=== PATIENT | male | born 1955 | race Caucasian/White ===

== ENCOUNTER 2016-03-26 08:22 | Emergency (ER) | payer BC ==
[~2016-03-26 08:22] MED LIST: AMIO20TA PO; ASPI81TA85 PO; COZA50TA PO; DIGO0.12 PO; ELIQ5TAB PO; FURO40TA2 PO; JANU100T PO; LEVO75TA4 PO; METF1000 PO; OMEG100011 PO; PRAD150C PO; RANI1TAB6 PO; SIMV10TA2 PO; SPIR25TA2 PO; VITA-112 PO
[2016-03-26 09:42] LABS: BASO % 0.4 % (0.0-1.0); EOS # 0.3 K/mm3 (0.0-0.50); EOS % 2.5 % (0.0-3.0); LARGE UNSTAINED CELL # 0.2 K/mm3 (0.0-0.4); LARGE UNSTAINED CELL % 1.4 % (0.0-4.0); LYMPH # 1.4 K/mm3 (1.5-4.5); LYMPH % 12.5 % (24.0-44.0); MEAN CORPUSCULAR HEMOGLOBIN 31.1 pg (27.0-33.0); MEAN CORPUSCULAR HGB CONC 34.1 g/dl (32.0-36.5); MEAN CORPUSCULAR VOLUME 91.1 fl (80.0-96.0); MONO # 0.5 K/mm3 (0.0-0.8); MONO % 4.7 % (0.0-5.0); NEUTROPHILS # 8.6 K/mm3 (1.8-7.7); NEUTROPHILS % 78.4 % (36.0-66.0); PLATELET COUNT, AUTOMATED 228 k/mm3 (150-450); RED CELL DISTRIBUTION WIDTH 12.2 % (11.5-14.5); WHITE BLOOD COUNT 10.9 K/mm3 (4.0-10.0)
[2016-03-26 09:46] LABS: INR 1.11
--- NOTE | 2016-03-26 10:03 | REP ---
ACUTE ABDOMINAL SERIES: 03/26/2016. Comparison: Chest x-ray 12/10/2015, acute abdominal series 04/22/2014. Clinical history: Trauma. PA chest: The lung tomlin are adequately inflated. There is no effusion, infiltrate, atelectasis or mass. Heart, mediastinal, hilar contours were normal and unchanged. No widened mediastinum. The aorta is smoothly margined without aneurysm. Airway intact. There is no vascular redistribution or edema. Visualized bones including clavicles, ribs, scapula and that portion of spine included were grossly unremarkable. No free air under the diaphragm. Flat upright abdomen: The gas pattern is nonspecific with scattered stool and gas throughout the colon without dilatation. There are anastomotic suture lines in the left upper quadrant above the iliac crest from prior small bowel surgery, these are unchanged compared to 04/22/2014. There are pelvic phleboliths evident but no mass, abnormal calcifications over the renal fossae, air fluid levels or free air. There are degenerative changes in the spine and hips although mild. Impression: 1. Nonspecific gas pattern without obstruction, mass or free air. 2. Anastomotic suture lines left upper quadrant from prior small bowel anastomosis, appearance unchanged from 2015 exam. 3. No acute bony finding. 4. PA chest without acute abnormality. Signed by Abdullahi Alvarado MD 03/26/2016 12:00 P
[2016-03-26 10:13] LABS: ANION GAP 8 MEQ/L (8-16); BLOOD UREA NITROGEN 21 MG/DL (7-18); CALCIUM LEVEL 8.9 MG/DL (8.5-10.1); CARBON DIOXIDE LEVEL 30 MEQ/L (21-32); CHLORIDE LEVEL 105 MEQ/L (98-107); GLOMERULAR FILTRATION RATE > 60.0 (>56); GLUCOSE, FASTING 172 MG/DL (70-105); POTASSIUM SERUM 4.7 MEQ/L (3.5-5.1); SODIUM LEVEL 143 MEQ/L (136-145)
--- NOTE | 2016-03-26 10:46 | EDDOCDS ---
Nurse's Notes [facility] Name: Edwin Strickland Age: 60 yrs Sex: Male : 1955 Arrival Date: 03/26/2016 Time: 08:22 Bed I4 / M4 Private MD: Papa Palacio Diagnosis: Contusion of lower back and pelvis;Contusion of right back wall of thorax Presentation: 03/26 08:28 Presenting complaint: Patient states: Right low pain from fall on icy steps this am, mlb1 denies hitting head denies LOC. Acute neurological deficits are not present. Mechanism of Injury: Fall from standing position. Adult Sepsis Screening: The patient does not have new or worsening altered mentation. Patient's respiratory rate is less than 22. Systolic blood pressure is greater than 100. Patient has a qSOFA score of 0- Negative Sepsis Screen. Suicide/Homicide risk assessment- the patient denies having any suicidal and/or homicidal ideations and does not present with any other emotional, behavioral or mental health complaints. 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 Transition of care: patient was not received from another setting of care. 08:28 Acuity: LUCIANO Level 4 mlb1 08:28 Method Of Arrival: Walkin/Carried/Asstd mlb1 Triage Assessment: 08:33 General: Appears in no apparent distress, Behavior is cooperative. Pain: Location: mlb1 right low back Pain currently is 10 out of 10 on a pain scale. Pt Declines HIV testing. Neurological: No deficits noted. Historical: - Allergies: no known allergies; - Home Meds: 1. simvastatin 10 mg Oral tab 1 tab once daily 2. amiodarone 200 mg Oral tab 1 tab once daily 3. digoxin 125 mcg Oral tab 1 tab once daily 4. spironolactone 25 mg Oral tab 0.5 tab once daily 5. metformin 1,000 mg Oral tab 1 tab 2 times per day 6. furosemide 40 mg Oral tab 1 tab once daily 7. Cozaar 50 mg Oral tab 1 tab once daily 8. Januvia 100 mg oral tab 1 tab once daily 9. levothyroxine 75 mcg Oral tab 1 tab once daily 10. Eliquis 5 mg oral tab 1 tab 2 times per day 11. Vitamin D Oral 1,000 unit daily 12. aspirin 81 mg Oral tab 1 tab once daily 13. ranitidine HCl 150 mg Oral cap 1 cap once daily - PMHx: Diabetes - NIDDM: controlled; CHF; Hypothyroidism; Hypertension; Atrial Fib; - PSHx: Hernia repair; wrist surgery; benign fatty tumor removal; septoplasty; - Social history: Smoking status: Patient states was never smoker of tobacco. No barriers to communication noted, The patient speaks fluent Icelandic, Speaks appropriately for age. - : The pt / caregiver states he / she is on anticoagulants: Eliquis Home medication list is obtained from the patient. - Exposure Risk Screening:: None identified. Screenin:19 Screening information is obtained from the patient. Fall risk: No risks identified. jjr Assistance ADL's: requires no assistance with activities of daily living. Abuse/DV Screen: The patient / caregiver reports he/she is: not in a situation that causes fear, pain or injury. Nutritional screening: No deficits noted. Advance Directives: There is no active DNR order. home support is adequate. Assessment: 09:19 General: Appears uncomfortable, well nourished, well groomed, Behavior is appropriate jjr for age. Respiratory: No deficits noted. Derm: Skin is pink, warm & dry. Musculoskeletal: Swelling absent Reports pain in right low back. 10:17 General: Appears in no apparent distress, continues to sit in chair in room, at jjr bedside, denies needs at this time, continues to report right low back pain. Vital Signs: 08:33 BP 172 / 85; Pulse 70; Resp 16; Temp 98.3(TE); Pulse Ox 97% on R/A; Weight 111.13 kg mlb1 (R); Height 5 ft. 8 in. (172.72 cm) (R); Pain 10/10; 10:44 BP 145 / 79; Pulse 58; Resp 18; Temp 97.3(O); Pulse Ox 95% on R/A; Pain 10/10; jjr 08:33 Body Mass Index 37.25 (111.13 kg, 172.72 cm) [facility] Vitals: 08:33 Log In Time: March 26, 2016 at 08:22. [facility] ED Course: 08:24 Patient visited by Nancy Cevallos Reg. lg 08:24 Papa Palacio is Private Physician. lg 08:24 Patient moved to Waiting lg 08:27 Patient visited by Radames Hughes RN. mlb1 08:28 Triage Initiated mlb1 08:34 Patient visited by Radames Hughes RN. mlb1 08:34 Patient moved to I4 / M4 mlb1 08:35 James Constantino PA is PHCP. btw 08:35 Judi Salinas MD is Attending Physician. btw 08:55 Patient visited by James Constantino PA. btw 09:19 Patient visited by Hanna Stinson RN. jjr 09:19 The patient / caregiver is instructed regarding the plan of care and ED course. jjr 09:26 Patient visited by Musa Gannon PCA. jlf 09:26 CBC with Diff Sent. jlf 09:26 Pt & Aptt Sent. jlf 09:26 BMP Sent. jlf 09:32 Patient name changed from Edwin\S\Cong\S\Raso\S\ to Edwin\S\ \S\Raso. EDMS 09:51 Patient visited by Musa Gannon PCA. jlf 10:17 Patient visited by Hanna Stinson RN. jjr 10:29 Papa Palacio is Referral Physician. btw 10:33 Abdomen, Flat\E\Upright,PA Chest Returned. EDMS 10:44 No IV's were initiated during this patient's visit. No procedures done that require jjr assistance. Point of Care Testing: Urine Dip: 09:51 pH: 5; ; Specific [place]: 1.015; Ketones: Negative; Glucose: Negative; Protein: jjr Negative; Leukocytes: Negative; Nitrite: Negative ; Blood: Negative; Bilirubin: Negative ; Urobilinogen: Normal Ranges: Order Results: Lab Order: BMP; SPEC'M 03/26/16 09:24 Test: GLUCOSE, FASTING; Value: 172; Range: 70-105; Abnormal: Above high normal; Units: MG/DL; Status: F Test: BLOOD UREA NITROGEN; Value: 21; Range: 7-18; Abnormal: Above high normal; Units: MG/DL; Status: F Test: CREATININE FOR GFR; Value: 1.30; Range: 0.70-1.30; Units: MG/DL; Status: F Test: GLOMERULAR FILTRATION RATE; Value: > 60.0; Range: >56; Status: F Test: SODIUM LEVEL; Value: 143; Range: 136-145; Units: MEQ/L; Status: F Test: POTASSIUM SERUM; Value: 4.7; Range: 3.5-5.1; Units: MEQ/L; Status: F Test: CHLORIDE LEVEL; Value: 105; Range: 98-107; Units: MEQ/L; Status: F Test: CARBON DIOXIDE LEVEL; Value: 30; Range: 21-32; Units: MEQ/L; Status: F Test: ANION GAP; Value: 8; Range: 8-16; Units: MEQ/L; Status: F Test: CALCIUM LEVEL; Value: 8.9; Range: 8.5-10.1; Units: MG/DL; Status: F Test Note: ; Units are mL/min/1.73 m2 Chronic Kidney Disease Staging per NKF: Stage I & II GFR >=60 Normal to Mildly Decreased Stage III GFR 30-59 Moderately Decreased Stage IV GFR 15-29 Severely Decreased Stage V GFR <15 Very Little GFR Left ESRD GFR <15 on SPLIT LEATHER MOSSER Lab Order: Pt & Aptt; SPEC'M 03/26/16 09:24 Test: PROTHROMBIN TIME; Value: 14.4; Range: 12.3-14.5; Units: SECONDS; Status: F Test: INR; Value: 1.11; Status: F Test: PARTIAL THROMBOPLASTIN TIME; Value: 31.2; Range: 26.6-37.1; Units: SECONDS; Status: F Test Note: ; THERAPUTIC HUMAN INR VALUES INDICATIONS NORMAL RANGES PROPHYLAXIS/TREATMENT OF: VENOUS THROMBOSIS 2.0-3.0 PULMONARY EMBOLISM 2.0-3.0 PREVENTION OF SYSTEMIC EMBOLISM FROM: TISSUE HEART VALVES 2.0-3.0 ACUTE MYOCARDIAL INFARCTION 2.0-3.0 VALVULAR HEART DISEASE 2.0-3.0 ATRIAL FIBRILLATION 2.0-3.0 MECHANICAL VALVES(HIGH RISK) 2.5-3.5 RECURRENT MYOCARDIAL INFARCTION 2.5-3.5 Lab Order: CBC with Diff; SPEC'03/26/16 09:24 Test: WHITE BLOOD COUNT; Value: 10.9; Range: 4.0-10.0; Abnormal: Above high normal; Units: K/mm3; Status: F Test: RED BLOOD COUNT; Value: 5.09; Range: 4.30-6.10; Units: M/mm3; Status: F Test: HEMOGLOBIN; Value: 15.8; Range: 14.0-18.0; Units: g/dl; Status: F Test: HEMATOCRIT; Value: 46.4; Range: 42.0-52.0; Units: %; Status: F Test: MEAN CORPUSCULAR VOLUME; Value: 91.1; Range: 80.0-96.0; Units: fl; Status: F Test: MEAN CORPUSCULAR HEMOGLOBIN; Value: 31.1; Range: 27.0-33.0; Units: pg; Status: F Test: MEAN CORPUSCULAR HGB CONC; Value: 34.1; Range: 32.0-36.5; Units: g/dl; Status: F Test: RED CELL DISTRIBUTION WIDTH; Value: 12.2; Range: 11.5-14.5; Units: %; Status: F Test: PLATELET COUNT, AUTOMATED; Value: 228; Range: 150-450; Units: k/mm3; Status: F Test: NEUTROPHILS %; Value: 78.4; Range: 36.0-66.0; Abnormal: Above high normal; Units: %; Status: F Test: LYMPH %; Value: 12.5; Range: 24.0-44.0; Abnormal: Below low normal; Units: %; Status: F Test: MONO %; Value: 4.7; Range: 0.0-5.0; Units: %; Status: F Test: EOS %; Value: 2.5; Range: 0.0-3.0; Units: %; Status: F Test: BASO %; Value: 0.4; Range: 0.0-1.0; Units: %; Status: F Test: LARGE UNSTAINED CELL %; Value: 1.4; Range: 0.0-4.0; Units: %; Status: F Test: NEUTROPHILS #; Value: 8.6; Range: 1.8-7.7; Abnormal: Above high normal; Units: K/mm3; Status: F Test: LYMPH #; Value: 1.4; Range: 1.5-4.5; Abnormal: Below low normal; Units: K/mm3; Status: F Test: MONO #; Value: 0.5; Range: 0.0-0.8; Units: K/mm3; Status: F Test: EOS #; Value: 0.3; Range: 0.0-0.50; Units: K/mm3; Status: F Test: BASO #; Value: 0.0; Range: 0.0-0.2; Units: K/mm3; Status: F Test: LARGE UNSTAINED CELL #; Value: 0.2; Range: 0.0-0.4; Units: K/mm3; Status: F Radiology Order: Abdomen, Flat\E\Upright,PA Chest Test: Abdomen, Flat\E\Upright,PA Chest REASON FOR EXAMINATION: Trauma; ACUTE ABDOMINAL SERIES: 03/26/2016.; ; Comparison: Chest x-ray 12/10/2015, acute abdominal series 04/22/2014.; ; Clinical history: Trauma.; ; PA chest:; The lung tomlin are adequately inflated. There is no effusion, infiltrate,; atelectasis or mass. Heart, mediastinal, hilar contours were normal and; unchanged. No widened mediastinum. The aorta is smoothly margined without; aneurysm. Airway intact. There is no vascular redistribution or edema.; Visualized bones including clavicles, ribs, scapula and that portion of spine; included were grossly unremarkable. No free air under the diaphragm.; ; Flat upright abdomen:; The gas pattern is nonspecific with scattered stool and gas throughout the colon; without dilatation. There are anastomotic suture lines in the left upper; quadrant above the iliac crest from prior small bowel surgery, these are; unchanged compared to 04/22/2014. There are pelvic phleboliths evident but no; mass, abnormal calcifications over the renal fossae, air fluid levels or free; air. There are degenerative changes in the spine and hips although mild.; ; Impression:; 1. Nonspecific gas pattern without obstruction, mass or free air.; 2. Anastomotic suture lines left upper quadrant from prior small bowel; anastomosis, appearance unchanged from 2015 exam.; 3. No acute bony finding.; 4. PA chest without acute abnormality.; ; Unreviewed; Outcome: 10:30 Discharge ordered by Provider. btw 10:44 Discharge Assessment: patient administered narcotics - no. The following High Risk jjr Discharge criteria are identified: None. Discharged to home ambulatory, with significant other. Condition: stable. Discharge instructions given to patient, Instructed on discharge instructions, follow up and referral plans. medication usage, Demonstrated understanding of instructions, medications, Prescriptions given X 2. No special radiology studies were completed. Property sent home with patient. 10:45 Patient left the ED. jjr Signatures: Dispatcher [employer] EDNancy Garner, Akash Reg Radames Marte RN RN mlb1 Hanna Stinson RN RN jjr James Constantino PA PA btw [place], Jordain, PCA PCA jlrodri Corrections: (The following items were deleted from the chart) 08:34 08:28 Presenting complaint: Patient states: Right low pain from fall on icy steps this mlb1 am mlb1 MTDD
--- NOTE | 2016-03-26 10:46 | EDDOCDS ---
Physician Documentation [facility] Name: Edwin Strickland Age: 60 yrs Sex: Male : 1955 Arrival Date: 03/26/2016 Time: 08:22 Bed I4 / M4 Private MD: Papa Palacio Disposition: 03/26/16 10:30 Discharged to Home/Self Care. Impression: Contusion of lower back and pelvis, Contusion of right back wall of thorax. - Condition is Stable. - Discharge Instructions: Back Pain, Adult, Contusion. - Prescriptions for Tramadol 50 mg Oral Tablet - take 1 tablet by ORAL route 4 times per day As needed MDD: 4 tabs; 20 tablet. Robaxin- 750 750 mg Oral Tablet - take 1 tablet by ORAL route every 6 hours As needed; 40 tablet. - Medication Reconciliation, Local Pharmacy Hours form. - Follow up: Papa Palacio; When: 1 - 2 days; Reason: Further diagnostic work-up, Recheck today's complaints, Continuance of care. - Problem is new. - Symptoms are unchanged. Historical: - Allergies: no known allergies; - Home Meds: 1. simvastatin 10 mg Oral tab 1 tab once daily 2. amiodarone 200 mg Oral tab 1 tab once daily 3. digoxin 125 mcg Oral tab 1 tab once daily 4. spironolactone 25 mg Oral tab 0.5 tab once daily 5. metformin 1,000 mg Oral tab 1 tab 2 times per day 6. furosemide 40 mg Oral tab 1 tab once daily 7. Cozaar 50 mg Oral tab 1 tab once daily 8. Januvia 100 mg oral tab 1 tab once daily 9. levothyroxine 75 mcg Oral tab 1 tab once daily 10. Eliquis 5 mg oral tab 1 tab 2 times per day 11. Vitamin D Oral 1,000 unit daily 12. aspirin 81 mg Oral tab 1 tab once daily 13. ranitidine HCl 150 mg Oral cap 1 cap once daily - PMHx: Diabetes - NIDDM: controlled; CHF; Hypothyroidism; Hypertension; Atrial Fib; - PSHx: Hernia repair; wrist surgery; benign fatty tumor removal; septoplasty; - Social history: Smoking status: Patient states was never smoker of tobacco. No barriers to communication noted, The patient speaks fluent Palauan, Speaks appropriately for age. - : The pt / caregiver states he / she is on anticoagulants: Eliquis Home medication list is obtained from the patient. - Exposure Risk Screening:: None identified. Vital Signs: 03/26 08:33 BP 172 / 85; Pulse 70; Resp 16; Temp 98.3(TE); Pulse Ox 97% on R/A; Weight 111.13 kg / mlb1 245 lbs (R); Height 5 ft. 8 in. (172.72 cm) (R); Pain 10/10; 10:44 BP 145 / 79; Pulse 58; Resp 18; Temp 97.3(O); Pulse Ox 95% on R/A; Pain 10/10; jjr 08:33 Body Mass Index 37.25 (111.13 kg, 172.72 cm) mlb1 MDM: 09:01 Urine Dip ordered. btw 09:02 BMP Ordered. EDMS 09:02 Pt & Aptt Ordered. EDMS 09:02 CBC with Diff Ordered. EDMS 09:03 Abdomen, Flat\E\Upright,PA Chest Ordered. EDMS 09:18 Financial registration complete. lg 10:25 BMP Reviewed. btw 10:25 CBC with Diff Reviewed. btw 10:25 Pt & Aptt Reviewed. btw Point of Care Testing: Urine Dip: 09:51 pH: 5; ; Specific [place]: 1.015; Ketones: Negative; Glucose: Negative; Protein: jjr Negative; Leukocytes: Negative; Nitrite: Negative ; Blood: Negative; Bilirubin: Negative ; Urobilinogen: Normal Ranges: Signatures: Dispatcher [employer] EDNancy Garner, Radames Mayer lg, RN RN mlb1 Hanna Stinson RN RN James Bell, CHARISSE PA btw MTDD
--- NOTE | 2016-03-28 11:46 | EDDOCDS ---
Physician Documentation [facility] Name: Edwin Strickland Age: 60 yrs Sex: Male : 1955 Arrival Date: 03/26/2016 Time: 08:22 Bed I4 / M4 Private MD: Papa Palacio Disposition: 03/26/16 10:30 Discharged to Home/Self Care. Impression: Contusion of lower back and pelvis, Contusion of right back wall of thorax. - Condition is Stable. - Discharge Instructions: Back Pain, Adult, Contusion. - Prescriptions for Tramadol 50 mg Oral Tablet - take 1 tablet by ORAL route 4 times per day As needed MDD: 4 tabs; 20 tablet. Robaxin- 750 750 mg Oral Tablet - take 1 tablet by ORAL route every 6 hours As needed; 40 tablet. - Medication Reconciliation, Local Pharmacy Hours form. - Follow up: Papa Palacio; When: 1 - 2 days; Reason: Further diagnostic work-up, Recheck today's complaints, Continuance of care. - Problem is new. - Symptoms are unchanged. Historical: - Allergies: no known allergies; - Home Meds: 1. simvastatin 10 mg Oral tab 1 tab once daily 2. amiodarone 200 mg Oral tab 1 tab once daily 3. digoxin 125 mcg Oral tab 1 tab once daily 4. spironolactone 25 mg Oral tab 0.5 tab once daily 5. metformin 1,000 mg Oral tab 1 tab 2 times per day 6. furosemide 40 mg Oral tab 1 tab once daily 7. Cozaar 50 mg Oral tab 1 tab once daily 8. Januvia 100 mg oral tab 1 tab once daily 9. levothyroxine 75 mcg Oral tab 1 tab once daily 10. Eliquis 5 mg oral tab 1 tab 2 times per day 11. Vitamin D Oral 1,000 unit daily 12. aspirin 81 mg Oral tab 1 tab once daily 13. ranitidine HCl 150 mg Oral cap 1 cap once daily - PMHx: Diabetes - NIDDM: controlled; CHF; Hypothyroidism; Hypertension; Atrial Fib; - PSHx: Hernia repair; wrist surgery; benign fatty tumor removal; septoplasty; - Social history: Smoking status: Patient states was never smoker of tobacco. No barriers to communication noted, The patient speaks fluent Pakistani, Speaks appropriately for age. - : The pt / caregiver states he / she is on anticoagulants: Eliquis Home medication list is obtained from the patient. - Exposure Risk Screening:: None identified. Vital Signs: 03/26 08:33 BP 172 / 85; Pulse 70; Resp 16; Temp 98.3(TE); Pulse Ox 97% on R/A; Weight 111.13 kg / mlb1 245 lbs (R); Height 5 ft. 8 in. (172.72 cm) (R); Pain 10/10; 10:44 BP 145 / 79; Pulse 58; Resp 18; Temp 97.3(O); Pulse Ox 95% on R/A; Pain 10/10; jjr 08:33 Body Mass Index 37.25 (111.13 kg, 172.72 cm) mlb1 MDM: 09:01 Urine Dip ordered. btw 09:02 BMP Ordered. EDMS 09:02 Pt & Aptt Ordered. EDMS 09:02 CBC with Diff Ordered. EDMS 09:03 Abdomen, Flat\E\Upright,PA Chest Ordered. EDMS 09:18 Financial registration complete. lg 10:25 BMP Reviewed. btw 10:25 CBC with Diff Reviewed. btw 10:25 Pt & Aptt Reviewed. btw 13:22 [facility] Payment Agreement was scanned into [employer] and attached to record. lg 13:30 T-Sheet-- Draft Copy was scanned into [employer] and attached to record. gb Point of Care Testing: Urine Dip: 09:51 pH: 5; ; Specific [place]: 1.015; Ketones: Negative; Glucose: Negative; Protein: jjr Negative; Leukocytes: Negative; Nitrite: Negative ; Blood: Negative; Bilirubin: Negative ; Urobilinogen: Normal Ranges: Signatures: Dispatcher [employer] EDMS Suri Doyle, Reg Reg gb Nancy Cevallos, Reg Reg lg Radames Hughes RN RN mlb1 Hanna Stinson RN RN jjr James Constantino PA PA btw The chart was reviewed and I authenticate all verbal orders and agree with the evaluation and treatment provided.Attachments: 13:22 [facility] Payment Agreement lg 13:30 T-Sheet-- Draft Copy gb Chart Complete MTDD
--- NOTE | 2016-03-28 11:46 | EDDOCDS ---
Nurse's Notes [facility] Name: Edwin Strickland Age: 60 yrs Sex: Male : 1955 Arrival Date: 03/26/2016 Time: 08:22 Bed I4 / M4 Private MD: Papa Palacio Diagnosis: Contusion of lower back and pelvis;Contusion of right back wall of thorax Presentation: 03/26 08:28 Presenting complaint: Patient states: Right low pain from fall on icy steps this am, mlb1 denies hitting head denies LOC. Acute neurological deficits are not present. Mechanism of Injury: Fall from standing position. Adult Sepsis Screening: The patient does not have new or worsening altered mentation. Patient's respiratory rate is less than 22. Systolic blood pressure is greater than 100. Patient has a qSOFA score of 0- Negative Sepsis Screen. Suicide/Homicide risk assessment- the patient denies having any suicidal and/or homicidal ideations and does not present with any other emotional, behavioral or mental health complaints. 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 Transition of care: patient was not received from another setting of care. 08:28 Acuity: LUCIANO Level 4 mlb1 08:28 Method Of Arrival: Walkin/Carried/Asstd mlb1 Triage Assessment: 08:33 General: Appears in no apparent distress, Behavior is cooperative. Pain: Location: mlb1 right low back Pain currently is 10 out of 10 on a pain scale. Pt Declines HIV testing. Neurological: No deficits noted. Historical: - Allergies: no known allergies; - Home Meds: 1. simvastatin 10 mg Oral tab 1 tab once daily 2. amiodarone 200 mg Oral tab 1 tab once daily 3. digoxin 125 mcg Oral tab 1 tab once daily 4. spironolactone 25 mg Oral tab 0.5 tab once daily 5. metformin 1,000 mg Oral tab 1 tab 2 times per day 6. furosemide 40 mg Oral tab 1 tab once daily 7. Cozaar 50 mg Oral tab 1 tab once daily 8. Januvia 100 mg oral tab 1 tab once daily 9. levothyroxine 75 mcg Oral tab 1 tab once daily 10. Eliquis 5 mg oral tab 1 tab 2 times per day 11. Vitamin D Oral 1,000 unit daily 12. aspirin 81 mg Oral tab 1 tab once daily 13. ranitidine HCl 150 mg Oral cap 1 cap once daily - PMHx: Diabetes - NIDDM: controlled; CHF; Hypothyroidism; Hypertension; Atrial Fib; - PSHx: Hernia repair; wrist surgery; benign fatty tumor removal; septoplasty; - Social history: Smoking status: Patient states was never smoker of tobacco. No barriers to communication noted, The patient speaks fluent Indonesian, Speaks appropriately for age. - : The pt / caregiver states he / she is on anticoagulants: Eliquis Home medication list is obtained from the patient. - Exposure Risk Screening:: None identified. Screenin:19 Screening information is obtained from the patient. Fall risk: No risks identified. jjr Assistance ADL's: requires no assistance with activities of daily living. Abuse/DV Screen: The patient / caregiver reports he/she is: not in a situation that causes fear, pain or injury. Nutritional screening: No deficits noted. Advance Directives: There is no active DNR order. home support is adequate. Assessment: 09:19 General: Appears uncomfortable, well nourished, well groomed, Behavior is appropriate jjr for age. Respiratory: No deficits noted. Derm: Skin is pink, warm & dry. Musculoskeletal: Swelling absent Reports pain in right low back. 10:17 General: Appears in no apparent distress, continues to sit in chair in room, at jjr bedside, denies needs at this time, continues to report right low back pain. Vital Signs: 08:33 BP 172 / 85; Pulse 70; Resp 16; Temp 98.3(TE); Pulse Ox 97% on R/A; Weight 111.13 kg mlb1 (R); Height 5 ft. 8 in. (172.72 cm) (R); Pain 10/10; 10:44 BP 145 / 79; Pulse 58; Resp 18; Temp 97.3(O); Pulse Ox 95% on R/A; Pain 10/10; jjr 08:33 Body Mass Index 37.25 (111.13 kg, 172.72 cm) [facility] Vitals: 08:33 Log In Time: March 26, 2016 at 08:22. [facility] ED Course: 08:24 Patient visited by Nancy Cevallos Reg. lg 08:24 Papa Palacio is Private Physician. lg 08:24 Patient moved to Waiting lg 08:27 Patient visited by Radames Hughes RN. mlb1 08:28 Triage Initiated mlb1 08:34 Patient visited by Radames Hughes RN. mlb1 08:34 Patient moved to I4 / M4 mlb1 08:35 James Constantino PA is PHCP. btw 08:35 Judi Salinas MD is Attending Physician. btw 08:55 Patient visited by James Constantino PA. btw 09:19 Patient visited by Hanna Stinson, RENU. jjr 09:19 The patient / caregiver is instructed regarding the plan of care and ED course. jjr 09:26 Patient visited by Musa Gannon PCA. jlf 09:26 CBC with Diff Sent. jlf 09:26 Pt & Aptt Sent. jlf 09:26 BMP Sent. jlf 09:32 Patient name changed from Edwin\S\Cong\S\Raso\S\ to Edwin\S\ \S\Raso. EDMS 09:51 Patient visited by Musa Gannon PCA. jlf 10:17 Patient visited by Hanna Stinson, RENU. jjr 10:29 Papa Palacio is Referral Physician. btw 10:33 Abdomen, Flat\E\Upright,PA Chest Returned. EDMS 10:44 No IV's were initiated during this patient's visit. No procedures done that require jjr assistance. 13:22 [facility] [place] was scanned into [employer] and attached to record. lg 13:30 T-Sheet-- Draft Copy was scanned into [employer] and attached to record. Point of Care Testing: Urine Dip: 09:51 pH: 5; ; Specific [place]: 1.015; Ketones: Negative; Glucose: Negative; Protein: jjr Negative; Leukocytes: Negative; Nitrite: Negative ; Blood: Negative; Bilirubin: Negative ; Urobilinogen: Normal Ranges: Order Results: Lab Order: BMP; SPEC'M 03/26/16 09:24 Test: GLUCOSE, FASTING; Value: 172; Range: 70-105; Abnormal: Above high normal; Units: MG/DL; Status: F Test: BLOOD UREA NITROGEN; Value: 21; Range: 7-18; Abnormal: Above high normal; Units: MG/DL; Status: F Test: CREATININE FOR GFR; Value: 1.30; Range: 0.70-1.30; Units: MG/DL; Status: F Test: GLOMERULAR FILTRATION RATE; Value: > 60.0; Range: >56; Status: F Test: SODIUM LEVEL; Value: 143; Range: 136-145; Units: MEQ/L; Status: F Test: POTASSIUM SERUM; Value: 4.7; Range: 3.5-5.1; Units: MEQ/L; Status: F Test: CHLORIDE LEVEL; Value: 105; Range: 98-107; Units: MEQ/L; Status: F Test: CARBON DIOXIDE LEVEL; Value: 30; Range: 21-32; Units: MEQ/L; Status: F Test: ANION GAP; Value: 8; Range: 8-16; Units: MEQ/L; Status: F Test: CALCIUM LEVEL; Value: 8.9; Range: 8.5-10.1; Units: MG/DL; Status: F Test Note: ; Units are mL/min/1.73 m2 Chronic Kidney Disease Staging per NKF: Stage I & II GFR >=60 Normal to Mildly Decreased Stage III GFR 30-59 Moderately Decreased Stage IV GFR 15-29 Severely Decreased Stage V GFR <15 Very Little GFR Left ESRD GFR <15 on LUMBER STRAIGHTENER Lab Order: Pt & Aptt; SPEC'03/26/16 09:24 Test: PROTHROMBIN TIME; Value: 14.4; Range: 12.3-14.5; Units: SECONDS; Status: F Test: INR; Value: 1.11; Status: F Test: PARTIAL THROMBOPLASTIN TIME; Value: 31.2; Range: 26.6-37.1; Units: SECONDS; Status: F Test Note: ; THERAPUTIC HUMAN INR VALUES INDICATIONS NORMAL RANGES PROPHYLAXIS/TREATMENT OF: VENOUS THROMBOSIS 2.0-3.0 PULMONARY EMBOLISM 2.0-3.0 PREVENTION OF SYSTEMIC EMBOLISM FROM: TISSUE HEART VALVES 2.0-3.0 ACUTE MYOCARDIAL INFARCTION 2.0-3.0 VALVULAR HEART DISEASE 2.0-3.0 ATRIAL FIBRILLATION 2.0-3.0 MECHANICAL VALVES(HIGH RISK) 2.5-3.5 RECURRENT MYOCARDIAL INFARCTION 2.5-3.5 Lab Order: CBC with Diff; SPEC'M 03/26/16 09:24 Test: WHITE BLOOD COUNT; Value: 10.9; Range: 4.0-10.0; Abnormal: Above high normal; Units: K/mm3; Status: F Test: RED BLOOD COUNT; Value: 5.09; Range: 4.30-6.10; Units: M/mm3; Status: F Test: HEMOGLOBIN; Value: 15.8; Range: 14.0-18.0; Units: g/dl; Status: F Test: HEMATOCRIT; Value: 46.4; Range: 42.0-52.0; Units: %; Status: F Test: MEAN CORPUSCULAR VOLUME; Value: 91.1; Range: 80.0-96.0; Units: fl; Status: F Test: MEAN CORPUSCULAR HEMOGLOBIN; Value: 31.1; Range: 27.0-33.0; Units: pg; Status: F Test: MEAN CORPUSCULAR HGB CONC; Value: 34.1; Range: 32.0-36.5; Units: g/dl; Status: F Test: RED CELL DISTRIBUTION WIDTH; Value: 12.2; Range: 11.5-14.5; Units: %; Status: F Test: PLATELET COUNT, AUTOMATED; Value: 228; Range: 150-450; Units: k/mm3; Status: F Test: NEUTROPHILS %; Value: 78.4; Range: 36.0-66.0; Abnormal: Above high normal; Units: %; Status: F Test: LYMPH %; Value: 12.5; Range: 24.0-44.0; Abnormal: Below low normal; Units: %; Status: F Test: MONO %; Value: 4.7; Range: 0.0-5.0; Units: %; Status: F Test: EOS %; Value: 2.5; Range: 0.0-3.0; Units: %; Status: F Test: BASO %; Value: 0.4; Range: 0.0-1.0; Units: %; Status: F Test: LARGE UNSTAINED CELL %; Value: 1.4; Range: 0.0-4.0; Units: %; Status: F Test: NEUTROPHILS #; Value: 8.6; Range: 1.8-7.7; Abnormal: Above high normal; Units: K/mm3; Status: F Test: LYMPH #; Value: 1.4; Range: 1.5-4.5; Abnormal: Below low normal; Units: K/mm3; Status: F Test: MONO #; Value: 0.5; Range: 0.0-0.8; Units: K/mm3; Status: F Test: EOS #; Value: 0.3; Range: 0.0-0.50; Units: K/mm3; Status: F Test: BASO #; Value: 0.0; Range: 0.0-0.2; Units: K/mm3; Status: F Test: LARGE UNSTAINED CELL #; Value: 0.2; Range: 0.0-0.4; Units: K/mm3; Status: F Radiology Order: Abdomen, Flat\E\Upright,PA Chest Test: Abdomen, Flat\E\Upright,PA Chest REASON FOR EXAMINATION: Trauma; ACUTE ABDOMINAL SERIES: 03/26/2016.; ; Comparison: Chest x-ray 12/10/2015, acute abdominal series 04/22/2014.; ; Clinical history: Trauma.; ; PA chest:; ; The lung tomlin are adequately inflated. There is no effusion, infiltrate,; atelectasis or mass. Heart, mediastinal, hilar contours were normal and; unchanged. No widened mediastinum. The aorta is smoothly margined without; aneurysm. Airway intact. There is no vascular redistribution or edema.; Visualized bones including clavicles, ribs, scapula and that portion of spine; included were grossly unremarkable. No free air under the diaphragm.; ; Flat upright abdomen:; ; The gas pattern is nonspecific with scattered stool and gas throughout the colon; without dilatation. There are anastomotic suture lines in the left upper; quadrant above the iliac crest from prior small bowel surgery, these are; unchanged compared to 04/22/2014. There are pelvic phleboliths evident but no; mass, abnormal calcifications over the renal fossae, air fluid levels or free; air. There are degenerative changes in the spine and hips although mild.; ; Impression:; ; 1. Nonspecific gas pattern without obstruction, mass or free air.; ; 2. Anastomotic suture lines left upper quadrant from prior small bowel; anastomosis, appearance unchanged from 2015 exam.; ; 3. No acute bony finding.; ; 4. PA chest without acute abnormality.; ; ; Signed by; Abdullahi Alvarado MD 03/26/2016 12:00 P; Outcome: 10:30 Discharge ordered by Provider. bt 10:44 Discharge Assessment: patient administered narcotics - no. The following High Risk jjr Discharge criteria are identified: None. Discharged to home ambulatory, with significant other. Condition: stable. Discharge instructions given to patient, Instructed on discharge instructions, follow up and referral plans. medication usage, Demonstrated understanding of instructions, medications, Prescriptions given X 2. No special radiology studies were completed. Property sent home with patient. 10:45 Patient left the ED. jjr Signatures: Dispatcher [employer] EDMS Suri Doyle, Reg Reg gb Nancy Cevallos, Reg Reg lg Radames Hughes RN RN mlb1 Hanna Stinson RN RN jjr James Constantino PA PA Musa Ybarra, AMADOU PROGRAM EVALUATION CONSULTANT jlf Corrections: (The following items were deleted from the chart) 08:34 08:28 Presenting complaint: Patient states: Right low pain from fall on icy steps this mlb1 am mlb1 Chart Complete MTDD
--- NOTE | 2016-03-28 11:46 | EDDOCDS ---
Physician Documentation [facility] Name: Edwin Strickland Age: 60 yrs Sex: Male : 1955 Arrival Date: 03/26/2016 Time: 08:22 Bed I4 / M4 Private MD: Papa Palacio Disposition: 03/26/16 10:30 Discharged to Home/Self Care. Impression: Contusion of lower back and pelvis, Contusion of right back wall of thorax. - Condition is Stable. - Discharge Instructions: Back Pain, Adult, Contusion. - Prescriptions for Tramadol 50 mg Oral Tablet - take 1 tablet by ORAL route 4 times per day As needed MDD: 4 tabs; 20 tablet. Robaxin- 750 750 mg Oral Tablet - take 1 tablet by ORAL route every 6 hours As needed; 40 tablet. - Medication Reconciliation, Local Pharmacy Hours form. - Follow up: Papa Palacio; When: 1 - 2 days; Reason: Further diagnostic work-up, Recheck today's complaints, Continuance of care. - Problem is new. - Symptoms are unchanged. Historical: - Allergies: no known allergies; - Home Meds: 1. simvastatin 10 mg Oral tab 1 tab once daily 2. amiodarone 200 mg Oral tab 1 tab once daily 3. digoxin 125 mcg Oral tab 1 tab once daily 4. spironolactone 25 mg Oral tab 0.5 tab once daily 5. metformin 1,000 mg Oral tab 1 tab 2 times per day 6. furosemide 40 mg Oral tab 1 tab once daily 7. Cozaar 50 mg Oral tab 1 tab once daily 8. Januvia 100 mg oral tab 1 tab once daily 9. levothyroxine 75 mcg Oral tab 1 tab once daily 10. Eliquis 5 mg oral tab 1 tab 2 times per day 11. Vitamin D Oral 1,000 unit daily 12. aspirin 81 mg Oral tab 1 tab once daily 13. ranitidine HCl 150 mg Oral cap 1 cap once daily - PMHx: Diabetes - NIDDM: controlled; CHF; Hypothyroidism; Hypertension; Atrial Fib; - PSHx: Hernia repair; wrist surgery; benign fatty tumor removal; septoplasty; - Social history: Smoking status: Patient states was never smoker of tobacco. No barriers to communication noted, The patient speaks fluent Cape Verdean, Speaks appropriately for age. - : The pt / caregiver states he / she is on anticoagulants: Eliquis Home medication list is obtained from the patient. - Exposure Risk Screening:: None identified. Vital Signs: 03/26 08:33 BP 172 / 85; Pulse 70; Resp 16; Temp 98.3(TE); Pulse Ox 97% on R/A; Weight 111.13 kg / mlb1 245 lbs (R); Height 5 ft. 8 in. (172.72 cm) (R); Pain 10/10; 10:44 BP 145 / 79; Pulse 58; Resp 18; Temp 97.3(O); Pulse Ox 95% on R/A; Pain 10/10; jjr 08:33 Body Mass Index 37.25 (111.13 kg, 172.72 cm) mlb1 MDM: 09:01 Urine Dip ordered. btw 09:02 BMP Ordered. EDMS 09:02 Pt & Aptt Ordered. EDMS 09:02 CBC with Diff Ordered. EDMS 09:03 Abdomen, Flat\E\Upright,PA Chest Ordered. EDMS 09:18 Financial registration complete. lg 10:25 BMP Reviewed. btw 10:25 CBC with Diff Reviewed. btw 10:25 Pt & Aptt Reviewed. btw 13:22 [facility] Payment Agreement was scanned into mobileo and attached to record. lg 13:30 T-Sheet-- Draft Copy was scanned into mobileo and attached to record. gb Point of Care Testing: Urine Dip: 09:51 pH: 5; ; Specific [place]: 1.015; Ketones: Negative; Glucose: Negative; Protein: jjr Negative; Leukocytes: Negative; Nitrite: Negative ; Blood: Negative; Bilirubin: Negative ; Urobilinogen: Normal Ranges: Signatures: Dispatcher [employer] EDMS Suri Doyle, Reg Reg gb Nancy Cevallos, Reg Reg lg Radames Hughes RN RN mlb1 Hanna Stinson RN RN jjr James Constantino PA PA btw The chart was reviewed and I authenticate all verbal orders and agree with the evaluation and treatment provided.Attachments: 13:22 [facility] Payment Agreement lg 13:30 T-Sheet-- Draft Copy gb Chart Complete MTDD
== END 2016-03-26 10:45 | disposition home or self-care (01) ==
LOC: M ED 08:22
DX: S20.229A Contusion of unspecified back wall of thorax, initial encounter (principal); W10.9XXA Fall (on) (from) unspecified stairs and steps, initial encounter; Y92.89 Other specified places as the place of occurrence of the external cause; Y93.01 Activity, walking, marching and hiking; Y99.8 Other external cause status; E11.9 Type 2 diabetes mellitus without complications; I50.20 Unspecified systolic (congestive) heart failure; E03.9 Hypothyroidism, unspecified; I10 Essential (primary) hypertension; I48.91 Unspecified atrial fibrillation; Z79.84 Long term (current) use of oral hypoglycemic drugs; Z79.899 Other long term (current) drug therapy; Z79.01 Long term (current) use of anticoagulants; Z79.82 Long term (current) use of aspirin

== ENCOUNTER → 2016-12-03 | Outpatient (CLI) | payer BC ==
[~2016-12-03] MED LIST changes: -METF1000 PO; +METF10004 PO
--- NOTE | 2016-12-03 08:08 | REP ---
Clinical: Hypercholesterolemia . Comparison: 12/10/2015 . Technique: PA and lateral. Findings: The mediastinum and cardiac silhouette are normal. The lung tomlin are clear and without acute consolidation, effusion, or pneumothorax. The skeletal structures are intact and normal. Impression: 1. No acute cardiopulmonary process. Signed by Rg Weiss MD 12/03/2016 07:59 A
[2016-12-03 09:10] LABS: ALBUMIN 3.6 GM/DL (3.2-5.2); ALBUMIN/GLOBULIN RATIO 1.16 (1.00-1.93); ALKALINE PHOSPHATASE 78 U/L (45-117); ALT/SGPT 30 U/L (12-78); ANION GAP 7 MEQ/L (8-16); AST/SGOT 15 U/L (15-37); BILIRUBIN,TOTAL 0.4 MG/DL (0.2-1.0); BLOOD UREA NITROGEN 19 MG/DL (7-18); CALCIUM LEVEL 9.1 MG/DL (8.8-10.2); CARBON DIOXIDE LEVEL 31 MEQ/L (21-32); CHLORIDE LEVEL 104 MEQ/L (98-107); CHOLESTEROL LEVEL 155 MG/DL (<200); CREATININE FOR GFR 1.28 MG/DL (0.70-1.30); GLOMERULAR FILTRATION RATE > 60.0 (>49); GLUCOSE, FASTING 148 MG/DL (80-110); MAGNESIUM LEVEL 2.2 MG/DL (1.8-2.4); POTASSIUM SERUM 4.2 MEQ/L (3.5-5.1); SODIUM LEVEL 142 MEQ/L (136-145); TOTAL PROTEIN 6.7 GM/DL (6.4-8.2); TRIGLYCERIDES LEVEL 181 MG/DL (<150)
== END ==
LOC: M LAB 07:22
PROVIDERS: ATTEND Physician Assistant
DX: E78.00 Pure hypercholesterolemia, unspecified (principal)

== ENCOUNTER → 2016-12-23 | Outpatient (CLI) | payer BC ==
[2016-12-23 08:20] LABS: MEAN CORPUSCULAR HEMOGLOBIN 30.7 pg (27.0-33.0); MEAN CORPUSCULAR HGB CONC 33.3 g/dl (32.0-36.5); MEAN CORPUSCULAR VOLUME 92.1 fl (80.0-96.0); RED CELL DISTRIBUTION WIDTH 13.1 % (11.5-14.5); WHITE BLOOD COUNT 9.7 10^3/uL (4.0-10.0)
== END ==
LOC: M LAB 07:39
PROVIDERS: ATTEND Physician Assistant
DX: I48.0 Paroxysmal atrial fibrillation (principal)

== ENCOUNTER → 2017-06-07 | Outpatient (CLI) | payer OTHER ==
[2017-06-07 08:05] LABS: HEMATOCRIT 47.1 % (42.0-52.0); HEMOGLOBIN 15.5 g/dl (13.5-17.5); MEAN CORPUSCULAR HEMOGLOBIN 30.2 pg (27.0-33.0); MEAN CORPUSCULAR HGB CONC 32.9 g/dl (32.0-36.5); MEAN CORPUSCULAR VOLUME 91.8 fl (80.0-96.0); PLATELET COUNT, AUTOMATED 264 10^3/uL (150-450); RED BLOOD COUNT 5.13 10^6/uL (4.30-6.10); RED CELL DISTRIBUTION WIDTH 12.5 % (11.5-14.5); WHITE BLOOD COUNT 9.8 10^3/uL (4.0-10.0)
[2017-06-07 08:29] LABS: ALBUMIN 3.6 GM/DL (3.2-5.2); ALBUMIN/GLOBULIN RATIO 1.09 (1.00-1.93); ALKALINE PHOSPHATASE 92 U/L (45-117); ALT/SGPT 26 U/L (12-78); ANION GAP 4 MEQ/L (8-16); AST/SGOT 12 U/L (7-37); BILIRUBIN,TOTAL 0.5 MG/DL (0.2-1.0); BLOOD UREA NITROGEN 23 MG/DL (7-18); CALCIUM LEVEL 9.2 MG/DL (8.8-10.2); CARBON DIOXIDE LEVEL 31 MEQ/L (21-32); CHLORIDE LEVEL 106 MEQ/L (98-107); CREATININE FOR GFR 1.25 MG/DL (0.70-1.30); GLOMERULAR FILTRATION RATE > 60.0 (>49); GLUCOSE, FASTING 186 MG/DL (70-100); POTASSIUM SERUM 4.6 MEQ/L (3.5-5.1); SODIUM LEVEL 141 MEQ/L (136-145); TOTAL PROTEIN 6.9 GM/DL (6.4-8.2)
== END ==
LOC: M LAB 07:27
DX: I48.0 Paroxysmal atrial fibrillation (principal); I50.42 Chronic combined systolic (congestive) and diastolic (congestive) heart failure
CPT/HCPCS: 71046

== ENCOUNTER → 2017-12-13 | Outpatient (CLI) | payer OTHER ==
[2017-12-13 08:24] LABS: HEMATOCRIT 46.1 % (42.0-52.0); HEMOGLOBIN 15.1 g/dl (13.5-17.5); MEAN CORPUSCULAR HEMOGLOBIN 30.2 pg (27.0-33.0); MEAN CORPUSCULAR HGB CONC 32.8 g/dl (32.0-36.5); MEAN CORPUSCULAR VOLUME 92.2 fl (80.0-96.0); PLATELET COUNT, AUTOMATED 260 10^3/uL (150-450); WHITE BLOOD COUNT 11.4 10^3/uL (4.0-10.0)
[2017-12-13 08:51] LABS: ALBUMIN 3.7 GM/DL (3.2-5.2); ALBUMIN/GLOBULIN RATIO 1.28 (1.00-1.93); ALKALINE PHOSPHATASE 82 U/L (45-117); ALT/SGPT 28 U/L (12-78); ANION GAP 6 MEQ/L (8-16); AST/SGOT 14 U/L (7-37); BILIRUBIN,TOTAL 0.5 MG/DL (0.2-1.0); BLOOD UREA NITROGEN 21 MG/DL (7-18); CARBON DIOXIDE LEVEL 31 MEQ/L (21-32); CHLORIDE LEVEL 106 MEQ/L (98-107); CREATININE FOR GFR 1.17 MG/DL (0.70-1.30); GLOMERULAR FILTRATION RATE > 60.0 (>49); GLUCOSE, FASTING 170 MG/DL (70-100); MAGNESIUM LEVEL 1.9 MG/DL (1.8-2.4); POTASSIUM SERUM 4.3 MEQ/L (3.5-5.1); SODIUM LEVEL 143 MEQ/L (136-145); TOTAL PROTEIN 6.6 GM/DL (6.4-8.2)
== END ==
LOC: M LAB 07:26
DX: I48.0 Paroxysmal atrial fibrillation (principal); I50.42 Chronic combined systolic (congestive) and diastolic (congestive) heart failure
CPT/HCPCS: 71046

== ENCOUNTER → 2018-04-21 | Outpatient (CLI) | payer BC ==
[~2018-04-21] MED LIST changes: +SPIR-10 PO; -SPIR25TA2 PO
--- NOTE | 2018-04-21 14:59 | REP ---
SCROTAL ULTRASOUND: Real-time sonographic evaluation of the scrotum and contents are performed. Right testicle measures 4.1 x 1.8 x 2.4 cm and left testicle 4.0 x 1.9 x 2.5 cm. Testicles demonstrates no mass or torsion. Resistive index right testicle 0.69 and left testicle 0.65 with duplex Doppler evaluation. Right epididymis demonstrates a 6 mm cyst in the head of the epididymis. Septated cystic area seen in the inferior right inguinal canal measuring 3.0 x 1.3 x 3.3 cm, lateral to the spermatic cord. There is a moderate right varicocele. IMPRESSION: No testicular mass or torsion. 6 mm cyst in the head of the right epididymis. There is a septated cyst in the right inguinal canal above the epididymis and lateral to the spermatic cord, in the inferior aspect of the inguinal canal. This measures 3.0 x 1.3 x 3.3 cm. Electronically Signed by Vincent Ramirez MD 04/22/2018 03:50 P
== END ==
LOC: M RAD 12:10
PROVIDERS: ATTEND Nurse Practitioner Women's Health
DX: N50.3 Cyst of epididymis (principal); I86.1 Scrotal varices

== ENCOUNTER → 2018-06-13 | Outpatient (CLI) | payer BC ==
[~2018-06-13] MED LIST changes: +AMIO200T10 PO; -AMIO20TA PO; -PRAD150C PO; +PRAD150C6 PO
[2018-06-13 07:49] LABS: HEMATOCRIT 45.7 % (42.0-52.0); HEMOGLOBIN 15.1 g/dl (13.5-17.5); MEAN CORPUSCULAR HEMOGLOBIN 30.5 pg (27.0-33.0); MEAN CORPUSCULAR VOLUME 92.3 fl (80.0-96.0); PLATELET COUNT, AUTOMATED 212 10^3/uL (150-450); RED BLOOD COUNT 4.95 10^6/uL (4.30-6.10); WHITE BLOOD COUNT 8.8 10^3/uL (4.0-10.0)
[2018-06-13 08:16] LABS: ALBUMIN 3.6 GM/DL (3.2-5.2); BILIRUBIN,TOTAL 0.4 MG/DL (0.2-1.0); CALCIUM LEVEL 8.8 MG/DL (8.8-10.2); CHOLESTEROL RISK RATIO 3.936 (<5); CREATININE FOR GFR 1.37 MG/DL (0.70-1.30); GLOMERULAR FILTRATION RATE 56.1 (>49); POTASSIUM SERUM 4.6 MEQ/L (3.5-5.1); TOTAL PROTEIN 6.5 GM/DL (6.4-8.2)
== END ==
LOC: M LAB 07:23
PROVIDERS: ATTEND Physician Assistant
DX: I48.0 Paroxysmal atrial fibrillation (principal); I50.42 Chronic combined systolic (congestive) and diastolic (congestive) heart failure; E78.00 Pure hypercholesterolemia, unspecified

== ENCOUNTER → 2018-07-14 | Outpatient (CLI) | payer BC ==
--- NOTE | 2018-07-15 06:36 | REP ---
Clinical: Follow-up complex right scrotal lesion. Comparison: 04/21/2018 Technique: Ramirez scale and color Doppler evaluation using linear and curved array transducer with color Doppler evaluation. Findings: The testicles and epididymi are relatively normal in contour, size, echogenicity, vascularity and overall appearance. There is no evidence for intratesticular mass lesion, infectious/inflammatory process, or torsion. No obvious hydroceles or significant varicoceles are identified. Complex cystic structure extending from the lower right inguinal canal into the upper right supa scrotum is again identified and currently measures 4.8 x 1.6 x 3.3 cm without significant change from prior examination. Right testicle measures 3.4 x 1.7 x 2.6 cm cm. Left testicle measures 3.8 x 1.8 x 2.7 cm cm. Impression: 1. Normal appearance the bilateral testicles. 2. No significant change from prior examination with complex cystic area involving the right supa scrotum/lower inguinal canal. Differential diagnosis includes but is not limited to complex inguinal hernia and complex focus of spermatoceles. Electronically Signed by Rg Weiss MD 07/15/2018 06:27 A
== END ==
LOC: M RAD 06:32
PROVIDERS: ATTEND Nurse Practitioner Women's Health
DX: N50.89 Other specified disorders of the male genital organs (principal)

== ENCOUNTER → 2018-12-15 | Outpatient (CLI) | payer BC ==
[~2018-12-15] MED LIST changes: +RANI-356 PO; -RANI1TAB6 PO
--- NOTE | 2018-12-15 11:07 | REP ---
Chest x-ray: Two views. History: Paroxysmal atrial fibrillation. Comparison study: December 13, 2017. Findings: The lungs are symmetrically aerated and clear. The pleural angles are sharp. Heart size is normal. Pulmonary vasculature is not increased. No significant bony abnormality is seen. Impression: No active disease. Electronically Signed by Kyle Duff MD 12/15/2018 10:59 A
[2018-12-15 11:29] LABS: HEMATOCRIT 47.9 % (42.0-52.0); HEMOGLOBIN 15.8 g/dl (13.5-17.5); MEAN CORPUSCULAR HEMOGLOBIN 30.7 pg (27.0-33.0); MEAN CORPUSCULAR VOLUME 93.2 fl (80.0-96.0); PLATELET COUNT, AUTOMATED 201 10^3/uL (150-450); RED BLOOD COUNT 5.14 10^6/uL (4.30-6.10); WHITE BLOOD COUNT 9.4 10^3/uL (4.0-10.0)
[2018-12-15 12:09] LABS: ALBUMIN 3.8 GM/DL (3.2-5.2); ALT/SGPT 34 U/L (12-78); BILIRUBIN,TOTAL 0.8 MG/DL (0.2-1.0); BLOOD UREA NITROGEN 23 MG/DL (7-18); CALCIUM LEVEL 9.1 MG/DL (8.8-10.2); CARBON DIOXIDE LEVEL 32 MEQ/L (21-32); CHLORIDE LEVEL 105 MEQ/L (98-107); CREATININE FOR GFR 1.23 MG/DL (0.70-1.30); GLOMERULAR FILTRATION RATE > 60.0 (>49); GLUCOSE, FASTING 162 MG/DL (70-100); MAGNESIUM LEVEL 2.2 MG/DL (1.8-2.4); POTASSIUM SERUM 4.7 MEQ/L (3.5-5.1); SODIUM LEVEL 141 MEQ/L (136-145); TOTAL PROTEIN 6.9 GM/DL (6.4-8.2)
== END ==
LOC: M LAB 10:19
PROVIDERS: ATTEND Physician Assistant
DX: I48.0 Paroxysmal atrial fibrillation (principal); I50.42 Chronic combined systolic (congestive) and diastolic (congestive) heart failure; E78.00 Pure hypercholesterolemia, unspecified

== ENCOUNTER → 2019-06-05 | Outpatient (CLI) | payer OTHER ==
[~2019-06-05] MED LIST changes: -RANI-356 PO; +RANI-397 PO; -SIMV10TA2 PO; +SIMV10TA21 PO
--- NOTE | 2019-06-05 10:44 | REP ---
REASON: History of atrial fibrillation. COMPARISON: Multiples. FINDINGS: The superior mediastinal structures are midline. The cardiac silhouette is unremarkable in size, shape, and position. The diaphragmatic surfaces of the lungs are regular, and the costophrenic angles are clear. The pulmonary tomlin are clear. The imaged osseous structures are intact. IMPRESSION: There is no acute cardiopulmonary disease. No significant change from the prior exam. Electronically Signed by Jon Lorenzo DO 06/05/2019 12:56 P
[2019-06-05 13:33] LABS: HEMATOCRIT 53.4 % (42.0-52.0); HEMOGLOBIN 17.1 g/dl (13.5-17.5); MEAN CORPUSCULAR VOLUME 93.7 fl (80.0-96.0); PLATELET COUNT, AUTOMATED 254 10^3/uL (150-450); WHITE BLOOD COUNT 10.7 10^3/uL (4.0-10.0)
[2019-06-05 13:59] LABS: CALCIUM LEVEL 9.8 MG/DL (8.8-10.2); CREATININE FOR GFR 1.42 MG/DL (0.70-1.30); GLOMERULAR FILTRATION RATE 53.6 (>49); POTASSIUM SERUM 4.6 MEQ/L (3.5-5.1)
[2019-06-05 14:00] LABS: BILIRUBIN,TOTAL 0.8 MG/DL (0.2-1.0); MAGNESIUM LEVEL 2.2 MG/DL (1.8-2.4); TOTAL PROTEIN 7.1 GM/DL (6.4-8.2)
== END ==
LOC: M WUC 08:43
PROVIDERS: ATTEND Physician Assistant
DX: I48.0 Paroxysmal atrial fibrillation (principal); I50.42 Chronic combined systolic (congestive) and diastolic (congestive) heart failure

== ENCOUNTER → 2019-12-06 | Outpatient (CLI) | payer OTHER ==
[~2019-12-06] MED LIST changes: -ASPI81TA85 PO; +ASPI81TA86 PO
[2019-12-06 11:07] LABS: HEMATOCRIT 50.6 % (42.0-52.0); HEMOGLOBIN 16.1 g/dl (13.5-17.5); MEAN CORPUSCULAR HEMOGLOBIN 30.1 pg (27.0-33.0); MEAN CORPUSCULAR HGB CONC 31.8 g/dl (32.0-36.5); MEAN CORPUSCULAR VOLUME 94.6 fl (80.0-96.0); PLATELET COUNT, AUTOMATED 250 10^3/uL (150-450); RED BLOOD COUNT 5.35 10^6/uL (4.30-6.10); WHITE BLOOD COUNT 10.6 10^3/uL (4.0-10.0)
[2019-12-06 11:51] LABS: ALBUMIN 3.8 GM/DL (3.2-5.2); BILIRUBIN,TOTAL 0.6 MG/DL (0.2-1.0); CALCIUM LEVEL 9.9 MG/DL (8.8-10.2); CHOLESTEROL RISK RATIO 2.934 (<5); CREATININE FOR GFR 1.29 MG/DL (0.70-1.30); GLOMERULAR FILTRATION RATE 59.9 (>49); POTASSIUM SERUM 4.7 MEQ/L (3.5-5.1); TOTAL PROTEIN 6.8 GM/DL (6.4-8.2)
== END ==
LOC: M WUC 08:06
PROVIDERS: ATTEND Physician Assistant
DX: I50.42 Chronic combined systolic (congestive) and diastolic (congestive) heart failure (principal); I48.0 Paroxysmal atrial fibrillation; E78.00 Pure hypercholesterolemia, unspecified

== ENCOUNTER → 2020-04-30 | Outpatient (CLI) | payer OTHER ==
[2020-04-30 11:47] LABS: HEMOGLOBIN A1c 7.5 %
[2020-04-30 12:27] LABS: ALBUMIN 3.8 GM/DL (3.2-5.2); ALT/SGPT 21 U/L (12-78); BILIRUBIN,TOTAL 0.7 MG/DL (0.2-1.0); BLOOD UREA NITROGEN 25 MG/DL (7-18); CALCIUM LEVEL 9.5 MG/DL (8.8-10.2); CARBON DIOXIDE LEVEL 29 MEQ/L (21-32); CHLORIDE LEVEL 106 MEQ/L (98-107); CHOLESTEROL LEVEL 155 MG/DL (<200); CHOLESTEROL RISK RATIO 3.444 (<5); CREATININE FOR GFR 1.23 MG/DL (0.70-1.30); GLOMERULAR FILTRATION RATE > 60.0 (>49); GLUCOSE, FASTING 155 MG/DL (70-100); HDL CHOLESTEROL 45 MG/DL (>40); LDL CHOLESTEROL 91 MG/DL (<100); NON-HDL-C 110 MG/DL; POTASSIUM SERUM 4.4 MEQ/L (3.5-5.1); SODIUM LEVEL 142 MEQ/L (136-145); TOTAL PROTEIN 6.5 GM/DL (6.4-8.2); TRIGLYCERIDES LEVEL 93 MG/DL (<150)
== END ==
LOC: M WUC 08:54
PROVIDERS: ATTEND Internal Medicine
DX: E78.5 Hyperlipidemia, unspecified (principal); I48.91 Unspecified atrial fibrillation; E03.9 Hypothyroidism, unspecified; E11.9 Type 2 diabetes mellitus without complications

== ENCOUNTER 2020-06-17 08:31 | Emergency (ER) | payer OTHER ==
[~2020-06-17] VITALS: Ht 172.7 cm; Wt 103.1 kg
[2020-06-17] MEDS ORDERED: STEG15TA (08:44)
[2020-06-17] MEDS ORDERED: BISO5TAB14 (08:44)
[2020-06-17] MEDS ORDERED: TRUL0.5I (08:44)
--- NOTE | 2020-06-17 09:06 | REP ---
INDICATION: CHEST PAIN. COMPARISON: 06/05/2019. TECHNIQUE: SINGLE PORTABLE AP VIEW OF THE CHEST WAS PERFORMED. FINDINGS: No infiltrate is seen in either lung. There is mild pulmonary venous hypertension. There appears to be mild cardiomegaly. Mediastinal silhouette is unremarkable. IMPRESSION: Mild cardiomegaly and pulmonary venous hypertension. No infiltrate seen. <Electronically signed by Vincent Ramirez > 06/17/20 0903
[2020-06-17 09:45] LABS: BASO % 0.3 % (0.0-1.0); EOS # 0.1 10^3/uL (0.0-0.5); EOS % 1.4 % (0.0-3.0); HEMATOCRIT 49.5 % (42.0-52.0); HEMOGLOBIN 16.1 g/dl (13.5-17.5); LYMPH # 1.2 10^3/uL (1.5-5.0); MEAN CORPUSCULAR HEMOGLOBIN 30.7 pg (27.0-33.0); MEAN CORPUSCULAR HGB CONC 32.5 g/dl (32.0-36.5); MEAN CORPUSCULAR VOLUME 94.5 fl (80.0-96.0); MONO # 0.7 10^3/uL (0.0-0.8); MONO % 6.4 % (2.0-8.0); NEUTROPHILS % 79.4 % (36.0-66.0); PLATELET COUNT, AUTOMATED 251 10^3/uL (150-450); RED BLOOD COUNT 5.24 10^6/uL (4.30-6.10); WHITE BLOOD COUNT 10.1 10^3/uL (4.0-10.0)
[2020-06-17 09:53] LABS: INR 1.14; PROTHROMBIN TIME 14.8 SECONDS (12.5-14.3)
[2020-06-17 09:54] LABS: PARTIAL THROMBOPLASTIN TIME 31.2 SECONDS (24.2-38.5)
[2020-06-17 10:41] LABS: ALBUMIN 3.7 GM/DL (3.2-5.2); ALT/SGPT 23 U/L (12-78); BILIRUBIN,DIRECT 0.2 MG/DL (0.0-0.2); BILIRUBIN,TOTAL 0.8 MG/DL (0.2-1.0); BLOOD UREA NITROGEN 25 MG/DL (7-18); CALCIUM LEVEL 10.2 MG/DL (8.8-10.2); CARBON DIOXIDE LEVEL 26 MEQ/L (21-32); CHLORIDE LEVEL 109 MEQ/L (98-107); CK-MB VALUE MASS 1.7 NG/ML (<3.6); CPK CREATINE PHOSPHOKINASE 63 U/L (39-308); CREATININE FOR GFR 1.12 MG/DL (0.70-1.30); FREE T4 0.97 NG/DL (0.76-1.46); GLOMERULAR FILTRATION RATE > 60.0 (>49); GLUCOSE, FASTING 161 MG/DL (70-100); LIPASE 174 U/L (73-393); POTASSIUM SERUM 4.8 MEQ/L (3.5-5.1); SODIUM LEVEL 142 MEQ/L (136-145); TOTAL PROTEIN 6.7 GM/DL (6.4-8.2); TROPONIN I 0.02 NG/ML (< 0.10)
[2020-06-17] MEDS ORDERED: FUROSEMIDE 40MG/4ML VIAL (J1940) IV ONE (10:55)
[2020-06-17 11:18] LABS: NT-PRO BNP 3269 PG/ML (<125)
[2020-06-17 14:12] LABS: MB/CK RELATIVE INDEX 3.7 (< OR =4); TROPONIN I 0.02 NG/ML (< 0.10)
[2020-06-17] MEDS ORDERED: TORS20TA2 PO (14:29)
[2020-06-17 14:30] VITALS: BP 150/97
--- NOTE | 2020-06-18 02:43 | ECGEPIP ---
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
== END 2020-06-17 14:52 | disposition home or self-care (01) ==
LOC: M ED 08:31
DX: I11.0 Hypertensive heart disease with heart failure (principal); I27.20 Pulmonary hypertension, unspecified; R06.02 Shortness of breath; R07.9 Chest pain, unspecified; I48.91 Unspecified atrial fibrillation; I45.10 Unspecified right bundle-branch block; Z79.01 Long term (current) use of anticoagulants; Z79.82 Long term (current) use of aspirin; Z79.899 Other long term (current) drug therapy
CPT/HCPCS: 71045; 80048; 80076; 82550; 82553; 83690; 83880; 84439; 84443; 85025; 85610; 85730; 87798; 93005; 93041; 94760; 96374; 99285; J1940

== ENCOUNTER → 2020-07-09 | Outpatient (CLI) | payer OTHER ==
[~2020-07-09] MED LIST changes: +BISO5TAB14; +STEG15TA; +TORS20TA2 PO; +TRUL0.5I
[2020-07-09 10:24] LABS: CALCIUM LEVEL 9.8 MG/DL (8.8-10.2); CREATININE FOR GFR 1.47 MG/DL (0.70-1.30); GLOMERULAR FILTRATION RATE 51.3 (>49); MAGNESIUM LEVEL 2.3 MG/DL (1.8-2.4); POTASSIUM SERUM 4.5 MEQ/L (3.5-5.1)
== END ==
LOC: M WUC 08:39
PROVIDERS: ATTEND Physician Assistant
DX: I48.21 Permanent atrial fibrillation (principal); I50.42 Chronic combined systolic (congestive) and diastolic (congestive) heart failure

== ENCOUNTER → 2020-08-16 | Outpatient (CLI) | payer OTHER ==
[2020-08-16 16:20] LABS: ALBUMIN 3.8 GM/DL (3.2-5.2); ALT/SGPT 17 U/L (12-78); BILIRUBIN,TOTAL 1.1 MG/DL (0.2-1.0); BLOOD UREA NITROGEN 28 MG/DL (7-18); CALCIUM LEVEL 10.1 MG/DL (8.8-10.2); CARBON DIOXIDE LEVEL 28 MEQ/L (21-32); CHLORIDE LEVEL 106 MEQ/L (98-107); CHOLESTEROL LEVEL 128 MG/DL (<200); CHOLESTEROL RISK RATIO 2.844 (<5); CREATININE FOR GFR 1.17 MG/DL (0.70-1.30); GLOMERULAR FILTRATION RATE > 60.0 (>49); GLUCOSE, FASTING 125 MG/DL (70-100); HDL CHOLESTEROL 45 MG/DL (>40); LDL CHOLESTEROL 64 MG/DL (<100); NON-HDL-C 83 MG/DL; POTASSIUM SERUM 4.5 MEQ/L (3.5-5.1); SODIUM LEVEL 140 MEQ/L (136-145); THYROID STIMULATING HORMONE 0.283 uIU/ML (0.358-3.740); TOTAL PROTEIN 6.9 GM/DL (6.4-8.2); TRIGLYCERIDES LEVEL 93 MG/DL (<150)
[2020-08-16 17:37] LABS: HEMOGLOBIN A1c 7.3 %
== END ==
LOC: M WUC 10:53
PROVIDERS: ATTEND Internal Medicine
DX: I10 Essential (primary) hypertension (principal); E78.5 Hyperlipidemia, unspecified; E03.9 Hypothyroidism, unspecified; E11.9 Type 2 diabetes mellitus without complications

== ENCOUNTER 2020-11-01 11:16 | Emergency (ER) | payer OTHER ==
[~2020-11-01] VITALS: Ht 170.2 cm; Wt 97.2 kg
[2020-11-01 14:27] LABS: BASO % 0.3 % (0.0-1.0); EOS # 0.3 10^3/uL (0.0-0.5); EOS % 2.7 % (0.0-3.0); HEMATOCRIT 46.9 % (42.0-52.0); HEMOGLOBIN 15.4 g/dl (13.5-17.5); LYMPH # 1.7 10^3/uL (1.5-5.0); LYMPH % 18.3 % (24.0-44.0); MEAN CORPUSCULAR HEMOGLOBIN 30.4 pg (27.0-33.0); MEAN CORPUSCULAR HGB CONC 32.8 g/dl (32.0-36.5); MEAN CORPUSCULAR VOLUME 92.5 fl (80.0-96.0); MONO # 0.7 10^3/uL (0.0-0.8); MONO % 7.4 % (2.0-8.0); NEUTROPHILS # 6.7 10^3/uL (1.5-8.5); NEUTROPHILS % 70.9 % (36.0-66.0); PLATELET COUNT, AUTOMATED 210 10^3/uL (150-450); RED BLOOD COUNT 5.07 10^6/uL (4.30-6.10); WHITE BLOOD COUNT 9.5 10^3/uL (4.0-10.0)
[2020-11-01 14:47] LABS: ALBUMIN 3.9 GM/DL (3.2-5.2); ALT/SGPT 22 U/L (12-78); BILIRUBIN,DIRECT 0.3 MG/DL (0.0-0.2); BILIRUBIN,TOTAL 1.7 MG/DL (0.2-1.0); BLOOD UREA NITROGEN 21 MG/DL (7-18); CALCIUM LEVEL 10.1 MG/DL (8.8-10.2); CARBON DIOXIDE LEVEL 30 MEQ/L (21-32); CHLORIDE LEVEL 108 MEQ/L (98-107); CREATININE FOR GFR 1.03 MG/DL (0.70-1.30); GLOMERULAR FILTRATION RATE > 60.0 (>49); GLUCOSE, FASTING 128 MG/DL (70-100); LIPASE 118 U/L (73-393); POTASSIUM SERUM 4.7 MEQ/L (3.5-5.1); SODIUM LEVEL 141 MEQ/L (136-145); TOTAL PROTEIN 6.8 GM/DL (6.4-8.2)
[2020-11-01] MEDS ORDERED: STEG15TA PO (15:04)
[2020-11-01] MEDS ORDERED: ISOVUE-370 76% 100ML VIAL As Ordered ONE (16:00)
--- NOTE | 2020-11-01 16:43 | REP ---
INDICATION: rlq pain. COMPARISON: 04/20/2014 TECHNIQUE: Standard helical technique after the intravenous administration of 100 cc Isovue 370. No oral bowel preparatory contrast was administered prior to the exam. FINDINGS: The lung bases are clear and unchanged. There is complete uniform enhancement of the hepatic veins and right ventricle with near complete opacification of the inferior vena cava just distal to the left renal vein. The density of the hepatic venous contrast is greater than that of the aorta. There is cholelithiasis. The spleen, pancreas, adrenal glands, and kidneys are within normal limits. The abdominal aorta and para aortic regions are within normal limits. The bowel loops are within normal limits. There is a large adipose containing right inguinal hernia and the adipose within this hernial sac is slightly fatty infiltrated. The appendix may be trapped within this hernial sac. There is no evidence of free fluid or free air. The osseous structures stable and intact. IMPRESSION: 1. Extensive hepatic vein enhancement concerning for cor pulmonale. This finding was discussed with Dr. Judi Marie at the time of this dictation. 2. Right inguinal hernia as described above with a possible trapped appendix with adipose incarceration. 3. Other findings as described above. <Electronically signed by Jon Lorenzo > 11/01/20 0846
[2020-11-01 17:12] LABS: CK-MB VALUE MASS 3.1 NG/ML (<3.6); CPK CREATINE PHOSPHOKINASE 119 U/L (39-308); MB/CK RELATIVE INDEX 2.61 (< OR =4); NT-PRO BNP 2083 PG/ML (<125); TROPONIN I < 0.02 NG/ML (< 0.10)
--- NOTE | 2020-11-01 21:24 | ECGEPIP ---
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
[2020-11-01 22:10] VITALS: BP 139/94
--- NOTE | 2020-11-02 12:00 | ECHO ---
ECHOCARDIOGRAM DATE OF PROCEDURE: 11/01/2020 Age: 65 Gender: Male Height: 67 inches Weight: 214 pounds REFERRING PHYSICIAN: Emergency room provider. REASON FOR THE TESTING: Cardiomegaly, pericardial effusion. MEASUREMENTS: 2D Measurements: IVS 1.1 cm LVPW 1.2 cm LV 5.9 cm Aortic root 3.6 cm LA 5.4 cm IVC 2.2 cm Doppler Measurements: Peak velocity across the aortic valve 0.92 m/sec Peak velocity across the LVOT 0.8 m/sec Mitral E 0.94 Maximum tricuspid valve velocity 3.4 m/sec 2D COMMENTS: 1. Mildly enlarged left ventricle with normal left ventricular wall thickness and a markedly depressed global left ventricular systolic function. The estimated left ventricular ejection fraction is 30%. 2. Moderately enlarged left atrium. Normal right atrium and right ventricle. 3. The atrial septum appeared to be normal without evidence of defect or shunt. 4. Normal aortic root. 5. Small to moderate pericardial effusion noted around the heart. No evidence of cardiac tamponade. Small pericardial effusion was noted inferiorly. 6. Mildly calcified aortic valve with normal leaflet excursion. Mildly calcified mitral annulus with normal anterior mitral valve leaflet motion. Normal tricuspid valve and pulmonic valve. The proximal pulmonary artery branches also appeared to be normal. 7. The inferior vena cava is mildly enlarged. Central venous pressure is probably elevated. DOPPLER: It detects mild aortic regurgitation, moderate to severe mitral regurgitation, moderate tricuspid regurgitation and trace pulmonic regurgitation. The calculated pulmonary artery systolic pressure varies between 40-50 mmHg. Assessment of the left ventricular diastolic function was limited. Patient was in atrial fibrillation during the test. IMPRESSION: 1. Moderately severe global left ventricular systolic dysfunction with mildly enlarged left ventricle and global hypokinesis. Assessment of the left ventricular diastolic function was limited in view of the underlying atrial fibrillation. 2. Aortic valve sclerosis with mild aortic regurgitation, but no aortic stenosis. 3. Mitral annulus calcification with a moderately enlarged left atrium and moderately severe mitral regurgitation. 4. Moderate tricuspid regurgitation with moderate pulmonary hypertension. 5. Small to moderate pericardial effusion. No evidence of cardiac tamponade.
== END 2020-11-01 22:40 | disposition home or self-care (01) ==
LOC: M ED 11:16
DX: K40.90 Unilateral inguinal hernia, without obstruction or gangrene, not specified as recurrent (principal); R79.89 Other specified abnormal findings of blood chemistry; I48.91 Unspecified atrial fibrillation; I11.0 Hypertensive heart disease with heart failure; I50.20 Unspecified systolic (congestive) heart failure; I45.10 Unspecified right bundle-branch block; R51.9 Headache, unspecified; E11.9 Type 2 diabetes mellitus without complications; E78.5 Hyperlipidemia, unspecified; E03.9 Hypothyroidism, unspecified; K21.9 Gastro-esophageal reflux disease without esophagitis; Z79.01 Long term (current) use of anticoagulants; Z79.899 Other long term (current) drug therapy
CPT/HCPCS: 36415; 74177; 80048; 80076; 81001; 82550; 82553; 83690; 83880; 85025; 93005; 93306; 99284; Q9967

== ENCOUNTER → 2020-11-27 | Outpatient (CLI) | payer OTHER ==
[~2020-11-27] MED LIST changes: +STEG15TA PO
[2020-11-27 09:52] LABS: HEMOGLOBIN A1c 7.2 %
[2020-11-27 10:07] LABS: CREATININE, URINE 80.6 MG/DL; MALB URINE SIEMENS 9.8 MG/L; MAU/CREAT RATIO 12.1 MCG/MG (0.0-30.0)
[2020-11-27 10:15] LABS: ALBUMIN 3.9 GM/DL (3.2-5.2); ALT/SGPT 18 U/L (12-78); BILIRUBIN,TOTAL 0.9 MG/DL (0.2-1.0); BLOOD UREA NITROGEN 23 MG/DL (7-18); CALCIUM LEVEL 10.3 MG/DL (8.8-10.2); CARBON DIOXIDE LEVEL 30 MEQ/L (21-32); CHLORIDE LEVEL 101 MEQ/L (98-107); CHOLESTEROL LEVEL 155 MG/DL (<200); CREATININE FOR GFR 1.27 MG/DL (0.70-1.30); GLOMERULAR FILTRATION RATE > 60.0 (>49); GLUCOSE, FASTING 161 MG/DL (70-100); HDL CHOLESTEROL 42 MG/DL (>40); LDL CHOLESTEROL 78 MG/DL (<100); NON-HDL-C 113 MG/DL; POTASSIUM SERUM 4.3 MEQ/L (3.5-5.1); SODIUM LEVEL 140 MEQ/L (136-145); TRIGLYCERIDES LEVEL 176 MG/DL (<150)
== END ==
LOC: M WUC 08:22
PROVIDERS: ATTEND Internal Medicine
DX: E78.5 Hyperlipidemia, unspecified (principal); I10 Essential (primary) hypertension; E11.9 Type 2 diabetes mellitus without complications; E03.9 Hypothyroidism, unspecified

== ENCOUNTER → 2020-11-29 | Outpatient (CLI) | payer OTHER ==
--- NOTE | 2020-12-02 16:31 | SLEEPHOME ---
DATE: 11/29/2020 ORDERED BY: CHARISSE STARKEY Diagnostic home sleep testing was performed due to concern for the obstructive sleep apnea syndrome in this patient with a history of pulmonary hypertension. For testing, a nocturnal T3 respiratory monitoring device was used. Continuous record was made of pulse, oxygen saturation, air flow, chest and abdominal strain, and body position. Nine hours and 59 minutes of data were reviewed. There were 7 hours and 3 minutes marked as time in bed. During the interval marked time in bed, there were 55 respiratory events identified of 10 seconds in duration or greater for a respiratory event index of 7.8. The events were primarily obstructive, not exclusive to sleep position. Baseline pulse rate was 70. Pulse rate ranged 47 to 95. Baseline saturation was 94%. Saturations fell to 87%. Testing was performed in both the supine and nonsupine positions. IMPRESSION: Abnormal home sleep testing with repetitive respiratory events and oxygen desaturations to 87% with a respiratory event index of 7.8 is consistent with the obstructive sleep apnea syndrome. RECOMMENDATION: The patient should be encouraged to undergo a formal sleep evaluation.
== END ==
LOC: M SLEEP HO 10:28
PROVIDERS: ATTEND Physician Assistant
DX: I27.29 Other secondary pulmonary hypertension (principal)

== ENCOUNTER → 2020-12-30 | Outpatient (CLI) | payer OTHER ==
[~2020-12-30] MED LIST changes: -BISO5TAB14; +BISO5TAB14 PO; +D31000TA2 PO; +DIGO0.123 PO; +ECOT81TA5 PO; +LEVO88TA3; -TRUL0.5I; +TRUL0.5I SQ
== END ==
LOC: M LABSMTC 09:23
PROVIDERS: ATTEND Anesthesiology
DX: Z01.812 Encounter for preprocedural laboratory examination (principal); Z20.822 Contact with and (suspected) exposure to COVID-19

== ENCOUNTER 2021-01-09 01:20 | Emergency (ER) | payer OTHER ==
[~2021-01-09] VITALS: Ht 172.7 cm; Wt 95.0 kg
--- OUTSIDE RECORDS SUMMARY | 2021-01-09 01:33 | CCD | Continuity of Care Document ---
Author Author Edwin HEALY M.D. Organization Unknown Address [address] [address] Phone [phone] Problems Active Problems Provider Date Obesity Charly Luciano M.D. Onset: 05/31/2002 Type 2 diabetes mellitus Papa Palacio D.O., FAAFP Onset: 09/10/2008 Hyperlipidemia Halima Cedillo RPA-C Onset: 2012 Atrial fibrillation Halima Cedillo RPA-C Onset: 2012 Vitamin D deficiency Ruthie Horton D., COMMISSION AUDITOR-C Onset: 02/05 Hypothyroidism Ruthie Horton D., COMMISSION AUDITOR-C Onset: 02/21 Impotence Ruthie Horton D., FRANCHESKA-Mel Onset: 06/20 Essential hypertension Ruthie Horton D., FRANCHESKA-C Onset: Social History Type Date Description Comments Sex Unknown Tobacco Use Start: Unknown Patient has never smoked Allergies, Adverse Reactions, Alerts Description No Known Drug Allergies Medications Active Medications SIG Qnty Indications Ordering Provide r Date Trulicity 3mg/0.5ML Solution Pen-I nject Inject One Pen (0.5 ML) Under The Skin Once Weekly 6ml Aurelio Healy M.D. 11/29/2020 Levothyroxine Sodium 88mcg Tablets Take One Tablet By Mouth Every Day 30tabs Aurelio Healy M.D. 08/23/2020 Metformin HCL 850mg Tablets take one tablet by mouth three times a day 270tabs Angel Healy M.D. 02/02/2020 Losartan Potassium 50mg Tablets Take One Tablet By Mouth Every Day 90tabs Aurelio Healy M.D . 10/25/2018 Steglatro 15mg Tablets Take One Tablet By Mouth Every Day 90tabs E11.9 Aurelio Healy M.D. 08/17/19 19 Januvia 100mg Tablets Take One Tablet By Mouth Every Day 90tabs Aurelio Healy M.D. 03/20/19 12 Simvastatin 10mg Tablets Take One Tablet By Mouth Every Day 90tabs Aurelio Healy M.D. 03/04 Freestyle Test Strips use to test blood glucose bid 100units Juliana Haney [facility]- 07/10/19 10 Vitamin D 1000Unit Capsules 1 po qd OTC Juan De [facility] 02/01/2009 Multi-Vitamin Tablets 1 PO q d Unknown [place]-3 Capsules 1 PO qd Unknown Spironolactone 25mg Tablets take 1/2 tablet a day Unknown Digoxin 0.125mg Tablets 1/2 p o qd Unknown Lasix 40mg Tablets 1 po qd Unknown Aspir-[address] 1 po qd otc Unknown Amiodarone HCL 200mg Tablets 1 by mouth every day 90tabs Aurelio Healy M.D. 00 Eliquis 5mg Tablets 1 by mouth twice a day Unknown Medications Administered in Office Medication SIG Qnty Indications Ordering Provider Date Injection (SC)/(Im) Injection Ruthie Horton D. COMMISSION AUDITOR-C 11/20/2013 Injection (SC)/(Im) Injection Halima Cedillo [facility] 12/15/2011 Injection (SC)/(Im) Injection Juliana Haney [facility]- 12/12/2010 Injection (SC)/(Im) Injection Charly Luciano M.D. 12/29/2001 Immunizations CPT Code Status Date Vaccine Lot # [id number] Given 12/27/2014 Influenza Virus Vac. Split Virus Individuals 3 Years And Above [id number] Given 11/20/2013 Influenza Virus Vac. Split Virus Individuals 3 Years And Above [id number] Given 12/15/2011 Influenza Virus Vac. Split Virus Individuals 3 Years And Above [id number] Given 12/12/2010 Influenza Virus Vac. Split Virus Individuals 3 Years And Above [id number] Given 12/29/2001 Influenza Virus Vac. Split Virus Individuals 3 Years And Above [id number] Refused 12/02/2018 Influenza Virus Vaccine, Quadrivalent, Slit Virus, Im Use 3Y & Up [id number] Refused 01/12/2017 Influenza Virus Vaccine, Quadrivalent, Slit Virus, Im Use 3Y & Up Vital Signs Date Vital Result Comment 11/29/2020 8:55am BP Systolic 110 mmHg BP Diastolic 70 mmHg Body Temperature 98.2 F Heart Rate 78 /min Respiratory Rate 14 /min Height 68 inches 5'8" Weight 211.00 lb [place] Body Weight 154 lb BMI (Body Mass Index) 32.1 kg/m2 O2 % BldC Oximetry 96 % 08/23/2020 11:35am BP Systolic 112 mmHg BP Diastolic 74 mmHg Body Temperature 98.6 F Heart Rate 70 /min Respiratory Rate 16 /min Height 68 inches 5'8" Weight 216.00 lb [place] Body Weight 154 lb BMI (Body Mass Index) 32.8 kg/m2 O2 % BldC Oximetry 93 % Results Test Acquired Date Facility Test Result H/L Range Note Hemoglobin A1c 11/27/2020 [facility]) [phone] Hemoglobin A1c 7.2 % Normal 1 Estimated Average Glucose 160 mg/dL High 60-110 Microalbumin Random 11/27/2020 [facility]) [phone] Creatinine, Urine 80.6 mg/dL Normal Malb Urine Siemens 9.8 mg/L Normal Von/Creat Ratio 12.1 MCG/MG Normal 0.0-30.0 2 Comprehensive Metabolic Profil 11/27/2020 [facility] ([facility]) [phone] Glucose, Fasting 161 mg/dL High 70-100 Blood Urea Nitrogen 23 mg/dL High 7-18 Creatinine For GFR 1.27 mg/dL Normal 0.70-1.30 Glomerular Filtration Rate > 60.0 Normal >49 3 Sodium Level 140 mEq/L Normal 136-145 Potassium Serum 4.3 mEq/L Normal 3.5-5.1 Chloride Level 101 mEq/L Normal 98-107 Carbon Dioxide Level 30 mEq/L Normal 21-32 Anion Gap 9 mEq/L Normal 8-16 Calcium Level 10.3 mg/dL High 8.8-10.2 Ast/Sgot 12 U/L Normal 7-37 Alt/SGPT 18 U/L Normal 12-78 Alkaline Phosphatase 76 U/L Normal 45-117 Bilirubin,Total 0.9 mg/dL Normal 0.2-1.0 Total Protein 7.0 GM/DL Normal 6.4-8.2 Albumin 3.9 GM/DL Normal 3.2-5.2 Albumin/Globulin Ratio 1.3 Normal Lipid Panel 11/27/2020 [facility] ([facility]) [phone] Triglycerides Level 176 mg/dL High <150 Cholesterol Level 155 mg/dL Normal <200 HDL Cholesterol 42 mg/dL Normal >40 LDL Cholesterol 78 mg/dL Normal <100 Non-HDL-C 113 mg/dL Normal Cholesterol Risk Ratio 3.690 Normal <5 Laboratory test finding 11/27/2020 [facility] ([facility]) [phone] Thyroid Stimulating Hormone 2.650 uIU/ML Normal 0. 358-3.740 4 Ua W/ Reflex To Culture 11/01/2020 [facility] ([facility]) [phone] Appearance, Urine RFX CLEAR Normal Clear Color, Urine RFX YELLOW Normal Yellow PH,Urine RFX 6.0 units Normal 5.0-9.0 Specific [place] Ur Auto RFX 1.028 Normal 1.002-1.035 Protein, Urine Auto RFX 2+ mg/dL High Negative Glucose, Urine (Ua) Auto RFX 1+ mg/dL High Negative Ketone, Urine Auto RFX TRACE mg/dL High Negative Urobilinogen, Urine Auto RFX 2.0 mg/dL High 0.0-2.0 Bilirubin, Urine Auto RFX NEGATIVE Normal Negative Nitrite, Urine Auto RFX NEGATIVE Normal Negative Leukocyte Esterase Ur Auto RFX NEGATIVE Normal Negative Blood, Urine Blood RFX NEGATIVE Normal Negative WBC, Urine Auto RFX 1 /HPF Normal 0-3 RBC, Urine Auto RFX 1 /HPF Normal 0-3 Bacteria, Urine Auto RFX NEGATIVE Normal Negative Squam Epithelial Cell Ur Aurfx 0 /HPF Normal 0-6 Mucus, Urine RFX SMALL Normal Negative Hyaline Cast, Urine Auto RFX 1 /LPF Normal 0-1 Laboratory test finding 10/04/[address] [phone] Magnesium 1.8 mg/dL 1.8-2.4 Basic Metabolic Profile 10/04/[address] [address] [phone] Glu 213 mg/dL High 74-106 BUN 26 mg/dL High 7-18 Cre 1.32 mg/dL High 0.7-1.3 Na 140 mmol/L 136-145 K 4.7 mmol/L 3.5-5.1 CL 102 mmol/L 98-107 Co2 31 mmol/L 21-32 CA 9.4 mg/dL 8.5-10.1 Gap 7.0 mmol/L 5-12 GFR 55 mL/min 5 Laboratory test finding 08/16/2020 [facility] ([facility]) [phone] Thyroid Stimulating Hormone 0.283 uIU/ML Low 0. 358-3.740 6 Hemoglobin A1c 08/16/2020 [facility] ([facility]) [phone] Hemoglobin A1c 7.3 % Normal 7 Estimated Average Glucose 163 mg/dL High 60-110 Comprehensive Metabolic Profil 08/16/2020 [facility] ([facility]) [phone] Glucose, Fasting 125 mg/dL High 70-100 Blood Urea Nitrogen 28 mg/dL High 7-18 Creatinine For GFR 1.17 mg/dL Normal 0.70-1.30 Glomerular Filtration Rate > 60.0 Normal >49 8 Sodium Level 140 mEq/L Normal 136-145 Potassium Serum 4.5 mEq/L Normal 3.5-5.1 Chloride Level 106 mEq/L Normal 98-107 Carbon Dioxide Level 28 mEq/L Normal 21-32 Anion Gap 6 mEq/L Low 8-16 Calcium Level 10.1 mg/dL Normal 8.8-10.2 Ast/Sgot 9 U/L Normal 7-37 Alt/SGPT 17 U/L Normal 12-78 Alkaline Phosphatase 65 U/L Normal 45-117 Bilirubin,Total 1.1 mg/dL High 0.2-1.0 Total Protein 6.9 GM/DL Normal 6.4-8.2 Albumin 3.8 GM/DL Normal 3.2-5.2 Albumin/Globulin Ratio 1.2 Normal Lipid Panel 08/16/2020 [facility] [phone] Triglycerides Level 93 mg/dL Normal <150 Cholesterol Level 128 mg/dL Normal <200 HDL Cholesterol 45 mg/dL Normal >40 LDL Cholesterol 64 mg/dL Normal <100 Non-HDL-C 83 mg/dL Normal Cholesterol Risk Ratio 2.844 Normal <5 Basic Metabolic Profile 07/09/2020 [facility] ([facility]) [phone] Glucose, Fasting 151 mg/dL High 70-100 Blood Urea Nitrogen 28 mg/dL High 7-18 Creatinine For GFR 1.47 mg/dL High 0.70-1.30 Glomerular Filtration Rate 51.3 Normal >49 9 Sodium Level 141 mEq/L Normal 136-145 Potassium Serum 4.5 mEq/L Normal 3.5-5.1 Chloride Level 107 mEq/L Normal 98-107 Carbon Dioxide Level 29 mEq/L Normal 21-32 Anion Gap 5 mEq/L Low 8-16 Calcium Level 9.8 mg/dL Normal 8.8-10.2 Laboratory test finding 07/09/2020 [facility] ([facility]) [phone] Magnesium Level 2.3 mg/dL Normal 1.8-2.4 10 Cardiac Marker Panel 06/17/2020 [facility] ( [facility]) [phone] CPK Creatine Phosphokinase 54 U/L Normal 39-30 8 CK-MB Value Mass 2.0 NG/ML Normal <3.6 MB/CK Relative Index 3.70 Normal < Or =4 11 Troponin I 0.02 NG/ML Normal < 0.10 12 Laboratory test finding 06/17/2020 [facility] ([facility]) [phone] Troponin I <pending> iSTAT Troponin 0.01 NG/ML Normal 0.00-0.08 Respiratory Panel 06/17/2020 [facility] [phone] Respiratory Panel This respiratory <SEE NOTE> 13 Cardiac Marker Panel 06/17/2020 [facility] ( [facility]) [phone] CPK Creatine Phosphokinase 63 U/L Normal 39-30 8 CK-MB Value Mass 1.7 NG/ML Normal <3.6 MB/CK Relative Index 2.70 Normal < Or =4 14 Troponin I 0.02 NG/ML Normal < 0.10 15 Liver Profile 06/17/2020 [facility] [phone] Ast/Sgot 12 U/L Normal 7-37 Alt/SGPT 23 U/L Normal 12-78 Alkaline Phosphatase 68 U/L Normal 45-117 Bilirubin,Total 0.8 mg/dL Normal 0.2-1.0 Bilirubin,Direct 0.2 mg/dL Normal 0.0-0.2 Total Protein 6.7 GM/DL Normal 6.4-8.2 Albumin 3.7 GM/DL Normal 3.2-5.2 Albumin/Globulin Ratio 1.2 Normal Basic Metabolic Profile 06/17/2020 [facility] ([facility]) [phone] Glucose, Fasting 161 mg/dL High 70-100 Blood Urea Nitrogen 25 mg/dL High 7-18 Creatinine For GFR 1.12 mg/dL Normal 0.70-1.30 Glomerular Filtration Rate > 60.0 Normal >49 1 6 Sodium Level 142 mEq/L Normal 136-145 Potassium Serum 4.8 mEq/L Normal 3.5-5.1 Chloride Level 109 mEq/L High 98-107 Carbon Dioxide Level 26 mEq/L Normal 21-32 Anion Gap 7 mEq/L Low 8-16 Calcium Level 10.2 mg/dL Normal 8.8-10.2 Laboratory test finding 06/17/2020 [facility] ([facility]) [phone] NT-Pro BNP 3269 pg/mL High <125 17 Lipase 174 U/L Normal 73-393 18 Thyroid Stimulating Hormone 1.040 uIU/ML Normal 0.358-3.740 19 Free T4 0.97 ng/dL Normal 0.76-1.46 20 CBC With Differential 06/17/2020 [facility] ([facility]) [phone] White Blood Count 10.1 10 High 4.0-10.0 Red Blood Count 5.24 10 Normal 4.30-6.10 Hemoglobin 16.1 g/dL Normal 13.5-17.5 Hematocrit 49.5 % Normal 42.0-52.0 Mean Corpuscular Volume 94.5 fl Normal 80.0-96.0 Mean Corpuscular Hemoglobin 30.7 pg Normal 27.0-33.0 Mean Corpuscular HGB Conc 32.5 g/dL Normal 32.0-36.5 Red Cell Distribution Width 13.2 % Normal 11.5-14.5 Platelet Count, Automated 251 10 Normal 150-450 Neutrophils % 79.4 % High 36.0-66.0 Lymph % 12.0 % Low 24.0-44.0 [place] % 6.4 % Normal 2.0-8.0 Eos % 1.4 % Normal 0.0-3.0 Baso % 0.3 % Normal 0.0-1.0 Immature Granulocyte % 0.5 % Normal 0-3.0 Nucleated Red Blood Cell % 0.0 % Normal 0-0 Neutrophils # 8.0 10 Normal 1.5-8.5 Lymph # 1.2 10 Low 1.5-5.0 [place] # 0.7 10 Normal 0.0-0.8 Eos # 0.1 10 Normal 0.0-0.5 Baso # 0.0 10 Normal 0.0-0.2 Prothrombin Time/Inr 06/17/2020 [facility] ( [facility]) [phone] Prothrombin Time 14.8 seconds High 12.5-14.3 Inr 1.14 Normal 21 Laboratory test finding 06/17/2020 [facility] ([facility]) [phone] Partial Thromboplastin Time 31.2 seconds Normal 24 .2-38.5 1 REFERENCE RANGES: <=5.6% NORMAL 5.7-6.4% SUGGESTS IMPAIRED GLUCOSE META BOLISM/PREDIABETIC >= 6.5% ABNORMAL 2 THE [place] [employer] ATION STATES THAT MICROALBUMINURIA IS PRESENT IF THE MICROALBUMIN/CREATININE RATIO EXCEEDS 30 MCG/MG. THE THRESHOLD FOR CLINICAL ALBUMINURIA IS REACHED AT 300 MCG/MG. THE CLASSIFICATION OF A PATIENT SHOULD BE BASED UPON AT LEAST 2 OF 3 ABNORMAL RESULTS ON SPECIMENS COLLECTED WITHIN A 3 TO 6 MONTH TIME FRAME. 3 Units are mL/min/1.73 m2 Chronic Kidney Disease Staging per NKF: Stage I & II GFR >=60 Normal to Mildly Decreased Stage III GFR 30-59 Moderately Decreased Stage IV GFR 15-29 Severely Decreased Stage V GFR <15 Very Little GFR Left ESRD GFR <15 on CERAMIC ARTIST 4 note:<nlbl:demographic_chang ed> 5 GFR IS CALCULATED IN mL/min/ 1.73m2 NORMAL FUNCTION: >90 MILDLY DECREASED: 60-89 MILDY TO MODERATELY DECREASED: 45-59 MODERATELY TO SEVERELY DECREASED: 30-44 SEVERELY DECREASED: 15-29 RENAL FAILURE: <15 6 note:<nlbl:[facility] ed> 7 REFERENCE RANGES: <=5.6% NORMAL 5.7-6.4% SUGGESTS IMPAIRED GLUCOSE META BOLISM/PREDIABETIC >= 6.5% ABNORMAL 8 Units are mL/min/1.73 m2 Chronic Kidney Disease Staging per NKF: Stage I & II GFR >=60 Normal to Mildly Decreased Stage III GFR 30-59 Moderately Decreased Stage IV GFR 15-29 Severely Decreased Stage V GFR <15 Very Little GFR Left ESRD GFR <15 on CERAMIC ARTIST 9 Units are mL/min/1.73 m2 Chronic Kidney Disease Staging per NKF: Stage I & II GFR >=60 Normal to Mildly Decreased Stage III GFR 30-59 Moderately Decreased Stage IV GFR 15-29 Severely Decreased Stage V GFR <15 Very Little GFR Left ESRD GFR <15 on CERAMIC ARTIST 10 note:<nlbl:[facility] ed> 11 DIAGNOSIS CRITERIA MMB ng/ml Relative Index (RI) NON-AMI < or = 5 N/A GARCIA ZONE > 5 < or = 4 AMI > 5 > 4 12 Troponin I Reference Interva l for Siemens [place] LOCI: 99th Percentile= 0.00-0.045 ng/ml Risk Stratification: <= 0.10 ng/ml Decreased Risk for Adverse Clinical Events. 0.10-1.50 ng/ml Increased Risk for Adv erse Clinical Events. Evaluation of additional criterion and/or repeat testing in 2-6 hours is suggested to rule out myocardial damage. >= 1.50 ng/ml Indicative of Myocardial Injury. 13 This respiratory PCR panel d etects Influenza A H1, H3 and 2009 H1 viruses, Influenza B virus, Resp iratory Syncytial Virus, Human metapneumovirus, Parainfluenza virus 1, 2, 3 and 4, Adenovirus, Rhinovirus/Enterovirus, Coronavirus HKU1, NL63, OC43, 229E and SARS-CoV-2 (COVID 19), Bordetella pertussis, Bordetella parapertussis, Mycoplasma pneumoniae and Chlamydia pneumoniae. NEGATIVE by MULTIPLEXED NUCLEIC ACID PCR SARS-CoV-2 (COVID 19) NEGATIVE - SARS-CoV-2 (COVID19) 14 DIAGNOSIS CRITERIA MMB ng/ml Relative Index (RI) NON-AMI < or = 5 N/A GARCIA ZONE > 5 < or = 4 AMI > 5 > 4 15 Troponin I Reference Interva l for Siemens [place] LOCI: 99th Percentile= 0.00-0.045 ng/ml Risk Stratification: <= 0.10 ng/ml Decreased Risk for Adverse Clinical Events. 0.10-1.50 ng/ml Increased Risk for Adv erse Clinical Events. Evaluation of additional criterion and/or repeat testing in 2-6 hours is suggested to rule out myocardial damage. >= 1.50 ng/ml Indicative of Myocardial Injury. 16 Units are mL/min/1.73 m2 Chronic Kidney Disease Staging per NKF: Stage I & II GFR >=60 Normal to Mildly Decreased Stage III GFR 30-59 Moderately Decreased Stage IV GFR 15-29 Severely Decreased Stage V GFR <15 Very Little GFR Left ESRD GFR <15 on CERAMIC ARTIST 17 note:<nlbl:demographic_chang ed> note:<nlbl:demographic_changed> 18 note:<nlbl:demographic_chang ed> note:<nlbl:demographic_changed> 19 note:<nlbl:demographic_chang ed> note:<nlbl:demographic_changed> 20 note:<nlbl:demographic_chang ed> note:<nlbl:demographic_changed> 21 THERAPUTIC HUMAN INR VALUES INDICATIONS NORMAL RANGES PROPHYLAXIS/TREATMENT OF: VENOUS THROMBOSIS 2.0-3.0 PULMONARY EMBOLISM 2.0-3.0 PREVENTION OF SYSTEMIC EMBOLISM FROM: TISSUE HEART VALVES 2.0-3.0 ACUTE MYOCARDIAL INFARCTION 2.0-3.0 VALVULAR HEART DISEASE 2.0-3.0 ATRIAL FIBRILLATION 2.0-3.0 MECHANICAL VALVES(HIGH RISK) 2.5-3.5 RECURRENT MYOCARDIAL INFARCTION 2.5-3.5 Procedures Date Code Description Status 11/29/2020 06542 Office/Outpatient Established Mo d MDM 30-39 Min Completed 08/23/2020 69900 Office/Outpatient Established Mo d MDM 30-39 Min Completed Medical Devices Description No Information Available Encounters Type Date Location Provider Dx Diagnosis Office Visit 11/29/2020 9:00a [facility] Aurelio Healy M. D. E78.5 Hyperlipidemia, unspecified E11.9 Type 2 diabetes mellitus wit hout complications E03.9 Hypothyroidism, unspecified I10 Essential (primary) hyperten natasha I48.91 Unspecified atrial fibrillat ion Office Visit 08/23/2020 11:30a [facility] Aurelio Healy M. D. E78.5 Hyperlipidemia, unspecified E11.9 Type 2 diabetes mellitus wit hout complications E03.9 Hypothyroidism, unspecified I10 Essential (primary) hyperten natasha I48.91 Unspecified atrial fibrillat ion Assessments Date Code Description Provider 11/29/2020 E78.5 Hyperlipidemia, unspecified [facility] [place] M.D. 11/29/2020 E11.9 Type 2 diabetes mellitus without complications Aurelio Healy M.D. 11/29/2020 E03.9 Hypothyroidism, unspecified [facility] [place] M.D. 11/29/2020 I10 Essential (primary) hypertension Aurelio Healy M.D. 11/29/2020 I48.91 Unspecified atrial fibrillation Aurelio Healy M.D. 08/23/2020 E78.5 Hyperlipidemia, unspecified [facility] [place] M.D. 08/23/2020 E11.9 Type 2 diabetes mellitus without complications Aurelio Healy M.D. 08/23/2020 E03.9 Hypothyroidism, unspecified [facility] [place] M.D. 08/23/2020 I10 Essential (primary) hypertension Aurelio Healy M.D. 08/23/2020 I48.91 Unspecified atrial fibrillation Aurelio Healy M.D. Plan of Treatment Future Appointment(s):* 03/05/2021 11:00 am - Aurelio Healy M.D. at [facility] * 12/17/2020 2:00 pm - Aurelio Healy M.D. at [facility] Functional Status Description No Information Available Mental Status Description No Information Available Referrals Description No Information Available
--- OUTSIDE RECORDS SUMMARY | 2021-01-09 01:33 | CCD | Continuity of Care Document ---
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 Name Role Phone Papa Palacio DO AUTM [phone] Problems Active Problems Provider Date Essential hypertension Gualberto Palacio MD Onset: 01/19/2020 Social History Type Date Description Comments Sex Unknown ETOH Use Rarely consumes alcohol Tobacco Use Start: Unknown Denies Smoking Allergies, Adverse Reactions, Alerts Description No Known Drug Allergies Medications Active Medications SIG Qnty Indications Ordering Provide r Date Acetaminophen-Codeine #3 300-30mg Tablets 1-2 tabs by mouth q 4-6 hours prn 30tabs Gualberto Palacio MD 01/22/2020 Simvastatin 10mg Tablets Unknown Digox 125mcg Tablets 1 by mouth every day Unknown Spironolactone 25mg Tablets Unknown Metformin HCL 1000mg Tablets Unknown Furosemide 40mg Tablets Unknown Cozaar 50mg Tablets 1 by mouth every day Unknown Januvia 100mg Tablets 1 by mouth every day Unknown Levothyroxine Sodium 75mcg Tablets 1 by mouth every day Unknown Eliquis 5mg Tablets Unknown Vitamin D 1000Unit Tablets 1 by mouth every day Unknown Aspirin [address] 1 by mouth every day Unknown Trulicity 0.75mg/0.5 ML Solution Pen-Inject use once weekly Unknown Steglatro 15mg Tablets 1 by mouth every day Unknown Bisoprolol Fumarate 5mg Tablets Unknown Torsemide 20mg Tablets Unknown Immunizations Description No Information Available Vital Signs Date Vital Result Comment 04/04/2020 8:51am Body Temperature 96.6 F 01/19/2020 11:16am Body Temperature 97.3 F Height 68 inches 5'8" Weight 279.00 lb BMI (Body Mass Index) 42.4 kg/m2 Results Description No Information Available Procedures Date Code Description Status 10/10/2020 91694 Office/Outpatient Established Mo d MDM 30-39 Min Completed 10/10/2020 23713 X-Ray Elbow Ap & Lateral 2 Views Completed 10/10/2020 21100 X-Ray Shoulder Complete Complete d 10/10/2020 97262 Inject/Drain Joint/Bursa Major C ompleted 05/02/2020 45127 Office/Outpatient Established Mo d MDM 30-39 Min Completed 05/02/2020 37587 Therapeutic Procedure, Each 15 M inutes Completed Medical Devices Description No Information Available Encounters Type Date Location Provider Dx Diagnosis Office Visit 10/10/2020 8[facility]a [facility] M75.42 Impingement syndrome of left shoulder M19.012 Primary osteoarthritis, left shoulder M25.622 Stiffness of left elbow, not elsewhere classified S52.125S Nondisplaced fracture of hea d of left radius, sequela Office Visit 05/02/2020 8:45a [facility] Sebastian PA-C S5 2.125D Nondisp fx of head of l rad, subs for clos fx w routn heal M18.12 Unil primary osteoarth of fi rst carpometacarp joint, l hand Assessments Date Code Description Provider 10/10/2020 M75.42 Impingement syndrome of left vernon ulder CHARISSE Collins 10/10/2020 M19.012 Primary osteoarthritis, left vernon ulder CHARISSE Collins 10/10/2020 M25.622 Stiffness of left elbow, not els ewhere classified CHARISSE Collins 10/10/2020 S52.125S Nondisplaced fracture of head of left radius, sequela CHARISSE Collins 05/02/2020 S52.125D Nondisplaced fractur e of head of left radius, subsequent encounter for closed fracture with routine healing Tamica Ramírez P.T.A. 05/02/2020 S52.125D Nondisplaced fractur e of head of left radius, subsequent encounter for closed fracture with routine healing Felipa Sebastian PA-C 05/02/2020 M18.12 Unilateral primary o steoarthritis of first carpometacarpal joint, left hand Tamica Ramírez P.T.A. 05/02/2020 M18.12 Unilateral primary o steoarthritis of first carpometacarpal joint, left hand Felipa Sebastian PA-C Plan of Treatment Future Appointment(s):* 11/12/2020 8:45 am - CHARISSE [facility] at [facility] 10/10/2020 - CHARISSE Collins* M75.42 Impingement syndrome of left shoulder* Follow up:* 4 weeks for lt shoulder/lt elbow recheck with IID * M19.012 Primary osteoarthritis, left shoulder * M25.622 Stiffness of left elbow, not elsewhere classified * S52.125S Nondisplaced fracture of head of left radius, sequela Functional Status Description No Information Available Mental Status Description No Information Available Referrals Refer to Dr Reason for Referral Status Appt Date Jose Elias Velasquez [facility] Left Should er,Elbow, patient allowed eval then needs auth to PT dept, [place] [facility] . Created [address] [place] [address] [address] [place] [address] [phone]
--- OUTSIDE RECORDS SUMMARY | 2021-01-09 01:33 | CCD | Continuity of Care Document ---
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 failure José Wharton MD Onset: 09/06/2012 Atrial fibrillation José Wharton MD Onset: 06/16/2011 Electrocardiogram abnormal José Wharton MD Onset: 2011 Right bundle branch block AND left anterior fascicular block José Wharton MD Onset: 02/09/2012 Acute pericarditis Iris Gallagher PA-C Onset: 12/14/2013 Mitral valve disorder CHARISSE Schwartz-C Onset: 12/14/2013 Pure hypercholesterolemia José Wharton MD Onset: 012 Obesity José Wharton MD Onset: 06/16/2011 Disturbance in sleep behavior CHARISSE Schwartz-C Onset: Chronic combined systolic and diastolic heart failure Iris Gallagher PA-C Onset: 12/14/2014 Aortic valve disorder Iris Gallagher PA-C Onset: 06/18/2015 Paroxysmal atrial fibrillation CHARISSE Schwartz-C Onset: 1 Dietary management surveillance CHARISSE Schwartz-C Onset: 12/11/2016 Coxsackie pericarditis Iris Gallagher PA-C Onset: 8 Permanent atrial fibrillation CHARISSE Schwartz-C Onset: Social History Type Date Description Comments Sex Unknown ETOH Use Consumes Liquor 2 drinks annuall y Tobacco Use Start: Unknown Patient has never smoked Smoking Status Reviewed: 11/14/20 Patient has never smoked Exercise Type/Frequency Walks daily 1 mile a day Exercise Type/Frequency Does yardwork three time s a week Exercise Limitations Shortness Of Breath Allergies, Adverse Reactions, Alerts Description No Known Drug Allergies Medications Active Medications SIG Qnty Indications Ordering Provide r Date Metformin HCL 1000mg Tablets 1 by mouth three times a day Unknown 11/13/2020 Levothyroxine Sodium 75mcg Capsule s 1 by mouth every day Unknown 10/09/2020 Torsemide 20mg Tablets 2 by mouth daily 180tabs I50.42 José Wharton MD 07/08/2020 Bisoprolol Fumarate 5mg Tablets 1 by mouth every day 90tabs I48.21 José Wharton MD 06/11/2020 Steglatro 15mg Tablets 1 by mouth once a day Aurelio Healy MD 06/10/2020 Trulicity 1.5mg/0.5ML Solution Pen -Inject inject once weekly as directed Papa Palacio DO 12/07/2019 Pepcid 40mg Tablets 1 by mouth every day 90tabs R07.2 José Wharton MD 06/07/2019 Cozaar 50mg Tablets 1 by mouth every day Unknown 12/02/2015 Eliquis 5mg Tablets Take One Tablet By Mouth Twice A Day 180tabs I48.0 José Wharton MD 05/30/2014 Digoxin 125mcg Tablets Take One Tablet By Mouth Every Day 90tabs José Wharton MD 2014 Januvia 100mg Tablets 1 po Juliana Abreu, MS. [facility] 06/16/2011 Simvastatin 10mg Tablets 1 po qd 90tabs José Wharton MD 06/30/2010 Spironolactone 25mg Tablets Take One-Half Tablet By Mouth Every Day 15tabs I50.42 José Wharton MD 11/2008 Vitamin D 1000Unit Tablets 1 po qd Juan Monk FNP 02/07/2009 Multi Vitamin Tablets Juan Monk FNP 02/07/2009 Mitchell-3 1000mg Capsules 1 po qd Juan Flanagan FNP 02/07/2009 Aspirin 81mg Chewtabs 1 po qd José Wharton MD 02/07/2009 History Medications Metformin HCL 1000mg Tablets 1 po bid Aurelio Healy MD 07/08/2020 - 11/14/2020 Metformin HCL 850mg Tablets 1 by mouth three times a day Aurelio Healy MD 06/11/19 - 07/08/2020 Levothyroxine Sodium 100mcg Tablet s 1 by mouth every day Aurelio Healy MD 06/10/2020 - 10/10/2020 Immunizations Description No Information Available Vital Signs Date Vital Result Comment 11/14/2020 11:12am Weight 209.00 lb Home Weight 208lb Height 68 inches 5'8" BMI (Body Mass Index) 31.8 kg/m2 Heart Rate 80 /min Irregular Respiratory Rate 16 /min BP Systolic Right Arm 110 mmHg sitting, large cuf f BP Diastolic Right Arm 70 mmHg sitting, large cu ff 10/10/2020 7:42am Weight 216.00 lb Home Weight 213lb Height 68 inches 5'8" BMI (Body Mass Index) 32.8 kg/m2 Heart Rate 76 /min Irregular Respiratory Rate 16 /min BP Systolic Right Arm 114 mmHg sitting, large cuf f BP Diastolic Right Arm 68 mmHg sitting, large cu ff Results Test Acquired Date Facility Test Result H/L Range Note CBC without Differential 11/01/2020 [facility] ([facility])- - White Blood Count 9.5 4.3-10.9 Red Blood Count 5.07 4.70-6.20 Platelets 210 130-400 Hemoglobin 15.4 13.0-17.0 Hematocrit 46.9 39.0-50.0 CMP 11/01/2020 [facility] ([facility])- - Albumin Serum/Plasma 3.9 Alt - SGPT 22 Calcium Ser/Plasma Mass/Vol 10.1 Carbon Dioxide Ser/Plasm 30 Chloride Serum/Plasma 108 Alkaline Phosphatase 66 Potassium 4.7 Protein Total 6.8 Sodium 141 Ast - Sgot 12 BUN - Urea Nitrogen 21 Glucose 128 High 70-100 Creatinine For GFR 1.03 Cardiac Injury Profile 11/01/2020 [facility] ([facility])- - CPK 119 41-270 CPK-MB 3.1 MB/CK Relative 2.61 Laboratory test finding 11/01/2020 [facility] ([facility])- - Troponin <0.2 NT Probnp QN Ser/Plas 2083 Lipase 118 Laboratory test finding 10/04/2020 [place] [address] [phone] Magnesium 1.8 mg/dL 1.8-2.4 Basic Metabolic Profile 10/04/2020 [place] [address] [phone] Glu 213 mg/dL High 74-106 BUN 26 mg/dL High 7-18 Cre 1.32 mg/dL High 0.7-1.3 Na 140 mmol/L 136-145 K 4.7 mmol/L 3.5-5.1 CL 102 mmol/L 98-107 Co2 31 mmol/L 21-32 CA 9.4 mg/dL 8.5-10.1 Gap 7.0 mmol/L 5-12 GFR 55 mL/min 1 Basic Metabolic Profile 07/09/2020 [facility] [phone] Glucose, Fasting 151 mg/dL High 70-100 Blood Urea Nitrogen 28 mg/dL High 7-18 Creatinine For GFR 1.47 mg/dL High 0.70-1.30 Glomerular Filtration Rate 51.3 Normal >49 2 Sodium Level 141 mEq/L Normal 136-145 Potassium Serum 4.5 mEq/L Normal 3.5-5.1 Chloride Level 107 mEq/L Normal 98-107 Carbon Dioxide Level 29 mEq/L Normal 21-32 Anion Gap 5 mEq/L Low 8-16 Calcium Level 9.8 mg/dL Normal 8.8-10.2 Laboratory test finding 07/09/2020 [facility] [phone] Magnesium Level 2.3 mg/dL Normal 1.8-2.4 3 1 GFR IS CALCULATED IN mL/min/ 1.73m2 NORMAL FUNCTION: >90 MILDLY DECREASED: 60-89 MILDY TO MODERATELY DECREASED: 45-59 MODERATELY TO SEVERELY DECREASED: 30-44 SEVERELY DECREASED: 15-29 RENAL FAILURE: <15 2 Units are mL/min/1.73 m2 Chronic Kidney Disease Staging per NKF: Stage I & II GFR >=60 Normal to Mildly Decreased Stage III GFR 30-59 Moderately Decreased Stage IV GFR 15-29 Severely Decreased Stage V GFR <15 Very Little GFR Left ESRD GFR <15 on PRODUCT SUPPORT CONSULTANT 3 note:<nlbl:demographic_chang ed> Procedures Date Code Description Status 10/10/2020 70299 Office/Outpatient Established Lo w MDM 20-29 Min Completed 07/09/2020 96857 Office/Outpatient Established SF MDM 10-19 Min Completed 07/09/2020 37890 ECG 12-Lead Completed 06/11/2020 89157 Office/Outpatient Established Mo d MDM 30-39 Min Completed 06/11/2020 25699 ECG 12-Lead Completed Medical Devices Description No Information Available Encounters Type Date Location Provider Dx Diagnosis Office Visit 10/10/2020 7:45a Main Office Iris Gallagher PA-C I50.4 2 Chronic combined systolic and diastolic hrt fail Office Visit 07/09/2020 7:45a Main Office Iris Gallagher PA-C I48.2 1 Permanent atrial fibrillation I50.42 Chronic combined systolic an d diastolic hrt fail Office Visit 06/11/2020 9:45a Main Office Iris Gallagher PA-C I50.4 2 Chronic combined systolic and diastolic hrt fail I11.0 Hypertensive heart disease w ith heart failure I48.21 Permanent atrial fibrillatio n R94.31 Abnormal electrocardiogram [ ECG] [EKG] I45.2 Bifascicular block I34.0 Nonrheumatic mitral (valve) insufficiency I35.1 Nonrheumatic aortic (valve) insufficiency B33.23 Viral pericarditis E78.00 Pure hypercholesterolemia, u nspecified Z71.3 Dietary counseling and surve illance Assessments Date Code Description Provider 10/10/2020 I50.42 Chronic combined sys tolic (congestive) and diastolic (congestive) heart failure Iris Gallagher PA-C 07/09/2020 I48.21 Permanent atrial fibrillation Hector Long PA-C 07/09/2020 I50.42 Chronic combined sys tolic (congestive) and diastolic (congestive) heart failure Iris Gallagher PA-C 06/11/2020 I50.42 Chronic combined sys tolic (congestive) and diastolic (congestive) heart failure Iris Gallagher PA-C 06/11/2020 I11.0 Hypertensive heart disease with heart failure Iris Gallagher PA-C 06/11/2020 I48.21 Permanent atrial fibrillation Hector Long PA-C 06/11/2020 R94.31 Abnormal electrocardiogram [ECG] [EKG] Iris Gallagher PA-C 06/11/2020 I45.2 Bifascicular block SAL QuezadaC 06/11/2020 I34.0 Nonrheumatic mitral (valve) insu fficiency SAL SchwartzC 06/11/2020 I35.1 Nonrheumatic aortic (valve) insu fficiency SAL SchwartzC 06/11/2020 B33.23 Viral pericarditis SLA QuezadaC 06/11/2020 E78.00 Pure hypercholesterolemia, unspe cified Iris Gallagher PA-C 06/11/2020 Z71.3 Dietary counseling and surveilla nce Iris Gallagher PA-C Plan of Treatment Future Appointment(s):* 01/20/2021 8:45 am - Iris Gallagher PA-C at Main Office Functional Status Functional Condition Comment Date Status Independent with all ADL's Activ e Mental Status Description No Information Available Referrals Description No Information Available
--- OUTSIDE RECORDS SUMMARY | 2021-01-09 01:33 | CCD | Continuity of Care Document ---
Author Author Edwin BAINS DO Organization Unknown Address [address] [facility] [address] [facility], [address] [place] [address] Phone [phone] Care Team Providers Care Ios Programmer Name Role Phone Ruthie Horton AUTM Papa Palacio D.O. AUTM [phone] Problems Description No Active Problems Social History Type Date Description Comments Sex Unknown ETOH Use Denies alcohol use Tobacco Use Start: Unknown Non Smoker Recreational Drug Use Denies Drug Use Allergies, Adverse Reactions, Alerts Description No Known Drug Allergies Medications Active Medications SIG Qnty Indications Ordering Provide r Date Simvastatin 10mg Tablets 1 by mouth every day Unknown Digox 125mcg Tablets every da y Unknown Spironolactone 25mg Tablets 1 by mouth every day 90{tabs Unknown Metformin HCL 1000mg Tablets 1 tab by mouth three times a day 60tabs Unknown 00 Cozaar 50mg Tablets 1 by mouth every day Unknown Januvia 100mg Tablets 1 by mouth every day Unknown Levothyroxine Sodium 75mcg Tablets 1 by mouth every day 30tabs Unknown Vitamin D 1000Unit Capsules e very day Unknown Aspirin 81mg Tablets 1 by mouth every day Unknown Eliquis 5mg Tablets 1 tab by mouth twice a day Unknown Trulicity 0.75mg/0.5 ML Solution Pen-Inject 1 injection weekly Unknown 0 Steglatro 15mg Tablets 1 by mouth every day Unknown Bisoprolol Fumarate 5mg Tablets 1 by mouth Unknown Torsemide 20mg Tablets twice a day Unknown Immunizations Description No Information Available Vital Signs Date Vital Result Comment 11/07/2020 2:50pm BP Systolic 130 mmHg BP Diastolic 80 mmHg Body Temperature 98.6 F Height 68 inches 5'8" Weight 211.00 lb BMI (Body Mass Index) 32.1 kg/m2 Polo Body Weight 154 lb Weight 95.710 kg BSA (Body Surface Area) 2.09 m2 01/24/2014 2:57pm BP Systolic 157 mmHg BP Diastolic 88 mmHg Height 68 inches 5'8" Weight 257.00 lb BMI (Body Mass Index) 39.1 kg/m2 Polo Body Weight 154 lb Weight 116.575 kg BSA (Body Surface Area) 2.27 m2 Results Description No Information Available Procedures Description No Information Available Medical Devices Description No Information Available Encounters Description No Information Available Assessments Description No Information Available Plan of Treatment 01/24/2014 - Kumar Michele MD* V76.51 Special Screening For Malignant Neoplasms Colon * V72.83 Examination Preoperative Other Spec* New Medication:* Suprep Bowel Prep * New Orders:* Colonoscopy, Ordered: 01/24/14 Functional Status Description No Information Available Mental Status Description No Information Available Referrals Description No Information Available
--- OUTSIDE RECORDS SUMMARY | 2021-01-09 01:33 | CCD | Continuity of Care Document ---
Author Organization Unknown Address Unknown Phone Unavailable Care Team Providers Care Bracer Name Role Phone Papa Palacio AUTM [phone] Jacob Sawyer MD AUTM [phone] Aurelio Healy MD AUTM [phone] Problems Active Problems Provider Date Combined systolic [...] Patient has never smoked Smoking Status Reviewed: 10/10/20 Patient has never smoked Exercise Type/Frequency Walks daily 1 mile a day Exercise Type/Frequency Does yardwork three time s a week Exercise Limitations Shortness Of Breath Allergies, Adverse Reactions, Alerts Description No Known Drug Allergies Medications Active Medications SIG Qnty Indications Ordering Provide r Date Levothyroxine Sodium 75mcg Capsule s 1 by mouth every day Unknown 10/09/2020 Torsemide 20mg Tablets 2 by mouth daily 180tabs I50.42 José Wharton MD 07/08/2020 Metformin HCL 1000mg Tablets 1 po bid Aurelio Healy MD 07/08/2020 Bisoprolol Fumarate 5mg Tablets 1 [...] 1 po Juliana Abreu, MS. [facility] 06/16/2011 Simvastatin 10mg Tablets 1 po qd 90tabs José Wharton MD 06/30/2010 Spironolactone 25mg Tablets Take One-Half Tablet By Mouth Every Day 15tabs I50.42 José Wharton MD 11/2008 Vitamin D 1000Unit Tablets 1 po qd Juan Monk, [place] 02/07/2009 Multi Vitamin Tablets Juan Monk, [employer] 02/07/2009 [place]-3 1000mg Capsules 1 po qd Juan Flanagan [place] 02/07/2009 Aspirin 81mg Chewtabs 1 po qd José Wharton MD 02/07/2009 History Medications Metformin HCL 850mg Tablets 1 by mouth three times a day Aurelio Healy MD 06/11/19 - 07/08/2020 Levothyroxine Sodium 100mcg Tablet s 1 by mouth every day Aurelio Healy MD 06/10/2020 - 10/10/2020 Immunizations Description No Information Available Vital Signs Date Vital Result Comment 10/10/2020 7:42am Weight 216.00 lb Home Weight 213lb Height 68 inches 5'8" BMI (Body Mass Index) 32.8 kg/m2 Heart Rate 76 /min Irregular Respiratory Rate 16 /min BP Systolic Right Arm 114 mmHg sitting, large cuf f BP Diastolic Right Arm 68 mmHg sitting, large cu ff 07/09/2020 7:48am Weight 218.00 lb Home Weight 214lb Height 68 inches 5'8" BMI (Body Mass Index) 33.1 kg/m2 Heart Rate 74 /min Respiratory Rate 16 /min BP Systolic Right Arm 116 mmHg sitting, regular c uff BP Diastolic Right Arm 66 mmHg sitting, regular cuff Results Test Acquired Date Facility Test Result [...] 2083 Lipase 118 Laboratory test finding 10/04/2020 [place] [address] [phone] Magnesium 1.8 mg/dL 1.8-2.4 Basic Metabolic Profile 10/04/2020 [place] [address] [phone] Glu 213 mg/dL High 74-106 BUN 26 mg/dL High 7-18 Cre 1.32 mg/dL High 0.7-1.3 Na 140 mmol/L 136-145 K 4.7 mmol/L 3.5-5.1 CL 102 mmol/L 98-107 Co2 31 mmol/L 21-32 CA 9.4 mg/dL 8.5-10.1 Gap 7.0 mmol/L 5-12 GFR 55 mL/min 1 Basic Metabolic Profile 07/09/2020 [facility] [phone] Glucose, Fasting 151 mg/dL High 70-100 Blood [...] mg/dL Normal 8.8-10.2 Laboratory test finding 07/09/2020 [facility] [phone] Magnesium Level 2.3 mg/dL Normal 1.8-2.4 3 [...] Little GFR Left ESRD GFR <15 on PULLMAN CON[employer] 3 note:<nlbl:demographic_chang ed> Procedures Date Code Description Status 10/10/2020 20165 Office/Outpatient Established Lo w MDM 20-29 Min Completed 07/09/2020 17845 Office/Outpatient Established SF MDM 10-19 Min Completed 07/09/2020 83714 ECG 12-Lead Completed 06/11/2020 01375 Office/Outpatient Established Mo d MDM 30-39 Min Completed 06/11/2020 79865 ECG 12-Lead Completed Medical Devices Description No Information Available Encounters Type Date Location Provider Dx Diagnosis Office Visit 10/10/2020 7:45a Main Office Iris Gallagher PA-C I50.4 2 Chronic combined systolic and diastolic hrt fail Office Visit 07/09/2020 7:45a Main Office SAL SchwartzC I48.2 1 Permanent atrial fibrillation I50.42 Chronic combined systolic an d diastolic hrt fail Office Visit 06/11/2020 9:45a Main Office SAL SchwartzC I50.4 2 Chronic combined systolic and diastolic [...] Gallagher PA-C 07/09/2020 I48.21 Permanent atrial fibrillation SAL CarrascoC 07/09/2020 I50.42 Chronic combined sys tolic (congestive) and diastolic (congestive) heart failure SAL SchwartzC 06/11/2020 I50.42 Chronic combined sys tolic (congestive) and diastolic (congestive) heart failure SAL SchwartzC 06/11/2020 I11.0 Hypertensive heart disease with heart failure SAL SchwartzC 06/11/2020 I48.21 Permanent atrial fibrillation SAL CarrascoC 06/11/2020 R94.31 Abnormal electrocardiogram [ECG] [EKG] Iris Gallagher PA-C 06/11/2020 I45.2 Bifascicular block Iris ugarte PA-C 06/11/2020 I34.0 Nonrheumatic mitral (valve) insu fficiency SAL SchwartzC 06/11/2020 I35.1 Nonrheumatic aortic (valve) insu fficiency Iris Gallagher PA-C 06/11/2020 B33.23 Viral pericarditis Iris ugarte PA-C 06/11/2020 E78.00 Pure hypercholesterolemia, unspe cified Iris Gallagher PA-C 06/11/2020 Z71.3 Dietary counseling and surveilla nce Iris Gallagher PA-C Plan of Treatment Future Appointment(s):* 01/20/2021 8:45 am - Iris Gallagher PA-C at Main Office 10/10/2020 - Iris Gallagher PA-C* I50.42 Chronic combined systolic (congestive) and diastolic (congestive) heart failure* New Labs:* Basic Metabolic Profile, Scheduled: 01/07/21 * Magnesium, Scheduled: 01/07/21 * Recommendations:* 1. Follow a low sodium diet and 1500cc/24 hour fluid restriction and do daily weights. Call the office with weight gain of 3 lbs or more. 2. Discuss addition of Farxiga with Dr. Healy at your next appointment, as it has been shown to reduce heart failure hospitalizations and CV in patients with diabetes and heart failure with reduced ejection fraction. * All * Follow up:* 3 month follow up. Functional Status Functional Condition Comment Date Status Independent with all ADL's Activ e Mental Status Description No Information Available Referrals Description No Information Available
--- OUTSIDE RECORDS SUMMARY | 2021-01-09 01:33 | CCD | Continuity of Care Document ---
Author Author Edwin HEALY M.D. Organization Unknown Address [address] [address] Phone [phone] Problems Active Problems Provider Date Obesity Charly Luciano M.D. Onset: 05/31/2002 Type 2 diabetes mellitus Papa Palacio D.O., FAAFP Onset: 09/10/2008 Hyperlipidemia Halima Cedillo RPA-C Onset: 2012 Atrial fibrillation Halima Cedillo RPA-C Onset: 2012 Vitamin D deficiency Ruthie Horton D., AGRI BUSINESS AGENT-C Onset: 02/05 Hypothyroidism Ruthie Horton D., AGRI BUSINESS AGENT-C Onset: 02/21 Impotence Ruthie Horton D., FRANCHESKA-Mel [...] test blood glucose bid 100units Juliana Haney [facility]- 07/10/19 10 Vitamin D 1000Unit Capsules 1 po qd OTC Juan De [facility] 02/01/2009 Multi-Vitamin Tablets 1 PO q d Unknown [place]-3 Capsules 1 PO qd Unknown Spironolactone 25mg [...] Date Injection (SC)/(Im) Injection Ruthie Horton D. AGRI BUSINESS AGENT-C 11/20/2013 Injection (SC)/(Im) Injection Halima Cedillo [facility] 12/15/2011 Injection (SC)/(Im) Injection Juliana Haney [facility]- 12/12/2010 Injection (SC)/(Im) Injection Charly Luciano M.D. 12/29/2001 Immunizations CPT Code Status Date Vaccine Lot # [id number] Given 12/27/2014 Influenza Virus Vac. Split Virus Individuals 3 Years And Above [id number] Given 11/20/2013 Influenza Virus Vac. Split Virus Individuals 3 Years And Above [id number] Given 12/15/2011 Influenza Virus Vac. Split Virus Individuals 3 Years And Above [id number] Given 12/12/2010 Influenza Virus Vac. Split Virus Individuals 3 Years And Above [id number] Given 12/29/2001 Influenza Virus Vac. Split Virus Individuals 3 Years And Above [id number] Refused 12/02/2018 Influenza Virus Vaccine, Quadrivalent, Slit Virus, Im Use 3Y & Up [id number] Refused 01/12/2017 Influenza Virus Vaccine, Quadrivalent, Slit Virus, Im Use 3Y & Up Vital Signs Date Vital Result Comment 11/29/2020 8:55am BP Systolic 110 mmHg BP Diastolic 70 mmHg Body Temperature 98.2 F Heart Rate 78 /min Respiratory Rate 14 /min Height 68 inches 5'8" Weight 211.00 lb [place] Body Weight 154 lb BMI (Body Mass Index) 32.1 kg/m2 O2 % BldC Oximetry 96 % 08/23/2020 11:35am BP Systolic 112 mmHg BP Diastolic 74 mmHg Body Temperature 98.6 F Heart Rate 70 /min Respiratory Rate 16 /min Height 68 inches 5'8" Weight 216.00 lb [place] Body Weight 154 lb BMI (Body Mass Index) 32.8 kg/m2 O2 % BldC Oximetry 93 % Results Test Acquired Date Facility Test Result H/L Range Note Hemoglobin A1c 11/27/2020 [facility]) [phone] Hemoglobin A1c 7.2 % Normal 1 Estimated Average Glucose 160 mg/dL High 60-110 Microalbumin Random 11/27/2020 [facility]) [phone] Creatinine, Urine 80.6 mg/dL Normal Malb Urine Siemens 9.8 mg/L Normal Von/Creat Ratio 12.1 MCG/MG Normal 0.0-30.0 2 Comprehensive Metabolic Profil 11/27/2020 [facility] ([facility]) [phone] Glucose, Fasting 161 mg/dL High 70-100 Blood [...] Albumin/Globulin Ratio 1.3 Normal Lipid Panel 11/27/2020 [facility] (I nterface) [phone] Triglycerides Level 176 mg/dL High <150 Cholesterol Level 155 mg/dL Normal <200 HDL Cholesterol 42 mg/dL Normal >40 LDL Cholesterol 78 mg/dL Normal <100 Non-HDL-C 113 mg/dL Normal Cholesterol Risk Ratio 3.690 Normal <5 Laboratory test finding 11/27/2020 [facility] (Interface) [phone] Thyroid Stimulating Hormone 2.650 uIU/ML Normal 0. 358-3.740 4 Ua W/ Reflex To Culture 11/01/2020 [facility] (Interface) [phone] Appearance, Urine RFX CLEAR Normal Clear Color, Urine RFX YELLOW Normal Yellow PH,Urine RFX 6.0 units Normal 5.0-9.0 Specific [place] Ur Auto RFX 1.028 Normal 1.002-1.035 Protein, [...] /LPF Normal 0-1 Laboratory test finding 10/04/[address] [address] (315)- - Magnesium 1.8 mg/dL 1.8-2.4 Basic Metabolic Profile 10/04/[address] [address] (315)- - Glu 213 mg/dL High 74-106 BUN 26 mg/dL High 7-18 Cre 1.32 mg/dL High 0.7-1.3 Na 140 mmol/L 136-145 K 4.7 mmol/L 3.5-5.1 CL 102 mmol/L 98-107 Co2 31 mmol/L 21-32 CA 9.4 mg/dL 8.5-10.1 Gap 7.0 mmol/L 5-12 GFR 55 mL/min 5 Laboratory test finding 08/16/2020 [facility] (Interface) [phone] Thyroid Stimulating Hormone 0.283 uIU/ML Low 0. 358-3.740 6 Hemoglobin A1c 08/16/2020 [facility] (I nterce) [phone] Hemoglobin A1c 7.3 % Normal 7 Estimated Average Glucose 163 mg/dL High 60-110 Comprehensive Metabolic Profil 08/16/2020 [facility] (Interface) [phone] Glucose, Fasting 125 mg/dL High 70-100 Blood [...] Albumin/Globulin Ratio 1.2 Normal Lipid Panel 08/16/2020 [facility] [phone] Triglycerides Level 93 mg/dL Normal <150 Cholesterol Level 128 mg/dL Normal <200 HDL Cholesterol 45 mg/dL Normal >40 LDL Cholesterol 64 mg/dL Normal <100 Non-HDL-C 83 mg/dL Normal Cholesterol Risk Ratio 2.844 Normal <5 Basic Metabolic Profile 07/09/2020 [facility] (Interface) [phone] Glucose, Fasting 151 mg/dL High 70-100 Blood [...] mg/dL Normal 8.8-10.2 Laboratory test finding 07/09/2020 [facility] (Interface) [phone] Magnesium Level 2.3 mg/dL Normal 1.8-2.4 10 Cardiac Marker Panel 06/17/2020 [facility] ( Interface) [phone] CPK Creatine Phosphokinase 54 U/L Normal 39-30 8 CK-MB Value Mass 2.0 NG/ML Normal <3.6 MB/CK Relative Index 3.70 Normal < Or =4 11 Troponin I 0.02 NG/ML Normal < 0.10 12 Laboratory test finding 06/17/2020 [facility] (Interface) [phone] Troponin I <pending> iSTAT Troponin 0.01 NG/ML Normal 0.00-0.08 Respiratory Panel 06/17/2020 [facility] [phone] Respiratory Panel This respiratory <SEE NOTE> 13 Cardiac Marker Panel 06/17/2020 [facility] ( [facility]) [phone] CPK Creatine Phosphokinase 63 U/L Normal 39-30 8 CK-MB Value Mass 1.7 NG/ML Normal <3.6 MB/CK Relative Index 2.70 Normal < Or =4 14 Troponin I 0.02 NG/ML Normal < 0.10 15 Liver Profile 06/17/2020 [facility] [phone] Ast/Sgot 12 U/L Normal 7-37 Alt/SGPT 23 U/L Normal 12-78 Alkaline Phosphatase 68 U/L Normal 45-117 Bilirubin,Total 0.8 mg/dL Normal 0.2-1.0 Bilirubin,Direct 0.2 mg/dL Normal 0.0-0.2 Total Protein 6.7 GM/DL Normal 6.4-8.2 Albumin 3.7 GM/DL Normal 3.2-5.2 Albumin/Globulin Ratio 1.2 Normal Basic Metabolic Profile 06/17/2020 [facility] (Interface) [phone] Glucose, Fasting 161 mg/dL High 70-100 Blood [...] mg/dL Normal 8.8-10.2 Laboratory test finding 06/17/2020 [facility] (Interface) [phone] NT-Pro BNP 3269 pg/mL High <125 17 Lipase 174 U/L Normal 73-393 18 Thyroid Stimulating Hormone 1.040 uIU/ML Normal 0.358-3.740 19 Free T4 0.97 ng/dL Normal 0.76-1.46 20 CBC With Differential 06/17/2020 [facility] (Interface) [phone] White Blood Count 10.1 10 High 4.0-10.0 [...] 36.0-66.0 Lymph % 12.0 % Low 24.0-44.0 [place] % 6.4 % Normal 2.0-8.0 Eos % 1.4 % Normal 0.0-3.0 Baso % 0.3 % Normal 0.0-1.0 Immature Granulocyte % 0.5 % Normal 0-3.0 Nucleated Red Blood Cell % 0.0 % Normal 0-0 Neutrophils # 8.0 10 Normal 1.5-8.5 Lymph # 1.2 10 Low 1.5-5.0 [place] # 0.7 10 Normal 0.0-0.8 Eos # 0.1 10 Normal 0.0-0.5 Baso # 0.0 10 Normal 0.0-0.2 Prothrombin Time/Inr 06/17/2020 [facility] ( Interface) [phone] Prothrombin Time 14.8 seconds High 12.5-14.3 Inr 1.14 Normal 21 Laboratory test finding 06/17/2020 [facility] (Interface) [phone] Partial Thromboplastin Time 31.2 seconds Normal 24 .2-38.5 1 REFERENCE RANGES: <=5.6% NORMAL 5.7-6.4% SUGGESTS IMPAIRED GLUCOSE META BOLISM/PREDIABETIC >= 6.5% ABNORMAL 2 THE [place] DI[employer]ES [employer]OC[employer] ATION STATES THAT MICROALBUMINURIA IS [...] Little GFR Left ESRD GFR <15 on VENEER SPLICER 4 note:<nlbl:demographic_chang ed> 5 GFR IS CALCULATED IN mL/min/ 1.73m2 NORMAL FUNCTION: >90 MILDLY DECREASED: 60-89 MILDY TO MODERATELY DECREASED: 45-59 MODERATELY TO SEVERELY DECREASED: 30-44 SEVERELY DECREASED: 15-29 RENAL FAILURE: <15 6 note:<nlbl:[facility] ed> 7 REFERENCE RANGES: <=5.6% NORMAL 5.7-6.4% SUGGESTS IMPAIRED GLUCOSE META BOLISM/PREDIABETIC >= 6.5% ABNORMAL 8 Units are mL/min/1.73 m2 Chronic Kidney Disease Staging per NKF: Stage I & II GFR >=60 Normal to Mildly Decreased Stage III GFR 30-59 Moderately Decreased Stage IV GFR 15-29 Severely Decreased Stage V GFR <15 Very Little GFR Left ESRD GFR <15 on VENEER SPLICER 9 Units are mL/min/1.73 m2 Chronic Kidney Disease Staging per NKF: Stage I & II GFR >=60 Normal to Mildly Decreased Stage III GFR 30-59 Moderately Decreased Stage IV GFR 15-29 Severely Decreased Stage V GFR <15 Very Little GFR Left ESRD GFR <15 on VENEER SPLICER 10 note:<nlbl:[facility] ed> 11 DIAGNOSIS CRITERIA MMB ng/ml Relative Index (RI) NON-AMI < or = 5 N/A GARCIA ZONE > 5 < or = 4 AMI > 5 > 4 12 Troponin I Reference Interva l for Siemens [place] LOCI: 99th Percentile= 0.00-0.045 ng/ml Risk Stratification: [...] Troponin I Reference Interva l for Siemens [place] LOCI: 99th Percentile= 0.00-0.045 ng/ml Risk Stratification: [...] Little GFR Left ESRD GFR <15 on VENEER SPLICER 17 note:<nlbl:demographic_chang ed> note:<nlbl:demographic_changed> 18 note:<nlbl:demographic_chang ed> [...] 2.5-3.5 Procedures Date Code Description Status 11/29/2020 62549 Office/Outpatient Established Mo d MDM 30-39 Min Completed 08/23/2020 78678 Office/Outpatient Established Mo d MDM 30-39 Min Completed Medical Devices Description No Information Available Encounters Type Date Location Provider Dx Diagnosis Office Visit 11/29/2020 9:00a [place] [facility] Aurelio Healy M. D. E78.5 Hyperlipidemia, unspecified E11.9 Type 2 diabetes mellitus wit hout complications E03.9 Hypothyroidism, unspecified I10 Essential (primary) hyperten natasha I48.91 Unspecified atrial fibrillat ion Office Visit 08/23/2020 11:30a [place] [facility] Aurelio Healy M. D. E78.5 Hyperlipidemia, unspecified E11.9 Type 2 diabetes mellitus wit hout complications E03.9 Hypothyroidism, unspecified I10 Essential (primary) hyperten natasha I48.91 Unspecified atrial fibrillat ion Assessments Date Code Description Provider 11/29/2020 E78.5 Hyperlipidemia, unspecified [facility] Aurelio khan M.D. 11/29/2020 E11.9 Type 2 diabetes mellitus without complications Aurelio Healy M.D. 11/29/2020 E03.9 Hypothyroidism, unspecified [facility] Aurelio khan M.D. 11/29/2020 I10 Essential (primary) hypertension Aurelio Healy M.D. 11/29/2020 I48.91 Unspecified atrial fibrillation Aurelio Healy M.D. 08/23/2020 E78.5 Hyperlipidemia, unspecified [facility] Aurelio khan M.D. 08/23/2020 E11.9 Type 2 diabetes mellitus without complications Aurelio Healy M.D. 08/23/2020 E03.9 Hypothyroidism, unspecified [facility] Aurelio khan M.D. 08/23/2020 I10 Essential (primary) hypertension Aurelio Healy M.D. 08/23/2020 I48.91 Unspecified atrial fibrillation Aurelio Healy M.D. Plan of Treatment Future Appointment(s):* 12/17/2020 2:00 pm - Aurelio Healy M.D. at [facility] Functional Status Description No Information Available Mental Status Description No Information Available Referrals Description No Information Available
--- OUTSIDE RECORDS SUMMARY | 2021-01-09 01:33 | CCD | Continuity of Care Document ---
Author Author Edwin HEALY M.D. Organization Unknown Address [address] [address] Phone [phone] Problems Active Problems Provider Date Obesity Charly Luciano M.D. Onset: 05/31/2002 Type 2 diabetes mellitus Papa Palacio D.O., FAAFP Onset: 09/10/2008 Hyperlipidemia Halima Cedillo RPA-Mel Onset: 2012 Atrial fibrillation Halima Cedillo RPA-C Onset: 2012 Vitamin D deficiency Ruthie Horton D., BACK SHOE OPERATOR-C Onset: 02/05 Hypothyroidism Ruthie Horton D., BACK SHOE OPERATOR-C Onset: 02/21 Impotence Ruthie Horton D., FRANCHESKA-Mel Onset: 06/20 Essential hypertension Ruthie Horton D., FRANCHESKA-C Onset: Social History Type Date Description Comments Sex Unknown Tobacco Use Start: Unknown Patient has never smoked Allergies and adverse reactions Description No Known Drug Allergies Medications Active [...] test blood glucose bid 100units Juliana Haney [facility]- 07/10/19 10 Vitamin D 1000Unit Capsules 1 po qd OTC Javan Matt Juan Jordan [facility] 02/01/2009 Multi-Vitamin Tablets 1 PO q d Unknown [place]-3 Capsules 1 PO qd Unknown Spironolactone 25mg [...] Provider Date Injection (SC)/(Im) Injection Ruthie Horton D., FNP-C 11/20/2013 Injection (SC)/(Im) Injection Halima Cedillo [facility] 12/15/2011 Injection (SC)/(Im) Injection Juliana Haney [facility]- 12/12/2010 Injection (SC)/(Im) Injection Charly Luciano M.D. 12/29/2001 Immunizations CPT Code Status Date Vaccine Lot # [id number] Given 12/27/2014 Influenza Virus Vac. Split Virus Individuals 3 Years And Above [id number] Given 11/20/2013 Influenza Virus Vac. Split Virus Individuals 3 Years And Above [id number] 87779 Given 12/15/2011 Influenza Virus Vac. Split Virus Individuals 3 Years And Above [id number] 80555 Given 12/12/2010 Influenza Virus Vac. Split Virus Individuals 3 Years And Above [id number] Given 12/29/2001 Influenza Virus Vac. Split Virus Individuals 3 Years And Above [id number] Refused 12/02/2018 Influenza Virus Vaccine, Quadrivalent, Slit Virus, Im Use 3Y & Up [id number] Refused 01/12/2017 Influenza Virus Vaccine, Quadrivalent, Slit Virus, Im Use 3Y & Up Vital Signs Date Vital Result Comment 12/17/2020 2:08pm BP Systolic 114 mmHg BP Diastolic 74 mmHg Body Temperature 98.3 F Heart Rate 96 /min Respiratory Rate 14 /min Height 68 inches 5'8" Weight 213.00 lb [place] Body Weight 154 lb BMI (Body Mass Index) 32.4 kg/m2 O2 % BldC Oximetry 96 % 11/29/2020 8:55am BP Systolic 110 mmHg BP Diastolic 70 mmHg Body Temperature 98.2 F Heart Rate 78 /min Respiratory Rate 14 /min Height 68 inches 5'8" Weight 211.00 lb [place] Body Weight 154 lb BMI (Body Mass Index) 32.1 kg/m2 O2 % BldC Oximetry 96 % Results Test Acquired Date Facility Test Result H/L Range Note Laboratory test finding 11/27/2020 [facility] (Interface) [phone] Thyroid Stimulating Hormone 2.650 uIU/ML Normal 0. 358-3.740 1 Hemoglobin A1c 11/27/2020 [facility]) [phone] Hemoglobin A1c 7.2 % Normal 2 Estimated Average Glucose 160 mg/dL High 60-110 Microalbumin Random 11/27/2020 [facility]) [phone] Creatinine, Urine 80.6 mg/dL Normal Malb Urine Siemens 9.8 mg/L Normal Von/Creat Ratio 12.1 MCG/MG Normal 0.0-30.0 3 Comprehensive Metabolic Profil 11/27/2020 [facility] (Interface) [phone] Glucose, Fasting 161 mg/dL High 70-100 Blood Urea Nitrogen 23 mg/dL High 7-18 Creatinine For GFR 1.27 mg/dL Normal 0.70-1.30 Glomerular Filtration Rate > 60.0 Normal >49 4 Sodium Level 140 mEq/L Normal 136-145 Potassium [...] Albumin/Globulin Ratio 1.3 Normal Lipid Panel 11/27/2020 [facility] (I nterface) [phone] Triglycerides Level 176 mg/dL High <150 Cholesterol Level 155 mg/dL Normal <200 HDL Cholesterol 42 mg/dL Normal >40 LDL Cholesterol 78 mg/dL Normal <100 Non-HDL-C 113 mg/dL Normal Cholesterol Risk Ratio 3.690 Normal <5 Ua W/ Reflex To Culture 11/01/2020 [facility] (Interface) [phone] Appearance, Urine RFX CLEAR Normal Clear Color, Urine RFX YELLOW Normal Yellow PH,Urine RFX 6.0 units Normal 5.0-9.0 Specific [place] Ur Auto RFX 1.028 Normal 1.002-1.035 Protein, [...] /LPF Normal 0-1 Laboratory test finding 10/04/[address] [address] (315)- - Magnesium 1.8 mg/dL 1.8-2.4 Basic Metabolic Profile 10/04/[address] [address] (315)- - Glu 213 mg/dL High 74-106 BUN 26 mg/dL High 7-18 Cre 1.32 mg/dL High 0.7-1.3 Na 140 mmol/L 136-145 K 4.7 mmol/L 3.5-5.1 CL 102 mmol/L 98-107 Co2 31 mmol/L 21-32 CA 9.4 mg/dL 8.5-10.1 Gap 7.0 mmol/L 5-12 GFR 55 mL/min 5 Laboratory test finding 08/16/2020 [facility] (Interface) [phone] Thyroid Stimulating Hormone 0.283 uIU/ML Low 0. 358-3.740 6 Hemoglobin A1c 08/16/2020 [facility] (I [facility]terface) [phone] Hemoglobin A1c 7.3 % Normal 7 Estimated Average Glucose 163 mg/dL High 60-110 Comprehensive Metabolic Profil 08/16/2020 [facility] (Interface) [phone] Glucose, Fasting 125 mg/dL High 70-100 Blood [...] Albumin/Globulin Ratio 1.2 Normal Lipid Panel 08/16/2020 [facility] ([facility]terface) [phone] Triglycerides Level 93 mg/dL Normal <150 Cholesterol Level 128 mg/dL Normal <200 HDL Cholesterol 45 mg/dL Normal >40 LDL Cholesterol 64 mg/dL Normal <100 Non-HDL-C 83 mg/dL Normal Cholesterol Risk Ratio 2.844 Normal <5 Basic Metabolic Profile 07/09/2020 [facility] (Interface) [phone] Glucose, Fasting 151 mg/dL High 70-100 Blood [...] mg/dL Normal 8.8-10.2 Laboratory test finding 07/09/2020 [facility] (Interface) [phone] Magnesium Level 2.3 mg/dL Normal 1.8-2.4 10 1 note:<nlbl:demographic_chang ed> 2 REFERENCE RANGES: <=5.6% NORMAL 5.7-6.4% SUGGESTS IMPAIRED GLUCOSE META BOLISM/PREDIABETIC >= 6.5% ABNORMAL 3 THE [place] DI[employer] ASSOC[employer] ATION STATES THAT MICROALBUMINURIA IS PRESENT IF THE MICROALBUMIN/CREATININE RATIO EXCEEDS 30 MCG/MG. THE THRESHOLD FOR CLINICAL ALBUMINURIA IS REACHED AT 300 MCG/MG. THE CLASSIFICATION OF A PATIENT SHOULD BE BASED UPON AT LEAST 2 OF 3 ABNORMAL RESULTS ON SPECIMENS COLLECTED WITHIN A 3 TO 6 MONTH TIME FRAME. 4 Units are mL/min/1.73 m2 Chronic Kidney Disease Staging per NKF: Stage I & II GFR >=60 Normal to Mildly Decreased Stage III GFR 30-59 Moderately Decreased Stage IV GFR 15-29 Severely Decreased Stage V GFR <15 Very Little GFR Left ESRD GFR <15 on DIRECTOR ACUTE 5 GFR IS CALCULATED IN mL/min/ 1.73m2 NORMAL FUNCTION: >90 MILDLY DECREASED: 60-89 MILDY TO MODERATELY DECREASED: 45-59 MODERATELY TO SEVERELY DECREASED: 30-44 SEVERELY DECREASED: 15-29 RENAL FAILURE: <15 6 note:<nlbl:demographic_chang ed> 7 REFERENCE RANGES: <=5.6% NORMAL 5.7-6.4% SUGGESTS IMPAIRED GLUCOSE META BOLISM/PREDIABETIC >= 6.5% ABNORMAL 8 Units are mL/min/1.73 m2 Chronic Kidney Disease Staging per NKF: Stage I & II GFR >=60 Normal to Mildly Decreased Stage III GFR 30-59 Moderately Decreased Stage IV GFR 15-29 Severely Decreased Stage V GFR <15 Very Little GFR Left ESRD GFR <15 on DIRECTOR ACUTE 9 Units are mL/min/1.73 m2 Chronic Kidney Disease Staging per NKF: Stage I & II GFR >=60 Normal to Mildly Decreased Stage III GFR 30-59 Moderately Decreased Stage IV GFR 15-29 Severely Decreased Stage V GFR <15 Very Little GFR Left ESRD GFR <15 on DIRECTOR ACUTE 10 note:<nlbl:[facility] ed> Procedures Date Code Description Status 12/17/2020 88627 Office/Outpatient Established Mo d MDM 30-39 Min Completed 11/29/2020 68535 Office/Outpatient Established Mo d MDM 30-39 Min Completed 08/23/2020 48217 Office/Outpatient Established Mo d MDM 30-39 Min Completed Medical Devices Description No Information Available Encounters Type Date Location Provider Dx Diagnosis Office Visit 12/17/2020 2:00p [place] [facility] Aurelio Healy M. D. Z01.810 Encounter for preprocedural cardiovascular examination Office Visit 11/29/2020 9:00a [place] [facility] Aurelio Healy M. D. E78.5 Hyperlipidemia, unspecified E11.9 Type 2 diabetes mellitus wit hout complications E03.9 Hypothyroidism, unspecified I10 Essential (primary) hyperten natasha I48.91 Unspecified atrial fibrillat ion Office Visit 08/23/2020 11:30a [place] [facility] Aurelio Healy M. D. E78.5 Hyperlipidemia, unspecified E11.9 Type 2 diabetes mellitus wit hout complications E03.9 Hypothyroidism, unspecified I10 Essential (primary) hyperten natasha I48.91 Unspecified atrial fibrillat ion Assessments Date Code Description Provider 12/17/2020 Z01.810 Encounter for preprocedural card iovascular examination Aurelio Healy M.D. 11/29/2020 E78.5 Hyperlipidemia, unspecified [facility] M[facility] 11/29/2020 E11.9 Type 2 diabetes mellitus without complications Aurelio Healy M.D. 11/29/2020 E03.9 Hypothyroidism, unspecified [facility] Aurelio khan M.D. 11/29/2020 I10 Essential (primary) hypertension Aurelio Healy M.D. 11/29/2020 I48.91 Unspecified atrial fibrillation Aurelio Healy M.D. 08/23/2020 E78.5 Hyperlipidemia, unspecified [facility] Aurelio khan M.D. 08/23/2020 E11.9 Type 2 diabetes mellitus without complications Aurelio Healy M.D. 08/23/2020 E03.9 Hypothyroidism, unspecified [facility] Aurelio khan M.D. 08/23/2020 I10 Essential (primary) hypertension Aurelio Healy M.D. 08/23/2020 I48.91 Unspecified atrial fibrillation Aurelio Healy M.D. Plan of Treatment Future Appointment(s):* 03/05/2021 11:00 am - Aurelio Healy M.D. at [facility] Functional Status Description No Information Available Mental Status Description No Information Available Referrals Description No Information Available
--- OUTSIDE RECORDS SUMMARY | 2021-01-09 01:33 | CCD | Continuity of Care Document ---
Author Author Edwin RASMUSSEN DO Organization Unknown Address [address], [address] [place] [address] Phone [phone] Care Team Providers Care Ocular Care Technologist Name Role Phone Hakeem Papa Porter D.O. AUTM [phone] Judi Salinas M.D. AUTM Problems Description No Active Problems Social History [...] lb BMI (Body Mass Index) 32.1 kg/m2 [place] Body Weight 154 lb Weight 95.710 kg BSA (Body Surface Area) 2.09 m2 01/24/2014 2:57pm BP Systolic 157 mmHg BP Diastolic 88 mmHg Height 68 inches 5'8" Weight 257.00 lb BMI (Body Mass Index) 39.1 kg/m2 [place] Body Weight 154 lb Weight 116.575 kg BSA (Body Surface Area) 2.27 m2 Results Description No Information Available Procedures Date Code Description Status 11/07/2020 22319 Office/Outpatient New Moderate M DM 45-59 Minutes Completed Medical Devices Description No Information Available Encounters Type Date Location Provider Dx Diagnosis Office Visit 11/07/2020 2:30p [facility] Vincent Rasmussen DO K40.30 Unil inguinal hernia, w obst, w/o gangr, not spcf as recur Assessments Date Code Description Provider 11/07/2020 K40.30 Unilateral inguinal hernia, with obstruction, without gangrene, not specified as recurrent Vincent Rasmussen DO Plan of Treatment Future Appointment(s):* 01/16/2021 9:15 am - CHARISSE Vaughn at [facility] * 01/03/2021 8:45 am - Vincent Rasmussen DO at [facility] 11/07/2020 - Vincent Rasmussen DO* K40.30 Unilateral inguinal hernia, with obstruction, without gangrene, not specified as recurrent* Comments:* 65 y/o male presents with physical exam findings consistent with incarcerated right inguinal hernia. Recommendation at this time is to proceed with robotic repair possible laparoscopic, possible open. The risks and benefits of the procedure were discussed in detail. The risks include, but are not limited to bleeding, infection, hernia recurrence, hernia formation, need for open surgery, and possibility of damage to surrounding structures. He understands the risks and elects to proceed with surgery. Functional Status Description No Information Available Mental Status Description No Information Available Referrals Description No Information Available
--- OUTSIDE RECORDS SUMMARY | 2021-01-09 01:34 | CCD ---
Author Author [facility] Organization [facility] Address Unknown Phone Unavailable Care Team Providers Care Director Of Photography Name Role Phone Fish, B Gualberto RAMIREZ Unavailable Unavailable Fish, B Gualberto RAMIREZ Unavailable Unavailable Fish, B Gualberto RAMIREZ Unavailable Unavailable Fish, B Gualberto RAMIREZ Unavailable Unavailable Fish, B Gualberto RAMIREZ Unavailable Unavailable Fish, B Gualberto RAMIREZ Unavailable Unavailable Fish, B Gualberto RAMIREZ Unavailable Unavailable Fish, B Gualberto RAMIREZ Unavailable Unavailable Fish, B Gualberto RAMIREZ Unavailable Unavailable Fish, B Gualberto RAMIREZ Unavailable Unavailable Fish, B Gualberto RAMIREZ Unavailable Unavailable Fish, B Gualberto RAMIREZ Unavailable Unavailable Fish, B Gualberto RAMIREZ Unavailable Unavailable Fish, B Gualberto RAMIREZ Unavailable Unavailable Fish, B Gualberto RAMIREZ Unavailable Unavailable Fish, B Gualberto RAMIREZ Unavailable Unavailable Fish, B Gualberto RAMIREZ Unavailable Unavailable Fish, B Gualberto RAMIREZ Unavailable Unavailable Fish, B Gualberto RAMIREZ Unavailable Unavailable Fish, B Gualberto RAMIREZ Unavailable Unavailable Fish, B Gualberto RAMIREZ Unavailable Unavailable Fish, B Gualberto RAMIREZ Unavailable Unavailable Fish, B Gualberto RAMIREZ Unavailable Unavailable Fish, B Gualberto RAMIREZ Unavailable Unavailable Fish, B uGalberto RAMIREZ Unavailable Unavailable Fish, B Gualberto RAMIREZ Unavailable Unavailable Fish, B Gualberto RAMIREZ Unavailable Unavailable Fish, B Gualberto RAMIREZ Unavailable Unavailable Fish, B Gualberto RAMIREZ Unavailable Unavailable Fish, B Gualberto RAMIREZ Unavailable Unavailable Fish, B Gualberto RAMIREZ Unavailable Unavailable Fish, Guido Burciaga MD Unavailable Unavailable Fish, B Gualberto RAMIREZ Unavailable Unavailable Fish, B Gualberto RAMIREZ Unavailable Unavailable Fish, B Gualberto RAMIREZ Unavailable Unavailable Fish, B Gualberto RAMIREZ Unavailable Unavailable Fish, B Gualberto RAMIREZ Unavailable Unavailable Fish, B Gualberto RAMIREZ Unavailable Unavailable Fish, B Gualberto RAMIREZ Unavailable Unavailable Fish, B Gualberto RAMIREZ Unavailable Unavailable Fish, B Gualberto RAMIREZ Unavailable Unavailable Fish, B Gualberto RAMIREZ Unavailable Unavailable Fish, B Gualberto RAMIREZ Unavailable Unavailable Fish, B Gualberto RAMIREZ Unavailable Unavailable Fish, B Gualberto RAMIREZ Unavailable Unavailable Fish, B Gualberto RAMIREZ Unavailable Unavailable Fish, B Gualberto RAMIREZ Unavailable Unavailable Fish, B Gualberto RAMIREZ Unavailable Unavailable Fish, B Gualberto RAMIREZ Unavailable Unavailable Fish, B Gualberto RAMIREZ Unavailable Unavailable Fish, B Gualberto RAMIREZ Unavailable Unavailable Fish, B Gualberto RAMIREZ Unavailable Unavailable Fish, B Gualberto RAMIREZ Unavailable Unavailable Fish, B Gualberto RAMIREZ Unavailable Unavailable Fish, B Gualberto RAMIREZ Unavailable Unavailable Fish, B Gualberto RAMIREZ Unavailable Unavailable Symenow, Soo Iris PA Unavailable Unavailable Symenow, Soo Iris PA Unavailable Unavailable Symenow, Soo Iris PA Unavailable Unavailable Symenow, Soo Iris PA Unavailable Unavailable Symenow, Soo Iris PA Unavailable Unavailable Symenow, Soo Iris PA Unavailable Unavailable Symenow, Soo Iris PA Unavailable Unavailable Symenow, Soo Iris PA Unavailable Unavailable Symenow, Soo Iris PA Unavailable Unavailable Symenow, Soo Iris PA Unavailable Unavailable Symenow, Soo Iris PA Unavailable Unavailable Symenow, Soo Iris PA Unavailable Unavailable Symenow, Soo Iris PA Unavailable Unavailable Symenow, Soo Iris PA Unavailable Unavailable Symenow, Soo Iris PA Unavailable Unavailable Symenow, Soo Iris PA Unavailable Unavailable Symenow, Soo Iris PA Unavailable Unavailable Symenow, Soo Iris PA Unavailable Unavailable Symenow, Soo Iris PA Unavailable Unavailable Symenow, Soo Iris PA Unavailable Unavailable Symenow, Soo Iris PA Unavailable Unavailable Symenow, Soo Iris PA Unavailable Unavailable Symenow, Soo Iris PA Unavailable Unavailable Symenow, Soo Iris PA Unavailable Unavailable Symenow, Soo Iris PA Unavailable Unavailable Symenow, Soo Iris PA Unavailable Unavailable Symenow, Soo Iris PA Unavailable Unavailable Symenow, Soo Iris PA Unavailable Unavailable Symenow, Soo Iris PA Unavailable Unavailable Symenow, Soo Iris PA Unavailable Unavailable Symenow, Soo Iris PA Unavailable Unavailable Symenow, Soo Iris PA Unavailable Unavailable Symenow, Soo Iris PA Unavailable Unavailable Symenow, Soo Iris PA Unavailable Unavailable Dhruv SANCHEZ MD Unavailable Unavailable Dhruv SANCHEZ MD Unavailable Unavailable Dhruv SANCHEZ MD Unavailable Unavailable Dhruv SANCHEZ MD Unavailable Unavailable Dhruv SANCHEZ MD Unavailable Unavailable Dhruv SANCHEZ MD Unavailable Unavailable Dhruv SANCHEZ MD Unavailable Unavailable Dhruv SANCHEZ MD Unavailable Unavailable Dhruv SANCHEZ MD Unavailable Unavailable Dhruv SANCHEZ MD Unavailable Unavailable Dhruv SANCHEZ MD Unavailable Unavailable Dhruv SANCHEZ MD Unavailable Unavailable Dhruv SANCHEZ MD Unavailable Unavailable Dhruv SANCHEZ MD Unavailable Unavailable Dhruv SANCHEZ MD Unavailable Unavailable Dhruv SANCHEZ MD Unavailable Unavailable Dhruv SANCHEZ MD Unavailable Unavailable Dhruv SANCHEZ MD Unavailable Unavailable Dhruv SANCHEZ MD Unavailable Unavailable Dhruv SANCHEZ MD Unavailable Unavailable Dhruv SANCHEZ MD Unavailable Unavailable Dhruv SANCHEZ MD Unavailable Unavailable Dhruv SANCHEZ MD Unavailable Unavailable Dhruv SANCHEZ MD Unavailable Unavailable Dhruv SANCHEZ MD Unavailable Unavailable Dhruv SANCHEZ MD Unavailable Unavailable Dhruv SANCHEZ MD Unavailable Unavailable Dhruv SANCHEZ MD Unavailable Unavailable Dhruv SANCHEZ MD Unavailable Unavailable Dhruv SANCHEZ MD Unavailable Unavailable Dhruv SANCHEZ MD Unavailable Unavailable Dhruv SANCHEZ MD Unavailable Unavailable Dhruv SANCHEZ MD Unavailable Unavailable Dhruv SANCHEZ MD Unavailable Unavailable Dhruv SANCHEZ MD Unavailable Unavailable Dhruv SANCHEZ MD Unavailable Unavailable Dhruv SANCHEZ MD Unavailable Unavailable Dhruv SANCHEZ MD Unavailable Unavailable Dhruv SANCHEZ MD Unavailable Unavailable Dhruv SANCHEZ MD Unavailable Unavailable Dhruv SANCHEZ MD Unavailable Unavailable Dhruv SANCHEZ MD Unavailable Unavailable Dhruv SANCHEZ MD Unavailable Unavailable Dhruv SANCHEZ MD Unavailable Unavailable Dhruv SANCHEZ MD Unavailable Unavailable Dhruv SANCHEZ MD Unavailable Unavailable Dhruv SANCHEZ MD Unavailable Unavailable Dhruv SANCHEZ MD Unavailable Unavailable Dhruv SANCHEZ MD Unavailable Unavailable LAURA, H RITIKA MD Unavailable Unavailable LAURA, H RITIKA MD Unavailable Unavailable LAURA, H RITIKA MD Unavailable Unavailable ALURA, H RITIKA MD Unavailable Unavailable LAURA, H RITIKA MD Unavailable Unavailable LAURA, H RITIKA MD Unavailable Unavailable LAURA, H RITIKA MD Unavailable Unavailable LAURA, H RITIKA MD Unavailable Unavailable LAURA, H RITIKA MD Unavailable Unavailable LAURA, H RITIKA MD Unavailable Unavailable LAURA, H RITIKA MD Unavailable Unavailable LAURA, H RITIKA MD Unavailable Unavailable LAURA, H RITIKA MD Unavailable Unavailable LAURA, H RITIKA MD Unavailable Unavailable LAURA, H RITIKA MD Unavailable Unavailable LAURA, H RITIKA MD Unavailable Unavailable LAURA, H RITIKA MD Unavailable Unavailable LAURA, H RITIKA MD Unavailable Unavailable LAURA, H RITIKA MD Unavailable Unavailable LAURA, H RITIKA MD Unavailable Unavailable LAURA, H RITIKA MD Unavailable Unavailable LAURA, H RITIKA MD Unavailable Unavailable LAURA, H RITIKA MD Unavailable Unavailable LAURA, H RITIKA MD Unavailable Unavailable LAURA, H RITIKA MD Unavailable Unavailable LAURA, H RITIKA MD Unavailable Unavailable LAURA, H RITIKA MD Unavailable Unavailable BRYDEN, A KANDACE DO Unavailable Unavailable BRYDEN, A KANDACE DO Unavailable Unavailable BRYDEN, A KANDACE DO Unavailable Unavailable BRYDEN, A KANDACE DO Unavailable Unavailable BRYDEN, A KANDACE DO Unavailable Unavailable BRYDEN, A KANDACE DO Unavailable Unavailable BRYDEN, A KANDACE DO Unavailable Unavailable BRYDEN, A KANDACE DO Unavailable Unavailable BRYDEN, A KANDACE DO Unavailable Unavailable BRYDEN, A KANDACE DO Unavailable Unavailable BRYDEN, A KANDACE DO Unavailable Unavailable BRYDEN, A KANDACE DO Unavailable Unavailable BRYDEN, A KANDACE DO Unavailable Unavailable BRYDEN, A KANDACE DO Unavailable Unavailable BRYDEN, A KANDACE DO Unavailable Unavailable BRYDEN, A KANDACE DO Unavailable Unavailable BRYDEN, A KANDACE DO Unavailable Unavailable BRYDEN, A KANDACE DO Unavailable Unavailable BRYDEN, A KANDACE DO Unavailable Unavailable BRYDEN, A KANDACE DO Unavailable Unavailable BRYDEN, A KANDACE DO Unavailable Unavailable BRYDEN, A KANDACE DO Unavailable Unavailable BRYDEN, A KANDACE DO Unavailable Unavailable BRYDEN, A KANDACE DO Unavailable Unavailable BRYDEN, A KANDACE DO Unavailable Unavailable BRYDEN, A KANDACE DO Unavailable Unavailable BRYDEN, A KANDACE DO Unavailable Unavailable BRYDEN, A KANDACE DO Unavailable Unavailable BRYDEN, A KANDACE DO Unavailable Unavailable Shamar Sebastian PA Unavailable Unavailable Shamar Sebastian PA Unavailable Unavailable Shamar Sebastian PA Unavailable Unavailable Shamar Sebastian PA Unavailable Unavailable Shamar Sebastian PA Unavailable Unavailable Shamar Sebatsian PA Unavailable Unavailable Sebastian, M Barratt PA Unavailable Unavailable Sebastian, M Barratt PA Unavailable Unavailable Sebastian, M Barratt PA Unavailable Unavailable Sebastian, M Barratt PA Unavailable Unavailable Sebastian, M Barratt PA Unavailable Unavailable Sebastian, M Barratt PA Unavailable Unavailable Sebastian, M Barratt PA Unavailable Unavailable Sebastian, M Barratt PA Unavailable Unavailable Sebastian, M Barratt PA Unavailable Unavailable Sebastian, M Barratt PA Unavailable Unavailable Sebastian, M Barratt PA Unavailable Unavailable Sebastian, M Barratt PA Unavailable Unavailable Sebastian, M Barratt PA Unavailable Unavailable Sebastian, M Barratt PA Unavailable Unavailable Sebastian, M Barratt PA Unavailable Unavailable Sebastian, M Barratt PA Unavailable Unavailable Sebastian, M Barratt PA Unavailable Unavailable Sebastian, M Barratt PA Unavailable Unavailable Sebastian, M Barratt PA Unavailable Unavailable Sebastian, M Barratt PA Unavailable Unavailable Sebastian, M Barratt PA Unavailable Unavailable Sebastian, M Barratt PA Unavailable Unavailable Sebastian, M Barratt PA Unavailable Unavailable DRAZEK, I LYNDA PA Unavailable Unavailable DRAZEK, I LYNDA PA Unavailable Unavailable DRAZEK, I LYNDA PA Unavailable Unavailable DRAZEK, I LYNDA PA Unavailable Unavailable DRAZEK, I LYNDA PA Unavailable Unavailable DRAZEK, I LYNDA PA Unavailable Unavailable DRAZEK, I LYNDA PA Unavailable Unavailable DRAZEK, I LYNDA PA Unavailable Unavailable DRAZEK, I LYNDA PA Unavailable Unavailable DRAZEK, I LYNDA PA Unavailable Unavailable DRAZEK, I LYNDA PA Unavailable Unavailable DRAZEK, I LYNDA PA Unavailable Unavailable DRAZEK, I LYNDA PA Unavailable Unavailable DRAZEK, I LYNDA PA Unavailable Unavailable DRAZEK, I LYNDA PA Unavailable Unavailable DRAZEK, I LYNDA PA Unavailable Unavailable DRAZEK, I LYNDA PA Unavailable Unavailable DRAZEK, I LYNDA PA Unavailable Unavailable DRAZEK, I LYNDA PA Unavailable Unavailable DRAZEK, I LYNDA PA Unavailable Unavailable DRAZEK, I LYNDA PA Unavailable Unavailable DRAZEK, I LYNDA PA Unavailable Unavailable DRAZEK, I LYNDA PA Unavailable Unavailable DRAZEK, I LYNDA PA Unavailable Unavailable DRAZEK, I LYNDA PA Unavailable Unavailable DRAZEK, I LYNDA PA Unavailable Unavailable DRAZEK, I LYNDA PA Unavailable Unavailable DRAZEK, I LYNDA PA Unavailable Unavailable DRAZEK, I LYNDA PA Unavailable Unavailable DRAZEK, I LYNDA PA Unavailable Unavailable Re-disclosure Warning The records that you are about to access may contain information from federally-assisted alcohol or drug abuse programs. If such information is present, then the following federally mandated warning applies: This information has been disclosed to you from records protected by federal confidentiality rules (42 CFR part 2). The federal rules prohibit you from making any further disclosure of this information unless further disclosure is expressly permitted by the written consent of the person to whom it pertains or as otherwise permitted by 42 CFR part 2. A general authorization for the release of medical or other information is NOT sufficient for this purpose. The Federal rules restrict any use of the information to criminally investigate or prosecute any alcohol or drug abuse patient.The records that you are about to access may contain highly sensitive health information, the redisclosure of which is protected by Article 27-F of the [facility] Public Health law. If you continue you may have access to information: Regarding HIV / AIDS; Provided by facilities licensed or operated by the [facility] Office of Mental Health; or Provided by the [facility] Office for People With Developmental Disabilities. If such information is present, then the following [facility] mandated warning applies: This information has been disclosed to you from confidential records which are protected by state law. State law prohibits you from making any further disclosure of this information without the specific written consent of the person to whom it pertains, or as otherwise permitted by law. Any unauthorized further disclosure in violation of state law may result in a fine or care home sentence or both. A general authorization for the release of medical or other information is NOT sufficient authorization for further disc losure. Family History Family Member Name Family Member Gender Family Member Status Date o f Status Description Data Source(s) Unknown Unknown Problem [facility] ([facility] Unknown Male Encounters Encounter Providers Location Date Indications Data Source(s ) Outpatient Attender: RITIKA Loera Office 02/2021 02:00:00 PM EDT [facility] Outpatient Attender: RITIKA Loera Office 09:00:00 AM EDT [facility] Outpatient Attender: KANDACE Hood/Fabien/Pineda/Willi ndl 11/07/2020 02:30:00 PM EDT [facility] ([facility] Outpatient Attender: LYNDA MCQUEEN Physical Therapy 10/10/2020 0 8:30:00 AM EDT [facility] ([facility]) Outpatient Attender: Iris MCQUEEN Main Office 10/10/2020 07:45:00 AM EDT [facility] ([facility]) Outpatient Attender: Iris Gallagher PAReferrer: RITIKA SANCHEZ MD EMERGENCY ROOM-LABOTHPROV 10/04/2020 09:58:00 AM EDT - 10/04/2020 09:58:00 AM [facility] Outpatient Attender: RITIKA SANCHEZ MD [place] Office 11:30:00 AM EDT [facility] Outpatient Attender: Iris MCQUEEN Main Office 07/09/2020 07:45:00 AM EDT [facility] ([facility]) Outpatient Attender: Iris MCQUEEN Main Office 06/11/2020 09:45:00 AM EDT [facility] ([facility] Outpatient Attender: RITIKA SANCHEZ MD [place] Office 04/2020 09:20:00 AM EST [facility] ([facility] Outpatient Attender: Felipa MCQUEEN Physical Therapy 07:45:00 AM EST [facility] ([facility]) Office Visit Attender: Felipa MCQUEEN Physical Therapy 07:45:00 AM EST [facility] ([facility]) OFFICE OUTPATIENT VISIT 15 MINUTES Attender: Gualberto Palacio MD Phys ical Therapy 03/07/2020 12:45:00 PM EST [facility] ([facility]) Outpatient Attender: Gualberto Palacio MD Physical Therapy 02/13/2020 0 8:45:00 AM EST [facility] ([facility]) Outpatient Attender: RITIKA SANCHEZ MD [place] [facility] 08:00:00 AM EST [facility] ([facility] Office Visit Attender: Gualberto Palacio MD Physical Therapy 2019 03:00:00 PM EST [facility] ([facility]) OFFICE OUTPATIENT NEW 30 MINUTES Attender: Gualberto Palacio MD Physic al Therapy 01/19/2020 09:45:00 AM EST [facility] ([facility]) Outpatient Attender: Iris MCQUEEN Main Office 12/08/2019 10:45:00 AM EDT [facility] ([facility]) Immunizations Vaccine Date Status Description Data Source(s) COVID-19 VACCINE Pfizer 06/07/2020 12:00:00 AM EDT completed [facility] Vaccine Series Complete: YESThis Data wa s Submitted to [facility] Via [employer]. COVID-19 VACCINE Pfizer 05/17/2020 12:00:00 AM EST completed [facility] Vaccine Series Complete: NOThis Data was Submitted to [facility] [employer]. Medications Medication Brand Name Start Date Product Form Dose Route Admi nistrative Instructions Pharmacy Instructions Status Indications Reaction Description Data Source(s) Trulicity Trulicity 11/29/2020 12:00:00 AM EDT act jw [facility] ([facility] Metformin hydrochloride 1000 MG Oral Tablet Metformin HCL 11/13/2020 12:00:00 AM EDT ORAL active [facility] Levothyroxine Sodium 0.075 MG Oral Capsule Levothyroxine Sod ium 10/09/2020 12:00:00 AM EDT ORAL active M EDENT ([facility]) Levothyroxine Sodium 0.088 MG Oral Tablet Levothyroxine Sodi um 08/23/2020 12:00:00 AM EDT active M [facility] ([facility] Metformin hydrochloride 1000 MG Oral Tablet Metformin HCL 07/08/2020 12:00:00 AM EDT ORAL completed [facility] ([facility]) torsemide 20 MG Oral Tablet Torsemide 07/08/2020 12:00:00 AM EDT ORAL active [facility] ([facility] Bisoprolol Fumarate 5 MG Oral Tablet Bisoprolol Fumarate 08/2020 12:00:00 AM EDT ORAL active [facility] ([facility] Levothyroxine Sodium 0.1 MG Oral Tablet Levothyroxine Sodium 06/10/2020 12:00:00 AM EDT ORAL completed [facility] ([facility]) Steglatro Steglatro 06/10/2020 12:00:00 AM EDT ORAL act wj [facility] ([facility]) Metformin hydrochloride 850 MG Oral Tablet Metformin HCL 06/10/2020 12:00:00 AM EDT ORAL completed [facility] ([facility]) Levothyroxine Sodium 0.1 MG Oral Tablet Levothyroxine Sodium 02/02/2020 12:00:00 AM EST active [facility] ([facility] Metformin hydrochloride 850 MG Oral Tablet Metformin HCL 02/02/2020 12:00:00 AM EST ORAL active [facility] ([facility] Acetaminophen 300 MG / Codeine Phosphate 30 MG Oral Ta blet Acetaminophen-Codeine #3 01/22/2020 12:00:00 AM EST ORAL active [facility] ([facility]) 0.5 ML dulaglutide 3 MG/ML Auto-Injector [Trulicity] Leandro ty 12/07/2019 12:00:00 AM EDT active M [facility]ENT ([facility]) Insurance Providers Payer name Policy type / Coverage type Policy ID Covered alliance party ID Covered alliance party's relationship to jackson Policy [place] Plan Information BC/BS [place] Option A Medigap Part B [id number] Self Z [id number] BC/BS [place] Option A Medigap Part B [id number] Self Z [id number] BC/BS [place] Option A Medigap Part B [id number] Self BC/BS [place] Option A Medigap Part B [id number] Self Z [id number] BC/BS [place] Option A Medigap Part B [id number] Self Z [id number] [place] () Workers Compensation [id number] Self [place] P[place]/307 [id number] SP [id number] [place]/307 [id number] SP [id number] [place]/307 [id number] SP [id number] EXCELLUS BCBS FEDERAL [id number] SP [id number] [place] PPO 302/307 [id number] SP [id number] BCBS [facility] HMO [id number] SP [id number] [facility] [id number] SP [id number] BCBS Excell[place] U/W Medigap Part B [id number] [facility] Indemnity Commercial [id number] Family Dependent [id number] ANSI-Commercial [id number] ANSI-Commercial [id number] [facility] [id number] Healthy [place] Med[place] B [id number] Self V [id number] BCBS [employer] U/W Medigap Part B [id number] [facility] Indemnity Commercial [id number] [facility] [id number] SP [id number] [facility] O [id number] S [id number] [facility] O [id number] S [id number] [facility] [id number] 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 COMP [id number] SP [id number] Healthy [place] H[place] Med[place] Part B [id number] Self V [id number] BCBS [employer] Ppo U/W Commercial [id number] Self V [id number] EXCELLUS BCBS B [id number] S [id number] BCBS Excell[employer] Ppo U/W Commercial [id number] Self Healthy [place] o Commercial [id number] Self Excell[place] Healthy [place] Epo Medig[place] Part B [id number] Self Healthy [place] Epo Medigap Part B [id number] Self [place] MALINDA P [id number] S [id number] [employer] 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 COMP [id number] SP [id number] STATE INSURANCE FUND P [id number] S [id number] EXCELLUS BCBS P [id number] S [id number] [place] PPO 302/307 [id number] SP [id number] RUDDY CARE COMMERCIAL [id number] S [id number] RUDDY [id number] SP [id number] BCBS [place] [id number] SP [id number] [place]ARE [place] [id number] S [id number] BCBS [place] [id number] SP [id number] [place] PPO 302/307 [id number] SP [id number] BCBS [place] PPO 302/307 [id number] SP [id number] BCBS [employer] U/W Medigap Part B [id number] Self Y [id number] [facility] [id number] Self V [id number] BCBS [employer] U/W Medigap Part B [id number] Self V [id number] [employer] Indemnity Commercial 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) [id number] Essential hypertension Essential hypertension Problem 01/19/2020 12:00:00 AM EST [facility] ([facility] Surgeries/Procedures Procedure Description Date Indications Data Source(s) OFFICE OUTPATIENT VISIT 25 MINUTES 12/17/2020 12:00:00 AM EDT [facility] ([facility] OFFICE OUTPATIENT VISIT 25 MINUTES 11/29/2020 12:00:00 AM EDT [facility] ([facility] OFFICE OUTPATIENT NEW 45 MINUTES 11/07/2020 12:00:00 A M EDT [facility] ([facility], ) OFFICE OUTPATIENT VISIT 15 MINUTES 10/10/2020 12:00:00 AM EDT [facility] ([facility]) ARTHROCENTESIS ASPIR&/INJECTION MAJOR JT/BURSA 12:00:00 AM EDT [facility] ([facility]) RADEX SHOULDER COMPLETE MINIMUM 2 VIEWS 10/10/2020 12: 00:00 AM EDT [facility] ([facility]) X-Ray Elbow Ap & Lateral 2 Views 10/10/2020 12:00:00 A M EDT [facility] ([facility]) OFFICE OUTPATIENT VISIT 25 MINUTES 10/10/2020 12:00:00 AM EDT [facility] ([facility]) OFFICE OUTPATIENT VISIT 25 MINUTES 08/23/2020 12:00:00 AM EDT [facility] ([facility] ECG ROUTINE ECG W/LEAST 12 LDS W/I&R 07/09/2020 12:00: 00 AM EDT [facility] ([facility]) OFFICE OUTPATIENT VISIT 10 MINUTES 07/09/2020 12:00:00 AM EDT [facility] ([facility]) ECG ROUTINE ECG W/LEAST 12 LDS W/I&R 06/11/2020 12:00: 00 AM EDT [facility] ([facility]) OFFICE OUTPATIENT VISIT 25 MINUTES 06/11/2020 12:00:00 AM EDT [facility] ([facility]) OFFICE OUTPATIENT VISIT 25 MINUTES 05/07/2020 12:00:00 AM EST [facility] ([facility] THERAPEUTIC PX 1/> AREAS EACH 15 MIN EXERCISES 12:00:00 AM EST [facility] ([facility]) OFFICE OUTPATIENT VISIT 25 MINUTES 05/02/2020 12:00:00 AM EST [facility] ([facility]) Physical Therapy Eval - Low Complexity 04/22/2020 12:0 0:00 AM EST [facility] ([facility]) RADEX ELBOW COMPLETE MINIMUM 3 VIEWS 04/04/2020 12:00: 00 AM EST [facility] ([facility]) RADEX WRIST COMPLETE MINIMUM 3 VIEWS 04/04/2020 12:00: 00 AM EST [facility] ([facility]) RADEX ELBOW COMPLETE MINIMUM 3 VIEWS 03/07/2020 12:00: 00 AM EST [facility] ([facility]) RADEX WRIST COMPLETE MINIMUM 3 VIEWS 03/07/2020 12:00: 00 AM EST [facility] ([facility]) RADEX ELBOW COMPLETE MINIMUM 3 VIEWS 02/13/2020 12:00: 00 AM EST [facility] ([facility]) MRI Upper Extremity Any Joint 02/07/2020 12:00:[address] [facility] ([facility]) X-Ray Elbow Ap & Lateral 2 Views 01/29/2020 12:00:00 A M EST [facility] ([facility]) RADEX WRIST 2 VIEWS 01/29/2020 12:00:00 AM EST [facility] ([facility]) CLOSED TX RADIAL HEAD/NECK FX W/O MANIPULATION 020 12:00:00 AM EST [facility] ([facility]) ECG ROUTINE ECG W/LEAST 12 LDS W/I&R 12/08/2019 12:00: 00 AM EDT [facility] ([facility]) Results ID Date Data Source [id number] 12/30/2020 09:20:00 AM EDT [facility] Name Value Range Interpretation Code Description Data Purnima rce(s) Supporting Document(s) SARS coronavirus 2 RNA [Presence] in Res piratory specimen by SCOTT with probe detection POSITIVE [facility] This lab was ordered by [facility] a nd reported by [facility]. ID Date Data Source [id number] 11/27/2020 08:22:00 AM EDT [facility] ([facility] Name Value Range Interpretation Code Description Data Purnima rce(s) Supporting Document(s) Triglycerides Level 176 mg/dL Above high normal [facility] ([facility] LDL Cholesterol 78 mg/dL Normal (applies to non-numeric results) [facility] ([facility] HDL Cholesterol 42 mg/dL Normal (applies to non-numeric results) [facility] ([facility] Cholesterol Level 155 mg/dL Normal (applies to non-numeri c results) [facility] ([facility] Cholesterol Risk Ratio 3.690 Normal (applies to non-n umeric results) [facility] ([facility] Non-HDL-C 113 mg/dL Normal (applies to non-numeric resul ts) [facility] ([facility] ID Date Data Source [id number] 11/27/2020 08:22:00 AM EDT [facility] ([facility] Name Value Range Interpretation Code Description Data Purnima rce(s) Supporting Document(s) Blood Urea Nitrogen 23 mg/dL 7-18 Above high normal [facility] ([facility] Glucose, Fasting 161 mg/dL 70-100 Above high normal M EDENT ([facility] Creatinine For GFR 1.27 mg/dL 0.70-1.30 Normal (applies to non -numeric results) [facility] ([facility] Sodium Level 140 meq/L 136-145 Normal (applies to non-numeric res ults) [facility] ([facility] Glomerular Filtration Rate Laboratory test result Normal (applies to non- numeric results) [facility] ) <content>Units are mL/min/1.73 m2</content>
<content></content>
<content>Chronic Kidney Disease Staging per NKF:</content>
<content></content>
<content>Stage I & II GFR >=60 Normal to Mildly Decreased</content>
<content>Stage III GFR 30- 59 Moderately Decreased</content>
<content>Stage IV GFR 15-29 Severely Decreased</content>
<content>Stage V GFR <15 Very Little GFR Left</content>
<content>ESRD GFR <15 on BACKHAUL DRIVER</content>
<content></content> Potassium Serum 4.3 meq/L 3.5-5.1 Normal (applies to non-numeric results) [facility] ([facility] Carbon Dioxide Level 30 meq/L 21-32 Normal (applies to non-num dian results) [facility] ([facility] Chloride Level 101 meq/L 98-107 Normal (applies to non-numeric r esults) [facility] ([facility] Ast/Sgot 12 U/L 7-37 Normal (applies to non-numeric resul ts) [facility] ([facility] Anion Gap 9 meq/L 8-16 Normal (applies to non-numeric resul ts) [facility] ([facility] Calcium Level 10.3 mg/dL 8.8-10.2 Above high normal [facility] ([facility] Alkaline Phosphatase 76 U/L 45-117 Normal (applies to non-num dian results) [facility] ([facility] Alt/SGPT 18 U/L 12-78 Normal (applies to non-numeric resul ts) [facility] ([facility] Bilirubin,Total 0.9 mg/dL 0.2-1.0 Normal (applies to non-numeric results) [facility] ([facility] Total Protein 7.0 GM/DL 6.4-8.2 Normal (applies to non-numeric re sults) [facility] ([facility] Albumin 3.9 GM/DL 3.2-5.2 Normal (applies to non-numeric resul ts) [facility] ([facility] Albumin/Globulin Ratio 1.3 Normal (applies to non-n umeric results) [facility] ([facility] ID Date Data Source [id number] 11/27/2020 08:22:00 AM EDT [facility] ([facility] Name Value Range Interpretation Code Description Data Purnima rce(s) Supporting Document(s) Malb Urine Siemens 9.8 mg/L Normal (applies to non-numer ic results) [facility] ([facility] Creatinine, Urine 80.6 mg/dL Normal (applies to non-numeri c results) [facility] ([facility] Von/Creat Ratio 12.1 MCG/MG 0.0-30.0 Normal (applies to non-numeric results) [facility] ([facility] THE [employer] STATES THAT MICROALBUMINURIA IS PRESENT IF THE MICROALBUMIN/CREATININE RATIO EXCEEDS 30 MCG/MG. THE THRESHOLD FOR CLINICAL ALBUMINURIA IS REACHED AT 300 MCG/MG. THE CLASSIFICATION OF A PATIENT SHOULD BE BASED UPON AT LEAST 2 OF 3 ABNORMAL RESULTS ON SPECIMENS COLLECTED WITHIN A 3 TO 6 MONTH TIME FRAME. ID Date Data Source [id number] 11/27/2020 08:22:00 AM EDT [facility] ([facility] Name Value Range Interpretation Code Description Data Purnima rce(s) Supporting Document(s) Hemoglobin A1c 7.2 % Normal (applies to non-numeric r esults) [facility] <content>REFERENCE RANGES:</content><br/ ><content></content>
<content><=5.6% NORMAL</content>
<content>5.7-6.4% SUGGESTS IMPAIRED GLUCOSE METABOLISM/PREDIABETIC</content>
<content>>= 6.5% ABNORMAL</content>
<content></content> Estimated Average Glucose 160 mg/dL 60-110 Above high normal [facility] ID Date Data Source [id number] 11/27/2020 08:22:00 AM EDT [facility] Name Value Range Interpretation Code Description Data Purnima rce(s) Supporting Document(s) Thyrotropin [Units/volume] in Serum or Plasma 2.650 uIU/ML 0. 358-3.740 Normal (applies to non-numeric results) [facility] <content>note:<nlbl:demographic_changed> </content>
<content></content> ID Date Data Source [id number] 11/01/2020 04:02:00 PM EDT [facility] ([facility] Name Value Range Interpretation Code Description Data Purnima rce(s) Supporting Document(s) Appearance, Urine RFX Laboratory test result Nor mal (applies to non-numeric results) [facility] ([facility] ) Color, Urine RFX Laboratory test result Normal ( applies to non-numeric results) [facility] ([facility] ) PH,Urine RFX 6.0 units 5.0-9.0 Normal (applies to non-numeric res ults) [facility] ([facility] Specific [place] Ur Auto RFX 1.028 1.002-1.035 Nor mal (applies to non-numeric results) [facility] ([facility] ) Glucose, Urine (Ua) Auto RFX Laboratory test result Above high normal [facility] ([facility] Protein, Urine Auto RFX Laboratory test result Above high normal [facility] ([facility] Urobilinogen, Urine Auto RFX 2.0 mg/dL 0.0-2.0 Above high normal [facility] ([facility] Ketone, Urine Auto RFX Laboratory test result Above high n ormal [facility] ([facility] Bilirubin, Urine Auto RFX Laboratory test result Normal (applies to non- numeric results) [facility] ([facility] ) Nitrite, Urine Auto RFX Laboratory test result N ormal (applies to non-numeric results) [facility] ([facility] ) Leukocyte Esterase Ur Auto RFX Laboratory test result Normal (applies to non- numeric results) [facility] ([facility] ) RBC, Urine Auto RFX 1 /HPF 0-3 Normal (applies to non-nume michael results) [facility] ([facility] Blood, Urine Blood RFX Laboratory test result No rmal (applies to non-numeric results) [facility] ([facility] ) WBC, Urine Auto RFX 1 /HPF 0-3 Normal (applies to non-nume michael results) [facility] ([facility] Squam Epithelial Cell Ur Aurfx 0 /HPF 0-6 N ormal (applies to non-numeric results) [facility] ([facility] ) Bacteria, Urine Auto RFX Laboratory test result Normal (applies to non-numeric results) [facility] ([facility] ) Hyaline Cast, Urine Auto RFX 1 /LPF 0-1 Normal (appl ies to non-numeric results) [facility] ([facility] Mucus, Urine RFX Laboratory test result Normal ( applies to non-numeric results) [facility] ([facility] ) ID Date Data Source [id number] 11/01/2020 11:34:00 AM EDT [facility] ([facility]) Name Value Range Interpretation Code Description Data Purnima rce(s) Supporting Document(s) Troponin Laboratory test result [facility] ([facility]) Natriuretic peptide.B prohormone N-Terminal [Mass/volu me] in Serum or Plasma 2082 [facility] ([facility]) Lipoprotein lipase [Enzymatic activity/volume] in Serum or Plasma 118 [facility] ([facility]) ID Date Data Source [id number] 11/01/2020 11:34:00 AM EDT [facility] ([facility]) Name Value Range Interpretation Code Description Data Purnima rce(s) Supporting Document(s) Creatine kinase [Enzymatic activity/volume] in Serum or Plasma 119 41-270 [facility] ([facility]) CPK-MB 3.1 [facility] ([facility]) MB/CK Relative 2.61 [facility] ([facility]) ID Date Data Source [id number] 11/01/2020 11:34:00 AM EDT [facility] ([facility]) Name Value Range Interpretation Code Description Data Purnima rce(s) Supporting Document(s) Alanine aminotransferase [Enzymatic activity/volume] in Serum or Pl asma 22 [facility] ([facility]) Albumin [Mass/volume] in Serum or Plasma 3.9 [facility] ([facility]) Calcium [Mass/volume] in Serum or Plasma 10.1 [facility] ([facility]) Carbon dioxide, total [Moles/volume] in Serum or Plasma 30 [facility] ([facility]) Alkaline phosphatase [Enzymatic activity/volume] in Serum or Plasma 6 6 [facility] ([facility]) Chloride [Moles/volume] in Serum or Plasma 108 [facility] ([facility]) Potassium [Moles/volume] in Serum or Plasma 4.7 [facility] ([facility] Protein [Mass/volume] in Serum or Plasma 6.8 [facility] ([facility] Sodium 141 [facility] ([facility] Aspartate aminotransferase [Enzymatic activity/volume] in Serum or Plasma 12 [facility] ([facility] Urea nitrogen [Mass/volume] in Serum or Plasma 21 [facility] ([facility] Creatinine For GFR 1.03 [facility] ([facility] Glucose 128 70-100 [facility] ([facility] ID Date Data Source [id number] 11/01/2020 11:34:00 AM EDT [facility] ([facility]) Name Value Range Interpretation Code Description Data Purnima rce(s) Supporting Document(s) White Blood Count 9.5 4.3-10.9 [facility] ([facility] Platelets 210 130-400 [facility] ([facility] Red Blood Count 5.07 4.70-6.20 [facility] ([facility] Hemoglobin 15.4 13.0-17.0 [facility] ([facility] Hematocrit 46.9 39.0-50.0 [facility] ([facility] ID Date Data Source [id number] 10/04/2020 10:02:00 AM EDT [facility] ([facility] Name Value Range Interpretation Code Description Data Purnima rce(s) Supporting Document(s) Glu 213 mg/dL 74-106 Above high normal [facility] ([facility] Cre 1.32 mg/dL 0.7-1.3 Above high normal [facility] ([facility] BUN 26 mg/dL 7-18 Above high normal [facility] ([facility] Na 140 mmol/L 136-145 [facility] K 4.7 mmol/L 3.5-5.1 [facility] CL 102 mmol/L 98-107 [facility] ([facility] Co2 31 mmol/L 21-32 [facility] ([facility] CA 9.4 mg/dL 8.5-10.1 [facility] ([facility] GFR 55 mL/min [facility] ([facility] <content>GFR IS CALCULATED IN mL/min/1.73m2</content>
<content></content>
<content>NORMAL FUNCTION: >90</content>
<content>MILDLY DECREASED: 60-89</content>
<content>MILDY TO MODERATELY DECREASED: 45-59</content>
<content>MODERATELY TO SEVERELY DECREASED: 30-44</content>
<content>SEVERELY DECREASED: 15- 29</content>
<content>RENAL FAILURE: <15</content>
<content></content> Gap 7.0 mmol/L 5-12 [facility] ID Date Data Source [id number] 10/04/2020 10:02:00 AM EDT [facility] ([facility] Name Value Range Interpretation Code Description Data Purnima rce(s) Supporting Document(s) Magnesium [Mass/volume] in Serum or Plasma 1.8 mg/dL 1.8-2.4 [facility] ([facility] ID Date Data Source [id number] 10/04/2020 10:02:00 AM EDT [facility] ([facility]) Name Value Range Interpretation Code Description Data Purnima rce(s) Supporting Document(s) Glu 213 mg/dL 74-106 [facility] ([facility] BUN 26 mg/dL 7-18 [facility] ([facility] Cre 1.32 mg/dL 0.7-1.3 [facility] ([facility] Na 140 mmol/L 136-145 [facility] ([facility]) K 4.7 mmol/L 3.5-5.1 [facility] ([facility]) CL 102 mmol/L 98-107 [facility] ([facility]) Co2 31 mmol/L 21-32 [facility] ([facility]) Gap 7.0 mmol/L 5-12 [facility] ([facility]) CA 9.4 mg/dL 8.5-10.1 [facility] GFR 55 mL/min [facility] ([facility]) <content>GFR IS CALCULATED IN mL/min/1.73m2</content>
<content></content>
<content>NORMAL FUNCTION: >90</content>
<content>MILDLY DECREASED: 60-89</content>
<content>MILDY TO MODERATELY DECREASED: 45-59</content>
<content>MODERATELY TO SEVERELY DECREASED: 30-44</content>
<content>SEVERELY DECREASED: 15- 29</content>
<content>RENAL FAILURE: <15</content>
<content></content> ID Date Data Source [id number] 10/04/2020 10:02:00 AM EDT [facility] ([facility]) Name Value Range Interpretation Code Description Data Purnima rce(s) Supporting Document(s) Magnesium [Mass/volume] in Serum or Plasma 1.8 mg/dL 1.8-2.4 [facility] ([facility]) ID Date Data Source [id number] 10/04/2020 10:36:00 AM EDT [facility] Name Value Range Interpretation Code Description Data Purnima rce(s) Supporting Document(s) GLUCOSE 213 mg/dL 74-106 [facility] BLOOD UREA NITROGEN 26 mg/dL 7-18 [facility] CREATININE 1.32 mg/dL 0.7-1.3 [facility] SODIUM 140 mmol/L 136-145 [facility] POTASSIUM 4.7 mmol/L 3.5-5.1 [facility] CHLORIDE 102 mmol/L 98-107 [facility] CO2 31 mmol/L 21-32 [facility] CALCIUM 9.4 mg/dL 8.5-10.1 [facility] ANION GAP 7.0 mmol/L 5-12 [facility] GLOMERULAR FILTRATION RATE 55 mL/min [facility] GFR IS CALCULATED IN mL/min/1.73m2 CARLOS L FUNCTION: >90MILDLY DECREASED: 60-89MILDY TO MODERATELY DECREASED: 45-59 MODERATELY TO SEVERELY DECREASED: 30-44SEVERELY DECREASED: 15-29RENAL FAILURE: <15 ID Date Data Source [id number] 10/04/2020 10:36:00 AM EDT [facility] Name Value Range Interpretation Code Description Data Purnima rce(s) Supporting Document(s) MAGNESIUM 1.8 mg/dL 1.8-2.4 [facility] ID Date Data Source [id number] 08/16/2020 10:56:00 AM EDT [facility] ([facility] Name Value Range Interpretation Code Description Data Purnima rce(s) Supporting Document(s) Cholesterol Level 128 mg/dL Normal (applies to non-numeri c results) [facility] ([facility] Triglycerides Level 93 mg/dL Normal (applies to non-nume michael results) [facility] ([facility] HDL Cholesterol 45 mg/dL Normal (applies to non-numeric results) [facility] ([facility] Non-HDL-C 83 mg/dL Normal (applies to non-numeric resul ts) [facility] ([facility] LDL Cholesterol 64 mg/dL Normal (applies to non-numeric results) [facility] ([facility] Cholesterol Risk Ratio 2.844 Normal (applies to non-n umeric results) [facility] ([facility] ID Date Data Source [id number] 08/16/2020 10:56:00 AM EDT [facility] ([facility] Name Value Range Interpretation Code Description Data Purnima rce(s) Supporting Document(s) Glucose, Fasting 125 mg/dL 70-100 Above high normal M [facility] ([facility] Blood Urea Nitrogen 28 mg/dL 7-18 Above high normal [facility] ([facility] Creatinine For GFR 1.17 mg/dL 0.70-1.30 Normal (applies to non -numeric results) [facility] ([facility] Glomerular Filtration Rate Laboratory test result Normal (applies to non- numeric results) [facility] ([facility] ) <content>Units are mL/min/1.73 m2</content>
<content></content>
<content>Chronic Kidney Disease Staging per NKF:</content>
<content></content>
<content>Stage I & II GFR >=60 Normal to Mildly Decreased</content>
<content>Stage III GFR 30- 59 Moderately Decreased</content>
<content>Stage IV GFR 15-29 Severely Decreased</content>
<content>Stage V GFR <15 Very Little GFR Left</content>
<content>ESRD GFR <15 on BACKHAUL DRIVER</content>
<content></content> Sodium Level 140 meq/L 136-145 Normal (applies to non-numeric res ults) [facility] ([facility] Carbon Dioxide Level 28 meq/L 21-32 Normal (applies to non-num dian results) [facility] ([facility] Chloride Level 106 meq/L 98-107 Normal (applies to non-numeric r esults) [facility] ([facility] Potassium Serum 4.5 meq/L 3.5-5.1 Normal (applies to non-numeric results) [facility] ([facility] Anion Gap 6 meq/L 8-16 Below low normal [facility] ( [facility] Calcium Level 10.1 mg/dL 8.8-10.2 Normal (applies to non-numeric re sults) [facility] ([facility] Ast/Sgot 9 U/L 7-37 Normal (applies to non-numeric resul ts) [facility] ([facility] Alkaline Phosphatase 65 U/L 45-117 Normal (applies to non-num dian results) [facility] ([facility] Alt/SGPT 17 U/L 12-78 Normal (applies to non-numeric resul ts) [facility] ([facility] Total Protein 6.9 GM/DL 6.4-8.2 Normal (applies to non-numeric re sults) [facility] ([facility] Bilirubin,Total 1.1 mg/dL 0.2-1.0 Above high normal [facility] ([facility] Albumin/Globulin Ratio 1.2 Normal (applies to non-n umeric results) [facility] ([facility] Albumin 3.8 GM/DL 3.2-5.2 Normal (applies to non-numeric resul ts) [facility] ([facility] ID Date Data Source [id number] 08/16/2020 10:56:00 AM EDT [facility] ([facility] Name Value Range Interpretation Code Description Data Purnima rce(s) Supporting Document(s) Hemoglobin A1c 7.3 % Normal (applies to non-numeric r esults) [facility] ([facility] <content>REFERENCE RANGES:</content><br/ ><content></content>
<content><=5.6% NORMAL</content>
<content>5.7-6.4% SUGGESTS IMPAIRED GLUCOSE METABOLISM/PREDIABETIC</content>
<content>>= 6.5% ABNORMAL</content>
<content></content> Estimated Average Glucose 163 mg/dL 60-110 Above high normal [facility] ([facility] ID Date Data Source [id number] 08/16/2020 10:56:00 AM EDT [facility] ([facility] Name Value Range Interpretation Code Description Data Purnima rce(s) Supporting Document(s) Thyrotropin [Units/volume] in Serum or Plasma 0.283 uIU/ML 0. 358-3.740 Below low normal [facility] ([facility] ) <content>note:<nlbl:demographic_changed> </content>
<content></content> ID Date Data Source [id number] 07/09/2020 08:40:00 AM EDT [facility] ([facility] Name Value Range Interpretation Code Description Data Purnima rce(s) Supporting Document(s) Magnesium [Mass/volume] in Serum or Plasma 2.3 mg/dL 1.8-2 .4 Normal (applies to non-numeric results) [facility] ([facility]) <content>note:<nlbl:demographic_changed> </content>
<content></content> ID Date Data Source [id number] 07/09/2020 08:40:00 AM EDT [facility] ([facility] Name Value Range Interpretation Code Description Data Purnima rce(s) Supporting Document(s) Glucose, Fasting 151 mg/dL 70-100 Above high normal M EDENT ([facility] Blood Urea Nitrogen 28 mg/dL 7-18 Above high normal [facility] ([facility] Creatinine For GFR 1.47 mg/dL 0.70-1.30 Above high normal [facility] ([facility] Glomerular Filtration Rate 51.3 Normal (applies to n on-numeric results) [facility] <content>Units are mL/min/1.73 m2</content>
<content></content>
<content>Chronic Kidney Disease Staging per NKF:</content>
<content></content>
<content>Stage I & II GFR >=60 Normal to Mildly Decreased</content>
<content>Stage III GFR 30- 59 Moderately Decreased</content>
<content>Stage IV GFR 15-29 Severely Decreased</content>
<content>Stage V GFR <15 Very Little GFR Left</content>
<content>ESRD GFR <15 on BACKHAUL DRIVER</content>
<content></content> Sodium Level 141 meq/L 136-145 Normal (applies to non-numeric res ults) [facility] ([facility] Potassium Serum 4.5 meq/L 3.5-5.1 Normal (applies to non-numeric results) [facility] ([facility] Carbon Dioxide Level 29 meq/L 21-32 Normal (applies to non-num dian results) [facility] ([facility] Chloride Level 107 meq/L 98-107 Normal (applies to non-numeric r esults) [facility] ([facility] Calcium Level 9.8 mg/dL 8.8-10.2 Normal (applies to non-numeric re sults) [facility] ([facility] Anion Gap 5 meq/L 8-16 Below low normal [facility] ( [facility] ID Date Data Source [id number] 07/09/2020 08:40:00 AM EDT [facility] ([facility]) Name Value Range Interpretation Code Description Data Purnima rce(s) Supporting Document(s) Magnesium [Mass/volume] in Serum or Plasma 2.3 mg/dL 1.8-2.4 [facility] ([facility]) <content>note:<nlbl:demographic_changed> </content>
<content></content> ID Date Data Source [id number] 07/09/2020 08:40:00 AM EDT [facility] ([facility]) Name Value Range Interpretation Code Description Data Purnima rce(s) Supporting Document(s) Glucose, Fasting 151 mg/dL 70-100 [facility] Glomerular Filtration Rate 51.3 MED [facility] ([facility]) <content>Units are mL/min/1.73 m2</content>
<content></content>
<content>Chronic Kidney Disease Staging per NKF:</content>
<content></content>
<content>Stage I & II GFR >=60 Normal to Mildly Decreased</content>
<content>Stage III GFR 30- 59 Moderately Decreased</content>
<content>Stage IV GFR 15-29 Severely Decreased</content>
<content>Stage V GFR <15 Very Little GFR Left</content>
<content>ESRD GFR <15 on BACKHAUL DRIVER</content>
<content></content> Blood Urea Nitrogen 28 mg/dL 7-18 [facility] ([facility]) Creatinine For GFR 1.47 mg/dL 0.70-1.30 [facility] ([facility]) Sodium Level 141 meq/L 136-145 [facility] ([facility]) Potassium Serum 4.5 meq/L 3.5-5.1 [facility] ([facility]io [facility]) Carbon Dioxide Level 29 meq/L 21-32 [facility] ([facility]) Chloride Level 107 meq/L 98-107 [facility] ([facility]iol [facility]) Calcium Level 9.8 mg/dL 8.8-10.2 [facility] ([facility]) Anion Gap 5 meq/L 8-16 [facility] ID Date Data Source [id number] 06/17/2020 01:31:00 PM EDT [facility] ([facility] Name Value Range Interpretation Code Description Data Purnima rce(s) Supporting Document(s) CK-MB Value Mass 2.0 ng/mL Normal (applies to non-numeric results) [facility] ([facility] CPK Creatine Phosphokinase 54 U/L 39-308 Carlos l (applies to non-numeric results) [facility] ) Troponin I 0.02 ng/mL Normal (applies to non-numeric resul ts) [facility] <content>Troponin I Reference Interval f or Siemens [place] LOCI:</content>
<content></content>
<content>99th Percentile= 0.00-0.045 ng/ml</content>
<content></content>
<content>Risk Stratification:</content>
<content><= 0.10 ng/ml Decreased Risk for Adverse Clinical</content>
<content>Events.</content>
<content>0.10-1.50 ng/ml Increased Risk for Adverse Clinical</content>
<content>Events. Evaluation of additional</content>
<content>criterion and/or repeat testing in 2-6</content>
<content>hours is suggested to rule out myocardial</content>
<content>damage.</content>
<content>>= 1.50 ng/ml Indicative of Myocardial Injury.</content>
<content></content> MB/CK Relative Index 3.70 Normal (applies to non-num dian results) [facility] ([facility] <content>DIAGNOSIS CRITERIA</content>
<content>MMB ng/ml Relative Index (RI)</content>
<content>NON-AMI < or = 5 N/A</content>
<content>GARCIA ZONE > 5 < or = 4</content>
<content>AMI > 5 > 4</content>
<content></content> ID Date Data Source [id number] 06/17/2020 09:28:00 AM EDT [facility] ([facility] Name Value Range Interpretation Code Description Data Purnima rce(s) Supporting Document(s) Laboratory test finding (navigational concept) 0.01 ng/mL 0 .00-0.08 Normal (applies to non-numeric results) [facility] Troponin I.cardiac [Mass/volume] in Serum or Plasma Laboratory test result [facility] ([facility] ID Date Data Source [id number] 06/17/2020 09:10:00 AM EDT [facility] Name Value Range Interpretation Code Description Data Purnima rce(s) Supporting Document(s) SARS-CoV-2 (COVID 19) NEGATIVE - SARS-CoV-2 (COVID19) [facility] This lab was ordered by [facility] a nd reported by [facility]. ID Date Data Source [id number] 06/17/2020 09:10:00 AM EDT [facility] ([facility] Name Value Range Interpretation Code Description Data Purnima rce(s) Supporting Document(s) Natriuretic peptide.B prohormone N-Terminal [Mass/volu me] in Serum or Plasma 3269 pg/mL Above high normal [facility] ([facility] <content>note:<nlbl:demographic_changed></content>
<content>note:<nlbl:demog raphic_changed></content>
<content></content> Lipoprotein lipase [Enzymatic activity/volume] in Serum or P lasma 174 U/L 73-393 Normal (applies to non-numeric results) [facility] ([facility] <content>note:<nlbl:demographic_changed></content>
<content>note:<nlbl:demog raphic_changed></content>
<content></content> Thyrotropin [Units/volume] in Serum or Plasma 1.040 uIU/ML 0. 358-3.740 Normal (applies to non-numeric results) [facility] <content>note:<nlbl:demographic_changed></content>
<content>note:<nlbl:demog raphic_changed></content>
<content></content> Thyroxine (T4) free [Mass/volume] in Serum or Plasma 0.97 ng/dL 0.76-1.46 Normal (applies to non-numeric results) [facility] <content>note:<nlbl:demographic_changed></content>
<content>note:<nlbl:demog raphic_changed></content>
<content></content> ID Date Data Source [id number] 06/17/2020 09:10:00 AM EDT [facility] ([facility] Name Value Range Interpretation Code Description Data Purnima rce(s) Supporting Document(s) Glucose, Fasting 161 mg/dL 70-100 Above high normal M [facility] ([facility] Blood Urea Nitrogen 25 mg/dL 7-18 Above high normal [facility] ([facility] Creatinine For GFR 1.12 mg/dL 0.70-1.30 Normal (applies to non -numeric results) [facility] ([facility] Sodium Level 142 meq/L 136-145 Normal (applies to non-numeric res ults) [facility] ([facility] Glomerular Filtration Rate Laboratory test result Normal (applies to non- numeric results) [facility] ([facility] ) <content>Units are mL/min/1.73 m2</content>
<content></content>
<content>Chronic Kidney Disease Staging per NKF:</content>
<content></content>
<content>Stage I & II GFR >=60 Normal to Mildly Decreased</content>
<content>Stage III GFR 30- 59 Moderately Decreased</content>
<content>Stage IV GFR 15-29 Severely Decreased</content>
<content>Stage V GFR <15 Very Little GFR Left</content>
<content>ESRD GFR <15 on BACKHAUL DRIVER</content>
<content></content> Potassium Serum 4.8 meq/L 3.5-5.1 Normal (applies to non-numeric results) [facility] ([facility] Carbon Dioxide Level 26 meq/L 21-32 Normal (applies to non-num dian results) [facility] Anion Gap 7 meq/L 8-16 Below low normal [facility] Chloride Level 109 meq/L 98-107 Above high normal [facility] ([facility] Calcium Level 10.2 mg/dL 8.8-10.2 Normal (applies to non-numeric re sults) [facility] ([facility] ID Date Data Source [id number] 06/17/2020 09:10:00 AM EDT [facility] ([facility] Name Value Range Interpretation Code Description Data Purnima rce(s) Supporting Document(s) Ast/Sgot 12 U/L 7-37 Normal (applies to non-numeric resul ts) [facility] ([facility] Alt/SGPT 23 U/L 12-78 Normal (applies to non-numeric resul ts) [facility] ([facility] Alkaline Phosphatase 68 U/L 45-117 Normal (applies to non-num dian results) [facility] ([facility] Bilirubin,Total 0.8 mg/dL 0.2-1.0 Normal (applies to non-numeric results) [facility] ([facility] Bilirubin,Direct 0.2 mg/dL 0.0-0.2 Normal (applies to non-numeric results) [facility] ([facility] Total Protein 6.7 GM/DL 6.4-8.2 Normal (applies to non-numeric re sults) [facility] ([facility] Albumin/Globulin Ratio 1.2 Normal (applies to non-n umeric results) [facility] ([facility] Albumin 3.7 GM/DL 3.2-5.2 Normal (applies to non-numeric resul ts) [facility] ([facility] ID Date Data Source [id number] 06/17/2020 09:10:00 AM EDT [facility] ([facility] Name Value Range Interpretation Code Description Data Purnima rce(s) Supporting Document(s) MB/CK Relative Index 2.70 Normal (applies to non-num dian results) [facility] <content>DIAGNOSIS CRITERIA</content>
<content>MMB ng/ml Relative Index (RI)</content>
<content>NON-AMI < or = 5 N/A</content>
<content>GARCIA ZONE > 5 < or = 4</content>
<content>AMI > 5 > 4</content>
<content></content> CPK Creatine Phosphokinase 63 U/L 39-308 Carlos l (applies to non-numeric results) [facility] ) CK-MB Value Mass 1.7 ng/mL Normal (applies to non-numeric results) [facility] ([facility] Troponin I 0.02 ng/mL Normal (applies to non-numeric resul ts) [facility] <content>Troponin I Reference Interval f or Siemens [place] LOCI:</content>
<content></content>
<content>99th Percentile= 0.00-0.045 ng/ml</content>
<content></content>
<content>Risk Stratification:</content>
<content><= 0.10 ng/ml Decreased Risk for Adverse Clinical</content>
<content>Events.</content>
<content>0.10-1.50 ng/ml Increased Risk for Adverse Clinical</content>
<content>Events. Evaluation of additional</content>
<content>criterion and/or repeat testing in 2-6</content>
<content>hours is suggested to rule out myocardial</content>
<content>damage.</content>
<content>>= 1.50 ng/ml Indicative of Myocardial Injury.</content>
<content></content> ID Date Data Source [id number] 06/17/2020 09:10:00 AM EDT [facility] ([facility] Name Value Range Interpretation Code Description Data Purnima rce(s) Supporting Document(s) Respiratory Panel Laboratory test result [facility] ([facility] This respiratory PCR panel detects Influ joe A H1, H3 and 2009 H1 viruses, Influenza B virus, Resp iratory Syncytial Virus, Human metapneumovirus, Parainfluenza virus 1, 2, 3 and 4, Adenovirus, Rhinovirus/Enterovirus, Coronavirus HKU1, NL63, OC43, 229E and SARS-CoV-2 (COVID 19), Bordetella pertussis, Bordetella parapertussis, Mycoplasma pneumoniae and Chlamydia pneumoniae. NEGATIVE by MULTIPLEXED NUCLEIC ACID PCR SARS-CoV-2 (COVID 19) NEGATIVE - SARS-CoV-2 (COVID19) ID Date Data Source [id number] 06/17/2020 08:36:00 AM EDT [facility] ([facility] Name Value Range Interpretation Code Description Data Purnima rce(s) Supporting Document(s) aPTT in Platelet poor plasma by Coagulation assay 31.2 s 24.2-38.5 Normal (applies to non-numeric results) [facility] ID Date Data Source [id number] 06/17/2020 08:36:00 AM EDT [facility] ([facility] Name Value Range Interpretation Code Description Data Purnima rce(s) Supporting Document(s) Prothrombin Time 14.8 s 12.5-14.3 Above high normal M [facility] ([facility] Inr 1.14 Normal (applies to non-numeric resul ts) [facility] ([facility] THERAPUTIC HUMAN INR VALUES INDICATIONS NORMAL RANGES PROPHYLAXIS/TREATMENT OF: VENOUS THROMBOSIS 2.0-3.0 PULMONARY EMBOLISM 2.0-3.0 PREVENTION OF SYSTEMIC EMBOLISM FROM: TISSUE HEART VALVES 2.0-3.0 ACUTE MYOCARDIAL INFARCTION 2.0-3.0 VALVULAR HEART DISEASE 2.0-3.0 ATRIAL FIBRILLATION 2.0-3.0 MECHANICAL VALVES(HIGH RISK) 2.5-3.5 RECURRENT MYOCARDIAL INFARCTION 2.5-3.5 ID Date Data Source [id number] 06/17/2020 08:36:00 AM EDT [facility] ([facility] Name Value Range Interpretation Code Description Data Purnima rce(s) Supporting Document(s) White Blood Count 10.1 10 4.0-10.0 Above high normal [facility] ([facility] Red Blood Count 5.24 10 4.30-6.10 Normal (applies to non-numeric results) [facility] ([facility] Hemoglobin 16.1 g/dL 13.5-17.5 Normal (applies to non-numeric resul ts) [facility] ([facility] Mean Corpuscular Hemoglobin 30.7 pg 27.0-33.0 Norm al (applies to non-numeric results) [facility] ([facility] Mean Corpuscular Volume 94.5 fl 80.0-96.0 Normal ( applies to non-numeric results) [facility] ([facility] ) Hematocrit 49.5 % 42.0-52.0 Normal (applies to non-numeric resul ts) [facility] ([facility] Mean Corpuscular HGB Conc 32.5 g/dL 32.0-36.5 Normal (applies to non-numeric results) [facility] ([facility] ) Platelet Count, Automated 251 10 150-450 Normal (applies to non-numeric results) [facility] ([facility] ) Red Cell Distribution Width 13.2 % 11.5-14.5 Norm al (applies to non-numeric results) [facility] ([facility] ) Neutrophils % 79.4 % 36.0-66.0 Above high normal MED[facility] NT ([facility] Lymph % 12.0 % 24.0-44.0 Below low normal [facility] ( [facility] Juab % 6.4 % 2.0-8.0 Normal (applies to non-numeric resul ts) [facility] ([facility] Baso % 0.3 % 0.0-1.0 Normal (applies to non-numeric resul ts) [facility] ([facility] Eos % 1.4 % 0.0-3.0 Normal (applies to non-numeric resul ts) [facility] ([facility] Immature Granulocyte % 0.5 % 0-3.0 Normal (applies to non-n umeric results) [facility] ([facility] Nucleated Red Blood Cell % 0.0 % 0-0 Normal (applies to n on-numeric results) [facility] ([facility] Lymph # 1.2 10 1.5-5.0 Below low normal [facility] ( [facility] Neutrophils # 8.0 10 1.5-8.5 Normal (applies to non-numeric re sults) [facility] ([facility] Eos # 0.1 10 0.0-0.5 Normal (applies to non-numeric resul ts) [facility] ([facility] Baso # 0.0 10 0.0-0.2 Normal (applies to non-numeric resul ts) [facility] ([facility] Juab # 0.7 10 0.0-0.8 Normal (applies to non-numeric resul ts) [facility] ([facility] ID Date Data Source [id number] 04/30/2020 12:36:00 PM EST [facility] ([facility] Name Value Range Interpretation Code Description Data Purnima rce(s) Supporting Document(s) Triglycerides 93 [facility] ([facility] Cholesterol 155 [facility] ([facility] HDL 45 [facility] ([facility] Chol/HDL Ratio 3.444 [facility] ([facility] Cholesterol in LDL [Mass/volume] in Serum or Plasma by calculation 91 [facility] ([facility] ID Date Data Source [id number] 04/30/2020 12:36:00 PM EST [facility] ([facility] Name Value Range Interpretation Code Description Data Purnima rce(s) Supporting Document(s) Albumin [Mass/volume] in Serum or Plasma 3.8 [facility] ([facility] Calcium [Mass/volume] in Serum or Plasma 9.5 [facility] ([facility] Alanine aminotransferase [Enzymatic activity/volume] in Serum or Pl asma 21 [facility] ([facility] Carbon dioxide, total [Moles/volume] in Serum or Plasma 29 [facility] ([facility] Chloride [Moles/volume] in Serum or Plasma 106 [facility] ([facility] Alkaline phosphatase [Enzymatic activity/volume] in Serum or Plasma 7 6 [facility] ([facility] Protein [Mass/volume] in Serum or Plasma 6.5 [facility] ([facility] Potassium [Moles/volume] in Serum or Plasma 4.4 [facility] ([facility] Sodium 142 [facility] ([facility] Aspartate aminotransferase [Enzymatic activity/volume] in Serum or Plasma 7 [facility] ([facility] Urea nitrogen [Mass/volume] in Serum or Plasma 25 [facility] ([facility] Glucose 155 70-100 [facility] ([facility] Creatinine For GFR 1.23 [facility] ([facility] ID Date Data Source [id number] 04/30/2020 12:36:00 PM EST [facility] ([facility] Name Value Range Interpretation Code Description Data Purnima rce(s) Supporting Document(s) Thyroid Stimulating Hormone 3.200 ME DENT ([facility] ID Date Data Source [id number] 04/30/2020 12:36:00 PM EST [facility] ([facility] Name Value Range Interpretation Code Description Data Purnima rce(s) Supporting Document(s) Hemoglobin A1c/Hemoglobin.total in Blood 7.5 [facility] ([facility] ID Date Data Source [id number] 04/30/2020 08:54:00 AM EST [facility] ([facility] Name Value Range Interpretation Code Description Data Purnima rce(s) Supporting Document(s) Thyrotropin [Units/volume] in Serum or Plasma 3.200 uIU/ML 0. 358-3.740 Normal (applies to non-numeric results) [facility] <content>note:<nlbl:demographic_changed> </content>
<content></content> ID Date Data Source [id number] 04/30/2020 08:54:00 AM EST [facility] ([facility] Name Value Range Interpretation Code Description Data Purnima rce(s) Supporting Document(s) Cholesterol Level 155 mg/dL Normal (applies to non-numeri c results) [facility] ([facility] Triglycerides Level 93 mg/dL Normal (applies to non-nume michael results) [facility] ([facility] LDL Cholesterol 91 mg/dL Normal (applies to non-numeric results) [facility] ([facility] HDL Cholesterol 45 mg/dL Normal (applies to non-numeric results) [facility] ([facility] Non-HDL-C 110 mg/dL Normal (applies to non-numeric resul ts) [facility] ([facility] Cholesterol Risk Ratio 3.444 Normal (applies to non-n umeric results) [facility] ([facility] ID Date Data Source [id number] 04/30/2020 08:54:00 AM EST [facility] ([facility] Name Value Range Interpretation Code Description Data Purnima rce(s) Supporting Document(s) Glucose, Fasting 155 mg/dL 70-100 Above high normal [facility] ([facility] Blood Urea Nitrogen 25 mg/dL 7-18 Above high normal [facility] ([facility] Creatinine For GFR 1.23 mg/dL 0.70-1.30 Normal (applies to non -numeric results) [facility] ([facility] Glomerular Filtration Rate Laboratory test result Normal (applies to non- numeric results) [facility] <content>Units are mL/min/1.73 m2</content>
<content></content>
<content>Chronic Kidney Disease Staging per NKF:</content>
<content></content>
<content>Stage I & II GFR >=60 Normal to Mildly Decreased</content>
<content>Stage III GFR 30- 59 Moderately Decreased</content>
<content>Stage IV GFR 15-29 Severely Decreased</content>
<content>Stage V GFR <15 Very Little GFR Left</content>
<content>ESRD GFR <15 on [employer]HAUL DRIVER</content>
<content></content> Potassium Serum 4.4 meq/L 3.5-5.1 Normal (applies to non-numeric results) [facility] ([facility] Sodium Level 142 meq/L 136-145 Normal (applies to non-numeric res ults) [facility] ([facility] Carbon Dioxide Level 29 meq/L 21-32 Normal (applies to non-num dian results) [facility] ([facility] Chloride Level 106 meq/L 98-107 Normal (applies to non-numeric r esults) [facility] ([facility] Anion Gap 7 meq/L 8-16 Below low normal [facility] ( [facility] Ast/Sgot 7 U/L 7-37 Normal (applies to non-numeric resul ts) [facility] ([facility] Calcium Level 9.5 mg/dL 8.8-10.2 Normal (applies to non-numeric re sults) [facility] ([facility] Alt/SGPT 21 U/L 12-78 Normal (applies to non-numeric resul ts) [facility] ([facility] Alkaline Phosphatase 76 U/L 45-117 Normal (applies to non-num dina results) [facility] ([facility] Albumin 3.8 GM/DL 3.2-5.2 Normal (applies to non-numeric resul ts) [facility] ([facility] Bilirubin,Total 0.7 mg/dL 0.2-1.0 Normal (applies to non-numeric results) [facility] ([facility] Total Protein 6.5 GM/DL 6.4-8.2 Normal (applies to non-numeric re sults) [facility] ([facility] Albumin/Globulin Ratio 1.4 Normal (applies to non-n umeric results) [facility] ([facility] ID Date Data Source [id number] 04/30/2020 08:54:00 AM EST [facility] ([facility] Name Value Range Interpretation Code Description Data Purnima rce(s) Supporting Document(s) Hemoglobin A1c 7.5 % Normal (applies to non-numeric r esults) [facility] ([facility] <content>REFERENCE RANGES:</content><br/ ><content></content>
<content><=5.6% NORMAL</content>
<content>5.7-6.4% SUGGESTS IMPAIRED GLUCOSE METABOLISM/PREDIABETIC</content>
<content>>= 6.5% ABNORMAL</content>
<content></content> Estimated Average Glucose 169 mg/dL 60-110 Above high normal [facility] ([facility] ID Date Data Source [id number] 01/19/2020 09:05:00 AM EST [facility] ([facility] Name Value Range Interpretation Code Description Data Purnima rce(s) Supporting Document(s) Hemoglobin A1c/Hemoglobin.total in Blood 7.2 % 4.8-5.6 Above high normal [facility] ([facility] CHRONIC KIDNEY DISEASE STAGING PER NKF: MALE GFR INTERPRETATION: 20-49 YRS: >60 mL/min Normal 50-59 YRS: >56 mL/min Normal 60-69 YRS: >49 mL/min Normal 70-79 YRS: >42 mL/min Normal 80 and above >35 mL/min Normal FEMALE GRF INTERPRETATION: 20-39 YRS: >60 mL/min Normal 40-49 YRS: >58 mL/min Normal 50-59 YRS: >51 mL/min Normal 60-69 YRS: >45 mL/min Normal 70-79 YRS: >39 mL/min Normal 80 and above >32 mL/min NormalCLASSIFICATION CHOLESTEROL FOR ADULTS CHILDREN/ADOLESCENTS* DESIRABLE: <200 MG/DL <170 MG/DL BORDER-LINE HIGH RISK: 200-239 MG/DL 170-199 MG/DL HIGH RISK: >240 MG/DL >200 MG/DL CLASS. FOR PRIMARY LDL CHOL PREVENTION: LDL CHOL-CHILD/ADOLESCENTS* DESIRABLE: <130 MG/DL <110 MG/DL BORDERLINE-HIGH RISK: 130- 159 MG/DL 110-129 MG/DL HIGH RISK: >160 MG/DL >130 MG/DL *CHILDREN AND ADOLESCENTS REPRESENTS INDIVIDUALA AGED 2-19 YEARS EXCLUSIVE. ID Date Data Source [id number] 01/19/2020 09:05:00 AM EST [facility] ([facility] Name Value Range Interpretation Code Description Data Purnima rce(s) Supporting Document(s) Thyrotropin [Units/volume] in Serum or Plasma 6.900 uIU/mL 0. 450-4.500 Above high normal [facility] ([facility] ) CHRONIC KIDNEY DISEASE STAGING PER NKF: MALE GFR INTERPRETATION: 20-49 YRS: >60 mL/min Normal 50-59 YRS: >56 mL/min Normal 60-69 YRS: >49 mL/min Normal 70-79 YRS: >42 mL/min Normal 80 and above >35 mL/min Normal FEMALE GRF INTERPRETATION: 20-39 YRS: >60 mL/min Normal 40-49 YRS: >58 mL/min Normal 50-59 YRS: >51 mL/min Normal 60-69 YRS: >45 mL/min Normal 70-79 YRS: >39 mL/min Normal 80 and above >32 mL/min NormalCLASSIFICATION CHOLESTEROL FOR ADULTS CHILDREN/ADOLESCENTS* DESIRABLE: <200 MG/DL <170 MG/DL BORDER-LINE HIGH RISK: 200-239 MG/DL 170-199 MG/DL HIGH RISK: >240 MG/DL >200 MG/DL CLASS. FOR PRIMARY LDL CHOL PREVENTION: LDL CHOL-CHILD/ADOLESCENTS* DESIRABLE: <130 MG/DL <110 MG/DL BORDERLINE-HIGH RISK: 130- 159 MG/DL 110-129 MG/DL HIGH RISK: >160 MG/DL >130 MG/DL *CHILDREN AND ADOLESCENTS REPRESENTS INDIVIDUALA AGED 2-19 YEARS EXCLUSIVE. ID Date Data Source [id number] 01/19/2020 09:05:00 AM EST [facility] ([facility] Name Value Range Interpretation Code Description Data Purnima rce(s) Supporting Document(s) Cholesterol [Mass/volume] in Serum or Plasma 127 mg/dL 100-199 [facility] ([facility] CHRONIC KIDNEY DISEASE STAGING PER NKF: MALE GFR INTERPRETATION: 20-49 YRS: >60 mL/min Normal 50-59 YRS: >56 mL/min Normal 60-69 YRS: >49 mL/min Normal 70-79 YRS: >42 mL/min Normal 80 and above >35 mL/min Normal FEMALE GRF INTERPRETATION: 20-39 YRS: >60 mL/min Normal 40-49 YRS: >58 mL/min Normal 50-59 YRS: >51 mL/min Normal 60-69 YRS: >45 mL/min Normal 70-79 YRS: >39 mL/min Normal 80 and above >32 mL/min NormalCLASSIFICATION CHOLESTEROL FOR ADULTS CHILDREN/ADOLESCENTS* DESIRABLE: <200 MG/DL <170 MG/DL BORDER-LINE HIGH RISK: 200-239 MG/DL 170-199 MG/DL HIGH RISK: >240 MG/DL >200 MG/DL CLASS. FOR PRIMARY LDL CHOL PREVENTION: LDL CHOL-CHILD/ADOLESCENTS* DESIRABLE: <130 MG/DL <110 MG/DL BORDERLINE-HIGH RISK: 130- 159 MG/DL 110-129 MG/DL HIGH RISK: >160 MG/DL >130 MG/DL *CHILDREN AND ADOLESCENTS REPRESENTS INDIVIDUALA AGED 2-19 YEARS EXCLUSIVE. Triglyceride [Mass/volume] in Serum or Plasma 80 mg/dL 0-149 [facility] ([facility] CHRONIC KIDNEY DISEASE STAGING PER NKF: MALE GFR INTERPRETATION: 20-49 YRS: >60 mL/min Normal 50-59 YRS: >56 mL/min Normal 60-69 YRS: >49 mL/min Normal 70-79 YRS: >42 mL/min Normal 80 and above >35 mL/min Normal FEMALE GRF INTERPRETATION: 20-39 YRS: >60 mL/min Normal 40-49 YRS: >58 mL/min Normal 50-59 YRS: >51 mL/min Normal 60-69 YRS: >45 mL/min Normal 70-79 YRS: >39 mL/min Normal 80 and above >32 mL/min NormalCLASSIFICATION CHOLESTEROL FOR ADULTS CHILDREN/ADOLESCENTS* DESIRABLE: <200 MG/DL <170 MG/DL BORDER-LINE HIGH RISK: 200-239 MG/DL 170-199 MG/DL HIGH RISK: >240 MG/DL >200 MG/DL CLASS. FOR PRIMARY LDL CHOL PREVENTION: LDL CHOL-CHILD/ADOLESCENTS* DESIRABLE: <130 MG/DL <110 MG/DL BORDERLINE-HIGH RISK: 130- 159 MG/DL 110-129 MG/DL HIGH RISK: >160 MG/DL >130 MG/DL *CHILDREN AND ADOLESCENTS REPRESENTS INDIVIDUALA AGED 2-19 YEARS EXCLUSIVE. Laboratory test finding (navigational concept) 16 mg/dL 5-40 [facility] ([facility] CHRONIC KIDNEY DISEASE STAGING PER NKF: MALE GFR INTERPRETATION: 20-49 YRS: >60 mL/min Normal 50-59 YRS: >56 mL/min Normal 60-69 YRS: >49 mL/min Normal 70-79 YRS: >42 mL/min Normal 80 and above >35 mL/min Normal FEMALE GRF INTERPRETATION: 20-39 YRS: >60 mL/min Normal 40-49 YRS: >58 mL/min Normal 50-59 YRS: >51 mL/min Normal 60-69 YRS: >45 mL/min Normal 70-79 YRS: >39 mL/min Normal 80 and above >32 mL/min NormalCLASSIFICATION CHOLESTEROL FOR ADULTS CHILDREN/ADOLESCENTS* DESIRABLE: <200 MG/DL <170 MG/DL BORDER-LINE HIGH RISK: 200-239 MG/DL 170-199 MG/DL HIGH RISK: >240 MG/DL >200 MG/DL CLASS. FOR PRIMARY LDL CHOL PREVENTION: LDL CHOL-CHILD/ADOLESCENTS* DESIRABLE: <130 MG/DL <110 MG/DL BORDERLINE-HIGH RISK: 130- 159 MG/DL 110-129 MG/DL HIGH RISK: >160 MG/DL >130 MG/DL *CHILDREN AND ADOLESCENTS REPRESENTS INDIVIDUALA AGED 2-19 YEARS EXCLUSIVE. Cholesterol in HDL [Mass/volume] in Serum or Plasma 44 mg/dL [facility] ([facility] CHRONIC KIDNEY DISEASE STAGING PER NKF: MALE GFR INTERPRETATION: 20-49 YRS: >60 mL/min Normal 50-59 YRS: >56 mL/min Normal 60-69 YRS: >49 mL/min Normal 70-79 YRS: >42 mL/min Normal 80 and above >35 mL/min Normal FEMALE GRF INTERPRETATION: 20-39 YRS: >60 mL/min Normal 40-49 YRS: >58 mL/min Normal 50-59 YRS: >51 mL/min Normal 60-69 YRS: >45 mL/min Normal 70-79 YRS: >39 mL/min Normal 80 and above >32 mL/min NormalCLASSIFICATION CHOLESTEROL FOR ADULTS CHILDREN/ADOLESCENTS* DESIRABLE: <200 MG/DL <170 MG/DL BORDER-LINE HIGH RISK: 200-239 MG/DL 170-199 MG/DL HIGH RISK: >240 MG/DL >200 MG/DL CLASS. FOR PRIMARY LDL CHOL PREVENTION: LDL CHOL-CHILD/ADOLESCENTS* DESIRABLE: <130 MG/DL <110 MG/DL BORDERLINE-HIGH RISK: 130- 159 MG/DL 110-129 MG/DL HIGH RISK: >160 MG/DL >130 MG/DL *CHILDREN AND ADOLESCENTS REPRESENTS INDIVIDUALA AGED 2-19 YEARS EXCLUSIVE. Laboratory test finding (navigational concept) 67 mg/dL 0-99 [facility] ([facility] CHRONIC KIDNEY DISEASE STAGING PER NKF: MALE GFR INTERPRETATION: 20-49 YRS: >60 mL/min Normal 50-59 YRS: >56 mL/min Normal 60-69 YRS: >49 mL/min Normal 70-79 YRS: >42 mL/min Normal 80 and above >35 mL/min Normal FEMALE GRF INTERPRETATION: 20-39 YRS: >60 mL/min Normal 40-49 YRS: >58 mL/min Normal 50-59 YRS: >51 mL/min Normal 60-69 YRS: >45 mL/min Normal 70-79 YRS: >39 mL/min Normal 80 and above >32 mL/min NormalCLASSIFICATION CHOLESTEROL FOR ADULTS CHILDREN/ADOLESCENTS* DESIRABLE: <200 MG/DL <170 MG/DL BORDER-LINE HIGH RISK: 200-239 MG/DL 170-199 MG/DL HIGH RISK: >240 MG/DL >200 MG/DL CLASS. FOR PRIMARY LDL CHOL PREVENTION: LDL CHOL-CHILD/ADOLESCENTS* DESIRABLE: <130 MG/DL <110 MG/DL BORDERLINE-HIGH RISK: 130- 159 MG/DL 110-129 MG/DL HIGH RISK: >160 MG/DL >130 MG/DL *CHILDREN AND ADOLESCENTS REPRESENTS INDIVIDUALA AGED 2-19 YEARS EXCLUSIVE. Comment: Laboratory test result [facility] ([facility] CHRONIC KIDNEY DISEASE STAGING PER NKF: MALE GFR INTERPRETATION: 20-49 YRS: >60 mL/min Normal 50-59 YRS: >56 mL/min Normal 60-69 YRS: >49 mL/min Normal 70-79 YRS: >42 mL/min Normal 80 and above >35 mL/min Normal FEMALE GRF INTERPRETATION: 20-39 YRS: >60 mL/min Normal 40-49 YRS: >58 mL/min Normal 50-59 YRS: >51 mL/min Normal 60-69 YRS: >45 mL/min Normal 70-79 YRS: >39 mL/min Normal 80 and above >32 mL/min NormalCLASSIFICATION CHOLESTEROL FOR ADULTS CHILDREN/ADOLESCENTS* DESIRABLE: <200 MG/DL <170 MG/DL BORDER-LINE HIGH RISK: 200-239 MG/DL 170-199 MG/DL HIGH RISK: >240 MG/DL >200 MG/DL CLASS. FOR PRIMARY LDL CHOL PREVENTION: LDL CHOL-CHILD/ADOLESCENTS* DESIRABLE: <130 MG/DL <110 MG/DL BORDERLINE-HIGH RISK: 130- 159 MG/DL 110-129 MG/DL HIGH RISK: >160 MG/DL >130 MG/DL *CHILDREN AND ADOLESCENTS REPRESENTS INDIVIDUALA AGED 2-19 YEARS EXCLUSIVE. ID Date Data Source [id number] 01/19/2020 09:05:00 AM EST [facility] ([facility] Name Value Range Interpretation Code Description Data Purnima rce(s) Supporting Document(s) Glucose [Mass/volume] in Serum or Plasma 124 mg/dL 65-99 Above high normal [facility] ([facility] CHRONIC KIDNEY DISEASE STAGING PER NKF: MALE GFR INTERPRETATION: 20-49 YRS: >60 mL/min Normal 50-59 YRS: >56 mL/min Normal 60-69 YRS: >49 mL/min Normal 70-79 YRS: >42 mL/min Normal 80 and above >35 mL/min Normal FEMALE GRF INTERPRETATION: 20-39 YRS: >60 mL/min Normal 40-49 YRS: >58 mL/min Normal 50-59 YRS: >51 mL/min Normal 60-69 YRS: >45 mL/min Normal 70-79 YRS: >39 mL/min Normal 80 and above >32 mL/min NormalCLASSIFICATION CHOLESTEROL FOR ADULTS CHILDREN/ADOLESCENTS* DESIRABLE: <200 MG/DL <170 MG/DL BORDER-LINE HIGH RISK: 200-239 MG/DL 170-199 MG/DL HIGH RISK: >240 MG/DL >200 MG/DL CLASS. FOR PRIMARY LDL CHOL PREVENTION: LDL CHOL-CHILD/ADOLESCENTS* DESIRABLE: <130 MG/DL <110 MG/DL BORDERLINE-HIGH RISK: 130- 159 MG/DL 110-129 MG/DL HIGH RISK: >160 MG/DL >130 MG/DL *CHILDREN AND ADOLESCENTS REPRESENTS INDIVIDUALA AGED 2-19 YEARS EXCLUSIVE. Creatinine [Mass/volume] in Serum or Plasma 1.23 mg/dL 0.76-1.27 [facility] ([facility] CHRONIC KIDNEY DISEASE STAGING PER NKF: MALE GFR INTERPRETATION: 20-49 YRS: >60 mL/min Normal 50-59 YRS: >56 mL/min Normal 60-69 YRS: >49 mL/min Normal 70-79 YRS: >42 mL/min Normal 80 and above >35 mL/min Normal FEMALE GRF INTERPRETATION: 20-39 YRS: >60 mL/min Normal 40-49 YRS: >58 mL/min Normal 50-59 YRS: >51 mL/min Normal 60-69 YRS: >45 mL/min Normal 70-79 YRS: >39 mL/min Normal 80 and above >32 mL/min NormalCLASSIFICATION CHOLESTEROL FOR ADULTS CHILDREN/ADOLESCENTS* DESIRABLE: <200 MG/DL <170 MG/DL BORDER-LINE HIGH RISK: 200-239 MG/DL 170-199 MG/DL HIGH RISK: >240 MG/DL >200 MG/DL CLASS. FOR PRIMARY LDL CHOL PREVENTION: LDL CHOL-CHILD/ADOLESCENTS* DESIRABLE: <130 MG/DL <110 MG/DL BORDERLINE-HIGH RISK: 130- 159 MG/DL 110-129 MG/DL HIGH RISK: >160 MG/DL >130 MG/DL *CHILDREN AND ADOLESCENTS REPRESENTS INDIVIDUALA AGED 2-19 YEARS EXCLUSIVE. BUN 21 mg/dL 8-27 [facility] ([facility] CHRONIC KIDNEY DISEASE STAGING PER NKF: MALE GFR INTERPRETATION: 20-49 YRS: >60 mL/min Normal 50-59 YRS: >56 mL/min Normal 60-69 YRS: >49 mL/min Normal 70-79 YRS: >42 mL/min Normal 80 and above >35 mL/min Normal FEMALE GRF INTERPRETATION: 20-39 YRS: >60 mL/min Normal 40-49 YRS: >58 mL/min Normal 50-59 YRS: >51 mL/min Normal 60-69 YRS: >45 mL/min Normal 70-79 YRS: >39 mL/min Normal 80 and above >32 mL/min NormalCLASSIFICATION CHOLESTEROL FOR ADULTS CHILDREN/ADOLESCENTS* DESIRABLE: <200 MG/DL <170 MG/DL BORDER-LINE HIGH RISK: 200-239 MG/DL 170-199 MG/DL HIGH RISK: >240 MG/DL >200 MG/DL CLASS. FOR PRIMARY LDL CHOL PREVENTION: LDL CHOL-CHILD/ADOLESCENTS* DESIRABLE: <130 MG/DL <110 MG/DL BORDERLINE-HIGH RISK: 130- 159 MG/DL 110-129 MG/DL HIGH RISK: >160 MG/DL >130 MG/DL *CHILDREN AND ADOLESCENTS REPRESENTS INDIVIDUALA AGED 2-19 YEARS EXCLUSIVE. eGFR If NonAfricn Am 62 mL/min/1.73 [facility] ([facility] CHRONIC KIDNEY DISEASE STAGING PER NKF: MALE GFR INTERPRETATION: 20-49 YRS: >60 mL/min Normal 50-59 YRS: >56 mL/min Normal 60-69 YRS: >49 mL/min Normal 70-79 YRS: >42 mL/min Normal 80 and above >35 mL/min Normal FEMALE GRF INTERPRETATION: 20-39 YRS: >60 mL/min Normal 40-49 YRS: >58 mL/min Normal 50-59 YRS: >51 mL/min Normal 60-69 YRS: >45 mL/min Normal 70-79 YRS: >39 mL/min Normal 80 and above >32 mL/min NormalCLASSIFICATION CHOLESTEROL FOR ADULTS CHILDREN/ADOLESCENTS* DESIRABLE: <200 MG/DL <170 MG/DL BORDER-LINE HIGH RISK: 200-239 MG/DL 170-199 MG/DL HIGH RISK: >240 MG/DL >200 MG/DL CLASS. FOR PRIMARY LDL CHOL PREVENTION: LDL CHOL-CHILD/ADOLESCENTS* DESIRABLE: <130 MG/DL <110 MG/DL BORDERLINE-HIGH RISK: 130- 159 MG/DL 110-129 MG/DL HIGH RISK: >160 MG/DL >130 MG/DL *CHILDREN AND ADOLESCENTS REPRESENTS INDIVIDUALA AGED 2-19 YEARS EXCLUSIVE. eGFR If Africn Am 72 mL/min/1.73 [facility] ([facility] CHRONIC KIDNEY DISEASE STAGING PER NKF: MALE GFR INTERPRETATION: 20-49 YRS: >60 mL/min Normal 50-59 YRS: >56 mL/min Normal 60-69 YRS: >49 mL/min Normal 70-79 YRS: >42 mL/min Normal 80 and above >35 mL/min Normal FEMALE GRF INTERPRETATION: 20-39 YRS: >60 mL/min Normal 40-49 YRS: >58 mL/min Normal 50-59 YRS: >51 mL/min Normal 60-69 YRS: >45 mL/min Normal 70-79 YRS: >39 mL/min Normal 80 and above >32 mL/min NormalCLASSIFICATION CHOLESTEROL FOR ADULTS CHILDREN/ADOLESCENTS* DESIRABLE: <200 MG/DL <170 MG/DL BORDER-LINE HIGH RISK: 200-239 MG/DL 170-199 MG/DL HIGH RISK: >240 MG/DL >200 MG/DL CLASS. FOR PRIMARY LDL CHOL PREVENTION: LDL CHOL-CHILD/ADOLESCENTS* DESIRABLE: <130 MG/DL <110 MG/DL BORDERLINE-HIGH RISK: 130- 159 MG/DL 110-129 MG/DL HIGH RISK: >160 MG/DL >130 MG/DL *CHILDREN AND ADOLESCENTS REPRESENTS INDIVIDUALA AGED 2-19 YEARS EXCLUSIVE. Sodium [Moles/volume] in Serum or Plasma 140 mmol/L 134-144 [facility] ([facility] CHRONIC KIDNEY DISEASE STAGING PER NKF: MALE GFR INTERPRETATION: 20-49 YRS: >60 mL/min Normal 50-59 YRS: >56 mL/min Normal 60-69 YRS: >49 mL/min Normal 70-79 YRS: >42 mL/min Normal 80 and above >35 mL/min Normal FEMALE GRF INTERPRETATION: 20-39 YRS: >60 mL/min Normal 40-49 YRS: >58 mL/min Normal 50-59 YRS: >51 mL/min Normal 60-69 YRS: >45 mL/min Normal 70-79 YRS: >39 mL/min Normal 80 and above >32 mL/min NormalCLASSIFICATION CHOLESTEROL FOR ADULTS CHILDREN/ADOLESCENTS* DESIRABLE: <200 MG/DL <170 MG/DL BORDER-LINE HIGH RISK: 200-239 MG/DL 170-199 MG/DL HIGH RISK: >240 MG/DL >200 MG/DL CLASS. FOR PRIMARY LDL CHOL PREVENTION: LDL CHOL-CHILD/ADOLESCENTS* DESIRABLE: <130 MG/DL <110 MG/DL BORDERLINE-HIGH RISK: 130- 159 MG/DL 110-129 MG/DL HIGH RISK: >160 MG/DL >130 MG/DL *CHILDREN AND ADOLESCENTS REPRESENTS INDIVIDUALA AGED 2-19 YEARS EXCLUSIVE. Urea nitrogen/Creatinine [Mass Ratio] in Serum or Plasma 17 1 0-24 [facility] ([facility] CHRONIC KIDNEY DISEASE STAGING PER NKF: MALE GFR INTERPRETATION: 20-49 YRS: >60 mL/min Normal 50-59 YRS: >56 mL/min Normal 60-69 YRS: >49 mL/min Normal 70-79 YRS: >42 mL/min Normal 80 and above >35 mL/min Normal FEMALE GRF INTERPRETATION: 20-39 YRS: >60 mL/min Normal 40-49 YRS: >58 mL/min Normal 50-59 YRS: >51 mL/min Normal 60-69 YRS: >45 mL/min Normal 70-79 YRS: >39 mL/min Normal 80 and above >32 mL/min NormalCLASSIFICATION CHOLESTEROL FOR ADULTS CHILDREN/ADOLESCENTS* DESIRABLE: <200 MG/DL <170 MG/DL BORDER-LINE HIGH RISK: 200-239 MG/DL 170-199 MG/DL HIGH RISK: >240 MG/DL >200 MG/DL CLASS. FOR PRIMARY LDL CHOL PREVENTION: LDL CHOL-CHILD/ADOLESCENTS* DESIRABLE: <130 MG/DL <110 MG/DL BORDERLINE-HIGH RISK: 130-159 MG/DL 110-129 MG/DL HIGH RISK: >160 MG/DL >130 MG/DL *CHILDREN AND ADOLESCENTS REPRESENTS INDIVIDUALA AGED 2-19 YEARS EXCLUSIVE. Potassium [Moles/volume] in Serum or Plasma 4.5 mmol/L 3.5-5.2 [facility] ([facility] CHRONIC KIDNEY DISEASE STAGING PER NKF: MALE GFR INTERPRETATION: 20-49 YRS: >60 mL/min Normal 50-59 YRS: >56 mL/min Normal 60-69 YRS: >49 mL/min Normal 70-79 YRS: >42 mL/min Normal 80 and above >35 mL/min Normal FEMALE GRF INTERPRETATION: 20-39 YRS: >60 mL/min Normal 40-49 YRS: >58 mL/min Normal 50-59 YRS: >51 mL/min Normal 60-69 YRS: >45 mL/min Normal 70-79 YRS: >39 mL/min Normal 80 and above >32 mL/min NormalCLASSIFICATION CHOLESTEROL FOR ADULTS CHILDREN/ADOLESCENTS* DESIRABLE: <200 MG/DL <170 MG/DL BORDER-LINE HIGH RISK: 200-239 MG/DL 170-199 MG/DL HIGH RISK: >240 MG/DL >200 MG/DL CLASS. FOR PRIMARY LDL CHOL PREVENTION: LDL CHOL-CHILD/ADOLESCENTS* DESIRABLE: <130 MG/DL <110 MG/DL BORDERLINE-HIGH RISK: 130- 159 MG/DL 110-129 MG/DL HIGH RISK: >160 MG/DL >130 MG/DL *CHILDREN AND ADOLESCENTS REPRESENTS INDIVIDUALA AGED 2-19 YEARS EXCLUSIVE. Carbon dioxide, total [Moles/volume] in Serum or Plasma 23 mmol/L 20 -29 [facility] ([facility] CHRONIC KIDNEY DISEASE STAGING PER NKF: MALE GFR INTERPRETATION: 20-49 YRS: >60 mL/min Normal 50-59 YRS: >56 mL/min Normal 60-69 YRS: >49 mL/min Normal 70-79 YRS: >42 mL/min Normal 80 and above >35 mL/min Normal FEMALE GRF INTERPRETATION: 20-39 YRS: >60 mL/min Normal 40-49 YRS: >58 mL/min Normal 50-59 YRS: >51 mL/min Normal 60-69 YRS: >45 mL/min Normal 70-79 YRS: >39 mL/min Normal 80 and above >32 mL/min NormalCLASSIFICATION CHOLESTEROL FOR ADULTS CHILDREN/ADOLESCENTS* DESIRABLE: <200 MG/DL <170 MG/DL BORDER-LINE HIGH RISK: 200-239 MG/DL 170-199 MG/DL HIGH RISK: >240 MG/DL >200 MG/DL CLASS. FOR PRIMARY LDL CHOL PREVENTION: LDL CHOL-CHILD/ADOLESCENTS* DESIRABLE: <130 MG/DL <110 MG/DL BORDERLINE-HIGH RISK: 130- 159 MG/DL 110-129 MG/DL HIGH RISK: >160 MG/DL >130 MG/DL *CHILDREN AND ADOLESCENTS REPRESENTS INDIVIDUALA AGED 2-19 YEARS EXCLUSIVE. Chloride [Moles/volume] in Serum or Plasma 99 mmol/L 96-106 [facility] ([facility] CHRONIC KIDNEY DISEASE STAGING PER NKF: MALE GFR INTERPRETATION: 20-49 YRS: >60 mL/min Normal 50-59 YRS: >56 mL/min Normal 60-69 YRS: >49 mL/min Normal 70-79 YRS: >42 mL/min Normal 80 and above >35 mL/min Normal FEMALE GRF INTERPRETATION: 20-39 YRS: >60 mL/min Normal 40-49 YRS: >58 mL/min Normal 50-59 YRS: >51 mL/min Normal 60-69 YRS: >45 mL/min Normal 70-79 YRS: >39 mL/min Normal 80 and above >32 mL/min NormalCLASSIFICATION CHOLESTEROL FOR ADULTS CHILDREN/ADOLESCENTS* DESIRABLE: <200 MG/DL <170 MG/DL BORDER-LINE HIGH RISK: 200-239 MG/DL 170-199 MG/DL HIGH RISK: >240 MG/DL >200 MG/DL CLASS. FOR PRIMARY LDL CHOL PREVENTION: LDL CHOL-CHILD/ADOLESCENTS* DESIRABLE: <130 MG/DL <110 MG/DL BORDERLINE-HIGH RISK: 130- 159 MG/DL 110-129 MG/DL HIGH RISK: >160 MG/DL >130 MG/DL *CHILDREN AND ADOLESCENTS REPRESENTS INDIVIDUALA AGED 2-19 YEARS EXCLUSIVE. Calcium [Mass/volume] in Serum or Plasma 9.5 mg/dL 8.6-10.[address] [facility] CHRONIC KIDNEY DISEASE STAGING PER NKF: MALE GFR INTERPRETATION: 20-49 YRS: >60 mL/min Normal 50-59 YRS: >56 mL/min Normal 60-69 YRS: >49 mL/min Normal 70-79 YRS: >42 mL/min Normal 80 and above >35 mL/min Normal FEMALE GRF INTERPRETATION: 20-39 YRS: >60 mL/min Normal 40-49 YRS: >58 mL/min Normal 50-59 YRS: >51 mL/min Normal 60-69 YRS: >45 mL/min Normal 70-79 YRS: >39 mL/min Normal 80 and above >32 mL/min NormalCLASSIFICATION CHOLESTEROL FOR ADULTS CHILDREN/ADOLESCENTS* DESIRABLE: <200 MG/DL <170 MG/DL BORDER-LINE HIGH RISK: 200-239 MG/DL 170-199 MG/DL HIGH RISK: >240 MG/DL >200 MG/DL CLASS. FOR PRIMARY LDL CHOL PREVENTION: LDL CHOL-CHILD/ADOLESCENTS* DESIRABLE: <130 MG/DL <110 MG/DL BORDERLINE-HIGH RISK: 130- 159 MG/DL 110-129 MG/DL HIGH RISK: >160 MG/DL >130 MG/DL *CHILDREN AND ADOLESCENTS REPRESENTS INDIVIDUALA AGED 2-19 YEARS EXCLUSIVE. Protein [Mass/volume] in Serum or Plasma 6.1 g/dL 6.0-8.5 [facility] ([facility] CHRONIC KIDNEY DISEASE STAGING PER NKF: MALE GFR INTERPRETATION: 20-49 YRS: >60 mL/min Normal 50-59 YRS: >56 mL/min Normal 60-69 YRS: >49 mL/min Normal 70-79 YRS: >42 mL/min Normal 80 and above >35 mL/min Normal FEMALE GRF INTERPRETATION: 20-39 YRS: >60 mL/min Normal 40-49 YRS: >58 mL/min Normal 50-59 YRS: >51 mL/min Normal 60-69 YRS: >45 mL/min Normal 70-79 YRS: >39 mL/min Normal 80 and above >32 mL/min NormalCLASSIFICATION CHOLESTEROL FOR ADULTS CHILDREN/ADOLESCENTS* DESIRABLE: <200 MG/DL <170 MG/DL BORDER-LINE HIGH RISK: 200-239 MG/DL 170-199 MG/DL HIGH RISK: >240 MG/DL >200 MG/DL CLASS. FOR PRIMARY LDL CHOL PREVENTION: LDL CHOL-CHILD/ADOLESCENTS* DESIRABLE: <130 MG/DL <110 MG/DL BORDERLINE-HIGH RISK: 130- 159 MG/DL 110-129 MG/DL HIGH RISK: >160 MG/DL >130 MG/DL *CHILDREN AND ADOLESCENTS REPRESENTS INDIVIDUALA AGED 2-19 YEARS EXCLUSIVE. Albumin [Mass/volume] in Serum or Plasma 4.1 g/dL 3.8-4.8 [facility] ([facility] CHRONIC KIDNEY DISEASE STAGING PER NKF: MALE GFR INTERPRETATION: 20-49 YRS: >60 mL/min Normal 50-59 YRS: >56 mL/min Normal 60-69 YRS: >49 mL/min Normal 70-79 YRS: >42 mL/min Normal 80 and above >35 mL/min Normal FEMALE GRF INTERPRETATION: 20-39 YRS: >60 mL/min Normal 40-49 YRS: >58 mL/min Normal 50-59 YRS: >51 mL/min Normal 60-69 YRS: >45 mL/min Normal 70-79 YRS: >39 mL/min Normal 80 and above >32 mL/min NormalCLASSIFICATION CHOLESTEROL FOR ADULTS CHILDREN/ADOLESCENTS* DESIRABLE: <200 MG/DL <170 MG/DL BORDER-LINE HIGH RISK: 200-239 MG/DL 170-199 MG/DL HIGH RISK: >240 MG/DL >200 MG/DL CLASS. FOR PRIMARY LDL CHOL PREVENTION: LDL CHOL-CHILD/ADOLESCENTS* DESIRABLE: <130 MG/DL <110 MG/DL BORDERLINE-HIGH RISK: 130- 159 MG/DL 110-129 MG/DL HIGH RISK: >160 MG/DL >130 MG/DL *CHILDREN AND ADOLESCENTS REPRESENTS INDIVIDUALA AGED 2-19 YEARS EXCLUSIVE. Globulin [Mass/volume] in Serum by calculation 2.0 g/dL 1.5-4.5 [facility] ([facility] CHRONIC KIDNEY DISEASE STAGING PER NKF: MALE GFR INTERPRETATION: 20-49 YRS: >60 mL/min Normal 50-59 YRS: >56 mL/min Normal 60-69 YRS: >49 mL/min Normal 70-79 YRS: >42 mL/min Normal 80 and above >35 mL/min Normal FEMALE GRF INTERPRETATION: 20-39 YRS: >60 mL/min Normal 40-49 YRS: >58 mL/min Normal 50-59 YRS: >51 mL/min Normal 60-69 YRS: >45 mL/min Normal 70-79 YRS: >39 mL/min Normal 80 and above >32 mL/min NormalCLASSIFICATION CHOLESTEROL FOR ADULTS CHILDREN/ADOLESCENTS* DESIRABLE: <200 MG/DL <170 MG/DL BORDER-LINE HIGH RISK: 200-239 MG/DL 170-199 MG/DL HIGH RISK: >240 MG/DL >200 MG/DL CLASS. FOR PRIMARY LDL CHOL PREVENTION: LDL CHOL-CHILD/ADOLESCENTS* DESIRABLE: <130 MG/DL <110 MG/DL BORDERLINE-HIGH RISK: 130- 159 MG/DL 110-129 MG/DL HIGH RISK: >160 MG/DL >130 MG/DL *CHILDREN AND ADOLESCENTS REPRESENTS INDIVIDUALA AGED 2-19 YEARS EXCLUSIVE. Bilirubin.total [Mass/volume] in Serum or Plasma 0.7 mg/dL 0.0-1.2 [facility] ([facility] CHRONIC KIDNEY DISEASE STAGING PER NKF: MALE GFR INTERPRETATION: 20-49 YRS: >60 mL/min Normal 50-59 YRS: >56 mL/min Normal 60-69 YRS: >49 mL/min Normal 70-79 YRS: >42 mL/min Normal 80 and above >35 mL/min Normal FEMALE GRF INTERPRETATION: 20-39 YRS: >60 mL/min Normal 40-49 YRS: >58 mL/min Normal 50-59 YRS: >51 mL/min Normal 60-69 YRS: >45 mL/min Normal 70-79 YRS: >39 mL/min Normal 80 and above >32 mL/min NormalCLASSIFICATION CHOLESTEROL FOR ADULTS CHILDREN/ADOLESCENTS* DESIRABLE: <200 MG/DL <170 MG/DL BORDER-LINE HIGH RISK: 200-239 MG/DL 170-199 MG/DL HIGH RISK: >240 MG/DL >200 MG/DL CLASS. FOR PRIMARY LDL CHOL PREVENTION: LDL CHOL-CHILD/ADOLESCENTS* DESIRABLE: <130 MG/DL <110 MG/DL BORDERLINE-HIGH RISK: 130- 159 MG/DL 110-129 MG/DL HIGH RISK: >160 MG/DL >130 MG/DL *CHILDREN AND ADOLESCENTS REPRESENTS INDIVIDUALA AGED 2-19 YEARS EXCLUSIVE. Albumin/Globulin [Mass Ratio] in Serum or Plasma 2.1 1.2-2.2 [facility] ([facility] CHRONIC KIDNEY DISEASE STAGING PER NKF: MALE GFR INTERPRETATION: 20-49 YRS: >60 mL/min Normal 50-59 YRS: >56 mL/min Normal 60-69 YRS: >49 mL/min Normal 70-79 YRS: >42 mL/min Normal 80 and above >35 mL/min Normal FEMALE GRF INTERPRETATION: 20-39 YRS: >60 mL/min Normal 40-49 YRS: >58 mL/min Normal 50-59 YRS: >51 mL/min Normal 60-69 YRS: >45 mL/min Normal 70-79 YRS: >39 mL/min Normal 80 and above >32 mL/min NormalCLASSIFICATION CHOLESTEROL FOR ADULTS CHILDREN/ADOLESCENTS* DESIRABLE: <200 MG/DL <170 MG/DL BORDER-LINE HIGH RISK: 200-239 MG/DL 170-199 MG/DL HIGH RISK: >240 MG/DL >200 MG/DL CLASS. FOR PRIMARY LDL CHOL PREVENTION: LDL CHOL-CHILD/ADOLESCENTS* DESIRABLE: <130 MG/DL <110 MG/DL BORDERLINE-HIGH RISK: 130-159 MG/DL 110-129 MG/DL HIGH RISK: >160 MG/DL >130 MG/DL *CHILDREN AND ADOLESCENTS REPRESENTS INDIVIDUALA AGED 2-19 YEARS EXCLUSIVE. Alkaline phosphatase [Enzymatic activity/volume] in Serum or Plasma 61 IU/L 39-117 [facility] ([facility] CHRONIC KIDNEY DISEASE STAGING PER NKF: MALE GFR INTERPRETATION: 20-49 YRS: >60 mL/min Normal 50-59 YRS: >56 mL/min Normal 60-69 YRS: >49 mL/min Normal 70-79 YRS: >42 mL/min Normal 80 and above >35 mL/min Normal FEMALE GRF INTERPRETATION: 20-39 YRS: >60 mL/min Normal 40-49 YRS: >58 mL/min Normal 50-59 YRS: >51 mL/min Normal 60-69 YRS: >45 mL/min Normal 70-79 YRS: >39 mL/min Normal 80 and above >32 mL/min NormalCLASSIFICATION CHOLESTEROL FOR ADULTS CHILDREN/ADOLESCENTS* DESIRABLE: <200 MG/DL <170 MG/DL BORDER-LINE HIGH RISK: 200-239 MG/DL 170-199 MG/DL HIGH RISK: >240 MG/DL >200 MG/DL CLASS. FOR PRIMARY LDL CHOL PREVENTION: LDL CHOL-CHILD/ADOLESCENTS* DESIRABLE: <130 MG/DL <110 MG/DL BORDERLINE-HIGH RISK: 130-159 MG/DL 110-129 MG/DL HIGH RISK: >160 MG/DL >130 MG/DL *CHILDREN AND ADOLESCENTS REPRESENTS INDIVIDUALA AGED 2-19 YEARS EXCLUSIVE. Aspartate aminotransferase [Enzymatic activity/volume] in Serum or Plasma 19 IU/L 0-40 [facility] ([facility] CHRONIC KIDNEY DISEASE STAGING PER NKF: MALE GFR INTERPRETATION: 20-49 YRS: >60 mL/min Normal 50-59 YRS: >56 mL/min Normal 60-69 YRS: >49 mL/min Normal 70-79 YRS: >42 mL/min Normal 80 and above >35 mL/min Normal FEMALE GRF INTERPRETATION: 20-39 YRS: >60 mL/min Normal 40-49 YRS: >58 mL/min Normal 50-59 YRS: >51 mL/min Normal 60-69 YRS: >45 mL/min Normal 70-79 YRS: >39 mL/min Normal 80 and above >32 mL/min NormalCLASSIFICATION CHOLESTEROL FOR ADULTS CHILDREN/ADOLESCENTS* DESIRABLE: <200 MG/DL <170 MG/DL BORDER-LINE HIGH RISK: 200-239 MG/DL 170-199 MG/DL HIGH RISK: >240 MG/DL >200 MG/DL CLASS. FOR PRIMARY LDL CHOL PREVENTION: LDL CHOL-CHILD/ADOLESCENTS* DESIRABLE: <130 MG/DL <110 MG/DL BORDERLINE-HIGH RISK: 130-159 MG/DL 110-129 MG/DL HIGH RISK: >160 MG/DL >130 MG/DL *CHILDREN AND ADOLESCENTS REPRESENTS INDIVIDUALA AGED 2-19 YEARS EXCLUSIVE. Alanine aminotransferase [Enzymatic activity/volume] in Seru m or Plasma 18 IU/L 0-44 [facility] CHRONIC KIDNEY DISEASE STAGING PER NKF: MALE GFR INTERPRETATION: 20-49 YRS: >60 mL/min Normal 50-59 YRS: >56 mL/min Normal 60-69 YRS: >49 mL/min Normal 70-79 YRS: >42 mL/min Normal 80 and above >35 mL/min Normal FEMALE GRF INTERPRETATION: 20-39 YRS: >60 mL/min Normal 40-49 YRS: >58 mL/min Normal 50-59 YRS: >51 mL/min Normal 60-69 YRS: >45 mL/min Normal 70-79 YRS: >39 mL/min Normal 80 and above >32 mL/min NormalCLASSIFICATION CHOLESTEROL FOR ADULTS CHILDREN/ADOLESCENTS* DESIRABLE: <200 MG/DL <170 MG/DL BORDER-LINE HIGH RISK: 200-239 MG/DL 170-199 MG/DL HIGH RISK: >240 MG/DL >200 MG/DL CLASS. FOR PRIMARY LDL CHOL PREVENTION: LDL CHOL-CHILD/ADOLESCENTS* DESIRABLE: <130 MG/DL <110 MG/DL BORDERLINE-HIGH RISK: 130-159 MG/DL 110-129 MG/DL HIGH RISK: >160 MG/DL >130 MG/DL *CHILDREN AND ADOLESCENTS REPRESENTS INDIVIDUALA AGED 2-19 YEARS EXCLUSIVE. ID Date Data Source [id number] 12/06/2019 08:07:00 AM EDT [facility] ([facility] Name Value Range Interpretation Code Description Data Purnima rce(s) Supporting Document(s) White Blood Count 10.6 10 4.0-10.0 [facility] ([facility] Red Blood Count 5.35 10 4.30-6.10 [facility] ([facility] Hemoglobin 16.1 g/dL 13.5-17.5 [facility] ([facility]) Mean Corpuscular Volume 94.6 fl 80.0-96.0 M EDENT ([facility]) Hematocrit 50.6 % 42.0-52.0 [facility] ([facility]) Mean Corpuscular Hemoglobin 30.1 pg 27.0-33.0 [facility] ([facility]) Mean Corpuscular HGB Conc 31.8 g/dL 32.0-36.5 [facility] ([facility]) Red Cell Distribution Width 13.9 % 11.5-14.5 [facility] ([facility]) Platelet Count, Automated 250 10 150-450 [facility] ([facility]) Nucleated Red Blood Cell % 0.0 % 0-0 MED ENT ([facility]) ID Date Data Source [id number] 12/06/2019 08:07:00 AM EDT [facility] Name Value Range Interpretation Code Description Data Purnima rce(s) Supporting Document(s) Magnesium [Mass/volume] in Serum or Plasma 2.0 mg/dL 1.8-2.4 [facility] ([facility]) <content>note:<nlbl:[email or web address]_changed> </content>
<content></content> ID Date Data Source [id number] 12/06/2019 08:07:00 AM EDT [facility]) Name Value Range Interpretation Code Description Data Purnima rce(s) Supporting Document(s) Cholesterol Level 135 mg/dL [facility] ([facility]) Triglycerides Level 129 mg/dL [facility] ([facility]) LDL Cholesterol 63 mg/dL [facility] ([facility]) Non-HDL-C 89 mg/dL [facility] HDL Cholesterol 46 mg/dL [facility] ([facility]) Cholesterol Risk Ratio 2.934 [facility] ([facility]) ID Date Data Source [id number] 12/06/2019 08:07:00 AM EDT [facility] ([facility]) Name Value Range Interpretation Code Description Data Purnima rce(s) Supporting Document(s) Glucose, Fasting 145 mg/dL 70-100 [facility] ([facility] Blood Urea Nitrogen 23 mg/dL 7-18 [facility] ([facility]) Glomerular Filtration Rate 59.9 MED ENT ([facility]) <content>Units are mL/min/1.73 m2</content>
<content></content>
<content>Chronic Kidney Disease Staging per NKF:</content>
<content></content>
<content>Stage I & II GFR >=60 Normal to Mildly Decreased</content>
<content>Stage III GFR 30- 59 Moderately Decreased</content>
<content>Stage IV GFR 15-29 Severely Decreased</content>
<content>Stage V GFR <15 Very Little GFR Left</content>
<content>ESRD GFR <15 on BACKHAUL DRIVER</content>
<content></content> Sodium Level 140 meq/L 136-145 [facility] ([facility]) Creatinine For GFR 1.29 mg/dL 0.70-1.30 [facility] ([facility]) Chloride Level 106 meq/L 98-107 [facility] ([facility]) Potassium Serum 4.7 meq/L 3.5-5.1 [facility] ([facility]) Carbon Dioxide Level 27 meq/L 21-32 [facility] ([facility]) Anion Gap 7 meq/L 8-16 [facility] ([facility]) Calcium Level 9.9 mg/dL 8.8-10.2 [facility] ([facility]) Alt/SGPT 22 U/L 12-78 [facility] ([facility] Alkaline Phosphatase 71 U/L 45-117 [facility] ([facility]) Ast/Sgot 12 U/L 7-37 [facility] ([facility]) Albumin 3.8 GM/DL 3.2-5.2 [facility] ([facility]) Bilirubin,Total 0.6 mg/dL 0.2-1.0 [facility] ([facility]) Total Protein 6.8 GM/DL 6.4-8.2 [facility] ([facility] Albumin/Globulin Ratio 1.3 [facility] ([facility] Procedure Social History Code Duration Value Status Description Data Source(s ) Smoking 11/14/2020 12:00:00 AM EDT Patient has never smoked co mpleted Patient has never smoked [facility] ([facility] Vital Signs ID Date Data Source [id number] Name Value Range Interpretation Code Description Data Source(s) [place] body weight 154 [lb_av] 154 [lb_av] MEDEN T ([facility] Systolic blood pressure 114 mm[Hg] 114 mm[Hg] M EDENT ([facility] Diastolic blood pressure 74 mm[Hg] 74 mm[Hg] [facility] ([facility] Body temperature 98.3 [degF] 98.3 [degF] [facility] ([facility] Heart rate 96 /min 96 /min [facility] ([facility] Respiratory rate 14 /min 14 /min [facility] ( [facility] Body height 68 [in_i] 68 [in_i] [facility] ([facility] 5'8" Body weight 213.00 [lb_av] 213.00 [lb_av] MEDEN T ([facility] Body mass index (BMI) [Ratio] 32.4 kg/m2 32.4 k g/m2 [facility] ([facility] Oxygen saturation in Arterial blood by Pulse oximetry 96 % 96 % [facility] ([facility] Diastolic blood pressure 70 mm[Hg] 70 mm[Hg] [facility] ([facility] Body temperature 98.2 [degF] 98.2 [degF] [facility] ([facility] [place] body weight 154 [lb_av] 154 [lb_av] MEDEN T ([facility] Body mass index (BMI) [Ratio] 32.1 kg/m2 32.1 k g/m2 [facility] ([facility] Systolic blood pressure 110 mm[Hg] 110 mm[Hg] M EDENT ([facility] Heart rate 78 /min 78 /min [facility] ([facility] Respiratory rate 14 /min 14 /min MED[facility] ( [facility] Body height 68 [in_i] 68 [in_i] MED[facility] ([facility] 5'8" Body weight 211.00 [lb_av] 211.00 [lb_av] MEDEN T ([facility] Oxygen saturation in Arterial blood by Pulse oximetry 96 % 96 % [facility] ([facility] Body weight 209.00 [lb_av] 209.00 [lb_av] MEDEN T ([facility]) Body height 68 [in_i] 68 [in_i] [facility] ([facility]) 5'8" Body mass index (BMI) [Ratio] 31.8 kg/m2 31.8 k g/m2 [facility] ([facility]) Heart rate 80 /min 80 /min [facility] ([facility]) Irregular Respiratory rate 16 /min 16 /min [facility] ( [facility]) Systolic blood pressure 110 mm[Hg] 110 mm[Hg] M EDENT ([facility]) sitting, large cuff Diastolic blood pressure 70 mm[Hg] 70 mm[Hg] [facility] ([facility]) sitting, large cuff Body weight 211.00 [lb_av] 211.00 [lb_av] MEDEN T ([facility], ) Systolic blood pressure 130 mm[Hg] 130 mm[Hg] M EDENT ([facility]) Diastolic blood pressure 80 mm[Hg] 80 mm[Hg] [facility] ([facility]) Body temperature 98.6 [degF] 98.6 [degF] [facility] ([facility]) Body height 68 [in_i] 68 [in_i] MED[facility] ([facility]) 5'8" Body mass index (BMI) [Ratio] 32.1 kg/m2 32.1 k g/m2 [facility] ([facility]) [place] body weight 154 [lb_av] 154 [lb_av] MEDEN T ([facility]) Body weight 95.710 kg 95.710 kg MED[facility] ([facility]) Body surface area Derived from formula 2.09 m2 2.09 m2 [facility] ([facility]) Heart rate 76 /min 76 /min [facility] ([facility]) Irregular Body weight 216.00 [lb_av] 216.00 [lb_av] MEDEN T ([facility]) Body height 68 [in_i] 68 [in_i] [facility] ([facility]) 5'8" Body mass index (BMI) [Ratio] 32.8 kg/m2 32.8 k g/m2 [facility] ([facility]) Respiratory rate 16 /min 16 /min [facility] ( [facility]) Systolic blood pressure 114 mm[Hg] 114 mm[Hg] M EDENT ([facility]) sitting, large cuff Diastolic blood pressure 68 mm[Hg] 68 mm[Hg] [facility] ([facility]) sitting, large cuff Systolic blood pressure 112 mm[Hg] 112 mm[Hg] M EDENT ([facility] Diastolic blood pressure 74 mm[Hg] 74 mm[Hg] [facility] ([facility] Body temperature 98.6 [degF] 98.6 [degF] [facility] ([facility] Heart rate 70 /min 70 /min [facility] ([facility] Respiratory rate 16 /min 16 /min [facility] ( [facility] Body height 68 [in_i] 68 [in_i] [facility] ([facility] 5'8" Body weight 216.00 [lb_av] 216.00 [lb_av] MEDEN T ([facility] [place] body weight 154 [lb_av] 154 [lb_av] MEDEN T ([facility] Body mass index (BMI) [Ratio] 32.8 kg/m2 32.8 k g/m2 [facility] ([facility] Oxygen saturation in Arterial blood by Pulse oximetry 93 % 93 % [facility] ([facility] Body height 68 [in_i] 68 [in_i] [facility] ([facility]) 5'8" Body weight 218.00 [lb_av] 218.00 [lb_av] MEDEN T ([facility]) Respiratory rate 16 /min 16 /min MED[facility] ( [facility]) Systolic blood pressure 116 mm[Hg] 116 mm[Hg] M EDENT ([facility] sitting, regular cuff Heart rate 74 /min 74 /min [facility] ([facility]) Body mass index (BMI) [Ratio] 33.1 kg/m2 33.1 k g/m2 [facility] ([facility]) Diastolic blood pressure 66 mm[Hg] 66 mm[Hg] [facility] ([facility]) sitting, regular cuff Body weight 230.00 [lb_av] 230.00 [lb_av] MEDEN T ([facility]) Body height 68 [in_i] 68 [in_i] [facility] ([facility]) 5'8" Body mass index (BMI) [Ratio] 35.0 kg/m2 35.0 k g/m2 [facility] ([facility]) Heart rate 96 /min 96 /min [facility] ([facility] Irregular Respiratory rate 16 /min 16 /min [facility] ( [facility] Systolic blood pressure 128 mm[Hg] 128 mm[Hg] M EDENT ([facility] sitting, large cuff Diastolic blood pressure 80 mm[Hg] 80 mm[Hg] [facility] ([facility] sitting, large cuff Systolic blood pressure 126 mm[Hg] 126 mm[Hg] M EDENT ([facility] sitting Diastolic blood pressure 80 mm[Hg] 80 mm[Hg] [facility] ([facility] sitting Systolic blood pressure 118 mm[Hg] 118 mm[Hg] M EDENT ([facility] Diastolic blood pressure 78 mm[Hg] 78 mm[Hg] [facility] ([facility] Body temperature 97.6 [degF] 97.6 [degF] [facility] ([facility] Heart rate 74 /min 74 /min [facility] ([facility] Respiratory rate 12 /min 12 /min [facility] ( [facility] Body height 68 [in_i] 68 [in_i] [facility] 5'8" Body weight 229.00 [lb_av] 229.00 [lb_av] MEDEN T ([facility] [place] body weight 154 [lb_av] 154 [lb_av] MEDEN T ([facility] Body mass index (BMI) [Ratio] 34.8 kg/m2 34.8 k g/m2 [facility] ([facility] Body temperature 96.6 [degF] 96.6 [degF] [facility] ([facility]) Heart rate 70 /min 70 /min [facility] ([facility] Respiratory rate 12 /min 12 /min MED[facility] ( [facility] Body height 68 [in_i] 68 [in_i] [facility] ([facility] 5'8" Body weight 226.00 [lb_av] 226.00 [lb_av] MEDEN T ([facility] [place] body weight 154 [lb_av] 154 [lb_av] MEDEN T ([facility] Systolic blood pressure 122 mm[Hg] 122 mm[Hg] M EDENT ([facility] Diastolic blood pressure 80 mm[Hg] 80 mm[Hg] [facility] ([facility] Body temperature 98.1 [degF] 98.1 [degF] [facility] ([facility] Body mass index (BMI) [Ratio] 34.4 kg/m2 34.4 k g/m2 [facility] ([facility] Body height 68 [in_i] 68 [in_i] [facility] ([facility]) 5'8" Body temperature 97.3 [degF] 97.3 [degF] [facility] ([facility]) Body weight 279.00 [lb_av] 279.00 [lb_av] MEDEN T ([facility]) Body mass index (BMI) [Ratio] 42.4 kg/m2 42.4 k g/m2 [facility] ([facility]) Body weight 223.00 [lb_av] 223.00 [lb_av] MEDEN T ([facility]) Body height 68 [in_i] 68 [in_i] [facility] ([facility]) 5'8" Body mass index (BMI) [Ratio] 33.9 kg/m2 33.9 k g/m2 [facility] ([facility]) Heart rate 68 /min 68 /min [facility] ([facility]) Regular Respiratory rate 16 /min 16 /min [facility] ( [facility]) Systolic blood pressure 116 mm[Hg] 116 mm[Hg] M EDENT ([facility]) sitting, regular cuff Diastolic blood pressure 66 mm[Hg] 66 mm[Hg] [facility] ([facility]) sitting, regular cuff Systolic blood pressure 110 mm[Hg] 110 mm[Hg] M EDENT ([facility]) sitting Diastolic blood pressure 66 mm[Hg] 66 mm[Hg] [facility] ([facility]) sitting
--- OUTSIDE RECORDS SUMMARY | 2021-01-09 01:34 | CCD | Continuity of Care Document ---
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 failure José Wharton MD Onset: 09/06/2012 Atrial fibrillation José Wharton MD Onset: 06/16/2011 Electrocardiogram abnormal José Wharton MD Onset: 2011 Right bundle branch block AND left anterior fascicular block José Wharton MD Onset: 02/09/2012 Acute pericarditis Iris Victoria PA-C Onset: 12/14/2013 Mitral valve disorder Iris Victoria PA-C Onset: 12/14/2013 Pure hypercholesterolemia José Wharton MD Onset: 012 Obesity José Wharton MD Onset: 06/16/2011 Disturbance in sleep behavior Iris Victoria PA-C Onset: Chronic combined systolic and diastolic heart failure Iris Victoria PA-C Onset: 12/14/2014 Aortic valve disorder Iris Victoria PA-C Onset: 06/18/2015 Paroxysmal atrial fibrillation Iris Victoria PA-C Onset: 1 Dietary management surveillance Iris Victoria PA-C Onset: 12/11/2016 Coxsackie pericarditis Iris Victoria PA-C Onset: 8 Permanent atrial fibrillation Iris Victoria PA-C Onset: Social History Type Date Description Comments [...] 100mg Tablets 1 po Juliana Abreu, MS. BID MANAGER 06/16/2011 Simvastatin 10mg Tablets 1 po qd 90tabs José Wharton MD 06/30/2010 Spironolactone 25mg Tablets Take One-Half Tablet By Mouth Every Day 15tabs I50.42 José Wharton MD 11/2008 Vitamin D 1000Unit Tablets 1 po qd Juan Monk FNP 02/07/2009 Multi Vitamin Tablets Juan Monk, [facility] 02/07/2009 [place]-3 1000mg Capsules 1 po qd Juan Flanagan, [facility] 02/07/2009 Aspirin 81mg Chewtabs 1 po qd [...] Result H/L Range Note Laboratory test finding 10/04/2020 [place] [address] [phone] Magnesium 1.8 mg/dL 1.8-2.4 Basic Metabolic Profile 10/04/2020 [place] [address] [phone] Glu 213 mg/dL High 74-106 BUN 26 mg/dL High 7-18 Cre 1.32 mg/dL High 0.7-1.3 Na 140 mmol/L 136-145 K 4.7 mmol/L 3.5-5.1 CL 102 mmol/L 98-107 Co2 31 mmol/L 21-32 CA 9.4 mg/dL 8.5-10.1 Gap 7.0 mmol/L 5-12 GFR 55 mL/min 1 Basic Metabolic Profile 07/09/2020 [facility] [phone] Glucose, Fasting 151 mg/dL High 70-100 Blood [...] mg/dL Normal 8.8-10.2 Laboratory test finding 07/09/2020 [facility] [phone] Magnesium Level 2.3 mg/dL Normal 1.8-2.4 3 Hemoglobin A1c 04/30/2020 [facility] - not interfaced (315)- - Hemoglobin A1c 7.5 Laboratory test finding 04/30/2020 [facility] - not interf aced (315)- - Thyroid Stimulating Hormone 3.200 CMP 04/30/2020 [facility] - not interfaced (315)- - Albumin Serum/Plasma 3.8 Alt - SGPT 21 Calcium Ser/Plasma Mass/Vol 9.5 Carbon Dioxide Ser/Plasm 29 Chloride Serum/Plasma 106 Alkaline Phosphatase 76 Potassium 4.4 Protein Total 6.5 Sodium 142 Ast - Sgot 7 BUN - Urea Nitrogen 25 Glucose 155 High 70-100 Creatinine For GFR 1.23 Lipid Profile/Cardiac Risk Pro 04/30/2020 [facility] - not interfaced (315)- - Triglycerides 93 <150 Cholesterol 155 <200 HDL 45 >40.0 LDL Cholesterol 91 Chol/HDL Ratio 3.444 <5 1 GFR IS CALCULATED IN mL/min/ 1.73m2 [...] Little GFR Left ESRD GFR <15 on [employer] 3 note:<nlbl:[email or web address]_[email or web address] ed> Procedures Date Code Description Status 10/10/2020 78626 Office/Outpatient Established Lo w MDM 20-29 Min Completed 07/09/2020 43808 Office/Outpatient Established SF MDM 10-19 Min Completed 07/09/2020 97758 ECG 12-Lead Completed 06/11/2020 47799 Office/Outpatient Established Mo d MDM 30-39 Min Completed 06/11/2020 69993 ECG 12-Lead Completed Medical Devices Description No Information Available Encounters Type Date Location Provider Dx Diagnosis Office Visit 10/10/2020 7:45a Main Office Iris Victoria PA-C I50.4 2 Chronic combined systolic and diastolic hrt fail Office Visit 07/09/2020 7:45a Main Office Iris Victoria PA-C I48.2 1 Permanent atrial fibrillation I50.42 Chronic combined systolic an d diastolic hrt fail Office Visit 06/11/2020 9:45a Main Office Iris Victoria PA-C I50.4 2 Chronic combined systolic and [...] (congestive) and diastolic (congestive) heart failure Iris Victoria PA-C 07/09/2020 I48.21 Permanent atrial fibrillation Hector Long PA-C 07/09/2020 I50.42 Chronic combined sys tolic (congestive) and diastolic (congestive) heart failure Iris Victoria PA-C 06/11/2020 I50.42 Chronic combined sys tolic (congestive) and diastolic (congestive) heart failure Iris Victoria PA-C 06/11/2020 I11.0 Hypertensive heart disease with heart failure SAL SchwartzC 06/11/2020 I48.21 Permanent atrial fibrillation Hector Long PA-C 06/11/2020 R94.31 Abnormal electrocardiogram [ECG] [EKG] Iris Victoria PA-C 06/11/2020 I45.2 Bifascicular block SAL QuezadaC 06/11/2020 I34.0 Nonrheumatic mitral (valve) insu fficiency SAL SchwartzC 06/11/2020 I35.1 Nonrheumatic aortic (valve) insu fficiency SAL SchwartzC 06/11/2020 B33.23 Viral pericarditis SAL QuezadaC 06/11/2020 E78.00 Pure hypercholesterolemia, unspe cified SAL SchwartzC 06/11/2020 Z71.3 Dietary counseling and surveilla nce Iris Victoria PA-C Plan of Treatment Future Appointment(s):* 01/20/2021 8:45 am - Iris Victoria PA-C at Main Office 10/10/2020 - Iris Victoria PA-C* I50.42 Chronic combined systolic (congestive) and [...]
[2021-01-09 02:03] LABS: BASO # 0.1 10^3/uL (0.0-0.2); BASO % 0.4 % (0.0-1.0); EOS # 0.3 10^3/uL (0.0-0.5); HEMATOCRIT 52.3 % (42.0-52.0); HEMOGLOBIN 17.3 g/dl (13.5-17.5); LYMPH # 2.5 10^3/uL (1.5-5.0); MEAN CORPUSCULAR HEMOGLOBIN 30.1 pg (27.0-33.0); MEAN CORPUSCULAR HGB CONC 33.1 g/dl (32.0-36.5); MONO # 0.7 10^3/uL (0.0-0.8); MONO % 5.4 % (2.0-8.0); NEUTROPHILS # 9.7 10^3/uL (1.5-8.5); NEUTROPHILS % 72.6 % (36.0-66.0); PLATELET COUNT, AUTOMATED 245 10^3/uL (150-450); RED BLOOD COUNT 5.75 10^6/uL (4.30-6.10); WHITE BLOOD COUNT 13.3 10^3/uL (4.0-10.0)
[2021-01-09 02:33] LABS: ALBUMIN 3.8 GM/DL (3.2-5.2); ALT/SGPT 38 U/L (12-78); BILIRUBIN,DIRECT 0.2 MG/DL (0.0-0.2); BILIRUBIN,TOTAL 0.6 MG/DL (0.2-1.0); BLOOD UREA NITROGEN 20 MG/DL (7-18); CALCIUM LEVEL 9.9 MG/DL (8.8-10.2); CARBON DIOXIDE LEVEL 31 MEQ/L (21-32); CHLORIDE LEVEL 103 MEQ/L (98-107); CK-MB VALUE MASS < 1.0 NG/ML (<3.6); CPK CREATINE PHOSPHOKINASE 42 U/L (39-308); CREATININE FOR GFR 1.28 MG/DL (0.70-1.30); GLOMERULAR FILTRATION RATE > 60.0 (>49); GLUCOSE, FASTING 192 MG/DL (70-100); LIPASE 132 U/L (73-393); MB/CK RELATIVE INDEX 2.38 (< OR =4); POTASSIUM SERUM 3.8 MEQ/L (3.5-5.1); SODIUM LEVEL 141 MEQ/L (136-145); TOTAL PROTEIN 7.4 GM/DL (6.4-8.2); TROPONIN I 0.02 NG/ML (< 0.10)
--- NOTE | 2021-01-09 03:07 | REPVR ---
PROCEDURE INFORMATION: Exam: XR Chest Exam date and time: 01/09/21 (1:53am) Age: 65 years old Clinical indication: Chest pain TECHNIQUE: Imaging protocol: Portable CXR Views: 1 view COMPARISON: Chest films of 06/05/19 FINDINGS: Lungs: Unremarkable. No consolidation. Pleural spaces: Unremarkable. No pleural effusions . No pneumothorax. Heart/Mediastinum: Stable cardiomegaly. Bones/joints: Unremarkable. IMPRESSION: No acute findings. Lung tomlin remain clear. Electronically signed by: Dorys Li On 01/09/2021 03:07:14 AM
[2021-01-09 03:23] LABS: NT-PRO BNP 1631 PG/ML (<125)
--- OUTSIDE RECORDS SUMMARY | 2021-01-09 03:26 | CCD ---
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 If you continue you may have access to information: Regarding HIV / AIDS; Provided by facilities licensed or operated by the [facility] Office of Mental Health; or Provided by the [facility] Office for People With Developmental Disabilities. If such information is present, then the following [facility] mandated warning applies: This information has been [...] law may result in a fine or mcc sentence or both. A general authorization for [...] Hood/Fabien/Pineda/Willi ndl 11/07/2020 02:30:00 PM EDT [facility] ([facility] Outpatient Attender: LYNDA MCQUEEN Physical Therapy 10/10/2020 0 8:30:00 AM EDT [facility] ([facility]) Outpatient Attender: Iris MCQUEEN Main Office 10/10/2020 07:45:00 AM EDT [facility] ([facility]) Outpatient Attender: Iris Gallagher PAReferrer: RITIKA SANCHEZ MD EMERGENCY ROOM-LABOTHPROV 10/04/2020 09:58:00 AM EDT - 10/04/2020 09:58:00 AM [facility] Outpatient Attender: RITIKA SANCHEZ MD [place] Office 11:30:00 AM EDT [facility] Outpatient Attender: Iris MCQUEEN Main Office 07/09/2020 07:45:00 AM EDT [facility] ([facility]) Outpatient Attender: Iris MCQUEEN Main Office 06/11/2020 09:45:00 AM EDT [facility] ([facility]) Outpatient Attender: RITIKA SANCHEZ MD [place] Office 04/2020 09:20:00 AM EST [facility] ([facility] Outpatient Attender: Felipa MCQUEEN Physical Therapy 07:45:00 AM EST [facility] ([facility]) Office Visit Attender: Felipa MCQUEEN Physical Therapy 07:45:00 AM EST [facility] ([facility]) OFFICE OUTPATIENT VISIT 15 MINUTES Attender: Gualberto Palacio MD Phys ical Therapy 03/07/2020 12:45:00 PM EST [facility] ([facility]) Outpatient Attender: Gualberto Palacio MD Physical Therapy 02/13/2020 0 8:45:00 AM EST [facility] ([facility]) Outpatient Attender: RITIKA SANCHEZ MD [place] Office 08:00:00 AM EST [facility] ([facility] Office Visit Attender: Gualberto Palacio MD Physical Therapy 2019 03:00:00 PM EST [facility] ([facility]) OFFICE OUTPATIENT NEW 30 MINUTES Attender: Gualberto Palacio MD Physic al Therapy 01/19/2020 09:45:00 AM EST [facility] ([facility]) Outpatient Attender: Iris MCQUEEN Main Office 12/08/2019 10:45:00 AM EDT [facility] ([facility]) Immunizations Vaccine Date Status Description Data Source(s) COVID-19 VACCINE Pfizer 06/07/2020 12:00:00 AM EDT completed [facility] Vaccine Series Complete: YESThis Data wa s Submitted to [facility] Via [employer]. COVID-19 VACCINE Pfizer 05/17/2020 12:00:00 AM EST completed [facility] Vaccine Series Complete: NOThis Data was Submitted to [facility] Via [employer]. Medications Medication Brand Name Start Date Product Form Dose Route Admi nistrative Instructions Pharmacy Instructions Status Indications Reaction Description Data Source(s) Trulicity Trulicity 11/29/2020 12:00:00 AM EDT act jw [facility] ([facility] Metformin hydrochloride 1000 MG Oral Tablet Metformin HCL 11/13/2020 12:00:00 AM EDT ORAL active [facility] Levothyroxine Sodium 0.075 MG Oral Capsule Levothyroxine Sod ium 10/09/2020 12:00:00 AM EDT ORAL active M EDENT ([facility]) Levothyroxine Sodium 0.088 MG Oral Tablet Levothyroxine Sodi um 08/23/2020 12:00:00 AM EDT active M EDENT ([facility] Metformin hydrochloride 1000 MG Oral Tablet Metformin HCL 07/08/2020 12:00:00 AM EDT ORAL completed [facility] ([facility]) torsemide 20 MG Oral Tablet Torsemide 07/08/2020 12:00:00 AM EDT ORAL active [facility] ([facility] Bisoprolol Fumarate 5 MG Oral Tablet Bisoprolol Fumarate 08/2020 12:00:00 AM EDT ORAL active [facility] ([facility] Levothyroxine Sodium 0.1 MG Oral Tablet Levothyroxine Sodium 06/10/2020 12:00:00 AM EDT ORAL completed [facility] ([facility]) Steglatro Steglatro 06/10/2020 12:00:00 AM EDT ORAL act jw [facility] ([facility]) Metformin hydrochloride 850 MG Oral Tablet Metformin HCL 06/10/2020 12:00:00 AM EDT ORAL completed [facility] ([facility]) Levothyroxine Sodium 0.1 MG Oral Tablet Levothyroxine Sodium 02/02/2020 12:00:00 AM EST active [facility] ([facility] Metformin hydrochloride 850 MG Oral Tablet Metformin HCL 02/02/2020 12:00:00 AM EST ORAL active [facility] ([facility] Acetaminophen 300 MG / Codeine Phosphate 30 MG Oral Ta blet Acetaminophen-Codeine #3 01/22/2020 12:00:00 AM EST ORAL active [facility] ([facility]) 0.5 ML dulaglutide 3 MG/ML Auto-Injector [Trulicity] Leandro ty 12/07/2019 12:00:00 AM EDT active M EDENT ([facility]) Insurance Providers Payer name Policy type / Coverage type Policy ID Covered constitution party ID Covered constitution party's relationship to jackson Policy Jackson Plan Information BC/BS Hny Option A Medigap Part B [id number] Self Z [id number] BC/BS Hny Option A Medigap Part B [id number] Self Z [id number] BC/BS Hny Option A Medigap Part B [id number] Self BC/BS Hny Option A Medigap Part B [id number] Self Z [id number] BC/BS Hny Option A Medigap Part B [id number] Self Z [id number] [place] () Workers Compensation [id number] Self BCBS [place]/307 [id number] SP [id number] [place]BS [place]/307 [id number] SP [id number] BCBS [place]/307 [id number] SP [id number] EXCELLUS BCBS FEDERAL [id number] SP [id number] BCBS [place] PPO 302/307 [id number] SP [id number] BCBS [facility] HMO [id number] SP [id number] [facility] [id number] SP [id number] BCBS Excell[place] U/W Medigap Part B [id number] Self V [id number] [facility] Indemnity Commercial [id number] Family Dependent [id number] ANSI-Commercial [id number] ANSI-Commercial [id number] [facility] [id number] Healthy [place] Med[place] Part B [id number] Self V [id number] BCBS Excell[employer] U/W Medigap Part B [id number] Self V [id number] [facility] Indemnity Commercial [id number] Family Dependent [id number] [facility] HEALTH CARE [id number] SP [id number] [facility] CARE O [id number] S [id number] [facility] HEALTH CARE O [id number] S [id number] [facility]ARE [id number] [employer] WORKER COMP [id number] SP [id number] Healthy [place] Med[place] B [id number] Self V [id number] BCBS Excell[employer] Ppo U/W Commercial [id number] Self V [id number] EXCELLUS BCBS B [id number] S [id number] BCBS Excellus Ppo U/W Commercial [id number] Self Healthy [place] o Commercial [id number] Self Excellus Healthy [place] Epo Medigap Part B [id number] Self Healthy [place] Epo Medigap Part B [id number] Self [place]URICH MALINDA P [id number] S [id number] [employer] WORKER COMP [id number] SP [id number] STATE INSURANCE FUND P [id number] S [id number] EXCELLUS BCBS P [id number] S [id number] BCBS [place] PPO 302/307 [id number] SP [id number] RUDDY CARE COMMERCIAL [id number] S [id number] RUDDY [id number] SP [id number] BCBS BAR O [id number] SP [id number] [place]ARE [place] O [id number] S [id number] BCBS BAR O [id number] SP [id number] BCBS [place] PPO 302/307 [id number] SP [id number] BCBS [place] PPO 302/307 [id number] SP [id number] BCBS Excell[place] U/W Medigap Part B [id number] Self Y [id number] Healthy [facility]BS [facility] Med[facility] Part B [id number] Self V [id number] BCBS Excell[employer] U/W Medigap Part B [id number] Self V [id number] MVP Indemnity Commercial 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 CHRONIC COMBINED SYSTOLIC AND DIASTOLIC Diagnosis 10/04/2020 09:58:00 AM [facility] I48.21 PERMANENT ATRIAL FIBRILLATION PERMANENT ATRIAL FIBRILL ATION Diagnosis 10/04/2020 09:58:00 AM [facility] I48.21 Permanent atrial fibrillation Permanent atrial fibrill ation Problem 06/11/2020 12:00:00 AM EDT [facility] ([facility]) [id number] Essential hypertension Essential hypertension Problem 01/19/2020 12:00:00 AM EST [facility] ([facility] Surgeries/Procedures Procedure Description Date Indications Data Source(s) OFFICE OUTPATIENT VISIT 25 MINUTES 12/17/2020 12:00:00 AM EDT [facility] ([facility] OFFICE OUTPATIENT VISIT 25 MINUTES 11/29/2020 12:00:00 AM EDT [facility] ([facility] OFFICE OUTPATIENT NEW 45 MINUTES 11/07/2020 12:00:00 A M EDT [facility] ([facility], ) OFFICE OUTPATIENT VISIT 15 MINUTES 10/10/2020 12:00:00 AM EDT [facility] ([facility]) ARTHROCENTESIS ASPIR&/INJECTION MAJOR JT/BURSA 12:00:00 AM EDT [facility] ([facility]) RADEX SHOULDER COMPLETE MINIMUM 2 VIEWS 10/10/2020 12: 00:00 AM EDT [facility] ([facility]) X-Ray Elbow Ap & Lateral 2 Views 10/10/2020 12:00:00 A M EDT [facility] ([facility]) OFFICE OUTPATIENT VISIT 25 MINUTES 10/10/2020 12:00:00 AM EDT [facility] ([facility]) OFFICE OUTPATIENT VISIT 25 MINUTES 08/23/2020 12:00:00 AM EDT [facility] ([facility] ECG ROUTINE ECG W/LEAST 12 LDS W/I&R 07/09/2020 12:00: 00 AM EDT [facility] ([facility]) OFFICE OUTPATIENT VISIT 10 MINUTES 07/09/2020 12:00:00 AM EDT [facility] ([facility]) ECG ROUTINE ECG W/LEAST 12 LDS W/I&R 06/11/2020 12:00: 00 AM EDT [facility] ([facility]) OFFICE OUTPATIENT VISIT 25 MINUTES 06/11/2020 12:00:00 AM EDT [facility] ([facility]) OFFICE OUTPATIENT VISIT 25 MINUTES 05/07/2020 12:00:00 AM EST [facility] ([facility] THERAPEUTIC PX 1/> AREAS EACH 15 MIN EXERCISES 12:00:00 AM EST [facility] ([facility]) OFFICE OUTPATIENT VISIT 25 MINUTES 05/02/2020 12:00:00 AM EST [facility] ([facility]) Physical Therapy Eval - Low Complexity 04/22/2020 12:0 0:00 AM EST [facility] ([facility]) RADEX ELBOW COMPLETE MINIMUM 3 VIEWS 04/04/2020 12:00: 00 AM EST [facility] ([facility]) RADEX WRIST COMPLETE MINIMUM 3 VIEWS 04/04/2020 12:00: 00 AM EST [facility] ([facility]) RADEX ELBOW COMPLETE MINIMUM 3 VIEWS 03/07/2020 12:00: 00 AM EST [facility] ([facility]) RADEX WRIST COMPLETE MINIMUM 3 VIEWS 03/07/2020 12:00: 00 AM EST [facility] ([facility]) RADEX ELBOW COMPLETE MINIMUM 3 VIEWS 02/13/2020 12:00: 00 AM EST [facility] ([facility]) MRI Upper Extremity Any Joint 02/07/2020 12:00:[address] [facility] ([facility]) X-Ray Elbow Ap & Lateral 2 Views 01/29/2020 12:00:00 A M EST [facility] ([facility]) RADEX WRIST 2 VIEWS 01/29/2020 12:00:00 AM EST [facility] ([facility]) CLOSED TX RADIAL HEAD/NECK FX W/O MANIPULATION 020 12:00:00 AM EST [facility] ([facility]) ECG ROUTINE ECG W/LEAST 12 LDS W/I&R 12/08/2019 12:00: 00 AM EDT [facility] ([facility]) Results ID Date Data Source [id number] 12/30/2020 09:20:00 AM EDT [facility] Name Value Range Interpretation Code Description Data Purnima rce(s) Supporting Document(s) SARS coronavirus 2 RNA [Presence] in Res piratory specimen by SCOTT with probe detection POSITIVE [facility] This lab was ordered by [facility] a nd reported by [facility]. ID Date Data Source [id number] 11/27/2020 08:22:00 AM EDT [facility] ([facility] Name Value Range Interpretation Code Description Data Purnima rce(s) Supporting Document(s) Triglycerides Level 176 mg/dL Above high normal [facility] ([facility] LDL Cholesterol 78 mg/dL Normal (applies to non-numeric results) [facility] ([facility] HDL Cholesterol 42 mg/dL Normal (applies to non-numeric results) [facility] ([facility] Cholesterol Level 155 mg/dL Normal (applies to non-numeri c results) [facility] ([facility] Cholesterol Risk Ratio 3.690 Normal (applies to non-n umeric results) [facility] ([facility] Non-HDL-C 113 mg/dL Normal (applies to non-numeric resul ts) [facility] ([facility] ID Date Data Source [id number] 11/27/2020 08:22:00 AM EDT [facility] ([facility] Name Value Range Interpretation Code Description Data Purnima rce(s) Supporting Document(s) Blood Urea Nitrogen 23 mg/dL 7-18 Above high normal [facility] ([facility] Glucose, Fasting 161 mg/dL 70-100 Above high normal M EDENT ([facility] Creatinine For GFR 1.27 mg/dL 0.70-1.30 Normal (applies to non -numeric results) [facility] ([facility] Sodium Level 140 meq/L 136-145 Normal (applies to non-numeric res ults) [facility] ([facility] Glomerular Filtration Rate Laboratory test result Normal (applies to non- numeric results) [facility] ) <content>Units are mL/min/1.73 m2</content>
<content></content>
<content>Chronic Kidney Disease Staging per NKF:</content>
<content></content>
<content>Stage I & II GFR >=60 Normal to Mildly Decreased</content>
<content>Stage III GFR 30- 59 Moderately Decreased</content>
<content>Stage IV GFR 15-29 Severely Decreased</content>
<content>Stage V GFR <15 Very Little GFR Left</content>
<content>ESRD GFR <15 on UNEMPLOYMENT SPECIALIST</content>
<content></content> Potassium Serum 4.3 meq/L 3.5-5.1 Normal (applies to non-numeric results) [facility] ([facility] Carbon Dioxide Level 30 meq/L 21-32 Normal (applies to non-num dian results) [facility] ([facility] Chloride Level 101 meq/L 98-107 Normal (applies to non-numeric r esults) [facility] ([facility] Ast/Sgot 12 U/L 7-37 Normal (applies to non-numeric resul ts) [facility] ([facility] Anion Gap 9 meq/L 8-16 Normal (applies to non-numeric resul ts) [facility] ([facility] Calcium Level 10.3 mg/dL 8.8-10.2 Above high normal MEDE NT ([facility] Alkaline Phosphatase 76 U/L 45-117 Normal (applies to non-num dian results) [facility] ([facility] Alt/SGPT 18 U/L 12-78 Normal (applies to non-numeric resul ts) [facility] ([facility] Bilirubin,Total 0.9 mg/dL 0.2-1.0 Normal (applies to non-numeric results) [facility] ([facility] Total Protein 7.0 GM/DL 6.4-8.2 Normal (applies to non-numeric re sults) [facility] ([facility] Albumin 3.9 GM/DL 3.2-5.2 Normal (applies to non-numeric resul ts) [facility] ([facility] Albumin/Globulin Ratio 1.3 Normal (applies to non-n umeric results) [facility] ([facility] ID Date Data Source [id number] 11/27/2020 08:22:00 AM EDT MED[facility] ([facility] Name Value Range Interpretation Code Description Data Purnima rce(s) Supporting Document(s) Malb Urine Siemens 9.8 mg/L Normal (applies to non-numer ic results) [facility] ([facility] Creatinine, Urine 80.6 mg/dL Normal (applies to non-numeri c results) [facility] ([facility] Von/Creat Ratio 12.1 MCG/MG 0.0-30.0 Normal (applies to non-numeric results) [facility] ([facility] THE [place] [employer] STATES THAT MICROALBUMINURIA IS PRESENT IF THE MICROALBUMIN/CREATININE RATIO EXCEEDS 30 MCG/MG. THE THRESHOLD FOR CLINICAL ALBUMINURIA IS REACHED AT 300 MCG/MG. THE CLASSIFICATION OF A PATIENT SHOULD BE BASED UPON AT LEAST 2 OF 3 ABNORMAL RESULTS ON SPECIMENS COLLECTED WITHIN A 3 TO 6 MONTH TIME FRAME. ID Date Data Source [id number] 11/27/2020 08:22:00 AM EDT MED[facility] ([facility] Name Value Range Interpretation Code Description Data Purnima rce(s) Supporting Document(s) Hemoglobin A1c 7.2 % Normal (applies to non-numeric r esults) [facility] <content>REFERENCE RANGES:</content><br/ ><content></content>
<content><=5.6% NORMAL</content>
<content>5.7-6.4% SUGGESTS IMPAIRED GLUCOSE METABOLISM/PREDIABETIC</content>
<content>>= 6.5% ABNORMAL</content>
<content></content> Estimated Average Glucose 160 mg/dL 60-110 Above high normal [facility] ID Date Data Source [id number] 11/27/2020 08:22:00 AM EDT [facility] Name Value Range Interpretation Code Description Data Purnima rce(s) Supporting Document(s) Thyrotropin [Units/volume] in Serum or Plasma 2.650 uIU/ML 0. 358-3.740 Normal (applies to non-numeric results) [facility] ([facility] <content>note:<nlbl:demographic_changed> </content>
<content></content> ID Date Data Source [id number] 11/01/2020 04:02:00 PM EDT [facility] ([facility] Name Value Range Interpretation Code Description Data Purnima rce(s) Supporting Document(s) Appearance, Urine RFX Laboratory test result Nor mal (applies to non-numeric results) [facility] ([facility] ) Color, Urine RFX Laboratory test result Normal ( applies to non-numeric results) [facility] ([facility] ) PH,Urine RFX 6.0 units 5.0-9.0 Normal (applies to non-numeric res ults) [facility] ([facility] Specific [place] Ur Auto RFX 1.028 1.002-1.035 Nor mal (applies to non-numeric results) [facility] ([facility] ) Glucose, Urine (Ua) Auto RFX Laboratory test result Above high normal [facility] ([facility] Protein, Urine Auto RFX Laboratory test result Above high normal [facility] ([facility] Urobilinogen, Urine Auto RFX 2.0 mg/dL 0.0-2.0 Above high normal [facility] ([facility] Ketone, Urine Auto RFX Laboratory test result Above high n ormal [facility] ([facility] Bilirubin, Urine Auto RFX Laboratory test result Normal (applies to non- numeric results) [facility] ([facility] ) Nitrite, Urine Auto RFX Laboratory test result N ormal (applies to non-numeric results) [facility] ([facility] ) Leukocyte Esterase Ur Auto RFX Laboratory test result Normal (applies to non- numeric results) [facility] ([facility] ) RBC, Urine Auto RFX 1 /HPF 0-3 Normal (applies to non-nume michael results) [facility] ([facility] Blood, Urine Blood RFX Laboratory test result No rmal (applies to non-numeric results) [facility] ([facility] ) WBC, Urine Auto RFX 1 /HPF 0-3 Normal (applies to non-nume michael results) [facility] ([facility] Squam Epithelial Cell Ur Aurfx 0 /HPF 0-6 N ormal (applies to non-numeric results) [facility] ([facility] ) Bacteria, Urine Auto RFX Laboratory test result Normal (applies to non-numeric results) [facility] ([facility] ) Hyaline Cast, Urine Auto RFX 1 /LPF 0-1 Normal (appl ies to non-numeric results) [facility] ([facility] Mucus, Urine RFX Laboratory test result Normal ( applies to non-numeric results) [facility] ([facility] ) ID Date Data Source [id number] 11/01/2020 11:34:00 AM EDT [facility] ([facility]) Name Value Range Interpretation Code Description Data Purnima rce(s) Supporting Document(s) Troponin Laboratory test result [facility] ([facility]) Natriuretic peptide.B prohormone N-Terminal [Mass/volu me] in Serum or Plasma 2082 [facility] ([employer] [facility]) Lipoprotein lipase [Enzymatic activity/volume] in Serum or Plasma 118 [facility] ([facility]) ID Date Data Source [id number] 11/01/2020 11:34:00 AM EDT [facility] ([facility]) Name Value Range Interpretation Code Description Data Purnima rce(s) Supporting Document(s) Creatine kinase [Enzymatic activity/volume] in Serum or Plasma 119 41-270 [facility] ([facility]) CPK-MB 3.1 [facility] ([facility]) MB/CK Relative 2.61 MED[facility] (Cardiol og [facility]) ID Date Data Source [id number] 11/01/2020 11:34:00 AM EDT [facility] ([facility] [place]) Name Value Range Interpretation Code Description Data Purnima rce(s) Supporting Document(s) Alanine aminotransferase [Enzymatic activity/volume] in Serum or Pl asma 22 [facility] ([facility]) Albumin [Mass/volume] in Serum or Plasma 3.9 [facility] ([facility]) Calcium [Mass/volume] in Serum or Plasma 10.1 [facility] ([facility]) Carbon dioxide, total [Moles/volume] in Serum or Plasma 30 [facility] (Cardiology [facility]) Alkaline phosphatase [Enzymatic activity/volume] in Serum or Plasma 6 6 [facility] ([facility]) Chloride [Moles/volume] in Serum or Plasma 108 [facility] ([facility]iology [facility]) Potassium [Moles/volume] in Serum or Plasma 4.7 [facility] ([facility]) Protein [Mass/volume] in Serum or Plasma 6.8 [facility] ([facility]) Sodium 141 [facility] Aspartate aminotransferase [Enzymatic activity/volume] in Serum or Plasma 12 [facility] ([facility]) Urea nitrogen [Mass/volume] in Serum or Plasma 21 [facility] ([facility]) Creatinine For GFR 1.03 [facility] ([facility]) Glucose 128 70-100 [facility] ([facility] ID Date Data Source [id number] 11/01/2020 11:34:00 AM EDT [facility] ([facility]i [facility]y [facility]) Name Value Range Interpretation Code Description Data Purnima rce(s) Supporting Document(s) White Blood Count 9.5 4.3-10.9 [facility] ([facility]) Platelets 210 130-400 [facility] ([facility] Red Blood Count 5.07 4.70-6.20 [facility] ([facility]io [facility]) Hemoglobin 15.4 13.0-17.0 [facility] ([facility]) Hematocrit 46.9 39.0-50.0 [facility] ([facility]) ID Date Data Source [id number] 10/04/2020 10:02:00 AM EDT [facility] ([facility] Co2 31 mmol/L 21-32 [facility] ([facility] CA 9.4 mg/dL 8.5-10.1 [facility] ([facility] GFR 55 mL/min [facility] ([facility] <content>GFR IS CALCULATED IN mL/min/1.73m2</content>
<content></content>
<content>NORMAL FUNCTION: >90</content>
<content>MILDLY DECREASED: 60-89</content>
<content>MILDY TO MODERATELY DECREASED: 45-59</content>
<content>MODERATELY TO SEVERELY DECREASED: 30-44</content>
<content>SEVERELY DECREASED: 15- 29</content>
<content>RENAL FAILURE: <15</content>
<content></content> Gap 7.0 mmol/L 5-12 [facility] ID Date Data Source [id number] 10/04/2020 10:02:00 AM EDT [facility] ([facility] Name Value Range Interpretation Code Description Data Purnima rce(s) Supporting Document(s) Magnesium [Mass/volume] in Serum or Plasma 1.8 mg/dL 1.8-2.4 [facility] ([facility] ID Date Data Source [id number] 10/04/2020 10:02:00 AM EDT [facility] ([facility]i [facility]y [facility]) Name Value Range Interpretation Code Description Data Purnima rce(s) Supporting Document(s) Glu 213 mg/dL 74-106 [facility] ([facility] BUN 26 mg/dL 7-18 [facility] ([facility] Cre 1.32 mg/dL 0.7-1.3 [facility] ([facility]) Na 140 mmol/L 136-145 [facility] ([facility]) K 4.7 mmol/L 3.5-5.1 [facility] ([facility]) CL 102 mmol/L 98-107 [facility] ([facility]) Co2 31 mmol/L 21-32 [facility] (Cardiology [facility]) Gap 7.0 mmol/L 5-12 [facility] ([facility]) CA 9.4 mg/dL 8.5-10.1 [facility] GFR 55 mL/min [facility] ([facility]) <content>GFR IS CALCULATED IN mL/min/1.73m2</content>
<content></content>
<content>NORMAL FUNCTION: >90</content>
<content>MILDLY DECREASED: 60-89</content>
<content>MILDY TO MODERATELY DECREASED: 45-59</content>
<content>MODERATELY TO SEVERELY DECREASED: 30-44</content>
<content>SEVERELY DECREASED: 15- 29</content>
<content>RENAL FAILURE: <15</content>
<content></content> ID Date Data Source [id number] 10/04/2020 10:02:00 AM EDT [facility] ([facility]i [facility]y [facility]) Name Value Range Interpretation Code Description Data Purnima rce(s) Supporting Document(s) Magnesium [Mass/volume] in Serum or Plasma 1.8 mg/dL 1.8-2.4 [facility] ([facility]) ID Date Data Source [id number] 10/04/2020 10:36:00 AM EDT [facility] Name Value Range Interpretation Code Description Data Purnima rce(s) Supporting Document(s) GLUCOSE 213 mg/dL 74-106 [facility] BLOOD UREA NITROGEN 26 mg/dL 7-18 [facility] ital CREATININE 1.32 mg/dL 0.7-1.3 [facility] SODIUM 140 mmol/L 136-145 [facility] POTASSIUM 4.7 mmol/L 3.5-5.1 [facility] CHLORIDE 102 mmol/L 98-107 [facility] CO2 31 mmol/L 21-32 [facility] CALCIUM 9.4 mg/dL 8.5-10.1 [facility] ANION GAP 7.0 mmol/L 5-12 [facility] GLOMERULAR FILTRATION RATE 55 mL/min [facility] GFR IS CALCULATED IN mL/min/1.73m2 CARLOS L FUNCTION: >90MILDLY DECREASED: 60-89MILDY TO MODERATELY DECREASED: 45-59 MODERATELY TO SEVERELY DECREASED: 30-44SEVERELY DECREASED: 15-29RENAL FAILURE: <15 ID Date Data Source [id number] 10/04/2020 10:36:00 AM EDT [facility] Name Value Range Interpretation Code Description Data Purnima rce(s) Supporting Document(s) MAGNESIUM 1.8 mg/dL 1.8-2.4 [facility] ID Date Data Source [id number] 08/16/2020 10:56:00 AM EDT [facility] ([facility] ID Date Data Source [id number] 08/16/2020 10:56:00 AM EDT [facility] ([facility] [...] Little GFR Left</content>
<content>ESRD GFR <15 on UNEMPLOYMENT SPECIALIST</content>
<content></content> Sodium Level 140 meq/L 136-145 Normal (applies to non-numeric res ults) [facility] ([facility] Carbon Dioxide Level 28 meq/L 21-32 Normal (applies to non-num dian results) [facility] ([facility] Chloride Level 106 meq/L 98-107 Normal (applies to non-numeric r esults) [facility] ([facility] Potassium Serum 4.5 meq/L 3.5-5.1 Normal (applies to non-numeric results) [facility] ([facility] Anion Gap 6 meq/L 8-16 Below low normal [facility] ( [facility] Calcium Level 10.1 mg/dL 8.8-10.2 Normal (applies to non-numeric re sults) [facility] ([facility] Ast/Sgot 9 U/L 7-37 Normal (applies to non-numeric resul ts) [facility] ([facility] Alkaline Phosphatase 65 U/L 45-117 Normal (applies to non-num dian results) [facility] ([facility] Alt/SGPT 17 U/L 12-78 Normal (applies to non-numeric resul ts) [facility] ([facility] Total Protein 6.9 GM/DL 6.4-8.2 Normal (applies to non-numeric re sults) [facility] ([facility] Bilirubin,Total 1.1 mg/dL 0.2-1.0 Above high normal [facility] ([facility] Albumin/Globulin Ratio 1.2 Normal (applies to non-n umeric results) [facility] ([facility] Albumin 3.8 GM/DL 3.2-5.2 Normal (applies to non-numeric resul ts) [facility] ([facility] ID Date Data Source [id number] 08/16/2020 10:56:00 AM EDT [facility] ([facility] [employer] [facility] Name Value Range Interpretation Code Description Data Purnima rce(s) Supporting Document(s) Hemoglobin A1c 7.3 % Normal (applies to non-numeric r esults) [facility] ([facility] <content>REFERENCE RANGES:</content><br/ ><content></content>
<content><=5.6% NORMAL</content>
<content>5.7-6.4% SUGGESTS IMPAIRED GLUCOSE METABOLISM/PREDIABETIC</content>
<content>>= 6.5% ABNORMAL</content>
<content></content> Estimated Average Glucose 163 mg/dL 60-110 Above high normal [facility] ([facility] ID Date Data Source [id number] 08/16/2020 10:56:00 AM EDT [facility] ([facility] Name Value Range Interpretation Code Description Data Purnima rce(s) Supporting Document(s) Thyrotropin [Units/volume] in Serum or Plasma 0.283 uIU/ML 0. 358-3.740 Below low normal [facility] ([facility] ) <content>note:<nlbl:demographic_changed> </content>
<content></content> ID Date Data Source [id number] 07/09/2020 08:40:00 AM EDT [facility] ([facility] Name Value Range Interpretation Code Description Data Purnima rce(s) Supporting Document(s) Magnesium [Mass/volume] in Serum or Plasma 2.3 mg/dL 1.8-2 .4 Normal (applies to non-numeric results) [facility] ([facility]) <content>note:<nlbl:demographic_changed> </content>
<content></content> ID Date Data Source [id number] 07/09/2020 08:40:00 AM EDT [facility] ([facility] Name Value Range Interpretation Code Description Data Purnima rce(s) Supporting Document(s) Glucose, Fasting 151 mg/dL 70-100 Above high normal M EDENT ([facility] Blood Urea Nitrogen 28 mg/dL 7-18 Above high normal [facility] ([facility] Creatinine For GFR 1.47 mg/dL 0.70-1.30 Above high normal [facility] ([facility] Glomerular Filtration Rate 51.3 Normal (applies to n on-numeric results) [facility] <content>Units are mL/min/1.73 m2</content>
<content></content>
<content>Chronic Kidney Disease Staging per NKF:</content>
<content></content>
<content>Stage I & II GFR >=60 Normal to Mildly Decreased</content>
<content>Stage III GFR 30- 59 Moderately Decreased</content>
<content>Stage IV GFR 15-29 Severely Decreased</content>
<content>Stage V GFR <15 Very Little GFR Left</content>
<content>ESRD GFR <15 on UNEMPLOYMENT SPECIALIST</content>
<content></content> Sodium Level 141 meq/L 136-145 Normal (applies to non-numeric res ults) [facility] ([facility] Potassium Serum 4.5 meq/L 3.5-5.1 Normal (applies to non-numeric results) [facility] ([facility] Carbon Dioxide Level 29 meq/L 21-32 Normal (applies to non-num dian results) [facility] ([facility] Chloride Level 107 meq/L 98-107 Normal (applies to non-numeric r esults) [facility] ([facility] Calcium Level 9.8 mg/dL 8.8-10.2 Normal (applies to non-numeric re sults) [facility] ([facility] Anion Gap 5 meq/L 8-16 Below low normal [facility] ( [facility] ID Date Data Source [id number] 07/09/2020 08:40:00 AM EDT [facility] ([facility] [place]) Name Value Range Interpretation Code Description Data Purnima rce(s) Supporting Document(s) Magnesium [Mass/volume] in Serum or Plasma 2.3 mg/dL 1.8-2.4 [facility] ([facility]) <content>note:<nlbl:demographic_changed> </content>
<content></content> ID Date Data Source [id number] 07/09/2020 08:40:00 AM EDT [facility] ([facility]) Name Value Range Interpretation Code Description Data Purnima rce(s) Supporting Document(s) Glucose, Fasting 151 mg/dL 70-100 [facility] Glomerular Filtration Rate 51.3 [facility] ([facility]) <content>Units are mL/min/1.73 m2</content>
<content></content>
<content>Chronic Kidney Disease Staging per NKF:</content>
<content></content>
<content>Stage I & II GFR >=60 Normal to Mildly Decreased</content>
<content>Stage III GFR 30- 59 Moderately Decreased</content>
<content>Stage IV GFR 15-29 Severely Decreased</content>
<content>Stage V GFR <15 Very Little GFR Left</content>
<content>ESRD GFR <15 on UNEMPLOYMENT SPECIALIST</content>
<content></content> Blood Urea Nitrogen 28 mg/dL 7-18 [facility] (Ca rdiology [facility]) Creatinine For GFR 1.47 mg/dL 0.70-1.30 [facility] ([facility]) Sodium Level 141 meq/L 136-145 [facility] (Cardiolog y [facility]) Potassium Serum 4.5 meq/L 3.5-5.1 [facility] (Cardio logy [facility]) Carbon Dioxide Level 29 meq/L 21-32 [facility] (C ardiology [facility]) Chloride Level 107 meq/L 98-107 [facility] (Cardiol ogy [facility]) Calcium Level 9.8 mg/dL 8.8-10.2 [facility] (Cardiolo gy [facility]) Anion Gap 5 meq/L 8-16 [facility] ID Date Data Source [id number] 06/17/2020 01:31:00 PM EDT [facility] ([facility] Name Value Range Interpretation Code Description Data Purnima rce(s) Supporting Document(s) CK-MB Value Mass 2.0 ng/mL Normal (applies to non-numeric results) [facility] ([facility] CPK Creatine Phosphokinase 54 U/L 39-308 Carlos l (applies to non-numeric results) [facility] ) Troponin I 0.02 ng/mL Normal (applies to non-numeric resul ts) [facility] ([facility] <content>Troponin I Reference Interval f or Siemens [place] LOCI:</content>
<content></content>
<content>99th Percentile= 0.00-0.045 ng/ml</content>
<content></content>
<content>Risk Stratification:</content>
<content><= 0.10 ng/ml Decreased Risk for Adverse Clinical</content>
<content>Events.</content>
<content>0.10-1.50 ng/ml Increased Risk for Adverse Clinical</content>
<content>Events. Evaluation of additional</content>
<content>criterion and/or repeat testing in 2-6</content>
<content>hours is suggested to rule out myocardial</content>
<content>damage.</content>
<content>>= 1.50 ng/ml Indicative of Myocardial Injury.</content>
<content></content> MB/CK Relative Index 3.70 Normal (applies to non-num dian results) [facility] ([facility] <content>DIAGNOSIS CRITERIA</content>
<content>MMB ng/ml Relative Index (RI)</content>
<content>NON-AMI < or = 5 N/A</content>
<content>GARCIA ZONE > 5 < or = 4</content>
<content>AMI > 5 > 4</content>
<content></content> ID Date Data Source [id number] 06/17/2020 09:28:00 AM EDT [facility] ([facility] Name Value Range Interpretation Code Description Data Purnima rce(s) Supporting Document(s) Laboratory test finding (navigational concept) 0.01 ng/mL 0 .00-0.08 Normal (applies to non-numeric results) [facility] ([facility] Troponin I.cardiac [Mass/volume] in Serum or Plasma Laboratory test result [facility] ([facility] ID Date Data Source [id number] 06/17/2020 09:10:00 AM EDT [facility] Name Value Range Interpretation Code Description Data Purnima rce(s) Supporting Document(s) SARS-CoV-2 (COVID 19) NEGATIVE - SARS-CoV-2 (COVID19) [facility] This lab was ordered by [facility] a nd reported by [facility]. ID Date Data Source [id number] 06/17/2020 09:10:00 AM EDT [facility] ([facility] Name Value Range Interpretation Code Description Data Purnima rce(s) Supporting Document(s) Natriuretic peptide.B prohormone N-Terminal [Mass/volu me] in Serum or Plasma 3269 pg/mL Above high normal [facility] ([facility] <content>note:<nlbl:demographic_changed></content>
<content>note:<nlbl:demog raphic_changed></content>
<content></content> Lipoprotein lipase [Enzymatic activity/volume] in Serum or P lasma 174 U/L 73-393 Normal (applies to non-numeric results) [facility] ([facility] <content>note:<nlbl:demographic_changed></content>
<content>note:<nlbl:demog raphic_changed></content>
<content></content> Thyrotropin [Units/volume] in Serum or Plasma 1.040 uIU/ML 0. 358-3.740 Normal (applies to non-numeric results) [facility] <content>note:<nlbl:demographic_changed></content>
<content>note:<nlbl:demog raphic_changed></content>
<content></content> Thyroxine (T4) free [Mass/volume] in Serum or Plasma 0.97 ng/dL 0.76-1.46 Normal (applies to non-numeric results) [facility] ([facility] <content>note:<nlbl:demographic_changed></content>
<content>note:<nlbl:demog raphic_changed></content>
<content></content> ID Date Data Source [id number] 06/17/2020 09:10:00 AM EDT [facility] ([facility] Name Value Range Interpretation Code Description Data Purnima rce(s) Supporting Document(s) Glucose, Fasting 161 mg/dL 70-100 Above high normal M [facility] ([facility] Blood Urea Nitrogen 25 mg/dL 7-18 Above high normal [facility] ([facility] Creatinine For GFR 1.12 mg/dL 0.70-1.30 Normal (applies to non -numeric results) [facility] ([facility] Sodium Level 142 meq/L 136-145 Normal (applies to non-numeric res ults) [facility] ([facility] Glomerular Filtration Rate Laboratory test result Normal (applies to non- numeric results) [facility] ([facility] ) <content>Units are mL/min/1.73 m2</content>
<content></content>
<content>Chronic Kidney Disease Staging per NKF:</content>
<content></content>
<content>Stage I & II GFR >=60 Normal to Mildly Decreased</content>
<content>Stage III GFR 30- 59 Moderately Decreased</content>
<content>Stage IV GFR 15-29 Severely Decreased</content>
<content>Stage V GFR <15 Very Little GFR Left</content>
<content>ESRD GFR <15 on UNEMPLOYMENT SPECIALIST</content>
<content></content> Potassium Serum 4.8 meq/L 3.5-5.1 Normal (applies to non-numeric results) [facility] ([facility] Carbon Dioxide Level 26 meq/L 21-32 Normal (applies to non-num dian results) [facility] Anion Gap 7 meq/L 8-16 Below low normal [facility] Chloride Level 109 meq/L 98-107 Above high normal [facility] ([facility] Calcium Level 10.2 mg/dL 8.8-10.2 Normal (applies to non-numeric re sults) [facility] ([facility] ID Date Data Source [id number] 06/17/2020 09:10:00 AM EDT [facility] ([facility] Name Value Range Interpretation Code Description Data Purnima rce(s) Supporting Document(s) Ast/Sgot 12 U/L 7-37 Normal (applies to non-numeric resul ts) [facility] ([facility] Alt/SGPT 23 U/L 12-78 Normal (applies to non-numeric resul ts) [facility] ([facility] Alkaline Phosphatase 68 U/L 45-117 Normal (applies to non-num dian results) [facility] ([facility] Bilirubin,Total 0.8 mg/dL 0.2-1.0 Normal (applies to non-numeric results) [facility] ([facility] Bilirubin,Direct 0.2 mg/dL 0.0-0.2 Normal (applies to non-numeric results) [facility] ([facility] Total Protein 6.7 GM/DL 6.4-8.2 Normal (applies to non-numeric re sults) [facility] ([facility] Albumin/Globulin Ratio 1.2 Normal (applies to non-n umeric results) [facility] ([facility] Albumin 3.7 GM/DL 3.2-5.2 Normal (applies to non-numeric resul ts) [facility] ([facility] ID Date Data Source [id number] 06/17/2020 09:10:00 AM EDT [facility] ([facility] Name Value Range Interpretation Code Description Data Purnima rce(s) Supporting Document(s) MB/CK Relative Index 2.70 Normal (applies to non-num dian results) [facility] <content>DIAGNOSIS CRITERIA</content>
<content>MMB ng/ml Relative Index (RI)</content>
<content>NON-AMI < or = 5 N/A</content>
<content>GARCIA ZONE > 5 < or = 4</content>
<content>AMI > 5 > 4</content>
<content></content> CPK Creatine Phosphokinase 63 U/L 39-308 Carlos l (applies to non-numeric results) [facility] ([facility] ) CK-MB Value Mass 1.7 ng/mL Normal (applies to non-numeric results) [facility] ([facility] Troponin I 0.02 ng/mL Normal (applies to non-numeric resul ts) [facility] <content>Troponin I Reference Interval f or Siemens [place] LOCI:</content>
<content></content>
<content>99th Percentile= 0.00-0.045 ng/ml</content>
<content></content>
<content>Risk Stratification:</content>
<content><= 0.10 ng/ml Decreased Risk for Adverse Clinical</content>
<content>Events.</content>
<content>0.10-1.50 ng/ml Increased Risk for Adverse Clinical</content>
<content>Events. Evaluation of additional</content>
<content>criterion and/or repeat testing in 2-6</content>
<content>hours is suggested to rule out myocardial</content>
<content>damage.</content>
<content>>= 1.50 ng/ml Indicative of Myocardial Injury.</content>
<content></content> ID Date Data Source [id number] 06/17/2020 09:10:00 AM EDT [facility] ([facility] Name Value Range Interpretation Code Description Data Purnima rce(s) Supporting Document(s) Respiratory Panel Laboratory test result [facility] ([facility] This respiratory PCR panel detects [...] - SARS-CoV-2 (COVID19) ID Date Data Source [id number] 06/17/2020 08:36:00 AM EDT [facility] ([facility] Name Value Range Interpretation Code Description Data Purnima rce(s) Supporting Document(s) aPTT in Platelet poor plasma by Coagulation assay 31.2 s 24.2-38.5 Normal (applies to non-numeric results) [facility] ([facility] ID Date Data Source [id number] 06/17/2020 08:36:00 AM EDT [facility] ([facility] Name Value Range Interpretation Code Description Data Purnima rce(s) Supporting Document(s) Prothrombin Time 14.8 s 12.5-14.3 Above high normal M [facility] ([facility] Inr 1.14 Normal (applies to non-numeric resul ts) [facility] ([facility] THERAPUTIC HUMAN INR VALUES INDICATIONS NORMAL RANGES PROPHYLAXIS/TREATMENT OF: VENOUS THROMBOSIS 2.0-3.0 PULMONARY EMBOLISM 2.0-3.0 PREVENTION OF SYSTEMIC EMBOLISM FROM: TISSUE HEART VALVES 2.0-3.0 ACUTE MYOCARDIAL INFARCTION 2.0-3.0 VALVULAR HEART DISEASE 2.0-3.0 ATRIAL FIBRILLATION 2.0-3.0 MECHANICAL VALVES(HIGH RISK) 2.5-3.5 RECURRENT MYOCARDIAL INFARCTION 2.5-3.5 ID Date Data Source [id number] 06/17/2020 08:36:00 AM EDT MEDENT ([facility] Name Value Range Interpretation Code Description Data Purnima rce(s) Supporting Document(s) White Blood Count 10.1 10 4.0-10.0 Above high normal MEDENT ([facility] Red Blood Count 5.24 10 4.30-6.10 Normal (applies to non-numeric results) MEDENT ([facility] Hemoglobin 16.1 g/dL 13.5-17.5 [...] Normal (applies to non-numeric resul ts) MEDENT ([facility] Mean Corpuscular HGB Conc 32.5 g/dL 32.0-36.5 Normal (applies to non-numeric results) MEDENT ([facility] ) Platelet Count, Automated 251 10 150-450 Normal (applies to non-numeric results) MEDENT ([facility] ) Red Cell Distribution Width 13.2 % 11.5-14.5 Norm al (applies to non-numeric results) MEDENT ([facility] ) Neutrophils % 79.4 % 36.0-66.0 Above high normal MEDE NT ([facility] Lymph % 12.0 % 24.0-44.0 Below low normal MEDENT ( [facility] [place] % 6.4 % 2.0-8.0 Normal (applies to non-numeric resul ts) MEDENT ([facility] Baso % 0.3 % 0.0-1.0 Normal (applies to non-numeric resul ts) MEDENT ([facility] Eos % 1.4 % 0.0-3.0 Normal (applies to non-numeric resul ts) MEDENT ([facility] Immature Granulocyte % 0.5 % 0-3.0 Normal (applies to non-n umeric results) MEDENT ([facility] Nucleated Red Blood Cell % 0.0 % 0-0 Normal (applies to n on-numeric results) MEDENT ([facility] Lymph # 1.2 10 1.5-5.0 Below low normal MEDENT ( [facility] Neutrophils # 8.0 10 1.5-8.5 Normal (applies to non-numeric re sults) MEDENT ([facility] Eos # 0.1 10 0.0-0.5 Normal (applies to non-numeric resul ts) MEDENT ([facility] Baso # 0.0 10 0.0-0.2 Normal (applies to non-numeric resul ts) MEDENT ([facility] [place] # 0.7 10 0.0-0.8 Normal (applies to non-numeric resul ts) MEDENT ([facility] ID Date Data Source [id number] 04/30/2020 12:36:00 PM EST MED[facility] ([facility] Name Value Range Interpretation Code Description Data Purnima rce(s) Supporting Document(s) Triglycerides 93 MEDENT ([facility]) Cholesterol 155 MED[facility] ([facility]) HDL 45 [facility] ([facility] Chol/HDL Ratio 3.444 MED[facility] ([facility]) Cholesterol in LDL [Mass/volume] in Serum or Plasma by calculation 91 MEDENT ([facility]) ID Date Data Source [id number] 04/30/2020 12:36:00 PM EST MEDENT ([facility] Name Value Range Interpretation Code Description Data Purnima rce(s) Supporting Document(s) Albumin [Mass/volume] in Serum or Plasma 3.8 MEDENT ([facility]) Calcium [Mass/volume] in Serum or Plasma 9.5 MED[facility] ([facility]) Alanine aminotransferase [Enzymatic activity/volume] in Serum or Pl asma 21 MEDENT ([facility]) Carbon dioxide, total [Moles/volume] in Serum or Plasma 29 MEDENT ([facility]) Chloride [Moles/volume] in Serum or Plasma 106 MED[facility] ([facility]) Alkaline phosphatase [Enzymatic activity/volume] in Serum or Plasma 7 6 MEDENT ([facility]) Protein [Mass/volume] in Serum or Plasma 6.5 MEDENT ([facility]) Potassium [Moles/volume] in Serum or Plasma 4.4 MED[facility] ([facility]) Sodium 142 [facility] ([facility] Aspartate aminotransferase [Enzymatic activity/volume] in Serum or Plasma 7 MED[facility] ([facility]) Urea nitrogen [Mass/volume] in Serum or Plasma 25 MED[facility] ([facility]) Glucose 155 70-100 [facility] ([facility] Creatinine For GFR 1.23 [facility] ([facility]) ID Date Data Source [id number] 04/30/2020 12:36:00 PM EST MEDENT ([facility] Name Value Range Interpretation Code Description Data Purnima rce(s) Supporting Document(s) Thyroid Stimulating Hormone 3.200 ME DENT ([facility]) ID Date Data Source [id number] 04/30/2020 12:36:00 PM EST MEDENT ([facility] Name Value Range Interpretation Code Description Data Purnima rce(s) Supporting Document(s) Hemoglobin A1c/Hemoglobin.total in Blood 7.5 MED[facility] ([facility]) ID Date Data Source [id number] 04/30/2020 08:54:00 AM EST [facility] ([facility] Name Value Range Interpretation Code Description Data Purnima rce(s) Supporting Document(s) Thyrotropin [Units/volume] in Serum or Plasma 3.200 uIU/ML 0. 358-3.740 Normal (applies to non-numeric results) [facility] ([facility] <content>note:<nlbl:demographic_changed> </content>
<content></content> ID Date Data Source [id number] 04/30/2020 08:54:00 AM EST MED[facility] ([facility] ID Date Data Source [id number] 04/30/2020 08:54:00 AM EST [facility] ([facility] Name Value Range Interpretation Code Description Data Purnima rce(s) Supporting Document(s) Glucose, Fasting 155 mg/dL 70-100 Above high normal M EDENT ([facility] Blood Urea Nitrogen 25 mg/dL 7-18 Above high normal MEDENT ([facility] Creatinine For GFR 1.23 mg/dL 0.70-1.30 Normal (applies to non -numeric results) MEDENT ([facility] Glomerular Filtration Rate Laboratory test result Normal (applies to non- numeric results) [facility] ) <content>Units are mL/min/1.73 m2</content>
<content></content>
<content>Chronic Kidney Disease Staging per NKF:</content>
<content></content>
<content>Stage I & II GFR >=60 Normal to Mildly Decreased</content>
<content>Stage III GFR 30- 59 Moderately Decreased</content>
<content>Stage IV GFR 15-29 Severely Decreased</content>
<content>Stage V GFR <15 Very Little GFR Left</content>
<content>ESRD GFR <15 on UNEMPLOYMENT [employer]</content>
<content></content> Potassium Serum 4.4 meq/L 3.5-5.1 Normal (applies to non-numeric results) MEDENT ([facility] Sodium Level 142 meq/L 136-145 Normal (applies to non-numeric res ults) MED[facility] ([facility] Carbon Dioxide Level 29 meq/L 21-32 Normal (applies to non-num dian results) MEDENT ([facility] Chloride Level 106 meq/L 98-107 Normal (applies to non-numeric r esults) MEDENT ([facility] Anion Gap 7 meq/L 8-16 Below low normal [facility] ( [facility] Ast/Sgot 7 U/L 7-37 Normal (applies to non-numeric resul ts) MEDENT ([facility] Calcium Level 9.5 mg/dL 8.8-10.2 Normal (applies to non-numeric re sults) MEDENT ([facility] Alt/SGPT 21 U/L 12-78 Normal (applies to non-numeric resul ts) MEDENT ([facility] Alkaline Phosphatase 76 U/L 45-117 Normal (applies to non-num dian results) MEDENT ([facility] Albumin 3.8 GM/DL 3.2-5.2 Normal (applies to non-numeric resul ts) MED[facility] ([facility] Bilirubin,Total 0.7 mg/dL 0.2-1.0 Normal (applies to non-numeric results) MED[facility] ([facility] Total Protein 6.5 GM/DL 6.4-8.2 Normal (applies to non-numeric re sults) MEDENT ([facility] Albumin/Globulin Ratio 1.4 Normal (applies to non-n umeric results) MEDENT ([facility] ID Date Data Source [id number] 04/30/2020 08:54:00 AM EST [facility] ([facility] Name Value Range Interpretation Code Description Data Purnima rce(s) Supporting Document(s) Hemoglobin A1c 7.5 % Normal (applies to non-numeric r esults) MEDENT ([facility] <content>REFERENCE RANGES:</content><br/ ><content></content>
<content><=5.6% NORMAL</content>
<content>5.7-6.4% SUGGESTS IMPAIRED GLUCOSE METABOLISM/PREDIABETIC</content>
<content>>= 6.5% ABNORMAL</content>
<content></content> Estimated Average Glucose 169 mg/dL 60-110 Above high normal MEDENT ([facility] ID Date Data Source [id number] 01/19/2020 09:05:00 AM EST [facility] ([facility] Name Value Range Interpretation Code Description Data Purnima rce(s) Supporting Document(s) Hemoglobin A1c/Hemoglobin.total in Blood 7.2 % 4.8-5.6 Above high normal MEDENT ([facility] CHRONIC KIDNEY DISEASE STAGING [...] 2-19 YEARS EXCLUSIVE. ID Date Data Source [id number] 01/19/2020 09:05:00 AM EST MEDENT ([facility] Name Value Range Interpretation Code Description Data Purnima rce(s) Supporting Document(s) Thyrotropin [Units/volume] in Serum or Plasma 6.900 uIU/mL 0. 450-4.500 Above high normal MEDENT ([facility] ) CHRONIC KIDNEY DISEASE [...] 2-19 YEARS EXCLUSIVE. ID Date Data Source [id number] 01/19/2020 09:05:00 AM EST MEDAPOLINAR ([facility] Name Value Range Interpretation Code Description Data Purnima rce(s) Supporting Document(s) Cholesterol [Mass/volume] in Serum or Plasma 127 mg/dL 100-199 MEDENT ([facility] CHRONIC KIDNEY DISEASE STAGING [...] Serum or Plasma 80 mg/dL 0-149 MEDENT ([facility] CHRONIC KIDNEY DISEASE STAGING [...] YEARS EXCLUSIVE. Comment: Laboratory test result EMILIA ([facility] CHRONIC KIDNEY DISEASE STAGING [...] 2-19 YEARS EXCLUSIVE. ID Date Data Source [id number] 01/19/2020 09:05:00 AM EST EMILIA ([facility] Name Value Range Interpretation Code Description Data Purnima rce(s) Supporting Document(s) Glucose [Mass/volume] in Serum or Plasma 124 mg/dL 65-99 Above high normal EMILIA ([facility] CHRONIC KIDNEY DISEASE STAGING [...] in Serum or Plasma 9.5 mg/dL 8.6-10.2 [facility] CHRONIC KIDNEY DISEASE [...] 2-19 YEARS EXCLUSIVE. ID Date Data Source [id number] 12/06/2019 08:07:00 AM EDT MEDENT ([facility] Name Value Range Interpretation Code Description Data Purnima rce(s) Supporting Document(s) White Blood Count 10.6 10 4.0-10.0 [facility] ([facility]) Red Blood Count 5.35 10 4.30-6.10 [facility] ([facility]) Hemoglobin 16.1 g/dL 13.5-17.5 MEDENT (Card[facility]) Mean Corpuscular Volume 94.6 fl 80.0-96.0 M EDENT ([facility]) Hematocrit 50.6 % 42.0-52.0 MEDENT ([facility]) Mean Corpuscular Hemoglobin 30.1 pg 27.0-33.0 MEDENT ([facility]) Mean Corpuscular HGB Conc 31.8 g/dL 32.0-36.5 MEDENT ([facility]) Red Cell Distribution Width 13.9 % 11.5-14.5 MEDENT ([facility]) Platelet Count, Automated 250 10 150-450 MEDENT ([facility]) Nucleated Red Blood Cell % 0.0 % 0-0 MED ENT ([facility]) ID Date Data Source [id number] 12/06/2019 08:07:00 AM EDT [facility] Name Value Range Interpretation Code Description Data Purnima rce(s) Supporting Document(s) Magnesium [Mass/volume] in Serum or Plasma 2.0 mg/dL 1.8-2.4 MEDENT ([facility]) <content>note:<nlbl:demographic_changed> </content>
<content></content> ID Date Data Source [id number] 12/06/2019 08:07:00 AM EDT [facility] Name Value Range Interpretation Code Description Data Purnima rce(s) Supporting Document(s) Cholesterol Level 135 mg/dL MEDENT ([facility]) Triglycerides Level 129 mg/dL MEDENT ([facility]) LDL Cholesterol 63 mg/dL MED[facility] ([facility]) Non-HDL-C 89 mg/dL [facility] HDL Cholesterol 46 mg/dL MED[facility] ([facility]) Cholesterol Risk Ratio 2.934 MEDENT ([facility]) ID Date Data Source [id number] 12/06/2019 08:07:00 AM EDT MEDENT ([facility]) Name Value Range Interpretation Code Description Data Purnima rce(s) Supporting Document(s) Glucose, Fasting 145 mg/dL 70-100 MED[facility] ([facility]) Blood Urea Nitrogen 23 mg/dL 7-18 MEDENT ([facility]) Glomerular Filtration Rate 59.9 MED ENT ([facility]) <content>Units are mL/min/1.73 m2</content>
<content></content>
<content>Chronic Kidney Disease Staging per NKF:</content>
<content></content>
<content>Stage I & II GFR >=60 Normal to Mildly Decreased</content>
<content>Stage III GFR 30- 59 Moderately Decreased</content>
<content>Stage IV GFR 15-29 Severely Decreased</content>
<content>Stage V GFR <15 Very Little GFR Left</content>
<content>ESRD GFR <15 on UNEMPLOYMENT [employer]IST</content>
<content></content> Sodium Level 140 meq/L 136-145 MEDENT ([facility]) Creatinine For GFR 1.29 mg/dL 0.70-1.30 MED[facility] ([facility]) Chloride Level 106 meq/L 98-107 MEDENT ([facility]) Potassium Serum 4.7 meq/L 3.5-5.1 MED[facility] ([facility]) Carbon Dioxide Level 27 meq/L 21-32 MEDENT ([facility]) Anion Gap 7 meq/L 8-16 MEDENT ([facility]) Calcium Level 9.9 mg/dL 8.8-10.2 MEDENT ([facility]) Alt/SGPT 22 U/L 12-78 MED[facility] ([facility]) Alkaline Phosphatase 71 U/L 45-117 MEDENT ([facility]) Ast/Sgot 12 U/L 7-37 MED[facility] ([facility]) Albumin 3.8 GM/DL 3.2-5.2 MED[facility] ([facility]) Bilirubin,Total 0.6 mg/dL 0.2-1.0 MED[facility] ([facility]) Total Protein 6.8 GM/DL 6.4-8.2 MED[facility] ([facility]) Albumin/Globulin Ratio 1.3 MED[facility] ([facility]) Procedure Social History Code Duration Value Status Description Data Source(s ) Smoking 11/14/2020 12:00:00 AM EDT Patient has never smoked co mpleted Patient has never smoked MED[facility] ([facility]) Vital Signs ID Date Data Source UNK Name Value Range Interpretation Code Description Data Source(s) Body mass index (BMI) [Ratio] 32.4 kg/m2 32.4 k g/m2 MEDENT ([facility] Systolic blood pressure 114 mm[Hg] 114 mm[Hg] M EDENT ([facility] Diastolic blood pressure 74 mm[Hg] 74 mm[Hg] MEDENT ([facility] Body temperature 98.3 [degF] 98.3 [degF] MEDENT ([facility] Heart rate 96 /min 96 /min MEDENT ([facility] Respiratory rate 14 /min 14 /min MEDENT ( [facility] Body height 68 [in_i] 68 [in_i] MEDENT ([facility] 5'8" Body weight 213.00 [lb_av] 213.00 [lb_av] MEDEN T ([facility] Oxygen saturation in Arterial blood by Pulse oximetry 96 % 96 % MEDENT ([facility] [place] body weight 154 [lb_av] 154 [lb_av] MEDEN T ([facility] Diastolic blood pressure 70 mm[Hg] 70 mm[Hg] MEDENT ([facility] Body temperature 98.2 [degF] 98.2 [degF] MEDENT ([facility] [place] body weight 154 [lb_av] 154 [lb_av] MEDEN T ([facility] Body mass index (BMI) [Ratio] 32.1 kg/m2 32.1 k g/m2 MEDENT ([facility] Systolic blood pressure 110 mm[Hg] 110 mm[Hg] M EDENT ([facility] Heart rate 78 /min 78 /min MEDENT ([facility] Respiratory rate 14 /min 14 /min MEDENT ( [facility] Body height 68 [in_i] 68 [in_i] MEDENT ([facility] 5'8" Body weight 211.00 [lb_av] 211.00 [lb_av] MEDEN T ([facility] Oxygen saturation in Arterial blood by Pulse oximetry 96 % 96 % MEDENT ([facility] Body weight 209.00 [lb_av] 209.00 [lb_av] MEDEN T ([facility]) Body height 68 [in_i] 68 [in_i] MEDENT ([facility]) 5'8" Body mass index (BMI) [Ratio] 31.8 kg/m2 31.8 k g/m2 MEDENT ([facility]) Heart rate 80 /min 80 /min MEDENT ([facility]) Irregular Respiratory rate 16 /min 16 /min MEDENT ( [facility]) Systolic blood pressure 110 mm[Hg] 110 mm[Hg] M EDENT ([facility]) sitting, large cuff Diastolic blood pressure 70 mm[Hg] 70 mm[Hg] MEDENT ([facility]) sitting, large cuff Systolic blood pressure 130 mm[Hg] 130 mm[Hg] M EDENT ([facility]) Body weight 211.00 [lb_av] 211.00 [lb_av] MEDEN T ([facility]) Diastolic blood pressure 80 mm[Hg] 80 mm[Hg] MEDENT ([facility]) Body temperature 98.6 [degF] 98.6 [degF] MEDENT ([facility]) Body height 68 [in_i] 68 [in_i] MEDENT ([facility]) 5'8" Body mass index (BMI) [Ratio] 32.1 kg/m2 32.1 k g/m2 MEDENT ([facility]) [place] body weight 154 [lb_av] 154 [lb_av] MEDEN T ([facility]) Body weight 95.710 kg 95.710 kg MEDENT ([facility]) Body surface area Derived from formula 2.09 m2 2.09 m2 MEDENT ([facility]) Heart rate 76 /min 76 /min MED[facility] ([facility]) Irregular Body weight 216.00 [lb_av] 216.00 [lb_av] MEDEN T ([facility]) Body height 68 [in_i] 68 [in_i] MEDENT ([facility]) 5'8" Body mass index (BMI) [Ratio] 32.8 kg/m2 32.8 k g/m2 MEDENT ([facility]) Respiratory rate 16 /min 16 /min MEDENT ( [facility]) Systolic blood pressure 114 mm[Hg] 114 mm[Hg] M EDENT ([facility]) sitting, large cuff Diastolic blood pressure 68 mm[Hg] 68 mm[Hg] MEDENT ([facility]) sitting, large cuff Systolic blood pressure 112 [...] Body height 68 [in_i] 68 [in_i] MEDENT ([facility] 5'8" Body weight 216.00 [lb_av] 216.00 [lb_av] MEDEN T ([facility] [place] body weight 154 [lb_av] 154 [lb_av] MEDEN T ([facility] Body mass index (BMI) [Ratio] 32.8 kg/m2 32.8 k g/m2 MEDENT ([facility] Oxygen saturation in Arterial blood by Pulse oximetry 93 % 93 % MED[facility] ([facility] Body weight 218.00 [lb_av] 218.00 [lb_av] MEDEN T ([facility]) Heart rate 74 /min 74 /min MED[facility] ([facility]) Respiratory rate 16 /min 16 /min MED[facility] ( [facility]) Systolic blood pressure 116 mm[Hg] 116 mm[Hg] M EDENT ([facility]) sitting, regular cuff Body height 68 [in_i] 68 [in_i] MEDENT ([facility]) 5'8" Body mass index (BMI) [Ratio] 33.1 kg/m2 33.1 k g/m2 MEDENT ([facility]) Diastolic blood pressure 66 mm[Hg] 66 mm[Hg] MEDENT ([facility]) sitting, regular cuff Body weight 230.00 [lb_av] 230.00 [lb_av] MEDEN T ([facility]) Body height 68 [in_i] 68 [in_i] [facility] 5'8" Body mass index (BMI) [Ratio] 35.0 kg/m2 35.0 k g/m2 MEDENT ([facility]) Heart rate 96 /min 96 /min MED[facility] ([facility]) Irregular Respiratory rate 16 /min 16 /min MED[facility] ( [facility]) Systolic blood pressure 128 mm[Hg] 128 mm[Hg] M EDENT ([facility]) sitting, large cuff Diastolic blood pressure 80 mm[Hg] 80 mm[Hg] MEDENT ([facility]) sitting, large cuff Systolic blood pressure 126 mm[Hg] 126 mm[Hg] M EDENT ([facility]) sitting Diastolic blood pressure 80 mm[Hg] 80 mm[Hg] MEDENT ([facility]) sitting Heart rate 74 /min 74 /min MED[facility] ([facility] Systolic blood pressure 118 mm[Hg] 118 mm[Hg] M EDENT ([facility] Respiratory rate 12 /min 12 /min MEDENT ( [facility] Diastolic blood pressure 78 mm[Hg] 78 mm[Hg] MEDENT ([facility] Body height 68 [in_i] 68 [in_i] MEDENT ([facility] 5'8" Body temperature 97.6 [degF] 97.6 [degF] MEDENT ([facility] Body weight 229.00 [lb_av] 229.00 [lb_av] MEDEN T ([facility] [place] body weight 154 [lb_av] 154 [lb_av] MEDEN T ([facility] Body mass index (BMI) [Ratio] 34.8 kg/m2 34.8 k g/m2 MED[facility] ([facility] Body temperature 96.6 [degF] 96.6 [degF] MEDENT ([facility]) Heart rate 70 /min 70 /min MED[facility] ([facility] Respiratory rate 12 /min 12 /min MED[facility] ( [facility] Body height 68 [in_i] 68 [in_i] MEDENT ([facility] 5'8" Body weight 226.00 [lb_av] 226.00 [lb_av] MEDEN T ([facility] [place] body weight 154 [lb_av] 154 [lb_av] MEDEN [...] Body height 68 [in_i] 68 [in_i] MEDENT ([facility]) 5'8" Body temperature 97.3 [degF] 97.3 [degF] MEDENT ([facility]) Body weight 279.00 [lb_av] 279.00 [lb_av] MEDEN T ([facility]) Body mass index (BMI) [Ratio] 42.4 kg/m2 42.4 k g/m2 MEDENT ([facility]) Body weight 223.00 [lb_av] 223.00 [lb_av] MEDEN T ([facility]) Body height 68 [in_i] 68 [in_i] MEDENT ([facility]) 5'8" Body mass index (BMI) [Ratio] 33.9 kg/m2 33.9 k g/m2 MEDENT ([facility] [facility]) Heart rate 68 /min 68 /min MEDENT (Cardio logy [facility]) Regular Respiratory rate 16 /min 16 /min MEDENT ( Cardiology [facility]) Systolic blood pressure 116 mm[Hg] 116 mm[Hg] M EDENT ([facility]) sitting, regular cuff Diastolic blood pressure 66 mm[Hg] 66 mm[Hg] MED[facility] ([facility]) sitting, regular cuff Systolic blood pressure 110 mm[Hg] 110 mm[Hg] M EDENT ([facility]) sitting Diastolic blood pressure 66 mm[Hg] 66 mm[Hg] MEDENT ([facility]) sitting
[2021-01-09] MEDS ORDERED: NS 1,000 ML IV ONE (04:10)
[2021-01-09 06:47] VITALS: BP 135/75
--- NOTE | 2021-01-09 10:17 | ECGEPIP ---
[facility] - ED Test Date: 2021-01-09 Pat Name: RAE DYER Department: Room: - Gender: Male Strategy Intern: DAVID : [id number] Requested By: DANIELA Rangel Order Number: [id number] Reading MD: Judi Salinas Measurements Intervals [place] Rate: 93 P: [place]: QRS: 260 QRSD: 162 T: 54 QT: 408 QTc: 507 Interpretive Statements Atrial fibrillation Right bundle branch block Septal infarct , age undetermined decreased rate 11/01/20 Electronically Signed on 01-09-2021 10:17:06 EDT by Judi Salinas
== END 2021-01-09 07:03 | disposition home or self-care (01) ==
LOC: M ED 01:20
DX: R07.89 Other chest pain (principal); E86.0 Dehydration; Z98.890 Other specified postprocedural states

== ENCOUNTER → 2021-01-23 | Outpatient (CLI) | payer OTHER | LOC: M LABSMTC 10:25 | PROVIDERS: ATTEND Anesthesiology | DX: Z01.818 Encounter for other preprocedural examination (principal); Z11.52 Encounter for screening for COVID-19 ==

== ENCOUNTER 2021-01-27 08:34 | Inpatient (IN) | payer OTHER ==
[~2021-01-27] VITALS: Ht 172.7 cm; Wt 95.7 kg
[2021-01-27 11:10] LABS: BASO % 0.3 % (0.0-1.0); EOS # 0.1 10^3/uL (0.0-0.5); EOS % 1.1 % (0.0-3.0); HEMATOCRIT 49.3 % (42.0-52.0); HEMOGLOBIN 16.1 g/dl (13.5-17.5); LYMPH # 1.6 10^3/uL (1.5-5.0); LYMPH % 14.4 % (24.0-44.0); MEAN CORPUSCULAR HEMOGLOBIN 30.2 pg (27.0-33.0); MEAN CORPUSCULAR HGB CONC 32.7 g/dl (32.0-36.5); MEAN CORPUSCULAR VOLUME 92.5 fl (80.0-96.0); MONO # 0.7 10^3/uL (0.0-0.8); MONO % 5.9 % (2.0-8.0); NEUTROPHILS # 8.6 10^3/uL (1.5-8.5); NEUTROPHILS % 77.8 % (36.0-66.0); PLATELET COUNT, AUTOMATED 218 10^3/uL (150-450); RED BLOOD COUNT 5.33 10^6/uL (4.30-6.10)
[2021-01-27 11:45] LABS: BILIRUBIN,DIRECT 0.2 MG/DL (0.0-0.2); FREE T4 0.84 NG/DL (0.76-1.46); THYROID STIMULATING HORMONE 1.13 uIU/ML (0.358-3.740)
[2021-01-27 13:38] LABS: RSV AMPLIFICATION NEGATIVE (NEGATIVE)
[2021-01-27 15:50] VITALS: BP 135/86
[2021-01-27] MEDS ORDERED: DEXTROSE 50% 50 ML SYRINGE IV PRN (16:25)
[2021-01-27] MEDS ORDERED: GLUCOSE 4GM CHEW TABLET PO PRN (16:25)
[2021-01-27] MEDS ORDERED: GLUCAGON INJ 1MG VIAL SC PRN (16:25)
[2021-01-27] MEDS ORDERED: ASPI81TA26 PO (17:33)
[2021-01-27] MEDS ORDERED: SYNT88TA2 PO (17:33)
[2021-01-27] MEDS ORDERED: TORS20TA2 PO (17:33)
[2021-01-27] MEDS ORDERED: METF-1191 PO (17:33)
[2021-01-27] MEDS ORDERED: HOME MED LIST COMPLETE! XX SCH (17:35)
[2021-01-27] MEDS: ACETAMINOPHEN 500 MG TAB PO PRN (18:10)
[2021-01-27] MEDS: HumaLOG INSULIN (NovoLOG) PER UNIT SC SCH ×2 (18:16→20:34)
[2021-01-27 19:48] VITALS: BP 140/60
[2021-01-27] MEDS ORDERED: SIMVASTATIN 10 MG TAB PO SCH (21:00)
[2021-01-28] VITALS (10 sets, daily range): BP systolic 98–144; BP diastolic 56–84
[2021-01-28] MEDS: LR 1,000 ML IV SCH ×2 (04:29→18:27)
[2021-01-28 05:29] LABS: BASO % 0.3 % (0.0-1.0); EOS # 0.4 10^3/uL (0.0-0.5); EOS % 3.8 % (0.0-3.0); HEMATOCRIT 45.7 % (42.0-52.0); HEMOGLOBIN 15.1 g/dl (13.5-17.5); LYMPH # 1.7 10^3/uL (1.5-5.0); LYMPH % 18.3 % (24.0-44.0); MEAN CORPUSCULAR HEMOGLOBIN 30.1 pg (27.0-33.0); MONO # 0.8 10^3/uL (0.0-0.8); MONO % 8.7 % (2.0-8.0); NEUTROPHILS # 6.3 10^3/uL (1.5-8.5); NEUTROPHILS % 68.5 % (36.0-66.0); PLATELET COUNT, AUTOMATED 206 10^3/uL (150-450); RED BLOOD COUNT 5.02 10^6/uL (4.30-6.10); WHITE BLOOD COUNT 9.2 10^3/uL (4.0-10.0)
[2021-01-28 05:51] LABS: BLOOD UREA NITROGEN 23 MG/DL (7-18); CALCIUM LEVEL 9.7 MG/DL (8.8-10.2); CARBON DIOXIDE LEVEL 26 MEQ/L (21-32); CHLORIDE LEVEL 107 MEQ/L (98-107); GLOMERULAR FILTRATION RATE > 60.0 (>49); GLUCOSE, FASTING 169 MG/DL (70-100); POTASSIUM SERUM 4.1 MEQ/L (3.5-5.1); SODIUM LEVEL 140 MEQ/L (136-145)
[2021-01-28] MEDS ORDERED: LEVOTHYROXINE 75MCG TABLET (0.075MG) PO SCH (06:00)
[2021-01-28] MEDS: HumaLOG INSULIN (NovoLOG) PER UNIT SC SCH ×4 (07:30→20:19)
[2021-01-28] MEDS: DIGOXIN 0.125 MG TAB PO SCH (08:37)
[2021-01-28] MEDS: bisoproloL fumarate 5 MG TAB PO SCH (08:38)
[2021-01-28] MEDS ORDERED: ONDANSETRON 4MG/2ML VIAL ONE (08:53)
[2021-01-28] MEDS ORDERED: ROCURONIUM BROMIDE 50 MG/5 ML VIAL ONE ×3 (08:53→15:12)
[2021-01-28] MEDS ORDERED: ETOMIDATE INJ 20MG/10ML VIAL ONE (08:53)
[2021-01-28] MEDS ORDERED: propofoL 200 MG/20 ML VIAL ONE (08:53)
[2021-01-28] MEDS ORDERED: dexameTHASONE 4 MG/ML 1ML VIAL (J1100 PER 1MG) ONE (08:53)
[2021-01-28] MEDS ORDERED: LIDOCAINE 2% 100MG/5ML SDV (FOR ANES.) ONE (08:53)
[2021-01-28] MEDS ORDERED: fentaNYL 100 MCG/2 ML INJECTION ONE ×3 (08:53→12:55)
[2021-01-28] MEDS ORDERED: MIDAZOLAM INJ 2MG/2ML VIAL (J2250 PER 1MG) ONE (08:53)
[2021-01-28] MEDS ORDERED: FLUBLOK(EGG FREE)(QUAD)INFLUENZA VACC 0.5ML SYRINGE 18YRS & OLDER IM ONE (09:00)
[2021-01-28] MEDS ORDERED: PHENYLEPHRINE 10MG/ML 1ML VIAL (J2370 PER 1) ONE (09:37)
[2021-01-28] MEDS ORDERED: BUPIVACAINE HCL 0.25% 30ML VIAL ONE (11:20)
[2021-01-28] MEDS ORDERED: LIDOCAINE 1% SDV 30ML VIAL ONE (11:21)
[2021-01-28] MEDS ORDERED: ceFAZolin 2 GM/D5W 50 ML IV BAG (J0690 PER 500MG) ONE ×2 (11:53→15:14)
[2021-01-28] MEDS ORDERED: ACETAMINOPHEN 1000MG 100ML IV BTL (OFIRMEV) (J0131 PER 10MG) ONE (12:06)
[2021-01-28] MEDS ORDERED: KETOROLAC 60MG 2ML VIAL ONE (12:45)
[2021-01-28] MEDS ORDERED: SUGAMMADEX SODIUM 500 MG/5 ML VIAL (BRIDION) ONE (12:45)
[2021-01-28] MEDS ORDERED: PHENYLephrine 500MCG 5ML (100MCG/ML) SYRINGE ONE (15:58)
[2021-01-28] MEDS ORDERED: METOCLOPRAMIDE INJ 10MG/2ML VIAL (J2765 PER 1) ONE (16:00)
[2021-01-28] MEDS ORDERED: HYDROmorphone HCL 2MG/ML 1ML VIAL ONE (16:47)
[2021-01-28] MEDS ORDERED: HYDROMORPHONE HCL 0.5 MG/ 0.5 ML SYRINGE (J1170 PER 1) IV PRN (17:35)
[2021-01-28] MEDS ORDERED: HumaLOG INSULIN (NovoLOG) PER UNIT SC ONE (17:35)
[2021-01-28] MEDS ORDERED: fentaNYL 100 MCG/2 ML INJECTION IV PRN (17:35)
[2021-01-28] MEDS ORDERED: oxyCODONE 5MG TAB PO PRN (17:35)
[2021-01-28] MEDS ORDERED: LR 1,000 ML IV SCH (17:35)
[2021-01-28] MEDS ORDERED: ONDANSETRON 4MG/2ML VIAL IV PRN (17:35)
[2021-01-28] MEDS ORDERED: METOCLOPRAMIDE INJ 10MG/2ML VIAL (J2765 PER 1) IV PRN (17:35)
[2021-01-28] MEDS: TORSEMIDE 20 MG TAB PO SCH (20:20)
[2021-01-29] VITALS: BP 110/64
[2021-01-29] MEDS: ACETAMINOPHEN 500 MG TAB PO PRN ×2 (02:36→11:01)
[2021-01-29 04:00] VITALS: BP 108/60
[2021-01-29 05:10] LABS: BASO % 0.2 % (0.0-1.0); EOS % 0.1 % (0.0-3.0); HEMATOCRIT 40.2 % (42.0-52.0); HEMOGLOBIN 13.4 g/dl (13.5-17.5); LYMPH # 1.4 10^3/uL (1.5-5.0); LYMPH % 9.5 % (24.0-44.0); MEAN CORPUSCULAR HEMOGLOBIN 30.7 pg (27.0-33.0); MEAN CORPUSCULAR HGB CONC 33.3 g/dl (32.0-36.5); MEAN CORPUSCULAR VOLUME 92.2 fl (80.0-96.0); MONO # 1.1 10^3/uL (0.0-0.8); MONO % 7.9 % (2.0-8.0); NEUTROPHILS # 11.7 10^3/uL (1.5-8.5); NEUTROPHILS % 81.8 % (36.0-66.0); PLATELET COUNT, AUTOMATED 206 10^3/uL (150-450); RED BLOOD COUNT 4.36 10^6/uL (4.30-6.10); WHITE BLOOD COUNT 14.3 10^3/uL (4.0-10.0)
[2021-01-29 05:32] LABS: BLOOD UREA NITROGEN 24 MG/DL (7-18); CALCIUM LEVEL 9.2 MG/DL (8.8-10.2); CARBON DIOXIDE LEVEL 28 MEQ/L (21-32); CHLORIDE LEVEL 104 MEQ/L (98-107); CREATININE FOR GFR 1.18 MG/DL (0.70-1.30); GLOMERULAR FILTRATION RATE > 60.0 (>49); GLUCOSE, FASTING 201 MG/DL (70-100); POTASSIUM SERUM 4.5 MEQ/L (3.5-5.1); SODIUM LEVEL 138 MEQ/L (136-145)
[2021-01-29] MEDS: LR 1,000 ML IV SCH (05:41)
[2021-01-29] MEDS ORDERED: LEVOTHYROXINE 88MCG TABLET (0.088 MG) PO SCH (06:00)
[2021-01-29 08:00] VITALS: BP 125/79
[2021-01-29] MEDS: TORSEMIDE 20 MG TAB PO SCH (08:18)
[2021-01-29 08:22] VITALS: BP 120/65
[2021-01-29] MEDS: DIGOXIN 0.125 MG TAB PO SCH (08:22)
[2021-01-29] MEDS: bisoproloL fumarate 5 MG TAB PO SCH (08:22)
[2021-01-29] MEDS: HumaLOG INSULIN (NovoLOG) PER UNIT SC SCH ×2 (08:30→13:33)
[2021-01-29] MEDS ORDERED: bisoproloL fumarate 5 MG TAB PO SCH (09:00)
[2021-01-29] MEDS ORDERED: FLUBLOK(EGG FREE)(QUAD)INFLUENZA VACC 0.5ML SYRINGE 18YRS & OLDER IM ONE (09:00)
[2021-01-29] MEDS ORDERED: LOSARTAN 50MG TABLET PO SCH (09:00)
[2021-01-29] MEDS ORDERED: SPIRONOLACTONE 12.5MG PER 1/2 TABLET PO SCH (09:00)
[2021-01-29] MEDS ORDERED: SIMVASTATIN 10 MG TAB PO SCH (09:00)
[2021-01-29] MEDS ORDERED: VITAMIN D 1,000 INTERNATIONAL UNITS TABLET PO SCH (09:00)
[2021-01-29] MEDS ORDERED: SITagliptin 50 MG TAB (JANUVIA) PO SCH (09:00)
[2021-01-29] MEDS ORDERED: DIGOXIN 0.125 MG TAB PO SCH (09:00)
[2021-01-29] MEDS ORDERED: MIRALAX *UNIT DOSE* 17GM PACKET PO SCH (09:00)
[2021-01-29] MEDS ORDERED: OXYC1TAB23 PO (12:47)
[2021-01-29] MEDS ORDERED: MIRA1POW3 PO (12:47)
== END 2021-01-29 16:11 | disposition home or self-care (01) | DRG 227 ==
LOC: M ED 08:34 → M ED INP 13:23 → ENRESERV 14:20 → M PCU 15:50
PROVIDERS: ADMIT Internal Medicine Nephrology; ATTEND Family Medicine
PROC: 8E0W8CZ Robotic Assisted Procedure of Trunk Region, Via Natural or Artificial Opening Endoscopic (ICD-10-PCS; 2021-01-28)
PROC: 0WUF4JZ Supplement Abdominal Wall with Synthetic Substitute, Percutaneous Endoscopic Approach (ICD-10-PCS; 2021-01-28)
PROC: 0WQF4ZZ Repair Abdominal Wall, Percutaneous Endoscopic Approach (ICD-10-PCS; principal; 2021-01-28 10:15)
DX: K40.20 Bilateral inguinal hernia, without obstruction or gangrene, not specified as recurrent (principal); R55 Syncope and collapse; I50.22 Chronic systolic (congestive) heart failure; I48.91 Unspecified atrial fibrillation; E03.9 Hypothyroidism, unspecified; E11.9 Type 2 diabetes mellitus without complications; I11.0 Hypertensive heart disease with heart failure; Z79.01 Long term (current) use of anticoagulants; Z79.82 Long term (current) use of aspirin; Z79.899 Other long term (current) drug therapy; G47.33 Obstructive sleep apnea (adult) (pediatric); I34.0 Nonrheumatic mitral (valve) insufficiency; I27.20 Pulmonary hypertension, unspecified; Z87.891 Personal history of nicotine dependence; Z20.822 Contact with and (suspected) exposure to COVID-19

== ENCOUNTER → 2021-02-04 | Outpatient (CLI) | payer OTHER ==
[~2021-02-04] MED LIST changes: +ASPI81TA26 PO; +METF-1191 PO; +MIRA1POW3 PO; +OXYC1TAB23 PO; +SYNT88TA2 PO
== END ==
LOC: M RAD 12:26
PROVIDERS: ATTEND Physician Assistant
DX: K40.30 Unilateral inguinal hernia, with obstruction, without gangrene, not specified as recurrent (principal); N50.819 Testicular pain, unspecified

== ENCOUNTER → 2021-02-21 | Outpatient (CLI) | payer OTHER ==
[2021-02-21 10:33] LABS: HEMATOCRIT 46.2 % (42.0-52.0); HEMOGLOBIN 15.1 g/dl (13.5-17.5); MEAN CORPUSCULAR HEMOGLOBIN 30.2 pg (27.0-33.0); MEAN CORPUSCULAR HGB CONC 32.7 g/dl (32.0-36.5); MEAN CORPUSCULAR VOLUME 92.4 fl (80.0-96.0); PLATELET COUNT, AUTOMATED 309 10^3/uL (150-450); WHITE BLOOD COUNT 10.3 10^3/uL (4.0-10.0)
[2021-02-21 10:59] LABS: ALBUMIN 3.8 GM/DL (3.2-5.2); ALT/SGPT 15 U/L (12-78); BILIRUBIN,TOTAL 0.9 MG/DL (0.2-1.0); BLOOD UREA NITROGEN 22 MG/DL (7-18); CALCIUM LEVEL 10.1 MG/DL (8.8-10.2); CARBON DIOXIDE LEVEL 29 MEQ/L (21-32); CHLORIDE LEVEL 103 MEQ/L (98-107); CREATININE FOR GFR 1.18 MG/DL (0.70-1.30); GLOMERULAR FILTRATION RATE > 60.0 (>49); GLUCOSE, FASTING 143 MG/DL (70-100); MAGNESIUM LEVEL 2.2 MG/DL (1.8-2.4); NT-PRO BNP 1556 PG/ML (<125); POTASSIUM SERUM 4.1 MEQ/L (3.5-5.1); SODIUM LEVEL 140 MEQ/L (136-145); TOTAL PROTEIN 7.1 GM/DL (6.4-8.2)
== END ==
LOC: M RAD 09:33
PROVIDERS: ATTEND Physician Assistant
DX: R00.2 Palpitations (principal); R06.02 Shortness of breath; R42 Dizziness and giddiness

== ENCOUNTER → 2021-02-25 | Outpatient (CLI) | payer OTHER ==
[2021-02-25 12:07] LABS: HEMOGLOBIN A1c 7.2 %
[2021-02-25 12:17] LABS: CHOLESTEROL RISK RATIO 3.5 (<5)
[2021-02-25 12:21] LABS: MALB URINE SIEMENS 20.8 MG/L
== END ==
LOC: M WUC 09:09
PROVIDERS: ATTEND Internal Medicine
DX: E78.5 Hyperlipidemia, unspecified (principal); I10 Essential (primary) hypertension; E11.9 Type 2 diabetes mellitus without complications; E03.9 Hypothyroidism, unspecified

== ENCOUNTER 2021-05-21 06:29 | Emergency (ER) | payer MEDICARE, OTHER ==
[~2021-05-21] VITALS: Ht 172.7 cm; Wt 95.5 kg
[~2021-05-21 06:29] MED LIST changes: -D31000TA2 PO; +VITA100093 PO
[2021-05-21] MEDS ORDERED: ACETAMINOPHEN 500 MG TAB PO ONE (07:20)
[2021-05-21] MEDS ORDERED: LEVOTHYROXINE 88MCG TABLET (0.088 MG) PO STA (07:22)
[2021-05-21] MEDS ORDERED: TORSEMIDE 20 MG TAB PO STA (07:22)
[2021-05-21] MEDS ORDERED: SPIRONOLACTONE 12.5MG PER 1/2 TABLET PO STA (07:22)
[2021-05-21 07:38] LABS: BASO % 0.4 % (0.0-1.0); EOS # 0.2 10^3/uL (0.0-0.5); EOS % 1.8 % (0.0-3.0); HEMATOCRIT 46.4 % (42.0-52.0); LYMPH # 0.6 10^3/uL (1.5-5.0); LYMPH % 5.8 % (24.0-44.0); MEAN CORPUSCULAR HEMOGLOBIN 30.2 pg (27.0-33.0); MEAN CORPUSCULAR HGB CONC 34.5 g/dl (32.0-36.5); MEAN CORPUSCULAR VOLUME 87.7 fl (80.0-96.0); MONO # 0.9 10^3/uL (0.0-0.8); MONO % 8.8 % (2.0-8.0); NEUTROPHILS % 82.8 % (36.0-66.0); PLATELET COUNT, AUTOMATED 198 10^3/uL (150-450); RED BLOOD COUNT 5.29 10^6/uL (4.30-6.10); WHITE BLOOD COUNT 9.6 10^3/uL (4.0-10.0)
[2021-05-21 07:48] LABS: INR 1.1; PROTHROMBIN TIME 14.6 SECONDS (12.7-14.5)
[2021-05-21 07:49] LABS: PARTIAL THROMBOPLASTIN TIME 30.3 SECONDS (25.9-37.0)
[2021-05-21 07:58] LABS: ERYTHROCYTE SEDIMENTATION RATE 4 mm/hr (0-20)
[2021-05-21 08:13] LABS: CK-MB VALUE MASS 1.6 NG/ML (<3.6); MB/CK RELATIVE INDEX 2.03 (< OR =4)
[2021-05-21 08:20] LABS: ALBUMIN 3.5 GM/DL (3.2-5.2); ALT/SGPT 23 U/L (12-78); BILIRUBIN,DIRECT 0.2 MG/DL (0.0-0.2); BILIRUBIN,TOTAL 1.1 MG/DL (0.2-1.0); BLOOD UREA NITROGEN 24 MG/DL (7-18); C REACTIVE PROTEIN QUANTITATIV 2.25 MG/DL (0.00-0.30); CALCIUM LEVEL 8.6 MG/DL (8.8-10.2); CARBON DIOXIDE LEVEL 25 MEQ/L (21-32); CHLORIDE LEVEL 107 MEQ/L (98-107); CREATININE FOR GFR 1.11 MG/DL (0.70-1.30); DIGOXIN LEVEL 0.6 NG/ML (0.5-2.0); GLOMERULAR FILTRATION RATE > 60.0 (>49); GLUCOSE, FASTING 207 MG/DL (70-100); LIPASE 117 U/L (73-393); NT-PRO BNP 1836 PG/ML (<125); POTASSIUM SERUM 4.2 MEQ/L (3.5-5.1); SODIUM LEVEL 139 MEQ/L (136-145); TOTAL PROTEIN 6.2 GM/DL (6.4-8.2)
[2021-05-21 08:51] LABS: RSV AMPLIFICATION NEGATIVE (NEGATIVE)
[2021-05-21] MEDS ORDERED: ISOVUE-370 76% 100ML VIAL As Ordered ONE (09:06)
[2021-05-21 09:12] LABS: MB/CK RELATIVE INDEX 1.27 (< OR =4)
[2021-05-21 10:03] VITALS: BP 142/90
== END 2021-05-21 10:28 | disposition home or self-care (01) ==
LOC: M ED 06:29
DX: I48.91 Unspecified atrial fibrillation (principal); R79.89 Other specified abnormal findings of blood chemistry; R07.9 Chest pain, unspecified; M54.50 Low back pain, unspecified; R94.31 Abnormal electrocardiogram [ECG] [EKG]; E11.9 Type 2 diabetes mellitus without complications; I50.9 Heart failure, unspecified; I10 Essential (primary) hypertension; E78.5 Hyperlipidemia, unspecified; R00.0 Tachycardia, unspecified; K46.9 Unspecified abdominal hernia without obstruction or gangrene; Z79.4 Long term (current) use of insulin; Z79.899 Other long term (current) drug therapy
CPT/HCPCS: 36415; 71046; 71275; 76857; 80048; 80076; 80162; 82550; 82553; 83605; 83690; 83880; 84484; 85025; 85610; 85652; 85730; 86140; 87040; 87631; 93005; 93041; 94760; 99285; Q9967

== ENCOUNTER → 2021-05-23 | Outpatient (CLI) | payer MEDICARE ==
[2021-05-23 12:49] LABS: HEMOGLOBIN A1c 8.6 %
[2021-05-23 13:12] LABS: ALBUMIN 3.8 GM/DL (3.2-5.2); BILIRUBIN,TOTAL 0.7 MG/DL (0.2-1.0); CALCIUM LEVEL 9.2 MG/DL (8.8-10.2); CHOLESTEROL RISK RATIO 3.204 (<5); CREATININE FOR GFR 1.37 MG/DL (0.70-1.30); GLOMERULAR FILTRATION RATE 55.5 (>49); POTASSIUM SERUM 3.8 MEQ/L (3.5-5.1); THYROID STIMULATING HORMONE 3.63 uIU/ML (0.358-3.740); TOTAL PROTEIN 6.9 GM/DL (6.4-8.2)
== END ==
LOC: M WUC 09:58
PROVIDERS: ATTEND Internal Medicine
DX: E78.5 Hyperlipidemia, unspecified (principal); E03.9 Hypothyroidism, unspecified; E11.9 Type 2 diabetes mellitus without complications; I10 Essential (primary) hypertension

== ENCOUNTER → 2021-08-26 | Outpatient (CLI) | payer MEDICARE ==
[2021-08-26 12:34] LABS: HEMOGLOBIN 15.4 g/dl (13.5-17.5); MEAN CORPUSCULAR HEMOGLOBIN 29.6 pg (27.0-33.0); MEAN CORPUSCULAR HGB CONC 32.1 g/dl (32.0-36.5); MEAN CORPUSCULAR VOLUME 92.3 fl (80.0-96.0); PLATELET COUNT, AUTOMATED 286 10^3/uL (150-450)
[2021-08-26 13:28] LABS: ALBUMIN 3.7 GM/DL (3.2-5.2); BILIRUBIN,TOTAL 0.8 MG/DL (0.2-1.0); CALCIUM LEVEL 10.9 MG/DL (8.8-10.2); CHOLESTEROL RISK RATIO 3.25 (<5); CREATININE FOR GFR 1.32 MG/DL (0.70-1.30); GLOMERULAR FILTRATION RATE 57.9 (>49); POTASSIUM SERUM 4.5 MEQ/L (3.5-5.1); TOTAL PROTEIN 6.7 GM/DL (6.4-8.2)
[2021-08-26 14:29] LABS: HEMOGLOBIN A1c 7.7 %
== END ==
LOC: M WUC 08:44
PROVIDERS: ATTEND Internal Medicine
DX: E11.9 Type 2 diabetes mellitus without complications (principal)

== ENCOUNTER → 2021-09-05 | Outpatient (CLI) | payer MEDICARE ==
[2021-09-05 10:30] LABS: CALCIUM LEVEL 9.9 MG/DL (8.8-10.2); CREATININE FOR GFR 1.39 MG/DL (0.70-1.30); GLOMERULAR FILTRATION RATE 54.6 (>49); MAGNESIUM LEVEL 2.1 MG/DL (1.8-2.4); POTASSIUM SERUM 4.3 MEQ/L (3.5-5.1)
== END ==
LOC: M WUC 08:29
PROVIDERS: ATTEND Physician Assistant
DX: I50.42 Chronic combined systolic (congestive) and diastolic (congestive) heart failure (principal)

== ENCOUNTER → 2021-10-30 | Outpatient (CLI) | payer MEDICARE | LOC: M RAD 11:55 | PROVIDERS: ATTEND Surgery | DX: K40.91 Unilateral inguinal hernia, without obstruction or gangrene, recurrent (principal) ==

== ENCOUNTER → 2021-11-21 | Outpatient (CLI) | payer MEDICARE ==
[2021-11-21 17:14] LABS: CALCIUM LEVEL 10.3 MG/DL (8.8-10.2); CREATININE FOR GFR 1.37 MG/DL (0.70-1.30); GLOMERULAR FILTRATION RATE 55.5 (>49); POTASSIUM SERUM 4.3 MEQ/L (3.5-5.1)
== END ==
LOC: M WUC 11:32
PROVIDERS: ATTEND Physician Assistant
DX: I50.42 Chronic combined systolic (congestive) and diastolic (congestive) heart failure (principal)

== ENCOUNTER → 2021-12-05 | Outpatient (CLI) | payer MEDICARE | LOC: M RAD 10:23 | PROVIDERS: ATTEND Surgery | DX: K40.91 Unilateral inguinal hernia, without obstruction or gangrene, recurrent (principal) ==

== ENCOUNTER → 2021-12-31 | Outpatient (CLI) | payer MEDICARE ==
[~2021-12-31] MED LIST changes: +GLIP5TAB20 PO; +METF-877 PO; +SYNT75TA PO
== END ==
LOC: M LABSMTC 09:43
PROVIDERS: ATTEND Anesthesiology
DX: Z01.812 Encounter for preprocedural laboratory examination (principal); Z20.822 Contact with and (suspected) exposure to COVID-19

== ENCOUNTER 2022-01-05 08:16 | Day surgery (SDC) | payer MEDICARE ==
[~2022-01-05] VITALS: Ht 172.7 cm; Wt 98.9 kg
[~2022-01-05 08:16] MED LIST changes: +CelecoXIB 400 MG CAP PO ONE; +ceFAZolin SOD 2 GM in IV 1 EA IV ONE
[2022-01-05] MEDS ORDERED: LR 1,000 ML IV SCH ×2 (08:30→13:35)
[2022-01-05] MEDS ORDERED: LIDOCAINE 1% SDV 30ML VIAL As Ordered ONE (10:06)
[2022-01-05] MEDS ORDERED: BUPIVACAINE HCL 0.25% 30ML VIAL As Ordered ONE (10:06)
[2022-01-05] MEDS ORDERED: ONDANSETRON 4MG 2ML VIAL As Ordered ONE (10:47)
[2022-01-05] MEDS ORDERED: LIDOCAINE 2% 100MG/5ML SDV (FOR ANES.) As Ordered ONE (10:47)
[2022-01-05] MEDS ORDERED: dexameTHASONE 4 MG/ML 1ML VIAL (J1100 PER 1MG) As Ordered ONE (10:47)
[2022-01-05] MEDS ORDERED: SUGAMMADEX SODIUM 500 MG/5 ML VIAL (BRIDION) As Ordered ONE (10:47)
[2022-01-05] MEDS ORDERED: MIDAZOLAM INJ 2MG/2ML VIAL (J2250 PER 1MG) As Ordered ONE (10:47)
[2022-01-05] MEDS ORDERED: KETOROLAC 60MG 2ML VIAL As Ordered ONE (10:47)
[2022-01-05] MEDS ORDERED: ROCURONIUM BROMIDE 50 MG/5 ML VIAL As Ordered ONE ×2 (10:47→10:59)
[2022-01-05] MEDS ORDERED: PHENYLephrine 500MCG 5ML (100MCG/ML) SYRINGE As Ordered ONE (10:47)
[2022-01-05] MEDS ORDERED: propofoL 200 MG/20 ML VIAL As Ordered ONE (10:47)
[2022-01-05] MEDS ORDERED: fentaNYL 250 MCG/5 ML INJECTION As Ordered ONE (10:47)
[2022-01-05] MEDS ORDERED: ONDANSETRON 4MG 2ML VIAL IV PRN (13:35)
[2022-01-05] MEDS ORDERED: oxyCODONE 5MG TAB PO PRN (13:35)
[2022-01-05] MEDS ORDERED: fentaNYL 100 MCG/2 ML INJECTION IV PRN (13:35)
[2022-01-05] MEDS ORDERED: HYDROMORPHONE HCL 0.5 MG/ 0.5 ML SYRINGE (J1170 PER 1) IV PRN (13:35)
[2022-01-05] MEDS ORDERED: KETOROLAC 30 MG/ML 1ML VIAL IV PRN (14:15)
[2022-01-05] MEDS ORDERED: NORCO, ANEXSIA 5/325MG TABLET (HYDROcodone/ACETAMINOPHEN) PO PRN (14:20)
[2022-01-05 16:10] VITALS: BP 113/63
== END 2022-01-05 16:15 | disposition home or self-care (01) ==
LOC: M SDC 08:16
PROVIDERS: ATTEND Surgery
DX: K40.91 Unilateral inguinal hernia, without obstruction or gangrene, recurrent (principal); I48.91 Unspecified atrial fibrillation; I50.9 Heart failure, unspecified; I10 Essential (primary) hypertension; E78.5 Hyperlipidemia, unspecified; E11.9 Type 2 diabetes mellitus without complications; E03.9 Hypothyroidism, unspecified; Z79.01 Long term (current) use of anticoagulants; Z79.899 Other long term (current) drug therapy; Z79.84 Long term (current) use of oral hypoglycemic drugs
CPT/HCPCS: 49651; C1781; J0690; J1100; J1885; J2250; J2370; J2405; J3010; S2900

== ENCOUNTER → 2022-02-24 | Outpatient (CLI) | payer MEDICARE ==
[~2022-02-24] MED LIST changes: -CelecoXIB 400 MG CAP PO ONE; -ceFAZolin SOD 2 GM in IV 1 EA IV ONE
[2022-02-24 10:35] LABS: ALBUMIN 3.8 G/DL (3.2-5.2); ALKALINE PHOSPHATASE 80 U/L (46-116); ALT/SGPT 14 U/L (7.0-40); AST/SGOT 14 U/L (<34); BILIRUBIN,TOTAL 1.1 MG/DL (0.3-1.2); BLOOD UREA NITROGEN 21 MG/DL (9-23); CALCIUM LEVEL 10.6 MG/DL (8.3-10.6); CARBON DIOXIDE LEVEL 29 MMOL/L (20-31); CHLORIDE LEVEL 103 MMOL/L (98-107); CHOLESTEROL LEVEL 162 MG/DL (<200); CHOLESTEROL RISK RATIO 3.69 (<5); CREATININE FOR GFR 1.06 MG/DL (0.70-1.30); GLOMERULAR FILTRATION RATE > 60.0 (>49); GLUCOSE, FASTING 153 MG/DL (74-106); HDL CHOLESTEROL 43.8 MG/DL (>40); LDL CHOLESTEROL 89.6 MG/DL (<100); NON-HDL-C 118 MG/DL; POTASSIUM SERUM 4.9 MMOL/L (3.5-5.1); SODIUM LEVEL 141 MMOL/L (136-145); TOTAL PROTEIN 6.7 G/DL (5.7-8.2); TRIGLYCERIDES LEVEL 143 MG/DL (<150)
[2022-02-24 10:36] LABS: THYROID STIMULATING HORMONE 1.667 uIU/ML (0.55-4.78)
[2022-02-24 10:43] LABS: HEMOGLOBIN A1c 8.1 % (4.0-6.0)
== END ==
LOC: M WUC 08:48
PROVIDERS: ATTEND Internal Medicine
DX: E11.9 Type 2 diabetes mellitus without complications (principal); E78.5 Hyperlipidemia, unspecified; E03.9 Hypothyroidism, unspecified

== ENCOUNTER → 2022-03-23 | Outpatient (CLI) | payer MEDICARE ==
[2022-03-23 12:47] LABS: HEMATOCRIT 50.2 % (42.0-52.0); HEMOGLOBIN 15.6 g/dl (13.5-17.5); MEAN CORPUSCULAR HEMOGLOBIN 29.9 pg (27.0-33.0); MEAN CORPUSCULAR HGB CONC 31.1 g/dl (32.0-36.5); MEAN CORPUSCULAR VOLUME 96.2 fl (80.0-96.0); PLATELET COUNT, AUTOMATED 256 10^3/uL (150-450); RED BLOOD COUNT 5.22 10^6/uL (4.30-6.10); WHITE BLOOD COUNT 10.3 10^3/uL (4.0-10.0)
[2022-03-23 13:06] LABS: MAGNESIUM LEVEL 1.9 MG/DL (1.8-2.4)
[2022-03-23 13:07] LABS: BLOOD UREA NITROGEN 23 MG/DL (9-23); CALCIUM LEVEL 10.3 MG/DL (8.3-10.6); CARBON DIOXIDE LEVEL 29 MMOL/L (20-31); CHLORIDE LEVEL 104 MMOL/L (98-107); CREATININE FOR GFR 1.13 MG/DL (0.70-1.30); GLOMERULAR FILTRATION RATE > 60.0 (>49); GLUCOSE, FASTING 162 MG/DL (74-106); POTASSIUM SERUM 4.7 MMOL/L (3.5-5.1); SODIUM LEVEL 141 MMOL/L (136-145)
== END ==
LOC: M WUC 09:39
PROVIDERS: ATTEND Physician Assistant
DX: I50.42 Chronic combined systolic (congestive) and diastolic (congestive) heart failure (principal); I48.21 Permanent atrial fibrillation

== ENCOUNTER → 2022-06-10 | Outpatient (CLI) | payer MEDICARE ==
[2022-06-10 16:50] LABS: ALBUMIN 4.1 G/DL (3.2-5.2); ALKALINE PHOSPHATASE 78 U/L (46-116); ALT/SGPT 20 U/L (7.0-40); AST/SGOT < 8 U/L (<34); BILIRUBIN,TOTAL 0.9 MG/DL (0.3-1.2); BLOOD UREA NITROGEN 30 MG/DL (9-23); CALCIUM LEVEL 10.6 MG/DL (8.3-10.6); CARBON DIOXIDE LEVEL 30 MMOL/L (20-31); CHLORIDE LEVEL 102 MMOL/L (98-107); CHOLESTEROL LEVEL 135 MG/DL (<200); CHOLESTEROL RISK RATIO 3.13 (<5); CREATININE FOR GFR 1.22 MG/DL (0.70-1.30); GLOMERULAR FILTRATION RATE > 60.0 (>49); GLUCOSE, FASTING 176 MG/DL (74-106); HDL CHOLESTEROL 43.1 MG/DL (>40); LDL CHOLESTEROL 66.7 MG/DL (<100); NON-HDL-C 91.9 MG/DL; POTASSIUM SERUM 4.7 MMOL/L (3.5-5.1); SODIUM LEVEL 140 MMOL/L (136-145); TOTAL PROTEIN 6.9 G/DL (5.7-8.2); TRIGLYCERIDES LEVEL 126 MG/DL (<150)
[2022-06-10 16:52] LABS: THYROID STIMULATING HORMONE 2.382 uIU/ML (0.55-4.78)
[2022-06-10 16:53] LABS: HEMOGLOBIN A1c 9.4 % (4.0-6.0)
[2022-06-10 17:21] LABS: BASO # 0.1 10^3/uL (0.0-0.2); BASO % 0.5 % (0.0-1.0); EOS # 0.2 10^3/uL (0.0-0.5); EOS % 1.9 % (0.0-3.0); HEMATOCRIT 50.1 % (42.0-52.0); HEMOGLOBIN 15.9 g/dl (13.5-17.5); LYMPH # 2.1 10^3/uL (1.5-5.0); LYMPH % 17.9 % (24.0-44.0); MEAN CORPUSCULAR HEMOGLOBIN 29.8 pg (27.0-33.0); MEAN CORPUSCULAR HGB CONC 31.7 g/dl (32.0-36.5); MONO # 0.9 10^3/uL (0.0-0.8); MONO % 7.6 % (2.0-8.0); NEUTROPHILS # 8.4 10^3/uL (1.5-8.5); NEUTROPHILS % 71.6 % (36.0-66.0); PLATELET COUNT, AUTOMATED 274 10^3/uL (150-450); RED BLOOD COUNT 5.33 10^6/uL (4.30-6.10); WHITE BLOOD COUNT 11.7 10^3/uL (4.0-10.0)
== END ==
LOC: M WUC 11:47
PROVIDERS: ATTEND Internal Medicine
DX: E78.5 Hyperlipidemia, unspecified (principal); E11.9 Type 2 diabetes mellitus without complications; E03.9 Hypothyroidism, unspecified; I50.42 Chronic combined systolic (congestive) and diastolic (congestive) heart failure

== ENCOUNTER → 2022-06-10 | Outpatient (CLI) | payer MEDICARE ==
[2022-06-10 16:48] LABS: BLOOD UREA NITROGEN 29 MG/DL (9-23); CALCIUM LEVEL 10.3 MG/DL (8.3-10.6); CARBON DIOXIDE LEVEL 32 MMOL/L (20-31); CHLORIDE LEVEL 102 MMOL/L (98-107); GLOMERULAR FILTRATION RATE > 60.0 (>49); GLUCOSE, FASTING 173 MG/DL (74-106); MAGNESIUM LEVEL 1.9 MG/DL (1.8-2.4); POTASSIUM SERUM 4.5 MMOL/L (3.5-5.1); SODIUM LEVEL 140 MMOL/L (136-145)
== END ==
LOC: M WUC 11:50
PROVIDERS: ATTEND Physician Assistant
DX: I50.42 Chronic combined systolic (congestive) and diastolic (congestive) heart failure (principal)

== ENCOUNTER 2022-11-24 06:26 | Inpatient (IN) | payer MEDICARE ==
[~2022-11-24] VITALS: Ht 172.7 cm; Wt 96.8 kg
[~2022-11-24 06:26] MED LIST changes: -COZA50TA PO; +LOSA-528 PO
[2022-11-24 07:13] LABS: BASO % 0.4 % (0.0-1.0); EOS # 0.2 10^3/uL (0.0-0.5); EOS % 1.7 % (0.0-3.0); HEMATOCRIT 46.4 % (42.0-52.0); LYMPH # 1.5 10^3/uL (1.5-5.0); LYMPH % 14.9 % (24.0-44.0); MEAN CORPUSCULAR HEMOGLOBIN 30.1 pg (27.0-33.0); MEAN CORPUSCULAR HGB CONC 32.3 g/dl (32.0-36.5); MEAN CORPUSCULAR VOLUME 93.2 fl (80.0-96.0); MONO # 0.9 10^3/uL (0.0-0.8); MONO % 8.4 % (2.0-8.0); NEUTROPHILS # 7.6 10^3/uL (1.5-8.5); NEUTROPHILS % 74.1 % (36.0-66.0); PLATELET COUNT, AUTOMATED 240 10^3/uL (150-450); RED BLOOD COUNT 4.98 10^6/uL (4.30-6.10); WHITE BLOOD COUNT 10.3 10^3/uL (4.0-10.0)
[2022-11-24 07:29] LABS: CK-MB VALUE MASS 2.2 NG/ML (<3.6)
[2022-11-24 07:32] LABS: ALBUMIN 4.1 G/DL (3.2-5.2); ALKALINE PHOSPHATASE 88 U/L (46-116); ALT/SGPT 18 U/L (7.0-40); AST/SGOT 15 U/L (<34); BILIRUBIN,DIRECT 0.6 MG/DL (<0.4); BILIRUBIN,TOTAL 2.1 MG/DL (0.3-1.2); BLOOD UREA NITROGEN 26 MG/DL (9-23); CALCIUM LEVEL 10.3 MG/DL (8.3-10.6); CARBON DIOXIDE LEVEL 28 MMOL/L (20-31); CHLORIDE LEVEL 105 MMOL/L (98-107); CREATININE FOR GFR 1.02 MG/DL (0.70-1.30); GLOMERULAR FILTRATION RATE > 60.0 (>49); GLUCOSE, FASTING 273 MG/DL (74-106); POTASSIUM SERUM 4.8 MMOL/L (3.5-5.1); SODIUM LEVEL 141 MMOL/L (136-145); TOTAL PROTEIN 6.9 G/DL (5.7-8.2)
[2022-11-24 07:34] LABS: CPK CREATINE PHOSPHOKINASE 69 U/L (46-171); MB/CK RELATIVE INDEX 3.18 (< OR =4)
[2022-11-24] MEDS ORDERED: ISOVUE-370 76% 100ML VIAL As Ordered ONE (08:27)
[2022-11-24] MEDS ORDERED: FUROSEMIDE 100MG/10ML VIAL IV ONE (09:55)
[2022-11-24 10:14] LABS: DIGOXIN LEVEL 0.2 NG/ML (0.8-2.0)
[2022-11-24 10:17] LABS: THYROID STIMULATING HORMONE 2.726 uIU/ML (0.55-4.78)
[2022-11-24] MEDS ORDERED: MED REC IN PROGRESS XX SCH (10:30)
[2022-11-24] MEDS ORDERED: METF-1191 PO (10:42)
[2022-11-24] MEDS ORDERED: MOM 30ML SUSPENSION UDC PO PRN (10:45)
[2022-11-24] MEDS ORDERED: COLC0.6T47 PO (10:47)
[2022-11-24] MEDS ORDERED: HOME MED LIST COMPLETE! XX SCH (10:55)
[2022-11-24] MEDS: DAPAGLIFLOZIN PROPANEDIOL 10MG TABLET (FARXIGA) PO SCH (12:24)
[2022-11-24] MEDS: SPIRONOLACTONE 25 MG TAB PO SCH (12:26)
[2022-11-24] MEDS: VITAMIN D 1,000 INTERNATIONAL UNITS TABLET PO SCH (12:26)
[2022-11-24] MEDS: DIGOXIN 0.125 MG TAB PO SCH (12:27)
[2022-11-24] MEDS: LOSARTAN 50MG TABLET PO SCH (12:27)
[2022-11-24] MEDS: ASPIRIN 81MG ENTERIC TABLET PO SCH (12:27)
[2022-11-24] MEDS: bisoproloL fumarate 5 MG TAB PO SCH (12:27)
[2022-11-24] MEDS: LEVOTHYROXINE 75MCG TABLET (0.075MG) PO SCH (12:27)
[2022-11-24] MEDS: APIXABAN 5 MG TAB (ELIQUIS) PO SCH ×2 (12:27→20:16)
[2022-11-24] MEDS: DOCUSATE SODIUM 100MG CAPSULE PO SCH ×2 (12:28→20:16)
[2022-11-24] MEDS: SIMVASTATIN 10 MG TAB PO SCH (12:28)
[2022-11-24 12:53] LABS: INR 1.15; PROTHROMBIN TIME 14.3 SECONDS (12.5-14.5)
[2022-11-24 17:23] VITALS: BP 149/86; TEMP 98.1; O2SAT 98
[2022-11-24] MEDS: FUROSEMIDE 40MG/4ML VIAL IV SCH (17:37)
[2022-11-24 19:52] VITALS: BP 123/75; TEMP 97.7; O2SAT 96
[2022-11-24] MEDS ORDERED: GLUCOSE 4GM CHEW TABLET PO PRN (20:10)
[2022-11-24] MEDS ORDERED: DEXTROSE 50% 50ML SYRINGE IV PRN (20:10)
[2022-11-24] MEDS ORDERED: GLUCAGON INJ 1MG VIAL SC PRN (20:10)
[2022-11-24] MEDS: INSULIN LISPRO (NovoLOG) PER UNIT SC SCH (20:17)
[2022-11-24] MEDS: ACETAMINOPHEN TAB 650MG DOSE (2X325MG) PO PRN (20:18)
[2022-11-25 05:54] VITALS: BP 118/75; TEMP 97.5; O2SAT 98
[2022-11-25 06:20] LABS: HEMATOCRIT 42.3 % (42.0-52.0); MEAN CORPUSCULAR HEMOGLOBIN 30.4 pg (27.0-33.0); MEAN CORPUSCULAR HGB CONC 33.1 g/dl (32.0-36.5); PLATELET COUNT, AUTOMATED 208 10^3/uL (150-450); WHITE BLOOD COUNT 8.9 10^3/uL (4.0-10.0)
[2022-11-25 06:48] LABS: BLOOD UREA NITROGEN 23 MG/DL (9-23); CALCIUM LEVEL 9.4 MG/DL (8.3-10.6); CARBON DIOXIDE LEVEL 33 MMOL/L (20-31); CHLORIDE LEVEL 103 MMOL/L (98-107); CREATININE FOR GFR 1.02 MG/DL (0.70-1.30); GLOMERULAR FILTRATION RATE > 60.0 (>49); GLUCOSE, FASTING 243 MG/DL (74-106); MAGNESIUM LEVEL 1.5 MG/DL (1.8-2.4); POTASSIUM SERUM 4.3 MMOL/L (3.5-5.1); SODIUM LEVEL 142 MMOL/L (136-145)
[2022-11-25] MEDS: SIMVASTATIN 10 MG TAB PO SCH (08:36)
[2022-11-25] MEDS: bisoproloL fumarate 5 MG TAB PO SCH (08:36)
[2022-11-25] MEDS: VITAMIN D 1,000 INTERNATIONAL UNITS TABLET PO SCH (08:36)
[2022-11-25] MEDS: SPIRONOLACTONE 25 MG TAB PO SCH (08:36)
[2022-11-25] MEDS: DOCUSATE SODIUM 100MG CAPSULE PO SCH ×2 (08:36→20:12)
[2022-11-25] MEDS: DIGOXIN 0.125 MG TAB PO SCH (08:37)
[2022-11-25] MEDS: ASPIRIN 81MG ENTERIC TABLET PO SCH (08:37)
[2022-11-25] MEDS: APIXABAN 5 MG TAB (ELIQUIS) PO SCH ×2 (08:37→20:12)
[2022-11-25] MEDS: LOSARTAN 50MG TABLET PO SCH (08:37)
[2022-11-25] MEDS: DAPAGLIFLOZIN PROPANEDIOL 10MG TABLET (FARXIGA) PO SCH (08:37)
[2022-11-25] MEDS: LEVOTHYROXINE 75MCG TABLET (0.075MG) PO SCH (08:37)
[2022-11-25] MEDS: INSULIN LISPRO (NovoLOG) PER UNIT SC SCH ×4 (08:38→20:12)
[2022-11-25] MEDS: FUROSEMIDE 40MG/4ML VIAL IV SCH ×2 (08:38→16:21)
[2022-11-25] MEDS ORDERED: LEVEMIR (INSULIN DETEMIR) 1 UNITS/0.01ML SC SCH (09:00)
[2022-11-25 09:17] LABS: HEMOGLOBIN A1c 9.8 % (4.0-6.0)
[2022-11-25] MEDS: MAG SULF 1GM/100ML (MAG RUN) 1 GM in IV 1 EA IV SCH ×3 (09:34→11:31)
[2022-11-25 15:06] LABS: ALBUMIN 3.3 G/DL (3.2-5.2); ALKALINE PHOSPHATASE 71 U/L (46-116); ALT/SGPT 15 U/L (7.0-40); AST/SGOT 11 U/L (<34); BILIRUBIN,DIRECT 0.8 MG/DL (<0.4); BILIRUBIN,TOTAL 2.3 MG/DL (0.3-1.2); TOTAL PROTEIN 5.7 G/DL (5.7-8.2)
[2022-11-25] MEDS ORDERED: FARX1TAB3 PO (15:11)
[2022-11-25] MEDS ORDERED: LEVEMIR (INSULIN DETEMIR) 1 UNITS/0.01ML SC ONE (15:15)
[2022-11-25] MEDS ORDERED: LANC30MI XX (15:19)
[2022-11-25] MEDS ORDERED: PEN1MIS21 SC (15:19)
[2022-11-25] MEDS ORDERED: GLUC1TES2 XX (15:19)
[2022-11-25] MEDS ORDERED: BLOOKIT21 XX (15:19)
[2022-11-25] MEDS ORDERED: LANTINJ4 SC (15:19)
[2022-11-25] MEDS ORDERED: ALCOPAD25 TOP (15:19)
[2022-11-25] MEDS ORDERED: TRES1INJ2 SC (15:37)
[2022-11-25] MEDS ORDERED: JARD1TAB PO (15:37)
[2022-11-25] MEDS ORDERED: INVO100T PO (16:12)
[2022-11-25 16:21] VITALS: BP 112/73
[2022-11-25 20:12] VITALS: BP 150/80; TEMP 98.1; O2SAT 95
[2022-11-25] MEDS: ACETAMINOPHEN TAB 650MG DOSE (2X325MG) PO PRN (20:14)
[2022-11-25 22:40] VITALS: O2SAT 85
[2022-11-25 22:41] VITALS: O2SAT 96
[2022-11-26 05:39] VITALS: BP 113/58; TEMP 97.5; O2SAT 95
[2022-11-26 06:21] LABS: HEMATOCRIT 45.4 % (42.0-52.0); MEAN CORPUSCULAR HEMOGLOBIN 30.4 pg (27.0-33.0); MEAN CORPUSCULAR VOLUME 91.9 fl (80.0-96.0); PLATELET COUNT, AUTOMATED 220 10^3/uL (150-450); RED BLOOD COUNT 4.94 10^6/uL (4.30-6.10); WHITE BLOOD COUNT 9.7 10^3/uL (4.0-10.0)
[2022-11-26 06:49] LABS: BLOOD UREA NITROGEN 27 MG/DL (9-23); CALCIUM LEVEL 9.9 MG/DL (8.3-10.6); CARBON DIOXIDE LEVEL 32 MMOL/L (20-31); CHLORIDE LEVEL 101 MMOL/L (98-107); CREATININE FOR GFR 1.24 MG/DL (0.70-1.30); GLOMERULAR FILTRATION RATE > 60.0 (>49); GLUCOSE, FASTING 171 MG/DL (74-106); MAGNESIUM LEVEL 2.3 MG/DL (1.8-2.4); POTASSIUM SERUM 3.9 MMOL/L (3.5-5.1); SODIUM LEVEL 142 MMOL/L (136-145)
[2022-11-26] MEDS: LEVOTHYROXINE 75MCG TABLET (0.075MG) PO SCH (08:52)
[2022-11-26] MEDS: DOCUSATE SODIUM 100MG CAPSULE PO SCH (08:52)
[2022-11-26] MEDS: DAPAGLIFLOZIN PROPANEDIOL 10MG TABLET (FARXIGA) PO SCH (08:52)
[2022-11-26] MEDS: VITAMIN D 1,000 INTERNATIONAL UNITS TABLET PO SCH (08:52)
[2022-11-26] MEDS: SIMVASTATIN 10 MG TAB PO SCH (08:52)
[2022-11-26] MEDS: APIXABAN 5 MG TAB (ELIQUIS) PO SCH (08:52)
[2022-11-26] MEDS: ASPIRIN 81MG ENTERIC TABLET PO SCH (08:52)
[2022-11-26 08:53] VITALS: BP 113/79
[2022-11-26] MEDS: DIGOXIN 0.125 MG TAB PO SCH (08:53)
[2022-11-26] MEDS: LOSARTAN 50MG TABLET PO SCH (08:53)
[2022-11-26] MEDS: bisoproloL fumarate 5 MG TAB PO SCH (08:53)
[2022-11-26] MEDS: SPIRONOLACTONE 25 MG TAB PO SCH (08:54)
[2022-11-26] MEDS: FUROSEMIDE 40MG/4ML VIAL IV SCH (08:54)
[2022-11-26] MEDS: INSULIN LISPRO (NovoLOG) PER UNIT SC SCH ×2 (08:55→13:08)
[2022-11-26] MEDS ORDERED: LEVEMIR (INSULIN DETEMIR) 1 UNITS/0.01ML SC SCH (09:00)
== END 2022-11-26 13:38 | disposition home or self-care (01) | DRG 291 ==
LOC: M ED 06:26 → M ED INP 10:41 → M MSPAV 17:17
PROVIDERS: ADMIT Student in an Organized Health Care Education/Training Program; ATTEND Student in an Organized Health Care Education/Training Program
PROC: B246ZZ4 Ultrasonography of Right and Left Heart, Transesophageal (ICD-10-PCS; principal; 2022-11-24)
DX: I11.0 Hypertensive heart disease with heart failure (principal); I50.23 Acute on chronic systolic (congestive) heart failure; I48.21 Permanent atrial fibrillation; I31.39 Other pericardial effusion (noninflammatory); I42.8 Other cardiomyopathies; I27.20 Pulmonary hypertension, unspecified; E03.9 Hypothyroidism, unspecified; E11.9 Type 2 diabetes mellitus without complications; E78.5 Hyperlipidemia, unspecified; G47.33 Obstructive sleep apnea (adult) (pediatric); Z79.01 Long term (current) use of anticoagulants; I34.0 Nonrheumatic mitral (valve) insufficiency; I45.10 Unspecified right bundle-branch block; K80.20 Calculus of gallbladder without cholecystitis without obstruction; Z79.82 Long term (current) use of aspirin; Z79.899 Other long term (current) drug therapy; Z79.4 Long term (current) use of insulin

== ENCOUNTER → 2023-02-08 | Outpatient (CLI) | payer MEDICARE ==
[~2023-02-08] MED LIST changes: +ALCOPAD25 TOP; +BLOOKIT21 XX; +COLC0.6T47 PO; +FARX1TAB3 PO; +GLUC1TES2 XX; +INVO100T PO; +JARD1TAB PO; +LANC30MI XX; +LANTINJ4 SC; +PEN-308 SC; +TRES1INJ2 SC
[2023-02-08 13:00] LABS: HEMATOCRIT 49.7 % (42.0-52.0); HEMOGLOBIN 15.9 g/dl (13.5-17.5); MEAN CORPUSCULAR HEMOGLOBIN 29.9 pg (27.0-33.0); MEAN CORPUSCULAR VOLUME 93.6 fl (80.0-96.0); PLATELET COUNT, AUTOMATED 279 10^3/uL (150-450); RED BLOOD COUNT 5.31 10^6/uL (4.30-6.10); WHITE BLOOD COUNT 10.4 10^3/uL (4.0-10.0)
[2023-02-08 13:38] LABS: ALBUMIN 3.9 G/DL (3.2-5.2); ALKALINE PHOSPHATASE 62 U/L (46-116); ALT/SGPT 14 U/L (7.0-40); AST/SGOT 14 U/L (<34); BILIRUBIN,TOTAL 0.7 MG/DL (0.3-1.2); BLOOD UREA NITROGEN 29 MG/DL (9-23); CALCIUM LEVEL 9.7 MG/DL (8.3-10.6); CARBON DIOXIDE LEVEL 28 MMOL/L (20-31); CHLORIDE LEVEL 105 MMOL/L (98-107); GLOMERULAR FILTRATION RATE > 60.0 (>49); GLUCOSE, FASTING 165 MG/DL (74-106); POTASSIUM SERUM 4.6 MMOL/L (3.5-5.1); SODIUM LEVEL 138 MMOL/L (136-145); TOTAL PROTEIN 6.6 G/DL (5.7-8.2)
== END ==
LOC: M WUC 09:50
PROVIDERS: ATTEND Internal Medicine
DX: I50.9 Heart failure, unspecified (principal)

== ENCOUNTER → 2023-03-31 | Outpatient (CLI) | payer OTHER ==
[2023-03-31 12:56] LABS: BASO % 0.4 % (0.0-1.0); EOS # 0.2 10^3/uL (0.0-0.5); EOS % 1.4 % (0.0-3.0); HEMATOCRIT 49.2 % (42.0-52.0); HEMOGLOBIN 15.8 g/dl (13.5-17.5); LYMPH # 1.6 10^3/uL (1.5-5.0); LYMPH % 14.8 % (24.0-44.0); MEAN CORPUSCULAR HEMOGLOBIN 29.5 pg (27.0-33.0); MEAN CORPUSCULAR HGB CONC 32.1 g/dl (32.0-36.5); MEAN CORPUSCULAR VOLUME 91.8 fl (80.0-96.0); MONO # 0.8 10^3/uL (0.0-0.8); MONO % 7.4 % (2.0-8.0); NEUTROPHILS # 7.9 10^3/uL (1.5-8.5); NEUTROPHILS % 75.8 % (36.0-66.0); PLATELET COUNT, AUTOMATED 251 10^3/uL (150-450); RED BLOOD COUNT 5.36 10^6/uL (4.30-6.10); WHITE BLOOD COUNT 10.5 10^3/uL (4.0-10.0)
[2023-03-31 13:44] LABS: ALBUMIN 3.8 G/DL (3.2-5.2); BILIRUBIN,TOTAL 0.9 MG/DL (0.3-1.2); CALCIUM LEVEL 10.1 MG/DL (8.3-10.6); CHOLESTEROL RISK RATIO 3.76 (<5); CREATININE FOR GFR 1.34 MG/DL (0.70-1.30); GLOMERULAR FILTRATION RATE 56.6 (>49); HDL CHOLESTEROL 38.8 MG/DL (>40); LDL CHOLESTEROL 87.2 MG/DL (<100); NON-HDL-C 107.2 MG/DL; POTASSIUM SERUM 4.6 MMOL/L (3.5-5.1); TOTAL PROTEIN 6.7 G/DL (5.7-8.2)
[2023-03-31 13:46] LABS: THYROID STIMULATING HORMONE 2.16 uIU/ML (0.55-4.78)
[2023-03-31 14:01] LABS: HEMOGLOBIN A1c 8.5 % (4.0-6.0)
== END ==
LOC: M WUC 09:20
PROVIDERS: ATTEND Internal Medicine
DX: I48.91 Unspecified atrial fibrillation (principal); E78.5 Hyperlipidemia, unspecified; E11.9 Type 2 diabetes mellitus without complications

== ENCOUNTER → 2023-03-31 | Outpatient (CLI) | payer OTHER ==
[2023-03-31 13:23] LABS: ALBUMIN 3.9 G/DL (3.2-5.2); BILIRUBIN,TOTAL 0.9 MG/DL (0.3-1.2); CALCIUM LEVEL 9.6 MG/DL (8.3-10.6); CREATININE FOR GFR 1.34 MG/DL (0.70-1.30); GLOMERULAR FILTRATION RATE 56.6 (>49); POTASSIUM SERUM 4.5 MMOL/L (3.5-5.1); TOTAL PROTEIN 6.5 G/DL (5.7-8.2)
== END ==
LOC: M WUC 09:25
PROVIDERS: ATTEND Internal Medicine Cardiovascular Disease
DX: I50.42 Chronic combined systolic (congestive) and diastolic (congestive) heart failure (principal)

== ENCOUNTER → 2023-04-23 | Outpatient (CLI) | payer OTHER ==
[~2023-04-23] MED LIST changes: -MIRA1POW3 PO; +MIRA33506 PO
== END ==
LOC: M WUC 10:56
PROVIDERS: ATTEND Internal Medicine
DX: J10.1 Influenza due to other identified influenza virus with other respiratory manifestations (principal)

== ENCOUNTER → 2023-05-06 | Outpatient (CLI) | payer MEDICARE, OTHER ==
[~2023-05-06] MED LIST changes: +ENTR1TAB7 PO; +METF850T4 PO; +PANT40TA29 PO
== END ==
LOC: M SLEEP 20:00
PROVIDERS: ATTEND Nurse Practitioner Family
DX: G47.33 Obstructive sleep apnea (adult) (pediatric) (principal)

== ENCOUNTER → 2023-05-10 | Outpatient (CLI) | payer OTHER | LOC: M LAB 09:36 | PROVIDERS: ATTEND Internal Medicine Cardiovascular Disease | DX: I25.10 Atherosclerotic heart disease of native coronary artery without angina pectoris (principal) ==

== ENCOUNTER → 2023-06-23 | Outpatient (CLI) | payer OTHER ==
[2023-06-23 12:52] LABS: BASO # 0.1 10^3/uL (0.0-0.2); BASO % 0.5 % (0.0-1.0); EOS # 0.2 10^3/uL (0.0-0.5); EOS % 1.5 % (0.0-3.0); HEMATOCRIT 48.4 % (42.0-52.0); HEMOGLOBIN 15.3 g/dl (13.5-17.5); LYMPH # 1.3 10^3/uL (1.5-5.0); LYMPH % 11.8 % (24.0-44.0); MEAN CORPUSCULAR HEMOGLOBIN 28.9 pg (27.0-33.0); MEAN CORPUSCULAR HGB CONC 31.6 g/dl (32.0-36.5); MEAN CORPUSCULAR VOLUME 91.5 fl (80.0-96.0); MONO # 0.6 10^3/uL (0.0-0.8); MONO % 5.7 % (2.0-8.0); NEUTROPHILS # 8.9 10^3/uL (1.5-8.5); NEUTROPHILS % 80.2 % (36.0-66.0); PLATELET COUNT, AUTOMATED 288 10^3/uL (150-450); RED BLOOD COUNT 5.29 10^6/uL (4.30-6.10); WHITE BLOOD COUNT 11.1 10^3/uL (4.0-10.0)
[2023-06-23 13:21] LABS: ALBUMIN 3.6 G/DL (3.2-5.2); BILIRUBIN,TOTAL 0.9 MG/DL (0.3-1.2); CALCIUM LEVEL 10.1 MG/DL (8.3-10.6); CHOLESTEROL RISK RATIO 2.46 (<5); CREATININE FOR GFR 1.5 MG/DL (0.70-1.30); GLOMERULAR FILTRATION RATE 49.7 (>49); HDL CHOLESTEROL 39.7 MG/DL (>40); LDL CHOLESTEROL 35.7 MG/DL (<100); NON-HDL-C 58.3 MG/DL; POTASSIUM SERUM 4.8 MMOL/L (3.5-5.1); TOTAL PROTEIN 6.1 G/DL (5.7-8.2)
[2023-06-23 13:22] LABS: HEMOGLOBIN A1c 7.1 % (4.0-6.0)
== END ==
LOC: M WUC 08:52
PROVIDERS: ATTEND Internal Medicine
DX: I50.9 Heart failure, unspecified (principal); E11.9 Type 2 diabetes mellitus without complications

== ENCOUNTER → 2023-08-24 | Outpatient (CLI) | payer OTHER | LOC: M SLEEP 20:00 | PROVIDERS: ATTEND Nurse Practitioner Family | DX: G47.33 Obstructive sleep apnea (adult) (pediatric) (principal) ==

== ENCOUNTER → 2023-09-28 | Outpatient (CLI) | payer OTHER ==
[2023-09-28 13:13] LABS: BASO % 0.3 % (0.0-1.0); EOS # 0.2 10^3/uL (0.0-0.5); EOS % 1.8 % (0.0-3.0); HEMATOCRIT 44.5 % (42.0-52.0); HEMOGLOBIN 14.2 g/dl (13.5-17.5); LYMPH % 10.7 % (24.0-44.0); MEAN CORPUSCULAR HEMOGLOBIN 29.2 pg (27.0-33.0); MEAN CORPUSCULAR HGB CONC 31.9 g/dl (32.0-36.5); MEAN CORPUSCULAR VOLUME 91.6 fl (80.0-96.0); MONO # 0.6 10^3/uL (0.0-0.8); MONO % 6.9 % (2.0-8.0); NEUTROPHILS # 7.3 10^3/uL (1.5-8.5); NEUTROPHILS % 79.9 % (36.0-66.0); PLATELET COUNT, AUTOMATED 238 10^3/uL (150-450); RED BLOOD COUNT 4.86 10^6/uL (4.30-6.10); WHITE BLOOD COUNT 9.1 10^3/uL (4.0-10.0)
[2023-09-28 13:22] LABS: HEMOGLOBIN A1c 6.6 % (4.0-6.0)
[2023-09-28 13:32] LABS: ALBUMIN 3.4 G/DL (3.2-5.2); BILIRUBIN,TOTAL 0.9 MG/DL (0.3-1.2); CALCIUM LEVEL 9.7 MG/DL (8.3-10.6); CHOLESTEROL RISK RATIO 2.8 (<5); CREATININE FOR GFR 2.1 MG/DL (0.70-1.30); GLOMERULAR FILTRATION RATE 33.7 (>49); HDL CHOLESTEROL 40.3 MG/DL (>40); LDL CHOLESTEROL 55.5 MG/DL (<100); NON-HDL-C 72.7 MG/DL; POTASSIUM SERUM 4.6 MMOL/L (3.5-5.1)
[2023-09-28 13:33] LABS: THYROID STIMULATING HORMONE 1.407 uIU/ML (0.55-4.78)
== END ==
LOC: M WUC 10:20
PROVIDERS: ATTEND Internal Medicine
DX: E78.5 Hyperlipidemia, unspecified (principal); E03.9 Hypothyroidism, unspecified; E11.9 Type 2 diabetes mellitus without complications

== ENCOUNTER → 2023-12-29 | Outpatient (CLI) | payer OTHER ==
[2023-12-29 12:30] LABS: BASO % 0.5 % (0.0-1.0); EOS # 0.2 10^3/uL (0.0-0.5); HEMATOCRIT 49.9 % (42.0-52.0); HEMOGLOBIN 16.2 g/dl (13.5-17.5); LYMPH # 1.4 10^3/uL (1.5-5.0); LYMPH % 15.7 % (24.0-44.0); MEAN CORPUSCULAR HEMOGLOBIN 30.7 pg (27.0-33.0); MEAN CORPUSCULAR HGB CONC 32.5 g/dl (32.0-36.5); MEAN CORPUSCULAR VOLUME 94.5 fl (80.0-96.0); MONO # 0.7 10^3/uL (0.0-0.8); MONO % 8.3 % (2.0-8.0); NEUTROPHILS # 6.4 10^3/uL (1.5-8.5); NEUTROPHILS % 73.3 % (36.0-66.0); PLATELET COUNT, AUTOMATED 220 10^3/uL (150-450); RED BLOOD COUNT 5.28 10^6/uL (4.30-6.10); WHITE BLOOD COUNT 8.7 10^3/uL (4.0-10.0)
[2023-12-29 13:09] LABS: HEMOGLOBIN A1c 7.3 % (4.0-6.0)
[2023-12-29 14:34] LABS: TOTAL 25(OH) VITAMIN D 29.1 NG/ML (20.0-100.0)
[2023-12-29 14:36] LABS: ALBUMIN 3.7 G/DL (3.2-5.2); BILIRUBIN,TOTAL 0.8 MG/DL (0.3-1.2); CALCIUM LEVEL 10.8 MG/DL (8.3-10.6); CHOLESTEROL RISK RATIO 3.24 (<5); CREATININE FOR GFR 1.89 MG/DL (0.70-1.30); GLOMERULAR FILTRATION RATE 38.1 (>49); HDL CHOLESTEROL 43.4 MG/DL (>40); LDL CHOLESTEROL 77.6 MG/DL (<100); NON-HDL-C 97.6 MG/DL; POTASSIUM SERUM 4.6 MMOL/L (3.5-5.1); THYROID STIMULATING HORMONE 1.923 uIU/ML (0.55-4.78); TOTAL PROTEIN 6.8 G/DL (5.7-8.2)
== END ==
LOC: M WUC 09:55
PROVIDERS: ATTEND Internal Medicine
DX: I50.9 Heart failure, unspecified (principal); E03.9 Hypothyroidism, unspecified; E78.2 Mixed hyperlipidemia; E11.9 Type 2 diabetes mellitus without complications; E55.9 Vitamin D deficiency, unspecified

== ENCOUNTER → 2024-01-24 | Outpatient (CLI) | payer OTHER ==
[2024-01-24 14:52] LABS: MEAN CORPUSCULAR HEMOGLOBIN 30.6 pg (27.0-33.0); MEAN CORPUSCULAR VOLUME 92.8 fl (80.0-96.0); PLATELET COUNT, AUTOMATED 293 10^3/uL (150-450); RED BLOOD COUNT 6.07 10^6/uL (4.30-6.10); WHITE BLOOD COUNT 18.7 10^3/uL (4.0-10.0)
[2024-01-24 14:56] LABS: HEMATOCRIT 56.3 % (42.0-52.0); HEMOGLOBIN 18.6 g/dl (13.5-17.5)
[2024-01-24 15:16] LABS: ALBUMIN 3.5 G/DL (3.2-5.2); CALCIUM LEVEL 9.8 MG/DL (8.3-10.6); CREATININE FOR GFR 1.97 MG/DL (0.70-1.30); GLOMERULAR FILTRATION RATE 36.3 (>49); POTASSIUM SERUM 5.1 MMOL/L (3.5-5.1); TOTAL PROTEIN 6.7 G/DL (5.7-8.2)
== END ==
LOC: M WUC 11:03
PROVIDERS: ATTEND Student in an Organized Health Care Education/Training Program
DX: R05.9 Cough, unspecified (principal); R10.30 Lower abdominal pain, unspecified

== ENCOUNTER → 2024-02-01 | Outpatient (CLI) | payer OTHER ==
[2024-02-01 17:35] LABS: CREATININE FOR GFR 1.58 MG/DL (0.70-1.30); GLOMERULAR FILTRATION RATE 46.8 (>49)
== END ==
LOC: M WUC 10:35
PROVIDERS: ATTEND Internal Medicine
DX: N18.9 Chronic kidney disease, unspecified (principal); I50.9 Heart failure, unspecified; J20.9 Acute bronchitis, unspecified; J98.11 Atelectasis

== ENCOUNTER → 2024-03-31 | Outpatient (CLI) | payer OTHER ==
[2024-03-31 14:21] LABS: BASO # 0.1 10^3/uL (0.0-0.2); BASO % 0.6 % (0.0-1.0); EOS # 0.3 10^3/uL (0.0-0.5); EOS % 2.3 % (0.0-3.0); HEMATOCRIT 50.8 % (42.0-52.0); HEMOGLOBIN 16.2 g/dl (13.5-17.5); LYMPH # 1.3 10^3/uL (1.5-5.0); LYMPH % 12.5 % (24.0-44.0); MEAN CORPUSCULAR HEMOGLOBIN 29.6 pg (27.0-33.0); MEAN CORPUSCULAR HGB CONC 31.9 g/dl (32.0-36.5); MEAN CORPUSCULAR VOLUME 92.9 fl (80.0-96.0); MONO # 0.7 10^3/uL (0.0-0.8); MONO % 6.9 % (2.0-8.0); NEUTROPHILS # 8.1 10^3/uL (1.5-8.5); NEUTROPHILS % 76.2 % (36.0-66.0); PLATELET COUNT, AUTOMATED 259 10^3/uL (150-450); RED BLOOD COUNT 5.47 10^6/uL (4.30-6.10); WHITE BLOOD COUNT 10.7 10^3/uL (4.0-10.0)
[2024-03-31 14:37] LABS: HEMOGLOBIN A1c 8.1 % (4.0-6.0)
[2024-03-31 14:49] LABS: ALBUMIN 3.6 G/DL (3.2-5.2); BILIRUBIN,TOTAL 1.1 MG/DL (0.3-1.2); CALCIUM LEVEL 9.9 MG/DL (8.3-10.6); CREATININE FOR GFR 1.79 MG/DL (0.70-1.30); GLOMERULAR FILTRATION RATE 40.4 (>49); POTASSIUM SERUM 5.3 MMOL/L (3.5-5.1); TOTAL PROTEIN 6.5 G/DL (5.7-8.2)
[2024-03-31 14:51] LABS: THYROID STIMULATING HORMONE 1.406 uIU/ML (0.55-4.78)
== END ==
LOC: M WUC 11:26
PROVIDERS: ATTEND Internal Medicine
DX: N18.9 Chronic kidney disease, unspecified (principal); E03.9 Hypothyroidism, unspecified; E11.9 Type 2 diabetes mellitus without complications

== ENCOUNTER → 2024-06-22 | Outpatient (REF) | payer OTHER ==
[~2024-06-22] MED LIST changes: +GLIP-318 PO; -GLIP5TAB20 PO
[2024-06-22 13:21] LABS: CREATININE FOR GFR 1.92 MG/DL (0.70-1.30); GLOMERULAR FILTRATION RATE 37.5 (>49)
== END ==
LOC: M LABWUC 12:34
PROVIDERS: ATTEND Internal Medicine
DX: N18.9 Chronic kidney disease, unspecified (principal)

== ENCOUNTER → 2024-07-18 | Outpatient (CLI) | payer MEDICARE ==
[2024-07-18 12:12] LABS: BASO # 0.1 10^3/uL (0.0-0.2); BASO % 0.5 % (0.0-1.0); EOS # 0.2 10^3/uL (0.0-0.5); EOS % 2.5 % (0.0-3.0); HEMATOCRIT 51.3 % (42.0-52.0); HEMOGLOBIN 16.6 g/dl (13.5-17.5); LYMPH # 1.3 10^3/uL (1.5-5.0); LYMPH % 13.6 % (24.0-44.0); MEAN CORPUSCULAR HEMOGLOBIN 30.1 pg (27.0-33.0); MEAN CORPUSCULAR HGB CONC 32.4 g/dl (32.0-36.5); MEAN CORPUSCULAR VOLUME 92.9 fl (80.0-96.0); MONO # 0.7 10^3/uL (0.0-0.8); MONO % 7.2 % (2.0-8.0); NEUTROPHILS # 7.3 10^3/uL (1.5-8.5); PLATELET COUNT, AUTOMATED 220 10^3/uL (150-450); RED BLOOD COUNT 5.52 10^6/uL (4.30-6.10); WHITE BLOOD COUNT 9.7 10^3/uL (4.0-10.0)
[2024-07-18 12:14] LABS: ALBUMIN 3.8 G/DL (3.2-5.2); BILIRUBIN,TOTAL 0.7 MG/DL (0.3-1.2); CALCIUM LEVEL 9.9 MG/DL (8.3-10.6); CHOLESTEROL RISK RATIO 2.51 (<5); CREATININE FOR GFR 1.94 MG/DL (0.70-1.30); HDL CHOLESTEROL 43.4 MG/DL (>40); LDL CHOLESTEROL 49.4 MG/DL (<100); NON-HDL-C 65.6 MG/DL; POTASSIUM SERUM 4.9 MMOL/L (3.5-5.1); TOTAL PROTEIN 6.8 G/DL (5.7-8.2)
[2024-07-18 12:15] LABS: THYROID STIMULATING HORMONE 2.008 uIU/ML (0.55-4.78)
[2024-07-18 12:30] LABS: HEMOGLOBIN A1c 7.8 % (4.0-6.0)
== END ==
LOC: M WUC 09:02
PROVIDERS: ATTEND Internal Medicine
DX: I50.9 Heart failure, unspecified (principal); E78.5 Hyperlipidemia, unspecified; E11.9 Type 2 diabetes mellitus without complications; E03.9 Hypothyroidism, unspecified

== ENCOUNTER → 2024-09-20 | Outpatient (REF) | payer MEDICARE ==
[2024-09-20 15:18] LABS: ALT/SGPT 19.0 U/L (7.0-40); AST/SGOT 19.0 U/L (<34); CALCIUM LEVEL 9.9 MG/DL (8.3-10.6); CARBON DIOXIDE LEVEL 29.0 MMOL/L (20-31); CHLORIDE LEVEL 104.0 MMOL/L (98-107); CREATININE FOR GFR 1.89 MG/DL (0.70-1.30); GLOMERULAR FILTRATION RATE 38.2 (>49); POTASSIUM SERUM 4.4 MMOL/L (3.5-5.1); SODIUM LEVEL 144.0 MMOL/L (136-145)
== END ==
LOC: M LABWUC 14:27
PROVIDERS: ATTEND Nurse Practitioner Acute Care
DX: N17.9 Acute kidney failure, unspecified (principal)

== ENCOUNTER → 2024-10-23 | Outpatient (CLI) | payer MEDICARE ==
[2024-10-23 12:34] LABS: BASO # 0.0 10^3/uL (0.0-0.2); BASO % 0.5 % (0.0-1.0); EOS # 0.2 10^3/uL (0.0-0.5); EOS % 2.1 % (0.0-3.0); LYMPH # 0.8 10^3/uL (1.5-5.0); LYMPH % 10.3 % (24.0-44.0); MONO # 0.6 10^3/uL (0.0-0.8); MONO % 7.1 % (2.0-8.0); NEUTROPHILS # 6.4 10^3/uL (1.5-8.5); NEUTROPHILS % 79.8 % (36.0-66.0); PLATELET COUNT, AUTOMATED 209 10^3/uL (150-450)
[2024-10-23 13:13] LABS: ALT/SGPT 19.0 U/L (7.0-40); AST/SGOT 20.0 U/L (<34); CALCIUM LEVEL 8.9 MG/DL (8.3-10.6); CARBON DIOXIDE LEVEL 28.0 MMOL/L (20-31); CHLORIDE LEVEL 104.0 MMOL/L (98-107); CHOLESTEROL LEVEL 99.0 MG/DL (<200); CHOLESTEROL RISK RATIO 2.45 (<5); CREATININE FOR GFR 1.83 MG/DL (0.70-1.30); GLOMERULAR FILTRATION RATE 39.7 (>49); LDL CHOLESTEROL 45.3 MG/DL (<100); NON-HDL-C 58.7 MG/DL; POTASSIUM SERUM 4.9 MMOL/L (3.5-5.1); SODIUM LEVEL 142.0 MMOL/L (136-145); TRIGLYCERIDES LEVEL 67.0 MG/DL (<150)
[2024-10-24 15:36] LABS: ESTIMATED AVERAGE GLUCOSE 174.0 MG/DL (60-110)
== END ==
LOC: M WUC 10:20
PROVIDERS: ATTEND Internal Medicine
DX: E11.9 Type 2 diabetes mellitus without complications (principal); E03.9 Hypothyroidism, unspecified; N17.9 Acute kidney failure, unspecified

== ENCOUNTER → 2024-10-23 | Outpatient (CLI) | payer MEDICARE ==
[2024-10-23 12:47] LABS: ALT/SGPT 18.0 U/L (7.0-40); AST/SGOT 20.0 U/L (<34); CALCIUM LEVEL 9.6 MG/DL (8.3-10.6); CARBON DIOXIDE LEVEL 29.0 MMOL/L (20-31); CHLORIDE LEVEL 105.0 MMOL/L (98-107); CREATININE FOR GFR 1.82 MG/DL (0.70-1.30); GLOMERULAR FILTRATION RATE 40.0 (>49); POTASSIUM SERUM 5.1 MMOL/L (3.5-5.1); SODIUM LEVEL 144.0 MMOL/L (136-145)
== END ==
LOC: M WUC 10:23
PROVIDERS: ATTEND Nurse Practitioner Acute Care
DX: N17.9 Acute kidney failure, unspecified (principal)

== ENCOUNTER → 2025-01-17 | Outpatient (CLI) | payer MEDICARE ==
[~2025-01-17] MED LIST changes: -COLC0.6T47 PO; +COLC0.6T53 PO
[2025-01-17 12:38] LABS: ALT/SGPT 34.0 U/L (7.0-40); AST/SGOT 29.0 U/L (<34); CALCIUM LEVEL 10.0 MG/DL (8.3-10.6); CARBON DIOXIDE LEVEL 31.0 MMOL/L (20-31); CHLORIDE LEVEL 104.0 MMOL/L (98-107); CHOLESTEROL LEVEL 110.0 MG/DL (<200); CHOLESTEROL RISK RATIO 2.28 (<5); CREATININE FOR GFR 1.81 MG/DL (0.70-1.30); GLOMERULAR FILTRATION RATE 40.2 (>49); LDL CHOLESTEROL 47.7 MG/DL (<100); NON-HDL-C 61.9 MG/DL; POTASSIUM SERUM 4.9 MMOL/L (3.5-5.1); SODIUM LEVEL 142.0 MMOL/L (136-145); TRIGLYCERIDES LEVEL 71.0 MG/DL (<150)
[2025-01-17 12:47] LABS: BASO # 0.1 10^3/uL (0.0-0.2); BASO % 0.6 % (0.0-1.0); EOS # 0.2 10^3/uL (0.0-0.5); EOS % 1.4 % (0.0-3.0); LYMPH # 1.6 10^3/uL (1.5-5.0); LYMPH % 15.0 % (24.0-44.0); MONO # 0.8 10^3/uL (0.0-0.8); MONO % 7.2 % (2.0-8.0); NEUTROPHILS # 7.9 10^3/uL (1.5-8.5); NEUTROPHILS % 75.6 % (36.0-66.0); PLATELET COUNT, AUTOMATED 217 10^3/uL (150-450)
[2025-01-17 13:28] LABS: ESTIMATED AVERAGE GLUCOSE 157.0 MG/DL (60-110)
== END ==
LOC: M WUC 09:39
PROVIDERS: ATTEND Internal Medicine
DX: N18.9 Chronic kidney disease, unspecified (principal); E07.9 Disorder of thyroid, unspecified

== ENCOUNTER → 2025-02-07 | Outpatient (CLI) | payer MEDICARE ==
[2025-02-07 11:32] LABS: BASO # 0.0 10^3/uL (0.0-0.2); BASO % 0.4 % (0.0-1.0); EOS # 0.1 10^3/uL (0.0-0.5); EOS % 0.8 % (0.0-3.0); LYMPH # 1.5 10^3/uL (1.5-5.0); LYMPH % 13.7 % (24.0-44.0); MONO # 0.9 10^3/uL (0.0-0.8); MONO % 8.0 % (2.0-8.0); NEUTROPHILS # 8.2 10^3/uL (1.5-8.5); NEUTROPHILS % 76.7 % (36.0-66.0); PLATELET COUNT, AUTOMATED 202 10^3/uL (150-450)
[2025-02-07 12:36] LABS: IRON (FE) 77.0 UG/DL (65-175); PERCENT SATURATION 26.4 % (19.7-50.0)
== END ==
LOC: M WUC 02-06 08:35 → M LAB 10:58
PROVIDERS: ATTEND Internal Medicine
DX: D75.1 Secondary polycythemia (principal); N18.9 Chronic kidney disease, unspecified; E83.10 Disorder of iron metabolism, unspecified; E11.22 Type 2 diabetes mellitus with diabetic chronic kidney disease